=== PATIENT | male | born 1965 | race Caucasian/White ===

== ENCOUNTER → 2019-02-21 12:33 | Outpatient (CLI) | payer SELFPAY ==
[2014-09-11 16:24] VITALS: BMI 21.6
--- NOTE | 2019-02-21 12:40 | CT_ITS ---
STUDY: CT CHEST WITHOUT CONTRAST REASON FOR EXAM: Male, 53 years old. Coronary calcium score, Over read RADIATION DOSAGE (If Supplied By Facility): CTDIvol = ( 12.19 ) mGy, DLP = ( 219.42 ) mGycm TECHNIQUE: Transaxial imaging was performed without the administration of intravenous contrast material. Individualized dose optimization techniques were used for this CT. COMPARISON: None. FINDINGS: Upper abdomen, body wall soft tissues, osseous structures, mediastinal contents exhibits no acute process. Mild generalized hyperlucency of the lungs consistent with air trapping, COPD. No acute pulmonary process is evident within the [id number]. There is minimal bibasilar bronchial wall thickening, likely chronic inflammatory. Normal heart size without pericardial effusion. Nondilated aorta. Nondilated pulmonary arteries. The right and left coronary arteries each emerge from the appropriate coronary sinus with right coronary dominance to the PDA. Conventional branching anatomy. There is a single tiny focus of calcification in the proximal LAD, no other visible calcified plaque. CT/Limited Chest CT w/CCTA IMPRESSION: Single small focus of calcification in the proximal LAD. Normal coronary artery branching anatomy. COPD. Electronically Signed: Jacobo Whitfield MD at 14:04 EDT Tel , Service support ,
[2019-02-21 12:44] VITALS: BP 132/66; PULSE 61; RESP 18; O2SAT 98; BMI 22.3
--- NOTE | 2019-02-25 10:30 | CA.SCORE ---
Calcium Scoring Date of Study:: 02/21/19 Coronary Calcium Scoring: High-resolution Computed Tomographic imaging of the chest was performed on [02/21/2019], with particular attention paid to the coronary arteries. Images from the examination were analyzed for the presence and extent of coronary artery calcification , using coronary calcium quantification software. The patient tolerated the procedure well and there were no complications. The results of the coronary calcification analysis are provided below. - Findings Left Main (LM): 0 Left Anterior Descending (LAD): 0 Left Circumflex (LCX): 0 Right Coronary Artery (RCA): 0 Total Agatston Score: 0 Percentile Rankin Calcium Scoring Interpretation: 0 No identifiable atherosclerotic plaque. Very low cardiovascular disease risk. <5% chance of presence coronary artery disease A Negative Examination 1-10 Minimal Plaque burden. Significant coronary artery disease very unlikely. 11-100 Mild plaque burden. Likely mild or minimal coronary atherosclerosis. 101-400 Moderate plaque burden Moderate non-obstructive coronary artery disease highly likely. Over 400 Extensive plaque burden. High likelihood of at least one significant coronary stenosis (>50% diameter) The total calcium score (0) is below the 25th percentile for men between the ages of 55 and 59. (Exact percentile calculated to be 0%; this means 0% of the population is a similar calcium score and 99% of the population is a higher calcium score than this patient.) A full evaluation of cardiac risk should include an assessment of all conventional risk factors, and the scores and percentile rankings reported herein should be evaluated in this context.
== END ==
PROVIDERS: Family Provider Internal Medicine; PCP Internal Medicine; Referring Provider Internal Medicine; Visit Provider Internal Medicine
DX: E78.5 Hyperlipidemia, unspecified (principal); Z82.49 Family history of ischemic heart disease and other diseases of the circulatory system
CPT/HCPCS: 75571; 76380

== ENCOUNTER → 2020-09-03 12:04 | Outpatient (CLI) | payer BC, SELFPAY ==
[2019-02-21 12:44] VITALS: BMI 22.3
--- NOTE | 2020-09-03 12:07 | RAD_ITS ---
STUDY: X-RAY CHEST REASON FOR EXAM: Male, 54 years old. COUGH TECHNIQUE: PA and lateral views of the chest. COMPARISON: Comparison is made with prior examination dated 09/11/2014. FINDINGS: There is hyperinflation of the lungs consistent with chronic obstructive lung disease (COPD). There is no demonstrated pleural abnormality. Normal size heart. Normal mediastinum and cy. Normal visualized pulmonary arteries. Normal visualized aortic arch and descending thoracic aorta. There is demineralization of the osseous structures. Normal visualized ribs, clavicles, and shoulders. There is no demonstrated abnormality of the visualized soft tissue structures of the upper abdomen. RAD/Chest PA and Lateral IMPRESSION: Hyperinflation. COPD. Electronically Signed: Chon Cornejo MD at 15:20 EST , Service support ,
== END ==
PROVIDERS: PCP Internal Medicine; Referring Provider Internal Medicine; Visit Provider Internal Medicine
DX: J44.9 Chronic obstructive pulmonary disease, unspecified (principal)
CPT/HCPCS: 71046

== ENCOUNTER → 2021-04-06 | Outpatient (CLI) | payer BC, SELFPAY | END | disposition home or self-care (01) | LOC: LABSPEC 10:28 | PROVIDERS: PCP Internal Medicine; Referring Provider Internal Medicine; Visit Provider Internal Medicine | DX: Z20.822 Contact with and (suspected) exposure to COVID-19 (principal) | CPT/HCPCS: 87635; U0005; U0003 ==

== ENCOUNTER → 2021-04-08 | Outpatient (CLI) | payer BC, SELFPAY | END | disposition home or self-care (01) | LOC: LABSPEC 09:57 | PROVIDERS: PCP Internal Medicine; Referring Provider Internal Medicine; Visit Provider Internal Medicine | DX: Z20.822 Contact with and (suspected) exposure to COVID-19 (principal) | CPT/HCPCS: 87635; U0005; U0003 ==

== ENCOUNTER → 2025-04-03 | Outpatient (CLI) | payer BC, SELFPAY ==
--- NOTE | 2025-04-03 15:32 | MRI_ITS ---
PROCEDURE: UPPER EXT JOINT ONLY(ROUTINE) 04/03/2025 REASON FOR EXAM: ABNORMAL PLAIN XRAY OF RT WRIST TECHNIQUE: Procedure Code: MRIUEJ Modality: MR Procedure: UPPER EXT JOINT ONLY(ROUTINE) Multiplanar and multisequence images were obtained without IV contrast administration. COMPARISON: COMPARISON: FINDINGS: Ligaments and tendons: No extensor tendon abnormality. No flexor tendon abnormality. Diffusely torn scapholunate ligament with widened scapholunate interval. No lunatotriquetral ligament tear. No tear of the triangular fibrocartilage with intact attachment sites. Bones and soft tissues: Dorsal tilt of the lunate with horizontal scaphoid positioning, compatible with dorsal intercalated segment instability. Periarticular bone edema about the radial-scaphoid articulation, with marginal osseous ridging and joint space narrowing with chondral thinning. Distal radioulnar, radiocarpal and midcarpal joint effusions. Arthrosis and small effusion at the triquetral-pisiform joint. Mild proximal migration of the capitate. Mild arthrosis at the 1st carpometacarpal joint with effusion. Mild arthrosis at the triscaphe joint. No evidence of fracture. No soft tissue mass, cyst or abnormal fluid collection. No median nerve abnormality. Degenerative changes and mild deformities of the radial aspect of the lunate in the anterior capitate, which could indicate previous traumatic injuries. No evidence of osteonecrosis. MRI/Upper Ext Joint Only(Routine) IMPRESSION: Diffusely torn scapholunate ligament with widened scapholunate interval and ali gnment suggesting dorsal intercalated segment instability. This contributes to proximal capitate migration. Arthrosis with chondral thinning and periarticular bone edema about the radial- scaphoid articulation. Mild arthrosis at the 1st carpometacarpal joint and the triscaphe joint. Arthrosis at the triquetral-pisiform joint. Multiple joint effusions. Reading Location: [facility]
== END | disposition home or self-care (01) ==
LOC: MRI 15:23
PROVIDERS: PCP Internal Medicine; Referring Provider Internal Medicine; Visit Provider Internal Medicine
DX: R93.6 Abnormal findings on diagnostic imaging of limbs (principal)
CPT/HCPCS: 73221

== ENCOUNTER → 2025-04-15 | Outpatient (CLI) | payer BC, SELFPAY ==
--- NOTE | 2025-04-15 12:45 | ECHOD_ITS ---
Reason For Study Reason For Study: ABNORMAL SCREENING CARDIAC CT Procedure This was a 2D Doppler, Color Flow transthoracic echocardiogram. Exam performed in department. Left Ventricle Normal LV size. Left ventricular systolic function is normal. The left ventricular ejection fraction is 65 %. No regional wall motion abnormalities noted. Right Ventricle Normal RV size. The right ventricle is normal in size, function, and thickness. Atria Normal left atrium. Normal right atrium. Mitral Valve Normal mitral valve. Tricuspid Valve Normal tricuspid valve. Mild (1+) tricuspid valve insufficiency. Pulmonary artery systolic pressure is 24 mmHg. Aortic Valve Trisinus/trileaflet aortic valve. Pulmonic Valve Normal pulmonic valve. Great Vessels Normal aortic root. The pulmonary artery is normal size. Inferior vena cava collapse with respiration. Pericardium/Pleural No pericardial effusion. MMode/2D Measurements & Calculations LVIDd: 4.6 cm IVSd: 1.0 cm Ao root diam: 3.3 cm LVIDs: 2.9 cm LVPWd: 1.0 cm RVDd: 3.2 cm FS: 36.5 % LAV(MOD-bp): 51.2 ml LVAd ap4: 29.2 cm2 LVAd ap2: 29.9 cm2 LAV(MOD-bp) Indexed: 27.0 ml/m2 LVLd ap4: 8.4 cm LVLd ap2: 8.6 cm LAV(MOD-sp2): 64.3 ml EDV(MOD-sp4): 83.5 ml EDV(MOD-sp2): 85.6 ml LAV(MOD-sp4): 41.2 ml EDV(sp4-el): 86.7 ml EDV(sp2-el): 87.8 ml LVAs ap4: 14.3 cm2 LVAs ap2: 15.6 cm2 LVLs ap4: 6.5 cm LVLs ap2: 7.3 cm ESV(MOD-sp4): 26.2 ml ESV(MOD-sp2): 29.7 ml ESV(sp4-el): 26.6 ml ESV(sp2-el): 28.6 ml EF(MOD-sp4): 68.6 % EF(MOD-sp2): 65.3 % EF(sp4-el): 69.4 % SV(MOD-sp4): 57.3 ml SV(MOD-sp2): 56.0 ml SV(sp4-el): 60.1 ml SI(MOD-sp4): 30.2 ml/m2 SI(MOD-sp2): 29.5 ml/m2 LA A4 area: 17.2 cm2 LA dimension(2D): 3.0 cm RA A4 area: 15.6 cm2 TAPSE: 2.7 cm Time Measurements MV dec time: 0.20 sec Doppler Measurements & Calculations MV E max edi: 77.8 cm/sec Lat Peak E' Edi: 16.3 cm/sec Med Peak E' Edi: 11.0 cm/sec MV A max edi: 67.0 cm/sec E/E' lat: 4.8 E/E' med: 7.1 MV E/A: 1.2 MV V2 max: 86.8 cm/sec MV P1/2t max edi: 85.7 cm/sec Ao V2 max: 147.1 cm/sec MV max P.0 mmHg MV P1/2t: 75.2 msec Ao max P.7 mmHg MV V2 mean: 43.5 cm/sec Ao V2 mean: 99.4 cm/sec MV mean P.90 mmHg MV dec slope: 333.6 cm/sec2 Ao mean P.4 mmHg MV V2 VTI: 27.8 cm MVA(P1/2t): 2.9 cm2 Ao V2 VTI: 31.1 cm AV (velocity ratio): 0.92 LV V1 max: 133.0 cm/sec PA V2 max: 99.2 cm/sec PI end-d edi: 99.1 cm/sec LV V1 max P.1 mmHg LV V1 mean P.6 mmHg LV V1 mean: 88.8 cm/sec LV V1 VTI: 28.5 cm TR max edi: 229.5 cm/sec TR max P.2 mmHg ECHO/Echo Complete Interpretation Summary Normal LV size. Left ventricular systolic function is normal. The left ventricular ejection fraction is 65 %. Doppler studies, color flow and spectral analysis demonstrates no significant r egurgitant or stenotic jets. Structurally normal valves. Ordering Physician: Tayler Parr Referring Physician: Tayler Parr Performed By: Nannette Mcginnis RDCS, RVT
== END | disposition home or self-care (01) ==
PROVIDERS: PCP Internal Medicine; Referring Provider Internal Medicine; Visit Provider Internal Medicine
DX: R93.1 Abnormal findings on diagnostic imaging of heart and coronary circulation (principal); I07.1 Rheumatic tricuspid insufficiency
CPT/HCPCS: 93306

== ENCOUNTER 2025-05-31 11:38 | Emergency (ER) | payer BC, SELFPAY ==
[2025-05-31] VITALS (15 sets, daily range): BP systolic 119–157; BP diastolic 70–101; PULSE 54–149; RESP 14–18; TEMP 36.4; O2SAT 98–100; BMI 23.5
--- NOTE | 2025-05-31 11:45 | EKG12_ITS ---
Test Reason : TACHY Blood Pressure : */* mmHG Vent. Rate : 146 BPM Atrial Rate : 146 BPM P-R Int : 142 ms QRS Dur : 106 ms QT Int : 368 ms P-R-T Axes : * 113 199 degrees QTcB Int : 573 ms Critical Test Result: High HR Sinus tachycardia RSR' or QR pattern in V1 suggests right ventricular conduction delay Inferior infarct , age undetermined Baseline artifact Abnormal ECG Confirmed by Anthony Krishna ([id number]), art editor ALEJO SHELLEY ([id number]) on 06/01/2025 8:23:35 AM Referred By: RODY Confirmed By: Anthony Krishna
--- NOTE | 2025-05-31 11:57 | RAD_ITS ---
PROCEDURE: CHEST 1 VIEW (PORTABLE) 05/31/2025 REASON FOR EXAM: PALPITATIONS TECHNIQUE: Frontal view of the chest. COMPARISON: Frontal chest, 07/07/2022. FINDINGS: The lungs are clear. The heart borders mediastinum and pulmonary vascular pattern are normal. The visualized bowel gas pattern is normal. There are no bony abnormalities. RAD/Chest 1 View (Portable) IMPRESSION: No evidence of acute cardiopulmonary pathology. Reading Location: [id number]
[2025-05-31 12:07] LABS: Hematocrit 50.7 % (40-54); Hemoglobin 16.3 g/dL (13.0-16.5); Immature Granulocytes Count 0.040 X10^3/uL (0.0-0.0); Mean Corp Hgb Conc 32.1 g/dL (32-36); Mean Corpuscular Volume 94.1 fL (80-94); Mean Platelet Vol. 9.5 fl (6.2-12.0); NRBC Flagged by Analyzer 0 % (0-5); Platelet Count 327 K/mm3 (150-450); RBC Distribution Width CV 13.2 % (11.6-14.6); RBC Distribution Width SD 46.2 fl (35.1-43.9); Red Blood Count 5.39 M/mm3 (4.6-6.2); White Blood Count 9.2 K/mm3 (4.4-11.0)
[2025-05-31] MEDS: Adenosine 6 MG/2 ML Syringe IV (12:09)
--- OUTSIDE RECORDS SUMMARY | 2025-05-31 12:09 | XMS RPT_ITS | CCD ---
Author Organization [facility] Care Team Providers Care Counter Stitcher Name Role Phone Meghana Lanier Unavailable Jewell Mendozasea Unavailable Unavailable Ortiz Hdez Unavailable Unavailable Wily, Cally L Unavailable Unavailable Unavailable Unavailable Meghana Lanier Unavailable TRUDY Taylor Unavailable Unavailable Wily, Cally L Unavailable Unavailable Unavailable Unavailable Kevan Julienn L Unavailable Unavailable TRUDY Taylor Unavailable Unavailable Jewell Mendozasea Unavailable Unavailable Ortiz Hdez Unavailable Unavailable Meghana Lanier MD Unavailable TRUDY Taylor LPN Unavailable Unavailable Wily RNCally Unavailable Unavailable Unavailable Unavailable Meghana Lanier MD Unavailable [phone] Manimmanuel AG, Marina Unavailable Unavailable Bubba AG, Kayela Unavailable Unavailable Brittany Nieto MA Unavailable Unavailable Genny Gallegos LPN Unavailable Unavailable Mercy Gutiérrez Unavailable Unavailable Dr. Mercy Gutiérrez Unavailable Meghana Lanier MD Primary Care Provider [phone] Rosalia SMITH , Mark Poe Unavailable Meghana Lanier MD Attending Unavailable Meghana Lanier MD Consulting Unavailable Meghana Lanier MD Primary Care Provider [phone] Dr. Meghana Lanier MD Primary Care Provider [phone] Dr. Ye Conrad MD Attending Provider SELINA ZIEGLER Referring Unavailable MEGHANA LANIER Primary Care Unavailable SELINA ZIEGLER Attending Unavailable MEGHANA LANIER Primary Care Unavailable MERCY GUTIÉRREZ Referring Unavailable BONEZZI, MEGHANA M Primary Care Unavailable BONEZZI, MEGHANA M Primary Care Unavailable SELINA ZIEGLER Attending Unavailable MERCY GUTIÉRREZ Referring Unavailable Keshav SMITH, Dr. Lester Primary Care Physician [place] SMITH, Dr. Belcher Attending Physician Keshav SMITH, Dr. Lester Attending Physician [phone] Keshav SMITH, Dr. Lester Referring Provider Sebastien Spangler MD Unavailable NONE, NONE Unavailable Unavailable Meghana Lanier MD Unavailable Bonezzi, Meghana Primary Care Unavailable Bonezzi, Meghana Attending Unavailable Bonezzi, Meghana Referring Unavailable Bonezzi, Meghana Attending Unavailable Bonezzi, Meghana Referring Unavailable Bonezzi, Meghana Primary Care Unavailable Bonezzi, Meghana Primary Care Unavailable [place] Ye Attending Unavailable Bonezzi, Meghana Primary Care Unavailable [place], [place] Attending Unavailable Allergies Allergy Classification Reported Allergen(s) Allergy Type Date of Onset Reaction(s) Facility (15 sources) Grass pollen; Translations: [GRASS POLLEN] Propensity to adverse reactions 6 Shortness of Breath [facility] (15 sources) House dust mite; Translations: [DUST MITES] Propensity to adverse reactions 6 Other: See Comments [facility] (15 sources) Tree; Translations: [TREES] Propensity to adverse reactions 6 Shortness of Breath [facility] (10 sources) animal dander [Other] Propensity to adverse reactions 6 [facility] (10 sources) molds [Other] Propensity to adverse reactions 6 [facility] (5 sources) Mold Extract; Translations: [MOLD] Drug Allergy 4 Shortness of Breath [facility] (5 sources) Animal Dander; Translations: [ANIMAL DANDER] Drug Allergy 4 Shortness of Breath [facility] Medications Current Medications Medication Drug Class(es) Dates Sig (Normalized) Sig (Original) [id number] actuat albuterol 0.09 mg/actuat metered dose inhaler (20 sources) beta2-Adrenergic Agonist Start: 06-12-2022 take 1-2 puff(s) by mouth every six hours albuterol HFA (PROVENTIL HFA, VENTOLIN HFA) 90 mcg/actuation inhaler inhale 1 to 2 puffs by mouth and INTO THE LUNGS every 6 hours if needed 06/12/2022 Active Start: 06-12-2022 ProAir HFA 90 mcg/actuation inhalation HFA Aerosol with Adapter 1 or 2 puffs q 6 hours prn for 0 days Quantity: 1 {Each} Refills: 2 Ordered: 12-Jul-2022 Meghana Lanier MD, MD, Dana M Start : 12-Jul-2022 Active Start: 09-23-2019 ProAir HFA 108 (90 Base) MCG/ACT Inhalation Aerosol Solution 1 or 2 puffs q 6 hours prn for 0 days Quantity: 1 {Inhaler} Refills: 2 Ordered: 23-Sep-2019 Meghana Lanier MD, MD, Dana M Start : 23-Sep-2019 Active Start: 09-23-2019 ProAir HFA 108 (90 Base) MCG/ACT Inhalation Aerosol Solution 1 or 2 puffs q 6 hours prn for 0 days Quantity: 1 {Inhaler} Refills: 2 Ordered: 23-Sep-2019 Meghana Lanier MD, MD, Dana M Start : 23-Sep-2019 Active Start: 08-03-2017 take 1-2 puff(s) by inhalation every six hours as needed ProAir HFA 108 (90 Base) MCG/ACT Inhalation Aerosol Solution 1-2 puffs q 6 hours prn for 0 days Quantity: 1 {Inhaler} Refills: 2 Ordered: 03-Aug-2017 Meghana Lanier MD, MD, Dana M Start : 03-Aug-2017 Active Comment on above: inhale 1 to 2 puffs by mouth and INTO THE LUNGS every 6 hours if needed cetirizine hydrochloride 10 mg oral capsule (20 sources) Histamine-1 Receptor Antagonist Start: 09-11-2014 take 1 capsule by mouth once daily Start: 08-01-2006 CETIRIZINE 10 MG TAB Indications: 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 90 6 08/01/2006 Active Comment on above: Take one(1) tablet d tatum at bedtime. 30 actuat fluticasone furoate 0.2 mg/actuat dry powder inhaler (20 sources) Corticosteroid Start: 02-18-20 take 1 puff(s) by inhalation once daily fluticasone furoate (ARNUITY ELLIPTA) 200 mcg/actuation inhaler Inhale 1 Puff as instructed once daily. 1 Each 02/18/2024 Active Start: 01-24-2023 take 1 puff(s) by in halation once daily fluticasone furoate (ARNUITY ELLIPTA) 100 mcg/actuation inhaler Indications: Moderate persistent asthma without complication Inhale 1 Puff as instructed once daily. 1 Each 01/24/2023 Active Start: 09-04-2022 End: 02-18-2024 take 1 puff(s) by inhalation once daily fluticasone furoate (ARNUITY ELLIPTA) 100 mcg/actuation inhaler Indications: Moderate persistent asthma without complication Inhale 1 Puff as instructed once daily. 1 Each 02/18/2024 02/18/2024 Discontinued (Changing Therapy/Dosage Form) Start: 07-12-2022 take 2 spray(s) nasa l route once daily fluticasone propionate 50 mcg/actuation intranasal spray, suspension 2 sprays Suspension each nostril qd for 0 days Quantity: 1 {Suspension} Refills: 3 Ordered: 12-Jul-2022 Keshav SMITH, Meghana Lanier MD, Meghana Maravilla Start : 12-Jul-2022 Active Start: 03-06-2013 fluticasone (F LONASE) 50 mcg/actuation nasal spray Use 1 [place] in the nose once daily. 03/06/2013 Active Start: 03-06-2013 take 2 spray(s) nasa l route once daily FLUTICASONE PROPIONATE, 50MCG/ACT (Nasal Suspension) 2 sprays Suspension each nostril qd for 0 days Quantity: 1 {Suspension} Refills: 3 Ordered: 09-Oct-2014 Neetu Whatley Start : 06-Mar-2013 Active take 1 puff(s) by [facility] once daily Arnuity Ellipta 200 mcg/actuation powder for inhalation INHALE 1 PUFF BY MOUTH ONCE DAILY. active Callie Fulton AT [facility] Comment on above: Inhale 1 Puff as ins tructed once daily. Use 1 [place] in the n ose once daily. montelukast 10 mg oral tablet (20 sources) Leukotriene Receptor Antagonist Start: take 1 tablet by mouth once daily montelukast (SINGULAIR) 10 mg tablet Take 10 mg by mouth once daily. 06/12/2022 Active Start: 01-21-2022 take 1 tablet by cecilia th once daily Singulair 10 MG Oral Tablet 1 (one) Tablet QD for 0 days Quantity: 30 {Tablet} Refills: 3 Ordered: 21-Jan-2022 Meghana Lanier MD, MD, Dana M Start : 21-Jan-2022 Active Start: 06-03-2021 take 1 tablet by cecilia th once daily Singulair 10 MG Oral Tablet 1 (one) Tablet QD for 0 days Quantity: 30 {Tablet} Refills: 6 Ordered: 03-Jun-2021 Meghana Lanier MD, MD, Dana M Start : 03-Jun-2021 Active Start: 03-05-2020 take 1 tablet by cecilia th once daily Singulair 10 MG Oral Tablet 1 (one) Tablet QD for 0 days Quantity: 30 {Tablet} Refills: 6 Ordered: 24-Sep-2020 Meghana Lanier MD, MD, Dana M Start : 24-Sep-2020 Active Start: 02-10-2020 take 1 tablet by cecilia th once daily Singulair 10 MG Oral Tablet 1 (one) Tablet QD for 0 days Quantity: 30 {Tablet} Refills: 6 Ordered: 10-Feb-2020 Meghana Lanier MD, MD, Dana M Start : 10-Feb-2020 Active Start: 11-23-2017 End: 11-22-2018 take 1 tablet by mouth once daily Singulair 10 MG Oral Tablet 1 (one) Tablet QD for 0 days Quantity: 30 {Tablet} Refills: 5 Ordered: 23-Nov-2017 Meghana Lanier MD, MD, Dana M Start : 23-Nov-2017 End : 22-Nov-2018 Discontinued Comment on above: Take 10 mg by mouth once daily. nirmatrelvir tablet 300 mg (150 mg x 2) and ritonavir tablet 100 mg in a dose pack (PAXLOVID) (1 source) Start: End: nirmatrelvir tablet 300 mg (150 mg x 2) and ritonavir tablet 100 mg in a dose pack (PAXLOVID) Administer TWO pink nirmatrelvir 150 mg tablets and ONE white ritonavir 100 mg tablet for a total of three tablets twice daily. 30 tablet 04/11/2024 04/16/2024 Active rosuvastatin calcium 5 mg oral tablet (5 sources) HMG-CoA Reductase Inhibitor Start: take 1 tablet by mouth once rosuvastatin (CRESTOR) 5 mg tablet Take 1 tablet by mouth every afternoon. 02/06/2024 Active Crestor 5 mg tab let .25mg active Callie Fulton AT [facility] Completed/Discontinued Medications Medication Drug Class(es) Dates Sig (Normalized) Sig (Original) amoxicillin 875 mg / clavulanate 125 mg oral tablet (20 sources) Penicillin-class Antibacterial Start: 08-30-2012 End: 07-15-2013 take 1 tablet by mouth twice daily AUGMENTIN, 875-125MG (Oral Tablet) 1 Tablet BID for 0 days Quantity: 20 {Tablet} Refills: 0 Ordered: 15-Jul-2013 Start : 30-Aug-2012 End : 15-Jul-2013 Inactive azithromycin 250 mg oral tablet (20 sources) Macrolide Antimicrobial Start: 10-24-2022 Zithromax Z-Michael 250 mg oral tablet 1 (one) Tablet uad for 0 days Quantity: 1 {Packet} Refills: 0 Ordered: 24-Oct-2022 Meghana Lanier MD, MD, Dana M Start : 24-Oct-2022 Active Start: 08-13-2022 End: 09-01-2022 Zithromax Z-Michael 250 mg oral tablet 1 (one) Tablet uad for 0 days Quantity: 1 {Packet} Refills: 0 Ordered: 01-Sep-2022 Marina Mendoza CMA Start : 13-Aug-2022 End : 01-Sep-2022 Inactive Start: 07-05-2022 End: 07-12-2022 Zithromax Z-Michael 250 mg oral tablet 1 (one) Tablet uad for 0 days Quantity: 1 {Packet} Refills: 0 Ordered: 12-Jul-2022 El CHERYGenny Start : 05-Jul-2022 End : 12-Jul-2022 Inactive Start: 05-27-2022 End: 06-12-2022 Zithromax Z-Michael 250 mg oral tablet 1 (one) Tablet uad for 0 days Quantity: 1 {Packet} Refills: 0 Ordered: 27-May-2022 Meghana Lanier MD, MD, Dana M Start : 27-May-2022 End : 12-Jun-2022 Discontinued Start: 08-08-2019 End: 12-12-2019 Zithromax Z-Michael 250 MG Oral Tablet 1 (one) Tablet uad for 0 days Quantity: 1 {Package} Refills: 0 Ordered: 12-Dec-2019 TRUDY Taylor LPN Start : 08-Aug-2019 End : 12-Dec-2019 Inactive breath-actuated 120 actuat beclomethasone dipropionate 0.08 mg/actuat metered dose inhaler (20 sources) Corticosteroid Start: 08-13-2022 End: 08-13-2022 take 2 puff(s) by inhalation twice daily Qvar RediHaler 80 mcg/actuation inhalation HFA Aerosol, Breath Activated 2 (two) Puff bid for 0 days Quantity: 1 {Each} Refills: 3 Ordered: 13-Aug-2022 Meghana Lanier MD, MD, Dana M Start : 13-Aug-2022 End : 13-Aug-2022 Discontinued Start: 07-12-2022 take 2 puff(s) by in halation twice daily Qvar RediHaler 80 mcg/actuation inhalation HFA Aerosol, Breath Activated 2 (two) Puff bid for 0 days Quantity: 1 {Each} Refills: 3 Ordered: 12-Jul-2022 Meghana Lanier MD, MD, Dana M Start : 12-Jul-2022 Active Start: 07-29-2021 take 2 puff(s) by in halation twice daily Qvar RediHaler 80 MCG/ACT Inhalation Aerosol Breath Activated 2 (two) Puff bid for 0 days Quantity: 1 {Each} Refills: 3 Ordered: 29-Jul-2021 Keshav SMITH, Meghana Jett MD Start : 29-Jul-2021 Active Start: 09-03-2020 take 2 puff(s) by in halation twice daily Qvar RediHaler 80 MCG/ACT Inhalation Aerosol Breath Activated 2 (two) Puff twice daily for next 2 weeks for 0 days Quantity: 1 {Inhalation} Refills: 3 Ordered: 03-Sep-2020 Keshav SMITH, Meghana Jett MD Start : 03-Sep-2020 Active Start: 07-09-2020 take 1 puff(s) by in halation twice daily Qvar RediHaler 80 MCG/ACT Inhalation Aerosol Breath Activated 1 (one) Puff twice daily for 0 days Quantity: 1 {Inhaler} Refills: 3 Ordered: 09-Jul-2020 Keshav SMITH, Meghana Jett MD Start : 09-Jul-2020 Active Start: 08-08-2019 take 1 puff(s) by in halation twice daily Qvar RediHaler 80 MCG/ACT Inhalation Aerosol Breath Activated 1 (one) Puff twice daily for 0 days Quantity: 1 {Inhaler} Refills: 3 Ordered: 08-Aug-2019 Keshav SMITH, Meghana Jett MD Start : 08-Aug-2019 Active Start: 09-30-2018 take 1 puff(s) by in halation twice daily Qvar RediHaler 80 MCG/ACT Inhalation Aerosol Breath Activated 1 (one) Puff twice daily for 0 days Quantity: 1 {Inhaler} Refills: 3 Ordered: 30-Sep-2018 Meghana Lanier MD, MD, Dana M Start : 30-Sep-2018 Active Start: 06-02-2016 End: 09-30-2018 Qvar 80 MCG/ACT Inhalation A erosol Solution 2 (two) Aerosol Soln Aerosol Soln q am for 0 days Quantity: 1 {Inhaler} Refills: 5 Ordered: 04-Aug-2016 TRUDY Taylor LPN Start : 02-Jun-2016 End : 30-Sep-2018 Discontinued Comments: This order discontinued per [facility]. Start: 06-02-2016 End: 09-30-2018 Qvar 80 MCG/ACT Inhalation A erosol Solution 2 (two) Aerosol Soln Aerosol Soln q am for 0 days Quantity: 1 {Inhaler} Refills: 5 Ordered: 04-Aug-2016 TRUDY Taylor LPN Start : 02-Jun-2016 End : 30-Sep-2018 Discontinued Comments: This order discontinued per [facility]. Start: 06-02-2016 Qvar 80 MCG/AC T Inhalation Aerosol Solution 2 (two) Aerosol Soln Aerosol Soln bid for 0 days Quantity: 1 {Inhaler} Refills: 5 Ordered: 04-Aug-2016 Keshav SMITH, Meghana Lanier MD, Meghana Maravilla Start : 02-Jun-2016 Active Comments: This order discontinued per [facility]. Start: 09-11-2014 take 1 puff(s) by in halation twice daily Start: 09-11-2014 take 1 puff(s) by in halation twice daily Beclomethasone Diprop Inhaler (Qvar 80 Mcg Inhaler) 1 PUFF inhaler Active 1 NMA INHALATION TWICE A DAY September 11, 2014 12:00am Start: 09-11-2014 Beclomethasone Diprop Inhaler (Qvar 80 Mcg Inhaler) 1 PUFF inhaler Active 1 PUFF INHALATION TWICE A DAY September 10, 2014 11:00pm End: 10-30-2022 beclomethasone dipropionate (QVAR INHALATION) Inhale as instructed. 0 10/30/2022 Discontinued (Course of therapy completed) beclomethasone d ipropionate (QVAR INHALATION) Inhale as instructed. 0 Active Comment on above: This order discontin ued per -. Inhale as instructed . 24 hr buPROPion hydrochloride 150 mg extended release oral tablet (20 sources) Aminoketone Start: 012 End: 023 take 1 tablet by mouth once daily WELLBUTRIN XL, 150MG (Oral Tablet Extended Release 24 Hour) 1 Tablet ER 24HR daily for 0 days Quantity: 30 {Tablet_ER_24HR} Refills: 6 Ordered: 15-Aug-2013 Cary Patten RN Start : 07-May-2012 End : 15-Aug-2013 Inactive Comment on above: Take 150 mg by mouth once daily. Centrum Silver 400-250 mcg oral tablet,chewable (8 sources) take 1 tablet by mouth once daily Centrum Silver 400-250 mcg oral tablet,chewable daily (400-250 mcg) Active cholecalciferol 0.125 mg oral capsule (20 sources) Vitamin D Start: 018 take 1 capsule by mouth in the morning cholecalciferol (vitamin D3) 125 mcg (5,000 unit) oral capsule 1 (one) Capsule Capsule in am for 0 days Quantity: 30 {Capsule} Refills: 0 Ordered: 12-Jul-2022 Keshav SMITH, Meghana Lanier MD, Meghana Maravilla Start : 12-Jul-2022 Active codeine phosphate 2 mg/ml / guaiFENesin 20 mg/ml oral solution (20 sources) Opioid Agonist Start: End: take 1 [tsp_us] by mouth once daily at bedtime as needed CHERATUSSIN AC, 100-10MG/5ML (Oral Syrup) 1 (one) Teaspoon qhs prn for 0 days Quantity: 6 {Ounce} Refills: 0 Ordered: 15-Aug-2013 Cary Patten RN Start : 15-Jul-2013 End : 15-Aug-2013 Inactive esomeprazole 40 mg delayed release oral capsule (20 sources) Proton Pump Inhibitor End: take 1 capsule by mouth once daily NEXIUM, 40MG (Oral Capsule Delayed Release) 1 QD for 0 days Refills: 0 Ordered: 02-Apr-2008 Cary Patten RN End : 02-Apr-2008 Inactive 14 actuat fluticasone propionate 0.1 mg/actuat / salmeterol 0.05 mg/actuat dry powder inhaler (20 sources) Corticosteroid, beta2-Adrenergic Agonist End: 008 ADVAIR DISKUS, 100-50MCG/DOSE (Inhalation Miscellaneous) 1 QD for 0 days Refills: 0 Ordered: 02-Apr-2008 Cary Patten RN End : 02-Apr-2008 Inactive End: 04-02-2008 ADVAIR DISKUS, 100-50MCG/DOS E (Inhalation Miscellaneous) 1 QD for 0 days Refills: 0 Ordered: 02-Apr-2008 Cary Patten RN End : 02-Apr-2008 Inactive End: 04-02-2008 ADVAIR DISKUS, 100-50MCG/DOS E (Inhalation Miscellaneous) 1 QD for 0 days Refills: 0 Ordered: 02-Apr-2008 Cary Patten LPN End : 02-Apr-2008 Inactive 120 actuat formoterol fumarate 0.005 mg/actuat / mometasone furoate 0.2 mg/actuat metered dose inhaler (10 sources) Corticosteroid, beta2-Adrenergic Agonist Start: 08-13-2022 End: 09-01-2022 take 2 puff(s) by inhalation twice daily Dulera 200-5 mcg/actuation inhalation HFA Aerosol with Adapter 2 puffs 2 times per day for 0 days Quantity: 1 {Each} Refills: 3 Ordered: 13-Aug-2022 Meghana Lanier MD, MD, Dana M Start : 13-Aug-2022 End : 01-Sep-2022 Discontinued lansoprazole 30 mg delayed release oral capsule (20 sources) Proton Pump Inhibitor End: 04-02-2008 take 1 capsule by mouth once daily PREVACID, 30MG (Oral Capsule Delayed Release) 1 QD for 0 days Refills: 0 Ordered: 02-Apr-2008 Cary Patten RN End : 02-Apr-2008 Inactive levoFLOXacin 500 mg oral tablet (20 sources) Quinolone Antimicrobial Start: 01-14-2021 End: 07-12-2022 take 1 tablet by mouth once daily Levaquin 500 mg oral tablet 1 Tablet QD for 0 days Quantity: 10 {Tablet} Refills: 0 Ordered: 12-Jul-2022 Meghana Lanier MD, MD, Meghana Maravilla Start : 14-Jan-2021 End : 12-Jul-2022 Discontinued Comments: Discontinued by Medication vendor. Start: 07-23-2020 End: 09-03-2020 take 1 tablet by mouth once daily Levaquin 500 MG Oral Tablet 1 Tablet QD for 0 days Quantity: 10 {Tablet} Refills: 0 Ordered: 03-Sep-2020 TRUDY Taylor LPN Start : 23-Jul-2020 End : 03-Sep-2020 Inactive Comments: Mail order. Start: 07-15-2020 take 1 tablet by cecilia once daily Levaquin 500 MG Oral Tablet 1 Tablet QD for 0 days Quantity: 10 {Tablet} Refills: 0 Ordered: 15-Jul-2020 Meghana Lanier MD, MD, Dana M Start : 15-Jul-2020 Active Comments: Mail order. Start: 05-25-2019 End: 08-05-2019 take 1 tablet by mouth once daily Levaquin 500 MG Oral Tablet 1 Tablet QD for 0 days Quantity: 10 {Tablet} Refills: 0 Ordered: 05-Aug-2019 TRUDY Taylor LPN Start : 25-May-2019 End : 05-Aug-2019 Inactive Comments: Mail order. Start: 11-22-2018 take 1 tablet by cecilia th once daily Levaquin 500 MG Oral Tablet 1 Tablet QD for 0 days Quantity: 10 {Tablet} Refills: 0 Ordered: 22-Nov-2018 Meghana Lanier MD, MD, Dana M Start : 22-Nov-2018 Active Comments: Mail order. Start: 08-04-2016 End: 07-03-2017 take 1 tablet by mouth once daily Levaquin 500 MG Oral Tablet 1 Tablet Tablet QD for 0 days Quantity: 10 {Tablet} Refills: 0 Ordered: 03-Jul-2017 TRUDY Taylor Start : 04-Aug-2016 End : 03-Jul-2017 Inactive Comments: Mail order. Comment on above: Mail order. Discontinued by [facility] vendor. metoprolol tartrate 50 mg oral tablet (20 sources) beta-Adrenergic Charly Start: 07-09-2020 End: 06-12-2022 metoprolol tartrate 50 mg oral tablet uad Tablet 1 @ 6pm night before test and 1 @ 7am day of test for 0 days Quantity: 2 {Tablet} Refills: 0 Ordered: 09-Jul-2020 Meghana Lanier MD, MD, Dana M Start : 09-Jul-2020 End : 12-Jun-2022 Discontinued Start: 11-26-2018 Metoprolol Tar trate 50 MG Oral Tablet uad Tablet 1 @ 6pm night before test and 1 @ 7am day of test for 0 days Quantity: 2 {Tablet} Refills: 0 Ordered: 26-Nov-2018 Meghana Lanier MD, MD, Dana M Start : 26-Nov-2018 Active mometasone furoate 0.05 mg/actuat metered dose nasal spray (20 sources) Corticosteroid Start: 03-13-2014 End: 06-02-2016 Nasonex 50 MCG/ACT Nasal Suspension 2 (two) Puff Puff daily for 0 days Quantity: 1 {Bottle} Refills: 0 Ordered: 02-Jun-2016 TRUDY Taylor LPN Start : 13-Mar-2014 End : 02-Jun-2016 Inactive Start: 03-13-2014 End: 06-02-2016 Nasonex 50 MCG/ACT Nasal Calli pension 2 (two) Puff Puff daily for 0 days Quantity: 1 {Bottle} Refills: 0 Ordered: 02-Jun-2016 TRUDY Taylor Start : 13-Mar-2014 End : 02-Jun-2016 Inactive omeprazole 40 mg delayed release oral capsule (5 sources) Proton Pump Inhibitor Start: 10-19-2012 End: 10-30-2022 take 1 capsule by mouth once daily Omeprazole (PRILOSEC) 40 mg capsule Take 1 capsule by mouth once daily. 30 capsule 2 10/19/2012 10/30/2022 Discontinued (Discontinued by Patient) Comment on above: Take 1 capsule by [facility] once daily. pantoprazole 40 mg delayed release oral tablet (20 sources) Proton Pump Inhibitor Start: 10-09-2014 End: 08-03-2017 Pantoprazole Sodium 40 MG Oral Tablet Delayed Release [address] bid for 30 days Quantity: 60 {Tablet} Refills: 3 Ordered: 04-Aug-2016 Meghana Lanier MD, MD, Dana M Start : 09-Oct-2014 End : 03-Aug-2017 Discontinued Paxlovid (300/100) 20 x 150 MG & 10 x 100MG Oral Tablet Therapy Pack (2 sources) Start: 04-20-2022 Paxlovid (300/ 100) 20 x 150 MG & 10 x 100MG Oral Tablet Therapy Pack use as directed per instructions in pack for 0 days Quantity: 1 {Packet} Refills: 0 Ordered: 20-Apr-2022 Keshav SMITH, Meghana Jett MD Start : 20-Apr-2022 Active Paxlovid (300/100) 20 x 150 MG & 10 x 100MG Oral Tablet Therapy Pack (16 sources) Start: 04-20-2022 End: 06-12-2022 Paxlovid (300/100) 20 x 150 MG & 10 x 100MG Oral Tablet Therapy Pack use as directed per instructions in pack for 0 days Quantity: 1 {Packet} Refills: 0 Ordered: 20-Apr-2022 Meghana Lanier MD, MD, Dana M Start : 20-Apr-2022 End : 12-Jun-2022 Discontinued Start: 04-20-2022 Paxlovid (300/ 100) 20 x 150 MG & 10 x 100MG Oral Tablet Therapy Pack use as directed per instructions in pack for 0 days Quantity: 1 {Packet} Refills: 0 Ordered: 20-Apr-2022 Meghana Lanier MD, MD, Dana M Start : 20-Apr-2022 Active predniSONE 20 mg oral tablet (20 sources) Start: 10-24-2022 take 2 tablets by mouth once daily, then take 1 tablet by mouth once daily, then take 1 tablet by mouth once daily predniSONE 20 mg oral tablet 1 (one) Tablet uad for 0 days Quantity: 17 {Tablet} Refills: 0 Ordered: 24-Oct-2022 Meghana Lanier MD, MD, Dana M Start : 24-Oct-2022 Active Comments: 2 tabs qd x 5 days1 tabs qd x 5 days1/2 tabs qd x 5 days Start: 08-13-2022 End: 09-01-2022 take 2 tablets by mouth once daily, then take 1 tablet by mouth once daily, then take 1 tablet by mouth once daily predniSONE 20 mg oral tablet 1 (one) Tablet uad for 0 days Quantity: 17 {Tablet} Refills: 0 Ordered: 01-Sep-2022 Marina Mendoza CMA Start : 13-Aug-2022 End : 01-Sep-2022 Inactive Comments: 2 tabs qd x 5 days1 tabs qd x 5 days1/2 tabs qd x 5 days Start: 07-05-2022 take 2 tablets by mo ut once daily, then take 1 tablet by mouth once daily, then take 1 tablet by mouth once daily predniSONE 20 mg oral tablet 1 (one) Tablet uad for 0 days Quantity: 17 {Tablet} Refills: 0 Ordered: 12-Jul-2022 Meghana Lanier MD, MD, Dana M Start : 12-Jul-2022 Active Comments: 2 tabs qd x 5 days1 tabs qd x 5 days1/2 tabs qd x 5 days Start: 06-12-2022 take 2 tablets by mo uth once daily, then take 1 tablet by mouth once daily, then take 0.5 tablet by mouth once daily predniSONE 20 mg oral tablet 1 (one) Tablet uad for 0 days Quantity: 17 {Tablet} Refills: 0 Ordered: 12-Jun-2022 Meghana Lanier MD, MD, Dana M Start : 12-Jun-2022 Active Comments: 2 a d for 5 d, 1 a d for 5 d, 1/2 a d for 4 d Start: 05-28-2022 take 2 tablets by mo uth once daily, then take 1 tablet by mouth once daily, then take 0.5 tablet by mouth once daily predniSONE 20 mg oral tablet 1 (one) Tablet uad for 0 days Quantity: 11 {Tablet} Refills: 0 Ordered: 28-May-2022 Meghana Lanier MD, MD, Dana M Start : 28-May-2022 Active Comments: 2 a d for 3 d, 1 a d for 3 d, 1/2 a d for 4 d Start: 07-29-2021 End: 08-08-2021 take 2 tablets by mouth once daily, then take 1 tablet by mouth once daily, then take 0.5 tablet by mouth once daily predniSONE 20 MG Oral Tablet 1 (one) Tablet uad for 10 days Refills: 0 Ordered: 29-Jul-2021 Meghana Lanier MD, MD, Dana M Start : 29-Jul-2021 End : 08-Aug-2021 Inactive Comments: 2 a d for 3 d, 1 a d for 3 d, 1/2 a d for 4 d Start: 09-03-2020 End: 09-13-2020 take 2 tablets by mouth once daily, then take 1 tablet by mouth once daily, then take 0.5 tablet by mouth once daily predniSONE 20 MG Oral Tablet 1 (one) Tablet uad for 10 days Refills: 0 Ordered: 03-Sep-2020 Meghana Lanier MD, MD, Dana M Start : 03-Sep-2020 End : 13-Sep-2020 Inactive Comments: 2 a d for 3 d, 1 a d for 3 d, 1/2 a d for 4 d Start: 08-08-2019 End: 08-24-2019 take 2 tablets by mouth once daily, then take 1 tablet by mouth once daily, then take 0.5 tablet by mouth once daily predniSONE 20 MG Oral Tablet 1 (one) Tablet uad for 16 days Refills: 0 Ordered: 08-Aug-2019 Meghana Lanier MD, MD, Dana M Start : 08-Aug-2019 End : 24-Aug-2019 Inactive Comments: 2 a d for 5 d, 1 a d for 5d, 1/2 a d for 6 d Start: 11-22-2018 End: 12-08-2018 take 2 tablets by mouth once daily, then take 1 tablet by mouth once daily, then take 0.5 tablet by mouth once daily predniSONE 20 MG Oral Tablet 1 (one) Tablet uad for 16 days Refills: 0 Ordered: 22-Nov-2018 Meghana Lanier MD, MD, Dana M Start : 22-Nov-2018 End : 08-Dec-2018 Inactive Comments: 2 a d for 5 d, 1 a d for 5d, 1/2 a d for 6 d Start: 03-20-2014 End: 05-27-2014 take 1 tablet by mouth once daily PREDNISONE, 20MG (Oral Tablet) 1 (one) Tablet qd for 0 days Quantity: 3 {Tablet} Refills: 0 Ordered: 27-May-2014 Wily GOTTLIEBKevanfernanda Almanza Start : 20-Mar-2014 End : 27-May-2014 Inactive Comment on above: 2 a d for 5 d, 1 a d for 5d, 1/2 a d for 6 d 2 a d for 3 d, 1 a d for 3 d, 1/2 a d for 4 d 2 a d for 5 d, 1 a d for 5 d, 1/2 a d for 4 d 2 tabs qd x 5 days1 tabs qd x 5 days1/2 tabs qd x 5 days Probiotic 10 billion cell oral capsule (8 sources) take 10 capsules by mouth once daily Probiotic 10 billion cell oral capsule daily (10 billion cell) Active triamcinolone acetonide 0.055 mg/actuat metered dose nasal spray (20 sources) Corticosteroid Start: 05-23-20 11 End: 05-23-20 11 take 2 spray(s) nasal route once daily NASACORT AQ, 55MCG/ACT (Nasal Aerosol Solution) 2 sprays each nostril Aerosol Soln QD for 0 days Quantity: 1 {Aerosol_Soln} Refills: 6 Ordered: 23-May-2011 TRUDY Taylor LPN Start : 23-May-2011 End : 23-May-2011 Inactive Start: 05-23-2011 End: 05-23-2011 take 2 spray(s) nasal route once daily NASACORT AQ, 55MCG/ACT (Nasal Aerosol Solution) 2 sprays each nostril Aerosol Soln QD for 0 days Quantity: 1 {Aerosol_Soln} Refills: 6 Ordered: 23-May-2011 TRUDY Taylor LPN Start : 23-May-2011 End : 23-May-2011 Inactive Start: 05-23-2011 End: 05-23-2011 take 2 spray(s) nasal route once daily NASACORT AQ, 55MCG/ACT (Nasal Aerosol Solution) 2 sprays each nostril Aerosol Soln QD for 0 days Quantity: 1 {Aerosol_Soln} Refills: 6 Ordered: 23-May-2011 TRUDY Taylor Start : 23-May-2011 End : 23-May-2011 Inactive Problems Active Problems Problem Classification Problem Date Documented Date Episodic/Chronic Abdominal pain (20 sources) Acute abdominal pain; Translations: [Left upper quadrant pain] Resolved : 07-03-19 18 07-03-2017 Episodic Comment on above: diverticular pain -- ?? vs some form of colitis ??- still doesnt explain supreficial rib pain - but pain is definitely more in abdomen now Allergic reactions (3 sources) Allergic disposition; Translations: [Allergy status to unspecified drugs, medicaments and biological substances status] Onset: 03-20-20 25 02-18-2024 Episodic Anxiety disorders (20 sources) Acute stress disorder; Translations: [Stress reaction] Resolved : 12-12-19 20 12-07-2017 Chronic Comment on above: deal some issue with dtr having issues and change in life groups and collegueas better with new [employer] and dtr leaving so not have the stress. with covid talk bout all the stressors financial, family dynamic talkbout nonmedication ways to help the anxiety. he does not have red flags right now. talk about when to call. if not eating, not sleeping or sleep to much, usign etoh, SI, not able to function at work. he has some postive thinking now going on that the office is now openning He has more pistive outlook. so decided not to start medications, no CBT at this point Asthma (20 sources) Mild intermittent asthma; Translations: [Acute exacerbation of asthma] Onset: 09-05-19 Resolved : 09-02-1912-07-2017 Chronic Comment on above: no doign inhaler reg ualrly may do better on pill. do singulair right now doign bett er on the higher dose steriod inhaler did help. will lower to 2 in am and 1 in night. if have night signs and symptoms willincrease back. once blooming over will back down. right now doing well . now need rescue. now not infectious s eem exposure to dust and [place] better if not to bas deb off prednisone to breo Asthma (20 sources) Asthma Coronary atherosclerosis and other heart disease (2 sources) Coronary atherosclerosis and other heart disease Disorders of lipid metabolism (20 sources) Hypercholesterolemia; Translations: [Mild hypercholesterolemia] 12-07-2017 Chronic Comment on above: check CCTA to see if needs statin erright now primary preventation it is better over e years ? exercise more. Esophageal disorders (20 sources) Gastroesophageal reflux disease; Translations: [GERD (gastroesophageal reflux disease)] 12-07-2017 Chronic Comment on above: stable Fluid and electrolyte disorders (20 sources) Angioedema; Translations: [Idiopathic angioedema] Onset: 07-10-19 06 12-07-2017 Episodic Comment on above: had idiopathic. work edup at [facility]. on zyretic no reoccur Gastritis and duodenitis (20 sources) Acute gastritis; Translations: [Gastritis, acute] Resolved : 07-03-19 18 07-03-2017 Episodic Immunizations and screening for infectious disease (20 sources) Need for prophylactic vaccination and inoculation against influenza; Translations: [Exposure to Measles virus] Resolved : 09-02-1911-22-2018 Episodic Comment on above: [place] area of outbreaks and dentitst unsure if had second dose Inflammation; infection of eye (except that caused by tuberculosis or sexually transmitteddisease) (14 sources) Chronic allergic conjunctivitis; Translations: [Other chronic allergic conjunctivitis] Onset: 07-10-19 06 07-10-2005 Chronic Malaise and fatigue (20 sources) Tired; Translations: [Tired] Resolved : 01-11-20 21 12-12-2019 Episodic Comment on above: think related to str ess. Mood disorders (20 sources) Depression; Translations: [Depressive disorder] Resolved : 07-03-19 18 07-03-2017 Chronic Nonspecific chest pain (20 sources) Chest pain; Translations: [Chest pain] Resolved : 07-03-19 18 07-03-2017 Episodic Comment on above: his symptoms are aty pical and at this point insurance not covering his stress test - and he doesnt wish to do - he will have followup with cardio and if his sx dont get better with bid ppi then call and we will do us of gb Nutritional deficiencies (20 sources) Vitamin D deficiency; Translations: [Vitamin D insufficiency] 11-22-2018 Chronic Osteoarthritis (2 sources) Scapholunate advanced collapse; 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, right wrist] Onset: 04-24-20 25 04-24-2025 Chronic Other ear and sense organ disorders (20 sources) Impacted cerumen; Translations: [Cerumen impaction] Resolved : 07-03-19 18 07-03-2017 Episodic Other gastrointestinal disorders (20 sources) Constipation; Translations: [Constipation] Resolved : 07-03-19 18 07-03-2017 Episodic Comment on above: new onset adult with belly pain LLQ Other hematologic conditions (2 sources) Other abnormality of red blood cells; Translations: [Abnormal RBC indices] 12-07-2017 Episodic Other hematologic conditions (20 sources) Red blood cell finding; Translations: [Abnormal RBC indices] 09-24-2020 Episodic Other infections; including parasitic (1 source) Personal history of other infectious and parasitic diseases; Translations: [History of COVID-19] Episodic Other injuries and conditions due to external causes (20 sources) Idiopathic angioedema; Translations: [Idiopathic angioedema, subsequent encounter] 09-24-2020 Episodic Comment on above: had idiopathic. work edup at [facility]. on zyretic no reoccur Other liver diseases (10 sources) Elevated total bilirubin; Translations: [Total bilirubin, elevated] 12-12-2019 Chronic Other liver diseases (20 sources) Elevated total bilirubin; Translations: [Total bilirubin, elevated] 01-06-2021 Episodic Other lower respiratory disease (20 sources) Cough; Translations: [Cough] Resolved : 01-11-2007-03-2017 Episodic Comment on above: which may be asthma related he doesnt wish to do pfts think asthma and sin us making worse. 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 etoh talk about rolling back etoh and measure. some nsaids Other upper respiratory disease (20 sources) Allergic rhinitis; Translations: [Allergic rhinitis] Onset: 07-10-1912-07-2017 Chronic Comment on above: had allergy testing. leaves, cat, dust mold. on zyretic flonase and Qvar not get as many infections since onsistent with regiman. has singulair at home if hit bad Other upper respiratory disease (20 sources) Nasal sinus problem; Translations: [Sinus drainage] 09-03-2020 Episodic Comment on above: he has now yelllow a ndinto infection caught from dtr. started this week he always goes into sinus infection. Other upper respiratory disease (1 source) Polyp of nasal cavity and/or nasal sinus; Translations: [Nasal polyp, unspecified] 08-14-2023 Episodic Other upper respiratory infections (20 sources) Sinusitis; Translations: [Sinusitis] Resolved : 07-03-19 18 07-03-2017 Chronic Other upper respiratory infections (20 sources) Sinusitis; Translations: [Acute sinusitis] Resolved : 07-03-19 18 07-03-2017 Episodic Residual codes; unclassified (20 sources) Body mass index (BMI) 22.0-22.9, adult; Translations: [Body mass index (BMI) 21.0-21.9, adult] Resolved : 09-02-19 23 12-07-2017 Episodic Residual codes; unclassified (20 sources) Chill; Translations: [Chills] Resolved : 07-03-19 18 07-03-2017 Episodic Residual codes; unclassified (20 sources) Family history of ischemic heart disease; Translations: [FAMILY HISTORY OF ISCHEMIC HEART DISEASE (Renamed from Fam hx-ischem heart disease)] 12-07-2017 Episodic Comment on above: CCTA 0 8-19 Residual codes; unclassified (20 sources) Family history of malignant neoplasm of prostate; Translations: [Family history of prostate cancer] 12-07-2017 Episodic Residual codes; unclassified (20 sources) Current non-smoker ; Translations: [Current nonsmoker (Renamed from Current non-smoker)] 09-24-2020 Episodic Residual codes; unclassified (18 sources) Family history of prostate cancer; Translations: [FAMILY HISTORY OF MALIGNANT NEOPLASM, PROSTATE (V16.42)] Episodic Residual codes; unclassified (20 sources) Non-smoker; Translations: [Current nonsmoker (Renamed from Current non-smoker)] 09-01-2022 Episodic Respiratory failure; insufficiency; arrest (adult) (20 sources) Respiratory failure; insufficiency; arrest (adult) Unclassified (20 sources) Abdominal pain, acute, left lower quadrant Unclassified (20 sources) Unclassified (20 sources) Current non-smoker ; Translations: [Current nonsmoker (Renamed from Current non-smoker)] 12-07-2017 Unclassified (20 sources) Patient encounter status; Translations: [Encounter for routine history and physical exam for male] Resolved : 08-03-19 18 12-07-2017 Comment on above: 06-02-16 [facility] Katharine physical: PSA 1-18 WNL, 6 CIT=, immunizations are up to date, colonoscopy age 47, PHQ-9=1 (minimal) hep C screen good. walking regularly 11-22-18 [facility] Katharine physical: PSA 4-19 WNL, 6 CIT=, immunizations are up to date, colonoscopy age 47, Hepatitis C screening negative,walking regularly saw derm sees dentist and eye dr 12-12-19 [facility] Katharine physical: PSA 5-20 WNL, immunizations are up to date, colonoscopy age 47 2012, Hepatitis C screening negative,walking regularly, dental, dermatology and eye exam are up to date. MOCA 30, [place] 87 Unclassified (20 sources) Stress reaction Unclassified (20 sources) Screening status; Translations: [Screening for prostate cancer] Resolved : 12-12-19 20 08-03-2017 Unclassified (20 sources) Mild hypercholesterolemia Unclassified (20 sources) BMI 22.0-22.9, adult; Translations: [Body mass index 20-24 - normal] 11-22-2018 Unclassified (20 sources) Abdominal pain, acute, left upper quadrant Unclassified (20 sources) Idiopathic angioedema, subsequent encounter Unclassified (20 sources) Pain in joint involving other specified sites (719.48) Unclassified (20 sources) Cerumen impaction Unclassified (20 sources) 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 Unclassified (20 sources) Gastritis, acute Unclassified (20 sources) Abnormal RBC indices; Translations: [Red blood cell finding] 11-22-2018 Unclassified (20 sources) Vitamin D insufficiency Unclassified (20 sources) Body mass index (BMI) of 21.0 to 21.9 in adult; Translations: [Body mass index 20-24 - normal] Resolved : 08-03-19 18 12-07-2017 Unclassified (20 sources) Need for tetanus booster Unclassified (20 sources) Exposure to rubeola Unclassified (20 sources) Immunity status testing Unclassified (20 sources) Total bilirubin, elevated Unclassified (8 sources) Sinus drainage Unclassified (2 sources) Elevated liver function tests Unclassified (2 sources) Elevated lipoprotein(a) Viral infection (20 sources) Disease caused by 2019-nCoV; Translations: [COVID] 04-20-2022 Episodic Past or Other Problems Problem Classification Problem Date Documented Da te Episodic/Chronic Acute bronchitis (12 sources) Acute bronchitis Headache; including migraine (20 sources) Headache; including migraine Influenza (20 sources) Influenza Nutritional deficiencies (6 sources) Disorder of vitamin D; Translations: [Vitamin D insufficiency] 12-07-2017 Episodic Residual codes; unclassified (20 sources) Needs influenza immunization; Translations: [Need for prophylactic vaccination and inoculation against influenza] Resolved: 12-12-2019 07-03-2017 Episodic Residual codes; unclassified (19 sources) Requires a tetanus booster; Translations: [Need for tetanus booster] Resolved: 07-03-2017 12-07-2017 Episodic Unclassified (20 sources) Well Male Exam (V70.0) Unclassified (20 sources) Cerumen impaction (380.4) Unclassified (20 sources) Abdominal Pain,LUQ (789.02) Unclassified (20 sources) Abdominal Pain,LLQ (789.04) Unclassified (20 sources) FAMILY HISTORY OF MALIGNANT NEOPLASM, PROSTATE (V16.42) Unclassified (20 sources) SCREENING FOR CANCER OF THE PROSTATE (V76.44) Unclassified (20 sources) Encounter for hepatitis C virus screening test for high risk patient Unclassified (20 sources) Unspecified Diagnosis Resolved: 12-12-2019 12-12-2019 Unclassified (2 sources) Encounter for observation for suspected exposure to other biological agents ruled out (Renamed from Encounter for observation for suspected exposure to other biological agent, ruled out) Unclassified (4 sources) Exposure to COVID-19 virus Results Test Name Value Interpretation Reference Range Facility Relevant diagnostic tests/la boratory data Narrativeon 04-24-2025 Fall risk assessment no NAVIN Paladion Work Phone: MEDS REVIEW Done [employer] Work Phone: MEDS REVIEWD Medications reviewed with [employer] Work Phone: MRI HX of the Right wrist o n 04/03/2025 at [facility] [employer] Work Phone: XRAY HX of the Right wrist o n 02/27/2025 at [facility] [employer]. Work Phone: Echo Completeon 04-15-[address] [facility] Cardi[facility] Services [address] [place] [address] Echo Complete 04/15/25 1253 MR#: [id number] Acct: [id number] Name: QUINTIN SAUCEDA Rep #: [id number] : 1965 59 From: Ye Conrad MD Attending Dr: Dr. Meghana Lanier MD Status: REG CLI Ordering Dr: Meghana Lanier MD Date: 04/15/25 Location: CVS Sex: M C Admitted: Reason For Study Reason For Study: ABNORMAL SCREENING CARDIAC CT Procedure This was a 2D Doppler, Color Flow transthoracic echocardiogram. Exam performed in department. Left Ventricle Normal LV size. Left ventricular systolic function is normal. The left ventricular ejection fraction is 65 %. No regional wall motion abnormalities noted. Right Ventricle Normal RV size. The right ventricle is normal in size, function, and thickness. Atria Normal left atrium. Normal right atrium. Mitral Valve Normal mitral valve. Tricuspid Valve Normal tricuspid valve. Mild (1+) tricuspid valve insufficiency. Pulmonary artery systolic pressure is 24 mmHg. Aortic Valve Trisinus/trileaflet aortic valve. Pulmonic Valve Normal pulmonic valve. Great Vessels Normal aortic root. The pulmonary artery is normal size. Inferior vena cava collapse with respiration. Pericardium/Pleural No pericardial effusion. MMode/2D Measurements Calculations LVIDd: 4.6 cm IVSd: 1.0 cm Ao root diam: 3.3 cm LVIDs: 2.9 cm LVPWd: 1.0 cm RVDd: 3.2 cm FS: 36.5 % LAV(MOD-bp): 51.2 ml LVAd ap4: 29.2 cm2 LVAd ap2: 29.9 cm2 LAV(MOD-bp) Indexed: 27.0 ml/m2 LVLd ap4: 8.4 cm LVLd ap2: 8.6 cm LAV(MOD-sp2): 64.3 ml EDV(MOD-sp4): 83.5 ml EDV(MOD-sp2): 85.6 ml LAV(MOD-sp4): 41.2 ml EDV(sp4-el): 86.7 ml EDV(sp2-el): 87.8 ml LVAs ap4: 14.3 cm2 LVAs ap2: 15.6 cm2 LVLs ap4: 6.5 cm LVLs ap2: 7.3 cm ESV(MOD-sp4): 26.2 ml ESV(MOD-sp2): 29.7 ml ESV(sp4-el): 26.6 ml ESV(sp2-el): 28.6 ml EF(MOD-sp4): 68.6 % EF(MOD-sp2): 65.3 % EF(sp4-el): 69.4 % SV(MOD-sp4): 57.3 ml SV(MOD-sp2): 56.0 ml SV(sp4-el): 60.1 ml SI(MOD-sp4): 30.2 ml/m2 SI(MOD-sp2): 29.5 ml/m2 LA A4 area: 17.2 cm2 LA dimension(2D): 3.0 cm RA A4 area: 15.6 cm2 TAPSE: 2.7 cm Time Measurements MV dec time: 0.20 sec Doppler Measurements Calculations MV E max rob: 77.8 cm/sec Lat Peak E' Rob: 16.3 cm/sec Med Peak E' Rob: 11.0 cm/sec MV A max rob: 67.0 cm/sec E/E' lat: 4.8 E/E' med: 7.1 MV E/A: 1.2 MV V2 max: 86.8 cm/sec MV P1/2t max rob: 85.7 cm/sec Ao V2 max: 147.1 cm/sec MV max P.0 mmHg MV P1/2t: 75.2 msec Ao max P.7 mmHg MV V2 mean: 43.5 cm/sec Ao V2 mean: 99.4 cm/sec MV mean P.90 mmHg MV dec slope: 333.6 cm/sec2 Ao mean P.4 mmHg MV V2 VTI: 27.8 cm MVA(P1/2t): 2.9 cm2 Ao V2 VTI: 31.1 cm AV (velocity ratio): 0.92 LV V1 max: 133.0 cm/sec PA V2 max: 99.2 cm/sec PI end-d rob: 99.1 cm/sec LV V1 max P.1 mmHg LV V1 mean P.6 mmHg LV V1 mean: 88.8 cm/sec LV V1 VTI: 28.5 cm TR max rob: 229.5 cm/sec TR max P.2 mmHg ECHO/Echo Complete Interpretation Summary Normal LV size. Left ventricular systolic function is normal. The left ventricular ejection fraction is 65 %. Doppler studies, color flow and spectral analysis demonstrates no significant regurgitant or stenotic jets. Structurally normal valves. Ordering Physician: Meghana Lanier Referring Physician: Meghana Lanier Performed By: Nannette Mcginnis, DENILSON, RVT 04/15/251658 Date Ye Conrad MD CC: Dr. Meghana Lanier MD Date Dictated: 04/15/25 1253 Date Transcribed: 04/15/251658 Insulation Nozzleman: Signed Normal [facility] Magnetic resonance imaging r eportOrdered By: Albin Granda on 04-07-2025 Study report [facility] Imaging Services [address] [place] [address] Upper Ext Joint Only(Routine) MR#: [id number] Acct: [id number] Name: QUINTIN SAUCEDA Rep #: [id number] : 1965 M 59 From: Heaven Granda MD PCP: Dr. Meghana Lanier MD Status: BOGDAN BETHEA Study:Upper Ext Joint Only(Routine) Date of Exam: 04/03/25 Exam# [id number] Ordering Dr: Meghana Lanier MD PROCEDURE: UPPER EXT JOINT ONLY(ROUTINE) 04/03/2025 REASON FOR EXAM: ABNORMAL PLAIN XRAY OF RT WRIST TECHNIQUE: Procedure Code: MRIUEJ Modality: MR Procedure: UPPER EXT JOINT ONLY(ROUTINE) Multiplanar and multisequence images were obtained without IV contrast administration. COMPARISON: COMPARISON: FINDINGS: Ligaments and tendons: No extensor tendon abnormality. No flexor tendon abnormality. Diffusely torn scapholunate ligament with widened scapholunate interval. No lunatotriquetral ligament tear. No tear of the triangular fibrocartilage with intact attachment sites. Bones and soft tissues: Dorsal tilt of the lunate with horizontal scaphoid positioning, compatible with dorsal intercalated segment instability. Periarticular bone edema about the radial-scaphoid articulation, with marginal osseous ridging and joint space narrowing with chondral thinning. Distal radioulnar, radiocarpal and midcarpal joint effusions. Arthrosis and small effusion at the triquetral-pisiform joint. Mild proximal migration of the capitate. Mild arthrosis at the 1st carpometacarpal joint with effusion. Mild arthrosis at the triscaphe joint. No evidence of fracture. No soft tissue mass, cyst or abnormal fluid collection. No median nerve abnormality. Degenerative changes and mild deformities of the radial aspect of the lunate in the anterior capitate, which could indicate previous traumatic injuries. No evidence of osteonecrosis. MRI/Upper Ext Joint Only(Routine) IMPRESSION: Diffusely torn scapholunate ligament with widened scapholunate interval and alignment suggesting dorsal intercalated segment instability. This contributes to proximal capitate migration. Arthrosis with chondral thinning and periarticular bone edema about the radial-scaphoid articulation. Mild arthrosis at the 1st carpometacarpal joint and the triscaphe joint. Arthrosis at the triquetral-pisiform joint. Multiple joint effusions. Reading Location: [facility] CC: Dr. Meghana Lanier MD ~ Insulation Nozzleman: Signed [facility] Upper Ext Joint Only(Routine )on 04-03-2025 Upper Ext Joint Only(Routine) [facility] Imaging Services [address] [place] [address] Upper Ext Joint Only(Routine) MR#: [id number] Acct: [id number] Name: QUINTIN SAUCEDA Rep #: [id number] : 1965 M 59 From: Albin slater MD PCP: Dr. Meghana Lanier MD Status: REG CLI Study: Upper Ext Joint Only(Routine) Date of Exam: Exam# [id number] Ordering Dr: Meghana Lanier MD PROCEDURE: UPPER EXT JOINT ONLY(ROUTINE) 04/03/2025 REASON FOR EXAM: ABNORMAL PLAIN XRAY OF RT WRIST TECHNIQUE: Procedure Code: MRIUEJ Modality: MR Procedure: UPPER EXT JOINT ONLY(ROUTINE) Multiplanar and multisequence images were obtained without IV contrast administration. COMPARISON: COMPARISON: FINDINGS: Ligaments and tendons: No extensor tendon abnormality. No flexor tendon abnormality. Diffusely torn scapholunate ligament with widened scapholunate interval. No lunatotriquetral ligament tear. No tear of the triangular fibrocartilage with intact attachment sites. Bones and soft tissues: Dorsal tilt of the lunate with horizontal scaphoid positioning, compatible with dorsal intercalated segment instability. Periarticular bone edema about the radial-scaphoid articulation, with marginal osseous ridging and joint space narrowing with chondral thinning. Distal radioulnar, radiocarpal and midcarpal joint effusions. Arthrosis and small effusion at the triquetral-pisiform joint. Mild proximal migration of the capitate. Mild arthrosis at the 1st carpometacarpal joint with effusion. Mild arthrosis at the triscaphe joint. No evidence of fracture. No soft tissue mass, cyst or abnormal fluid collection. No median nerve abnormality. Degenerative changes and mild deformities of the radial aspect of the lunate in the anterior capitate, which could indicate previous traumatic injuries. No evidence of osteonecrosis. MRI/Upper Ext Joint Only(Routine) IMPRESSION: Diffusely torn scapholunate ligament with widened scapholunate interval and alignment suggesting dorsal intercalated segment instability. This contributes to proximal capitate migration. Arthrosis with chondral thinning and periarticular bone edema about the radial-scaphoid articulation. Mild arthrosis at the 1st carpometacarpal joint and the triscaphe joint. Arthrosis at the triquetral-pisiform joint. Multiple joint effusions. Reading Location: [facility] CC: Dr. Meghana Lanier MD Insulation Nozzleman: Signed [facility] CNOVon 03-20-2025 CNOV Office Visit (PULMWS ) QUINTIN SAUCEDA ([id number]) 1965 M Date Time Provider Department 03/20/25 8:00 AM SELINA ZIEGLER PULMWS During your visit today, we recorded the following information about you: Pulse Weight 52/minute 73 kg Selina Ziegler APRN.[facility] 03/20/2025 8:34 AM Signed Pulmonary Medicine Patients name: Quintin Sauceda PCP: Meghana Lanier MD CC: follow-up HPI: Quintin Sauceda is a 59 year old male never smoker with PMH significant for longstanding asthma, allergies on IT in past, idiopathic angioedema/urticaria, GERD, hx COVID. KUSH 08/2024 with stable Asthma symptoms. Current therapy with Arnuity 200 and PRN Albuterol. He presents today for follow-up. Since his last visit, he reports continued control of his asthma symptoms. He continues to deny significant cough, wheezing, chest tightness, or shortness of breath. No fevers, chills, or night sweats. No recent hospitalizations or ED visits or upper respiratory infections. Rarely uses Albuterol. We discussed decreasing ICS d/t persistently controlled symptoms. Repeat nitric oxide today 69 ppb. Has significant environmental and seasonal allergies which he feels like are well controlled with Singulair, Zyrtec and Flonase. Previously received allergy shots as a child and used again nearly 20 years ago. It has previously been suggested he has follow-up with ENT regarding allergies but has not been seen d/t feeling well. PAST MEDICAL HISTORY Diagnosis Date Allergic rhinitis, cause unspecified Allergic rhinitis Angioneurotic edema not elsewhere classified Asthma GERD (gastroesophageal reflux disease) HLD (hyperlipidemia) Other chronic allergic conjunctivitis Allergic conjunctivitis Allergies: Animal Dander Shortness of Breath Dust Mites Other: See Comments Comment:Nasal congestion Grass Pollen Shortness of Breath Mold Shortness of Breath Trees Shortness of Breath Medication List Accurate as of March 20, 2025 7:04 AM. If you have any questions, ask your nurse or doctor. CONTINUE taking these medications albuterol HFA 90 mcg/actuation inhaler Commonly known as: PROVENTIL HFA, VENTOLIN HFA ARNUITY ELLIPTA 200 mcg/actuation inhaler Generic drug: fluticasone furoate Inhale 1 Puff as instructed once daily. cetirizine 10 mg tablet Commonly known as: ZYRTEC Take one(1) tablet daily at bedtime. fluticasone 50 mcg/actuation nasal spray Commonly known as: FLONASE montelukast 10 mg tablet Commonly known as: SINGULAIR rosuvastatin 5 mg tablet Commonly known as: CRESTOR DATA: I personally reviewed and analyzed all labs, radiographs and available pulmonary function testing PFT: 08/2022 Spirometry is normal. There was not a significant bronchodilator response. Review of Systems Constitutional: Negative for activity change, appetite change, fever and unexpected weight change. HENT: Negative for congestion, mouth sores and postnasal drip. Respiratory: Negative for cough, chest tightness, shortness of breath and wheezing. Cardiovascular: Negative for chest pain, palpitations and leg swelling. Allergic/Immunologic: Negative for environmental allergies. Neurological: Negative for weakness. BP (P) 118/70 Pulse (!) (P) 48 Resp (P) 14 Wt 73 kg (161 lb) SpO2 (P) 99% BMI 23.60 kg/m? Physical Exam Vitals reviewed. Constitutional: General: He is not in acute distress. Appearance: Normal appearance. He is not ill-appearing. HENT: Head: Normocephalic. Cardiovascular: Rate and Rhythm: Normal rate and regular rhythm. Heart sounds: Normal heart sounds. Pulmonary: Effort: Pulmonary effort is normal. No respiratory distress. Breath sounds: No wheezing or rhonchi. Musculoskeletal: Right lower leg: No edema. Left lower leg: No edema. Skin: General: Skin is warm and dry. Capillary Refill: Capillary refill takes less than 2 seconds. Neurological: General: No focal deficit present. Mental Status: He is alert. ASSESSMENT/PLAN: 1. Mild intermittent asthma without complication (HCC) - ICD9: 493.90, ICD10: J45.20 (primary diagnosis) - currently with controlled symptoms despite nitric oxide increased from 47 ppb in August to 69 ppb today. Discussed role of allergies and Asthma. See #2 - continue high dose Arnuity and Albuterol as needed. - Asthma education: Rinsing after each inhaled steroid use - NITRIC OXIDE, EXHALED 2. Multiple allergies - ICD9: V15.09, ICD10: Z88.9 - continue Singulair, zyrtec and Flonase - highly suggest follow-up with ENT despite controlled allergy symptoms. F/u 6 months Portions of this documentation were copied and pasted from previous office visit notes in order to provide a cohesive continuity of the history. The note has been reviewed and edited and updated as necessary. Selina Ziegler APRN.[employer] I spent a total of 20 m (more content not included)... Normal [facility] Wrist min 3 Viewson 02-28-20 Wrist min 3 Views [facility] Imaging Services [address], [place] [address] Wrist min 3 Views MR#: [id number] Acct: [id number] Name: QUINTIN SAUCEDA Rep #: [id number] : 1965 M 59 From: Tushar Galvan MD PCP: Dr. Meghana Lanier MD Status: DEP AMB Study: Wrist min 3 Views Date of Exam: 02/27/25 Exam# [id number] Ordering Dr: Meghana Lanier MD EXAM: XR Right Wrist Complete, 3 or More Views CLINICAL INDICATION: WRIST PAIN, RIGHT ATTN: BASE OF THUMB IN 1ST MCP JOINT TECHNIQUE: Frontal, lateral and oblique views of the right wrist. COMPARISON: No relevant prior studies available. FINDINGS: BONES/JOINTS: Severe degenerative change of the radiocarpal joint. Apparent widening of the scapholunate joint space concerning for ligamentous injury. No acute fracture. No dislocation. SOFT TISSUES: Unremarkable. No radiopaque foreign body. OTHER FINDINGS: Further evaluation with MRI is recommended. RAD/Wrist min 3 Views IMPRESSION: 1. Severe degenerative change of the radiocarpal joint. Apparent widening of the scapholunate joint space concerning for ligamentous injury. 2. Further evaluation with MRI is recommended. Reading Location: [facility] CC: Dr. Meghana Lanier MD Insulation Nozzleman: Signed [facility] CNOVon 09-05-2024 CNOV Office Visit (PULMWS ) QUINTIN SAUCEDA ([id number]) 1965 M Date Time Provider Department 09/05/24 8:30 AM SELINA ZIEGLER PULMWS During your visit today, we recorded the following information about you: Weight 73.9 kg Selina Ziegler, BOXING TRAINER.[employer] 09/05/2024 9:32 AM Signed Pulmonary Medicine Patients name: Quintin Sauceda PCP: Meghana Lanier MD CC: Asthma follow-up HPI: Quintin Sauceda is a 58 year old male never smoker with PMH significant for longstanding asthma, allergies on IT in past, idiopathic angioedema/urticaria, GERD with worsening of his asthma following COVID. Current therapy with Arnuity 200 and as needed Albuterol. He presents today for follow-up. [facility] 01/2024 with improved, yet persistently elevated nitric oxide at 47 ppb. Arnuity increased. Allergy assessment was recommended for possible immunotherapy. Since his last visit, he reports overall feeling well. He had COVID in April and was treated with Paxlovid with fairly mild symptoms. He has not been seen by ENT d/t feeling well. Today, patient denies any current respiratory symptoms. No cough, wheezing, SOB or nocturnal symptoms. No recent sick symptoms. No need for steroids/antibiotics since his last visit. Albuterol use is rare. Reports regular use of Singulair, Zyrtec and Flonase for his multiple allergies. FENO today remains at 47 ppb despite increase in ICS. ASTHMA CONTROL TEST Date: 09/05/2024 In the last 4 weeks, how much of the time did your asthma keep you from getting as much done at work or home that you wanted to do? None of the time (5) In the last 4 weeks, how often have you had shortness of breath? Not at all (5) In the last 4 weeks, how often did your asthma symptoms (wheezing, coughing, shortness of breath, chest tightness or pain) wake you up at night or earlier than usual? Not at all (5) In the last 4 weeks, how often have you used your rescue inhaler or nebulizer medication (such as Albuterol, Proventil, Ventolin, Maxair, Xoponex, or Primatene Mist)? Not at all (5) In the last 4 weeks, how would you rate your asthma control? Completely controlled (5) Total: more than 20 PAST MEDICAL HISTORY Diagnosis Date Allergic rhinitis, cause unspecified Allergic rhinitis Angioneurotic edema not elsewhere classified Asthma GERD (gastroesophageal reflux disease) HLD (hyperlipidemia) Other chronic allergic conjunctivitis Allergic conjunctivitis Allergies: Animal Dander Shortness of Breath Dust Mites Other: See Comments Comment:Nasal congestion Grass Pollen Shortness of Breath Mold Shortness of Breath Trees Shortness of Breath Medication List Accurate as of September 05, 2024 8:17 AM. If you have any questions, ask your nurse or doctor. CONTINUE taking these medications albuterol HFA 90 mcg/actuation inhaler Commonly known as: PROVENTIL HFA, VENTOLIN HFA ARNUITY ELLIPTA 200 mcg/actuation inhaler Generic drug: fluticasone furoate Inhale 1 Puff as instructed once daily. cetirizine 10 mg tablet Commonly known as: ZYRTEC Take one(1) tablet daily at bedtime. fluticasone 50 mcg/actuation nasal spray Commonly known as: FLONASE montelukast 10 mg tablet Commonly known as: SINGULAIR rosuvastatin 5 mg tablet Commonly known as: CRESTOR DATA: I personally reviewed and analyzed all labs, radiographs and available pulmonary function testing PFT: 08/2022 Spirometry is normal. There was not a significant bronchodilator response. Review of Systems Constitutional: Negative for activity change, appetite change and unexpected weight change. HENT: Negative for congestion, mouth sores, postnasal drip, rhinorrhea and sinus pain. Respiratory: Negative for cough, chest tightness, shortness of breath and wheezing. Cardiovascular: Negative for chest pain, palpitations and leg swelling. Neurological: Negative for weakness and headaches. BP (P) 122/80 Pulse (P) 61 Resp (P) 14 Wt 73.9 kg (163 lb) SpO2 (P) 99% BMI 23.90 kg/m? Physical Exam Vitals reviewed. Constitutional: General: He is not in acute distress. Appearance: Normal appearance. He is normal weight. He is not ill-appearing. HENT: Head: Normocephalic. Nose: No rhinorrhea. Cardiovascular: Rate and Rhythm: Normal rate and regular rhythm. Heart sounds: Normal heart sounds. Pulmonary: Effort: Pulmonary effort is normal. No respiratory distress. Breath sounds: No wheezing or rhonchi. Lymphadenopathy: Cervical: No cervical adenopathy. Skin: General: Skin is warm and dry. Capillary Refill: Capillary refill takes less than 2 seconds. Neurological: General: No focal deficit present. Mental Status: He is alert. ASSESSMENT/PLAN: 1. Mild intermittent asthma without complication - ICD9: 493.90, ICD10: J45.20 (primary diagnosis) - controlled symptoms with very rare use of Albuterol (more content not included)... Normal [facility] NITRIC OXIDE, EXHALEDon 03-0 Marina Yuan PATRICK Maynor 09/05/2024 8:11 AM RESPIRATORY THERAPY ORAL EXHALED NITRIC OXIDE SERVICE DATE: 09/05/2024 SERVICE TIME: 8:11 AM Oral Exhaled Nitric Oxide measurement: 47.0 (ppb) Normal: Adult <25 ppb, pediatric (<12 years) <20 ppb High Normal / Increased: Adult 25-50 ppb, pediatric (<12 years) 20-35 ppb Moderately raised exhaled Nitric Oxide may indicate underlying inflammation, but note that: Cold and influenza can raise exhaled Nitric Oxide and some patients have higher baseline exhaled Nitric Oxide levels than others. High: Adult >50 ppb, pediatric (<12 years) >35 ppb Indicative of ongoing eosinophilic inflammation. Symptomatic patient likely to respond to steroids. Possible causes (if already on steroids): Poor compliance, recent allergen exposure, steroid dose inadequate, and steroid resistance. Note that not all patients with high exhaled nitric oxide levels display symptoms. Oral Exhaled Nitric Oxide measurement (Previous Encounters) Test Date Oral Exhaled Nitric Oxide (ppb) 09/05/2024 47.0 (A) 02/12/2024 47.0 (A) 08/14/2023 44.0 (A) 01/24/2023 78.0 (A) 10/30/2022 87.0 (A) 09/04/2022 110.0 (A) NAME: Marina Yuan [facility] PATIENT NAME: Quintin Sauceda DATE: September 05, 2024 TIME: 8:[address] [facility]2024 [facility] QUINTIN SAUCEDA ([id number]) 1965 M Date Time Provider Department 04/11/24 CARLITOS GUTIÉRREZ During your visit today, we recorded the following information about you: Carmen Hdez LPN 04/11/2024 10:03 AM Signed Patients call into office stating that he tested positive for Covid this morning and would like paxlovid ordered to guille hernandes. Please advise and call patient at [phone]. CHERY Strickland Christine M, APRN.[employer] 04/11/2024 2:07 PM Signed Called and spoke to patients . Symptoms started yesterday with congestion and ear ache. Was exposed to friend who was Covid positive. Tested on 04/11 and was positive. No history of kidney or liver disease. Takes Crestor daily and instructed to hold while taking Paxlovid. Order sent to preferred pharmacy. Allergies As of Date: 04/11/2024 Noted Allergy Reaction ANIMAL DANDER 02/18/2024 12 - Shortness of Breath DUST MITES 07/10/2005 14 - Other: See Comments Comments: Nasal congestion GRASS POLLEN 07/10/2005 12 - Shortness of Breath MOLD 02/18/2024 12 - Shortness of Breath TREES 07/10/2005 12 - Shortness of Breath Date Reviewed: 02/18/2024 Reviewed by: Mercy Gutiérrez MD - Fully Assessed Reason for Visit: Orders [681] Patient Update [1234] Order(s):nirmatrelvir tablet 300 mg (150 mg x 2) and ritonavir tablet 100 mg in a dose pack (PAXLOVID)Administer TWO pink nirmatrelvir 150 mg tablets and ONE white ritonavir 100 mg tablet for a total of three tablets twice daily.Disp: 30 tabletRfl: 0 Prescriptions as of 04/11/2024 - nirmatrelvir tablet 300 mg (150 mg x 2) and ritonavir tablet 100 mg in a dose pack (PAXLOVID) Administer TWO pink nirmatrelvir 150 mg tablets and ONE white ritonavir 100 mg tablet for a total of three tablets twice daily. - rosuvastatin (CRESTOR) 5 mg tablet Take 1 tablet by mouth every afternoon. - fluticasone furoate (ARNUITY ELLIPTA) 200 mcg/actuation inhaler Inhale 1 Puff as instructed once daily. - fluticasone (FLONASE) 50 mcg/actuation nasal spray Use 1 [place] in the nose once daily. - montelukast (SINGULAIR) 10 mg tablet Take 10 mg by mouth once daily. - albuterol HFA (PROVENTIL HFA, VENTOLIN HFA) 90 mcg/actuation inhaler inhale 1 to 2 puffs by mouth and INTO THE LUNGS every 6 hours if needed - CETIRIZINE 10 MG TAB Take one(1) tablet daily at bedtime. Problem List As Of Date 04/11/2024 Noted Resolved ANGIONEUROTIC EDEMA [T78.3XXA] 07/10/2005 ALLERGIC RHINITIS NEC [J30.89] 07/10/2005 CHR ALLRG CONJUNCTIV NEC [H10.45] 07/10/2005 Moderate persistent asthma without complication* 3 Prescriptions ordered this encounter Disp Refills Start End NIRMATRELVIR 300 MG (150 MG X2)-SHAHID* 30 t* 0 04/11/2024 04/16/2024 Sig: Administer TWO pink nirmatrelvir 150 mg tablets and ONE white ritonavir 100 mg tablet for a total of three tablets twice daily. Encounter Status:Closed by CLICK, SELINA Maravilla on 04/11/24 Normal [facility] [place] NITRIC OXIDE, EXHALEDon - Marina Yuan RPF Maynor 02/12/2024 7:25 AM RESPIRATORY THERAPY ORAL EXHALED NITRIC OXIDE SERVICE DATE: 02/12/2024 SERVICE TIME: 7:25 AM Oral Exhaled Nitric Oxide measurement: 47.0 (ppb) Normal: Adult <25 ppb, pediatric (<12 years) <20 ppb High Normal / Increased: Adult 25-50 ppb, pediatric (<12 years) 20-35 ppb Moderately raised exhaled Nitric Oxide may indicate underlying inflammation, but note that: Cold and influenza can raise exhaled Nitric Oxide and some patients have higher baseline exhaled Nitric Oxide levels than others. High: Adult >50 ppb, pediatric (<12 years) >35 ppb Indicative of ongoing eosinophilic inflammation. Symptomatic patient likely to respond to steroids. Possible causes (if already on steroids): Poor compliance, recent allergen exposure, steroid dose inadequate, and steroid resistance. Note that not all patients with high exhaled nitric oxide levels display symptoms. Oral Exhaled Nitric Oxide measurement (Previous Encounters) Test Date Oral Exhaled Nitric Oxide (ppb) 02/12/2024 47.0 (A) 08/14/2023 44.0 (A) 01/24/2023 78.0 (A) 10/30/2022 87.0 (A) 09/04/2022 110.0 (A) NAME: Marina YuanJEFFRY PATIENT NAME: Quintin Sauceda DATE: February 12, 2024 TIME: 7:25 AM [facility] NITRIC [facility], EXHALEDon 02-1 [facility] NITRIC OXIDE, EXHALEDon 07-2 [facility] NITRIC OXIDE, EXHALEDon 05-0 [facility] NITRIC OXIDE, EXHALEDon 03-0 [facility] SPIROMETRY - BASELINE AND PO ST DILATORon 09-04-2022 FHA22-41% POST (L/S) 2.65 L/S [facility] ZXD85-09% PRE (L/S) 2.42 L/S [facility] FEV1 PRE (L) 3.60 [facility] FEV1/FVC POST (%) 72 % [facility] FEV1/FVC PRE (%) 71 % [facility] FEV1_POST (L) 3.69 [facility] FVC POST (L) 5.10 [facility] FVC PRE (L) 5.10 [facility] PEF POST (L/S) 9.04 L/S [facility] PEF PRE (L/S) 8.36 L/S [facility] IMMUNOGLOBULIN E (IgE) (8278 5)Ordered By: [employer] on 08-18-2022 IgE Qn 225 {IU/mL} Normal 6-495 [facility]; [facility] Work Phone: Comment on above: PATIENT WAS FASTINGP ERFORMED BY: [employer] [facility] [id number] BY: Seek[place]ton1447 [facility] [id number] PSA (PROSTATE SPECIFIC ANTIG EN) (V76.44)Ordered By: [employer] on 08-18-2022 Prostate specific Ag [Mass/Vol] 1.2 ng/mL Normal 0.0-4.0 [facility]; [facility] Work Phone: Comment on above: Mata ECLIA methodol ogy. .According to the [place] [employer], Serum PSA shoulddecrease and remain at undetectable levels after radicalprostatectomy. The AUA defines biochemical recurrence as an initialPSA value 0.2 ng/mL or greater followed by a subsequent confirmatoryPSA value 0.2 ng/mL or greater.Values obtained with different assay methods or kits cannot be usedinterchangeably. Results cannot be interpreted as absolute evidenceof the presence or absence of malignant disease. PATIENT WAS FASTINGP ERFORMED BY: Vativ TechnologiesCrawley [facility] [id number] BY: Seek[place]ton1447 [facility] [id number] Sputum Culture (22544)Ordere d By: [employer] on 07-06-2022 Epithelial cells.squamous LM Ql (Sput) Few Normal [facility]; [facility] Work Phone: Comment on above: PERFORMED BY: [id number] News Distribution NetworkCrawley Memorial Hospital [id number] Information: SRC:SP Microscopic observation Gram stain Nom (Sput) PCM Normal [facility]; [facility] Work Phone: Comment on above: Moderate number of g rafael positive cocci. PERFORMED BY: Avenda SystemsCrawley Memorial Hospital [id number] Information: SRC:SP WBC LM Ql (Sput) Few Normal Comprehe nsive [facility]; [facility] Work Phone: Comment on above: PERFORMED BY: Avenda SystemsCrawley [facility] Hospital [id number] Information: SRC:SP ASSAY OF LIPOPROTEIN(A) (430 00)Ordered By: [employer] on 01-06-2021 Lipoprotein a [Moles/Vol] 109.1 nmol/L Abnormal [facility]; [facility] Work Phone: Comment on above: Note: Values greater than or equal to 75.0 nmol/L may indicate an independent risk factor for CHD, but must be evaluated with caution when applied to non- populations due to the influence of genetic factors on Lp(a) across ethnicities. Test(s) 356439-LWR-K ; 151396-RJZ-W; 452524-Qvfjdhqqivaof; 737597-Wqhqfafiawn, Total; 921344-QWR-F (Total); 327055-Aycuu LDL-P; 006592-SFO Size; 988328-XZ-RP Scorewas developed and its performance characteristics determinedby [employer]. It has not been cleared or approved by the Foodand Drug Administration.PERFORMED BY: [employer] [id number] BY: Invidiolin6370 GridNetworksAdventHealth [facility] [id number] BILIRUBIN, TOTAL (85273)Orde red By: [employer] on 01-06-2021 Bilirubin.direct [Mass/Vol] 0.23 mg/dL Normal 0.00-0.40 [facility]; [facility] Work Phone: Comment on above: Test(s) 200241-NCY-L ; 127704-DBQ-D; 229318-Ffycaqekavqtt; 459590-Mrwmulnqcyj, Total; 792303-QBS-B (Total); 394570-Hgtra LDL-P; 214562-HMC Size; 655759-CR-BM Scorewas developed and its performance characteristics determinedby [employer]. It has not been cleared or approved by the Foodand Drug Administration.PERFORMED BY: [employer] [address] [id number] BY: Kaggle6370 [facility] [id number] Bilirubin.indirect [Mass/Vol] 0.77 mg/dL Normal 0.10-0.80 [facility]; [facility] Work Phone: Comment on above: Test(s) 272647-LTM-T ; 511653-ZPS-M; 891589-Mxegeqbammdqh; 807111-Pyhagjvgnjk, Total; 246560-GHK-T (Total); 645837-Etpal LDL-P; 323465-GAC Size; 245905-GT-PC Scorewas developed and its performance characteristics determinedby [employer]. It has not been cleared or approved by the Foodand Drug Administration.PERFORMED BY: [employer] [address] [id number] BY: [employer] Ydivtr2135 [facility] [id number] CALCIFIDIOL (58526) VIT D 25 Ordered By: [employer] on 01-06-2021 25-hydroxyvitamin D [Mass/Vol] 34.2 ng/mL Normal 30.0-100.0 [facility]; [facility] Work Phone: Comment on above: Vitamin D deficiency has been defined by the [place] of[place]icine and an Endocrine Society practice guideline as alevel of serum 25-OH vitamin D less than 20 ng/mL (1,2).The Endocrine Society went on to further define vitamin Dinsufficiency as a level between 21 and 29 ng/mL (2).1. IOM ([place] of Medicine). 2010. Dietary reference intakes for calcium and D. [place]: The National Academies Press.2. Alfred MF, Moraima LLOYD, Rosario BLACKWELL, et al. Evaluation, treatment, and prevention of vitamin D deficiency: an Endocrine Society clinical practice guideline. JCEM. 2010; 96(7):1911-30. Test(s) 601625-ROE-E ; 575474-GZE-X; 991760-Udamiewgrbktu; 560094-Kcekrxzfvhl, Total; 975893-LXR-K (Total); 429777-Nlfsx LDL-P; 294865-OYV Size; 847236-VU-XM Scorewas developed and its performance characteristics determinedby [employer]. It has not been cleared or approved by the Foodand Drug Administration.PERFORMED BY: [employer] [id number] BY: [employer]70 News Distribution NetworkCrawley Memorial Hospital [id number] Homocysteine, Plasma (61229) Ordered By: [employer] on 01-06-2021 Homocysteine [Moles/Vol] 11.9 umol/L Normal 0.0-14.5 [facility]; [facility] Work Phone: Comment on above: Test(s) 429887-FWM-M ; 626911-FZV-H; 311331-Dxjylqiirzamu; 242822-Nxpzkwfktye, Total; 451279-FZY-N (Total); 146025-Cddih LDL-P; 581665-KJK Size; 291568-ZU-AZ Scorewas developed and its performance characteristics determinedby [employer]. It has not been cleared or approved by the Foodand Drug Administration.PERFORMED BY: [employer] [address] [id number] BY: [employer]70 News Distribution NetworkCrawley Memorial Hospital [id number] Metabolic Panel, Comprehensi ve (76415)Ordered By: [employer] on 01-06-2021 Albumin [Mass/Vol] 4.4 g/dL Normal 3.8-4.9 [facility]; [facility] Work Phone: Comment on above: Test(s) 655485-RHO-S ; 563077-ADV-V; 095425-Fjptlteaudcof; 007276-Chlgxgrbqcf, Total; 129052-IBS-E (Total); 223355-Jnecm LDL-P; 828082-HUH Size; 966425-LV-TR Scorewas developed and its performance characteristics determinedby Torrential. It has not been cleared or approved by the Foodand Drug Administration.PERFORMED BY: Chimeros [address] [id number] BY: [employer]70 [facility] [id number] Albumin/Globulin [Mass ratio] 1.8 {ratio} Normal 1.2-2.2 [facility]; [facility] Work Phone: Comment on above: Test(s) 881271-XGT-G ; 836718-OYD-I; 072626-Zgalawbqowyig; 279777-Lvlbgvesikb, Total; 194821-EYH-S (Total); 697985-Nllyb LDL-P; 599534-WPG Size; 916313-HD-UP Scorewas developed and its performance characteristics determinedby [employer]rent[employer]. It has not been cleared or approved by the Foodand Drug Administration.PERFORMED BY: Chimeros [address] [id number] BY: Kaggle[address] [facility] [id number] ALP [Catalytic activity/Vol] 52 U/L Normal 48-121 [facility]; [facility] Work Phone: Comment on above: Test(s) 797089-OTJ-W ; 961883-RPM-M; 965910-Nrbtvqvnevlqc; 004632-Rdtyqtbvrha, Total; 116004-RZX-A (Total); 084231-Dxswd LDL-P; 297759-QXM Size; 046630-YL-IM Scorewas developed and its performance characteristics determinedby [employer]. It has not been cleared or approved by the Foodand Drug Administration.PERFORMED BY: Chimeros [address] [id number] BY: [employer]70 [facility] [id number] ALT [Catalytic activity/Vol] 24 U/L Normal 0-44 [facility]; [facility] Work Phone: Comment on above: Test(s) 219155-BUH-G ; 781343-QFO-S; 713800-Uyvbvjesbjugb; 647186-Xwkhjvvopvk, Total; 301495-TWN-W (Total); 768334-Sllrr LDL-P; 967096-ADI Size; 574465-FE-PV Scorewas developed and its performance characteristics determinedby Divshot. It has not been cleared or approved by the Foodand Drug Administration.PERFORMED BY: Chimeros [address] [id number] BY: Jobs2WebSaint Michael's Medical CenterTooktk2503 [facility] [id number] AST [Catalytic activity/Vol] 59 U/L Abnormal 0-40 [facility]; [facility] Work Phone: Comment on above: Test(s) 402914-NJO-Y ; 471794-RFT-N; 351798-Ipdaistzppbpg; 646856-Odnwuygjgmb, Total; 344052-BSP-L (Total); 560813-Qozfp LDL-P; 425265-PQJ Size; 217288-TC-EP Scorewas developed and its performance characteristics determinedby [employer]rent[employer]. It has not been cleared or approved by the Foodand Drug Administration.PERFORMED BY: Like.com [address] [id number] BY: Jobs2WebSaint Michael's Medical CenterQgfnnm6855 [facility] [id number] Bilirubin [Mass/Vol] 1.0 mg/dL Normal 0.0-1.2 Comp rehensive Internal Medicine; [facility] Work Phone: Comment on above: Test(s) 361916-RCP-D ; 670973-YNR-T; 590399-Nvjhhuyjtnytt; 583213-Ghwgywoimyn, Total; 587448-DXO-L (Total); 178893-Rwdmh LDL-P; 900298-OTW Size; 533383-BZ-KZ Scorewas developed and its performance characteristics determinedby [employer]. It has not been cleared or approved by the Foodand Drug Administration.PERFORMED BY: Chimeros [address] [id number] BY: Jobs2WebFour Corners Regional Health CenterLqyfiv5280 [facility] [id number] Calcium [Mass/Vol] 9.4 mg/dL Normal 8.7-10.[address] [facility]; [facility] Work Phone: Comment on above: Test(s) 491788-NWR-Y ; 462900-HMG-U; 348838-Ijwdvimdxjuie; 727896-Jytobbwnbyi, Total; 733470-YQU-E (Total); 880437-Bcdse LDL-P; 021586-JSZ Size; 123642-RC-AR Scorewas developed and its performance characteristics determinedby [employer]. It has not been cleared or approved by the Foodand Drug Administration.PERFORMED BY: Chimeros [address] [id number] BY: Like.com Tsqdek3455 [facility] [id number] Chloride [Moles/Vol] 104 mmol/L Normal 96-106 Comp rehensive Internal Medicine; [facility] Work Phone: Comment on above: Test(s) 857839-AHS-C ; 130992-NRI-J; 728609-Xlixopwjhjviq; 165712-Rzauxsgxbaf, Total; 474750-NQI-H (Total); 558161-Bqxva LDL-P; 773506-VKU Size; 652132-QH-NB Scorewas developed and its performance characteristics determinedby [employer]. It has not been cleared or approved by the Foodand Drug Administration.PERFORMED BY: Chimeros [address] [id number] BY: Jobs2WebSaint Michael's Medical CenterMhoovr2791 [facility] [id number] CO2 [Moles/Vol] 23 mmol/L Normal 20-29 Comprehen [facility] Internal Medicine; [facility] Work Phone: Comment on above: Test(s) 414740-ORO-L ; 538603-OJZ-Q; 529814-Tcmmluswtquhg; 652989-Hbjptuyiuzu, Total; 417594-NRG-H (Total); 321794-Fvcpl LDL-P; 459891-DHR Size; 450077-RL-TE Scorewas developed and its performance characteristics determinedby [employer]. It has not been cleared or approved by the Foodand Drug Administration.PERFORMED BY: Like.com [address] [id number] BY: Jobs2WebSaint Michael's Medical CenterZxlnpt2088 [facility] [id number] Creatinine [Mass/Vol] 0.86 mg/dL Normal 0.76-1.27 [facility]; [facility] Work Phone: Comment on above: Test(s) 358992-TGK-B ; 532597-ILN-M; 108642-Lmfurvuucygco; 711585-Lmzogtqxrrs, Total; 973154-ZYL-U (Total); 689301-Dskzm LDL-P; 931566-YIA Size; 670053-SI-ND Scorewas developed and its performance characteristics determinedby [employer]. It has not been cleared or approved by the Foodand Drug Administration.PERFORMED BY: Like.com [address] [id number] BY: Jobs2WebSaint Michael's Medical CenterNiivah0183 [facility] [id number] GFR/1.73 sq M.predicted among blacks CKD-EPI (S/P/Bld) [Vol rate/Area] 111 mL/min/1.73 Normal [facility]; [facility] Work Phone: Comment on above: Divshot currently reports eGFR in compliance with the current recommendations of the National Kidney Foundation. [facility] will update reporting as new guidelines are published from the NKF-ASN Task force. Test(s) 132749-VXV-F ; 069760-LBE-Y; 081410-Rqcptgzjfkhhz; 197456-Txniivxauop, Total; 851208-MXK-O (Total); 831649-Zbvoz LDL-P; 770231-UFY Size; 244378-WS-GJ Scorewas developed and its performance characteristics determinedby [employer]. It has not been cleared or approved by the Foodand Drug Administration.PERFORMED BY: Jobs2Web[address] [id number] BY: Jobs2WebFour Corners Regional Health CenterLlqphs8750 [facility] [id number] GFR/1.73 sq M.predicted among non-blacks CKD-EPI (S/P/Bld) [Vol rate/Area] 96 mL/min/1.73 Normal [facility]; [facility] Work Phone: Comment on above: Test(s) 077926-PGP-I ; 359138-WYP-K; 487193-Zuhjpoifofslh; 354659-Matggmlzrsh, Total; 178485-NXA-C (Total); 961521-Yagol LDL-P; 149262-CWZ Size; 700657-MG-LH Scorewas developed and its performance characteristics determinedby [employer]. It has not been cleared or approved by the Foodand Drug Administration.PERFORMED BY: Like.com [address] [id number] BY: Jobs2WebFour Corners Regional Health CenterUwrsnu3292 [facility] [id number] Globulin (S) [Mass/Vol] 2.4 g/dL Normal 1.5-4.5 [facility]; [facility] Work Phone: Comment on above: Test(s) 682075-XRX-X ; 606931-MPT-L; 361712-Ejodmrpoebhco; 000775-Whfwltcsqss, Total; 662771-ZGG-E (Total); 918079-Akslh LDL-P; 842878-HZL Size; 325096-XQ-QW Scorewas developed and its performance characteristics determinedby [employer]. It has not been cleared or approved by the Foodand Drug Administration.PERFORMED BY: Jobs2Web[address] [id number] BY: Jobs2WebSaint Michael's Medical CenterNnvudi1887 [facility] [id number] Glucose [Mass/Vol] 87 mg/dL Normal 65-99 [facility] Internal Medicine; [facility] Work Phone: Comment on above: Test(s) 435912-UAG-Z ; 000875-QFH-L; 181538-Zykanktdrqbut; 032690-Bzabseyujto, Total; 779177-ONF-X (Total); 588042-Gxige LDL-P; 257274-QDY Size; 830933-MI-JP Scorewas developed and its performance characteristics determinedby [employer]. It has not been cleared or approved by the Foodand Drug Administration.PERFORMED BY: Chimeros [address] [id number] BY: [employer]70 News Distribution NetworkCrawley Memorial Hospital [id number] Potassium [Moles/Vol] 4.5 mmol/L Normal 3.5-5.2 [facility]; [facility] Work Phone: Comment on above: Test(s) 890159-FLU-S ; 998138-BGK-O; 757020-Vccehbssswpcv; 681750-Lqzfhuxyegn, Total; 305683-HJJ-D (Total); 478293-Rpwsh LDL-P; 048512-TGL Size; 868664-KT-ZN Scorewas developed and its performance characteristics determinedby [employer]. It has not been cleared or approved by the Foodand Drug Administration.PERFORMED BY: Chimeros [address] [id number] BY: Kaggle6370 GridNetworksAdventHealth Hendersonville [id number] Protein [Mass/Vol] 6.8 g/dL Normal 6.0-8.5 [facility] Internal Medicine; [facility] Work Phone: Comment on above: Test(s) 735433-IAG-F ; 173319-SOF-U; 886896-Xxuaboetbvuyl; 967180-Nplllouvlwa, Total; 866219-AJU-K (Total); 020240-Ifenp LDL-P; 234796-VEI Size; 077554-NL-UT Scorewas developed and its performance characteristics determinedby [employer]. It has not been cleared or approved by the Foodand Drug Administration.PERFORMED BY: Chimeros [address] [id number] BY: Jobs2Web Qmnppl2593 [facility] [id number] Sodium [Moles/Vol] 140 mmol/L Normal 134-144 [facility] Internal Medicine; [facility] Work Phone: Comment on above: Test(s) 499884-WJB-R ; 792236-JWF-E; 605095-Kuwlzupfewzmr; 752925-Unyhkssvjdc, Total; 233044-CZE-S (Total); 555361-Lclqb LDL-P; 907206-DEN Size; 407290-UY-IB Scorewas developed and its performance characteristics determinedby [employer]. It has not been cleared or approved by the Foodand Drug Administration.PERFORMED BY: Chimeros [address] [id number] BY: Invidiolin6370 [facility] [id number] Urea nitrogen [Mass/Vol] 16 mg/dL Normal 6-24 [facility]; [facility] Work Phone: Comment on above: Test(s) 148343-SWV-A ; 486470-FXL-E; 105296-Qligjvpjmopot; 841346-Fcvatsaaibv, Total; 312206-MXJ-S (Total); 037109-Usacx LDL-P; 514190-CXP Size; 122829-HX-VA Scorewas developed and its performance characteristics determinedby [employer]. It has not been cleared or approved by the Foodand Drug Administration.PERFORMED BY: Chimeros [address] [id number] BY: irisnoteSaint Michael's Medical CenterPphibp8524 [facility] [id number] Urea nitrogen/Creatinine [Mass ratio] 19 mg/mg Normal 9-20 [facility]; [facility] Work Phone: Comment on above: Test(s) 819371-RXL-A ; 111435-GSO-B; 679389-Kqigfbwxrodsr; 942490-Gtnmpduyqkp, Total; 634973-NLR-E (Total); 689607-Yprnk LDL-P; 894380-UTB Size; 102137-TZ-WF Scorewas developed and its performance characteristics determinedby [employer]. It has not been cleared or approved by the Foodand Drug Administration.PERFORMED BY: Chimeros [address] [id number] BY: ROCÍO Jobs2Web Bxrreu36[address] ConfabbCrawley Memorial Hospital [id number] NMR Profile (22698)Ordered B y: [employer] on 01-06-2021 Cholesterol [Mass/Vol] 221 mg/dL Abnormal 100-199 [facility]; [facility] Work Phone: Comment on above: Test(s) 314735-ADZ-A ; 058381-JAR-U; 972253-Fszmyjkxuezto; 279817-Gpdcyrrtbnj, Total; 554802-MYL-X (Total); 205229-Wzekb LDL-P; 414044-OEY Size; 665907-SX-UN Scorewas developed and its performance characteristics determinedby [employer]. It has not been cleared or approved by the Foodand Drug Administration.PERFORMED BY: Chimeros [address] [id number] BY: ScripsAmerica6[address] ConfabbCrawley Memorial Hospital [id number] Information: NURSE DRAW Lipoprotein.alpha [Moles/Vol] 42.2 umol/L Normal [facility]; [facility] Work Phone: Comment on above: Test(s) 724179-NRG-C ; 417137-DHA-J; 360836-Nxrancbcmmbix; 484911-Thgmvsnwkkb, Total; 845499-ZCH-W (Total); 599732-Ejwmi LDL-P; 691239-BRP Size; 306459-MR-WY Scorewas developed and its performance characteristics determinedby [employer]. It has not been cleared or approved by the Foodand Drug Administration.PERFORMED BY: Chimeros [address] [id number] BY: [employer]70 [facility] [id number] Information: NURSE DRAW Lipoprotein.beta.sub particle [Entitic length] 21.8 nm Normal [facility]; [facility] Work Phone: Comment on above: INTERPRETATIVE INFORMATION PARTICLE CONCENTRATION AND SIZE <--Lower CVD Risk Higher CVD Risk--> LDL AND HDL PARTICLES Percentile in Reference Population HDL-P (total) High 75th 50th 25th Low >34.9 34.9 30.5 26.7 <26.7 . Small LDL-P Low 25th 50th 75th High <117 117 527 839 >839 . LDL Size <-Large (Pattern A)-> <-Small (Pattern B)-> 23.0 20.6 20.5 19.0 Small LDL-P and LDL Size are associated with CVD risk, but not afterLDL-P is taken into account. Test(s) 419092-UYM-E ; 761688-GAG-V; 796650-Hfsltyyajpjgb; 378141-Worhtjgttur, Total; 583093-VFH-G (Total); 371255-Xgdpx LDL-P; 744866-EOX Size; 239021-WM-JK Scorewas developed and its performance characteristics determinedby Divshot. It has not been cleared or approved by the Foodand Drug Administration.PERFORMED BY: LUPE Reppify[address] [id number] BY: ROCÍO [facility]6370 [facility] [id number] Information: NURSE DRAW Lipoprotein.beta.sub particle [Moles/Vol] 1284 nmol/L Abnormal Comprehensi ve Internal Medicine; [facility] Work Phone: Comment on above: Low < 1000 Moderate 1000 - 1299 Borderline-High 1300 - 1599 High 1600 - 2000 Very High > 2000 Test(s) 469615-TBC-D ; 933466-OYD-U; 130495-Ukpdmmwxvpdsc; 989613-Skwjhddzrzz, Total; 864544-IVY-Y (Total); 338506-Isori LDL-P; 222158-QXG Size; 086713-IR-YN Scorewas developed and its performance characteristics determinedby Torrential. It has not been cleared or approved by the FoodASOCS Drug Administration.PERFORMED BY: Chimeros [address] [id number] BY: [employer] [facility] [id number] Information: NURSE DRAW Lipoprotein.beta.sub particle.small [Moles/Vol] 193 nmol/L Normal [facility]; [facility] Work Phone: Comment on above: Test(s) 520531-FHH-K ; 360813-WZF-Q; 760699-Dmvvhgxwgjtco; 473506-Nihtuocpitq, Total; 365839-UBL-B (Total); 974440-Zhtog LDL-P; 061143-MOV Size; 469365-VR-VP Scorewas developed and its performance characteristics determinedby Torrential. It has not been cleared or approved by the Foodand Drug Administration.PERFORMED BY: Chimeros [address] [id number] BY: Kaggle6370 [facility] [id number] Information: NURSE DRAW Triglyceride [Mass/Vol] 78 mg/dL Normal 0-149 [facility]; [facility] Work Phone: Comment on above: Test(s) 157817-BIN-I ; 157317-YEM-J; 194261-Zrmtwafskchyd; 228041-Epkmxoumtqh, Total; 011472-BNB-F (Total); 954279-Rptzm LDL-P; 474696-MRO Size; 967630-PD-TV Scorewas developed and its performance characteristics determinedby Tor[employer]. It has not been cleared or approved by the Foodand Drug Administration.PERFORMED BY: Chimeros [address] [id number] BY: ROCÍO Jobs2WebSaint Michael's Medical CenterDkhsop7001 [facility] [id number] Information: NURSE DRAW NMR Profile (03813) 132 mg/dL Abnormal 0-99 [facility]; [facility] Work Phone: Comment on above: . Optimal < 100 Abov e optimal 100 - 129 Borderline 130 - 159 High 160 - 189 Very high > 189 . Test(s) 446563-HKX-B ; 998120-KYD-A; 608025-Wyunolkkopowj; 576035-Ttrntvmxjja, Total; 358012-OWB-W (Total); 438105-Nosfn LDL-P; 317973-BGG Size; 775495-SC-QX Scorewas developed and its performance characteristics determinedby [employer]. It has not been cleared or approved by the Foodand Drug Administration.PERFORMED BY: Chimeros [address] [id number] BY: Jobs2WebFour Corners Regional Health CenterHdodud2090 [facility] [id number] Information: NURSE DRAW NMR Profile (56790) 75 mg/dL Normal [facility] Internal Medicine; [facility] Work Phone: Comment on above: Test(s) 702807-HBI-I ; 560324-PHS-I; 889222-Ejxcuhsxvepdt; 434188-Rdqejnvurck, Total; 357095-SSC-P (Total); 781934-Bfxbu LDL-P; 222013-QDR Size; 531849-JF-NR Scorewas developed and its performance characteristics determinedby [employer]. It has not been cleared or approved by the Foodand Drug Administration.PERFORMED BY: Chimeros [address] [id number] BY: Jobs2WebSaint Michael's Medical CenterTwqbdb2321 [facility] [id number] Information: NURSE DRAW PSA (Prostate Specific Antig en), Screening (88254)Ordered By: [employer] on 01-06-2021 Prostate specific Ag [Mass/Vol] 1.3 ng/mL Normal 0.0-4.0 [facility]; [facility] Work Phone: Comment on above: Mata ECLIA methodol ogy. .According to the [place] [employer], Serum PSA shoulddecrease and remain at undetectable levels after radicalprostatectomy. The AUA defines biochemical recurrence as an initialPSA value 0.2 ng/mL or greater followed by a subsequent confirmatoryPSA value 0.2 ng/mL or greater.Values obtained with different assay methods or kits cannot be usedinterchangeably. Results cannot be interpreted as absolute evidenceof the presence or absence of malignant disease. Test(s) 950304-MHC-I ; 019672-KZZ-I; 878468-Lrkhsxkfbdgut; 243244-Wirzzxjpzip, Total; 604089-QDW-H (Total); 508199-Ggntd LDL-P; 481126-CYX Size; 279454-NM-ZX Scorewas developed and its performance characteristics determinedby Torrential. It has not been cleared or approved by the Foodand Drug Administration.PERFORMED BY: Jobs2Web[address] [id number] BY: Jobs2Web Mriqch8115 News Distribution NetworkCrawley Memorial Hospital [id number] URINALYSIS (32813)Ordered By : [employer] on 01-06-2021 Appearance (U) Clear Normal Comprehens capo Internal Medicine; [facility] Work Phone: Comment on above: PATIENT NOT FASTINGP ERFORMED BY: Jobs2Web Enwysu7266 News Distribution NetworkCrawley Memorial Hospital [id number] Bilirubin Ql (U) Negative Normal Comprehe nsive Internal Medicine; [facility] Work Phone: Comment on above: PATIENT NOT FASTINGP ERFORMED BY: Tantaline70 News Distribution NetworkCrawley Memorial Hospital [id number] Color (U) Yellow Normal [facility]; [facility] Work Phone: Comment on above: PATIENT NOT FASTINGP ERFORMED BY: Tantaline70 News Distribution NetworkCrawley Memorial Hospital [id number] Glucose Ql (U) Negative Normal Comprehens capo Internal Medicine; [facility] Work Phone: Comment on above: PATIENT NOT FASTINGP ERFORMED BY: ROCÍO Clair Qeprsh8425 Yeager RoadDublin [place] [id number] Hemoglobin Ql (U) Negative Normal Compreh ensive Internal Medicine; [facility] Work Phone: Comment on above: PATIENT NOT FASTINGP ERFORMED BY: ROCÍO Clair Ffszsf1348 Yeager RoadDublin [place] [id number] Ketones Ql (U) Negative Normal Comprehens capo Internal Medicine; [facility] Work Phone: Comment on above: PATIENT NOT FASTINGP ERFORMED BY: ROCÍO Janeenkaren De La OEwjwzb90[address] [facility] Hospitalblin [place] [id number] Leukocyte esterase Test strip Ql (U) Negative Normal [facility]; [facility] Work Phone: Comment on above: PATIENT NOT FASTINGP ERFORMED BY: ROCÍO Clair Mzszxx34[address] [facility]in [place] [id number] Microscopic observation LM Nom (Urine sed) MICNIP Normal [facility]; [facility] Work Phone: Comment on above: Microscopic not valerie cated and not performed. PATIENT NOT FASTINGP ERFORMED BY: ROCÍO Clair De La Olin6370 [address]ager RoadDublin [place] [id number] Nitrite Ql (U) Negative Normal Comprehens capo Internal Medicine; [facility] Work Phone: Comment on above: PATIENT NOT FASTINGP ERFORMED BY: ROCÍO Clair Kerpwz07[address] [facility]in [place] [id number] pH (U) 5.5 [pH] Normal 5.0-7.5 [facility]; [facility] Work Phone: Comment on above: PATIENT NOT FASTINGP ERFORMED BY: ROCÍO Clair De La Olin[address] [facility] HospitalDublin [place] [id number] Protein Ql (U) Negative Normal Comprehens capo Internal Medicine; [facility] Work Phone: Comment on above: PATIENT NOT FASTINGP ERFORMED BY: CB [facility] Aqyofn8159 Yeager RoadDublin [place] [id number] Specific gravity (U) [Rel density] 1.016 1 Normal 1.005-1.030 [facility]; [facility] Work Phone: Comment on above: PATIENT NOT FASTINGP ERFORMED BY: CB [facility] Azyiqy8685 Yeager RoadDublin [place] [id number] Urobilinogen (U) [Mass/Vol] 0.2 mg/dL Normal 0.2-1.0 [facility]; [facility] Work Phone: Comment on above: PATIENT NOT FASTINGP ERFORMED BY: CB [facility] Lxjemp5004 [address] RoadFormerly Western [facility] Centerin [place] [id number] BILIRUBIN, TOTAL (40588)Orde red By: [employer] on 12-12-2019 Bilirubin [Mass/Vol] 0.7 mg/dL Normal 0.0-1.2 [facility] Internal Medicine Work Phone: Comment on above: PATIENT NOT FASTINGP ERFORMED BY: [facility] Tlsnyt7340 [address]ager RoadDublin [place] [id number] Bilirubin.direct [Mass/Vol] 0.17 mg/dL Normal 0.00-0.40 [facility] Work Phone: Comment on above: PATIENT NOT FASTINGP ERFORMED BY: CB [facility] Hghmbi7771 [address] RoadDublin [place] [id number] Bilirubin.indirect [Mass/Vol] 0.53 mg/dL Normal 0.10-0.80 [facility] Work Phone: Comment on above: PATIENT NOT FASTINGP ERFORMED BY: CB [facility] Fyldnw[address] [facility] Hospitalbl[facility] [place] [id number] PSA (Prostate Specific Antig en), Screening (75646)Ordered By: [employer] on 11-28-2019 Prostate specific Ag [Mass/Vol] 0.8 ng/mL Normal 0.0-4.0 [facility] Work Phone: Comment on above: Mata ECLIA methodol ogy. .According to the [place] [employer], Serum PSA shoulddecrease and remain at undetectable levels after radicalprostatectomy. The AUA defines biochemical recurrence as an initialPSA value 0.2 ng/mL or greater followed by a subsequent confirmatoryPSA value 0.2 ng/mL or greater.Values obtained with different assay methods or kits cannot be usedinterchangeably. Results cannot be interpreted as absolute evidenceof the presence or absence of malignant disease. Test(s) 978934-BLAL- CoV-2 Antibody, IgGhas not been FDA cleared or approved. This test hasbeen authorized by FDA under an Emergency Use Authorization(EUA). This test is only authorized for the duration of thedeclaration that circumstances exist justifying the authorizationof emergency use of in vitro diagnostics for detection and/ordiagnosis of COVID-19 under Section 564(b)(1) of the Act, 21U.S.C. 360bbb-3(b)(1), unless the authorization is terminated orrevoked sooner. This test has been authorized only for detectingthe presence of antibodies against SARS-CoV-2, not for any otherviruses or pathogens.PATIENT WAS FASTINGPERFORMED BY: [facility] [id number] SARS-CoV-2 Antibody, IgGOrde red By: [employer] on 11-28-2019 SARS-CoV-2 Antibody, IgG Negative Normal [facility] Work Phone: Comment on above: This sample does not contain detectable SARS-CoV-2 IgG antibodies.This negative result does not rule out SARS-CoV-2 infection.Correlation with epidemiologic risk factors and other clinical andlaboratory findings is recommended. Serologic results should not beused as the sole basis to diagnose or exclude recent [id number].This assay was performed using the Horn SARS-CoV-2 IgG assay. Test(s) 416428-NQXB- CoV-2 Antibody, IgGhas not been FDA cleared or approved. This test hasbeen authorized by FDA under an Emergency Use Authorization(EUA). This test is only authorized for the duration of thedeclaration that circumstances exist justifying the authorizationof emergency use of in vitro diagnostics for detection and/ordiagnosis of COVID-19 under Section 564(b)(1) of the Act, 21U.S.C. 360bbb-3(b)(1), unless the authorization is terminated orrevoked sooner. This test has been authorized only for detectingthe presence of antibodies against SARS-CoV-2, not for any otherviruses or pathogens.PATIENT WAS FASTINGPERFORMED BY: ROCÍO [employer] Lnidhz0713 [facility] [id number] SARS-CoV-2 Antibody, IgG Negative Normal [facility]; [facility] Work Phone: Comment on above: This sample does not contain detectable SARS-CoV-2 IgG antibodies.This negative result does not rule out SARS-CoV-2 infection.Correlation with epidemiologic risk factors and other clinical andlaboratory findings is recommended. Serologic results should not beused as the sole basis to diagnose or exclude recent [id number].This assay was performed using the Horn SARS-CoV-2 IgG assay. Test(s) [id number]-[id number]- CoV-2 Antibody, IgGhas not been FDA cleared or approved. This test hasbeen authorized by FDA under an Emergency Use Authorization(EUA). This test is only authorized for the duration of thedeclaration that circumstances exist justifying the authorizationof emergency use of in vitro diagnostics for detection and/ordiagnosis of COVID-19 under Section 564(b)(1) of the Act, 21U.S.C. 360bbb-3(b)(1), unless the authorization is terminated orrevoked sooner. This test has been authorized only for detectingthe presence of antibodies against SARS-CoV-2, not for any otherviruses or pathogens.PATIENT WAS FASTINGPERFORMED BY: ROCÍO [facility] [id number] RUBEOLA IgG ([id number])Ordered B y: [employer] on 11-22-2018 MeV IgG IA Qn (S) {index_val} Normal Compre hensive Internal Medicine Work Phone: Comment on above: Negative <25.0 Equiv ocal 25.0 - 29.9 Positive >29.9 Presence of antibodies to Rubeola is presumptive evidence of immunity except when acute infection is suspected. PATIENT NOT FASTINGP ERFORMED BY: [facility] [id number] CBC with auto diff ([id number])Or dered By: [employer] on 10-25-2018 Basophils (Bld) [#/Vol] 0.1 {x10E3/uL} Normal 0.0-0.2 [facility] Work Phone: Comment on above: PATIENT NOT FASTINGP ERFORMED BY: ROCÍO Jordan[address] [id number] Information: NURSE DRAW Basophils (Bld) [#/Vol] 0.1 10*3/uL Normal 0.0-0.2 [facility]; [facility] Work Phone: Comment on above: PATIENT NOT FASTINGP ERFORMED BY: ROCÍO Janeen Gfbym[address] [id number] Information: NURSE DRAW Basophils/100 WBC (Bld) 1 % Normal [facility] Work Phone: Comment on above: PATIENT NOT FASTINGP ERFORMED BY: ROCÍO Julian[address] [id number] Information: NURSE DRAW Eosinophils (Bld) [#/Vol] 0.7 {x10E3/uL} Abnormal 0.0-0.4 [facility] Work Phone: Comment on above: PATIENT NOT FASTINGP ERFORMED BY: ROCÍO [address] [id number] Information: NURSE DRAW Eosinophils (Bld) [#/Vol] 0.7 10*3/uL Abnormal 0.0-0.4 [facility]; [facility] Work Phone: Comment on above: PATIENT NOT FASTINGP ERFORMED BY: [address] [id number] Information: NURSE DRAW Eosinophils/100 WBC (Bld) 12 % Normal [facility] Work Phone: Comment on above: PATIENT NOT FASTINGP ERFORMED BY: [address] [id number] Information: NURSE DRAW Erythrocyte distribution width (RBC) [Ratio] 13.8 % Normal 12.3-15.4 [facility] Work Phone: Comment on above: PATIENT NOT FASTINGP ERFORMED BY: ROCÍO De La Olin6370 [facility] [id number] Information: NURSE DRAW Hematocrit (Bld) [Volume fraction] 42.2 % Normal 37.5-51.0 [facility] Work Phone: Comment on above: PATIENT NOT FASTINGP ERFORMED BY: ROCÍO Vernon[address] [id number] Information: NURSE DRAW Hemoglobin (Bld) [Mass/Vol] 14.1 g/dL Normal 13.0-17.7 [facility] Work Phone: Comment on above: PATIENT NOT FASTINGP ERFORMED BY: ROCÍO [address] [id number] Information: NURSE DRAW Immature granulocytes (Bld) [#/Vol] 0.0 {x10E3/uL} Normal 0.0-0.1 [facility] Work Phone: Comment on above: PATIENT NOT FASTINGP ERFORMED BY: ROCÍO De La O[address] [id number] Information: NURSE DRAW Immature granulocytes (Bld) [#/Vol] 0.0 10*3/uL Normal 0.0-0.1 [facility]; [facility] Work Phone: Comment on above: PATIENT NOT FASTINGP ERFORMED BY: ROCÍO VernonTe[place] 7074670 [facility] [id number] Information: NURSE DRAW Immature granulocytes/100 WBC (Bld) 0 % Normal [facility] Work Phone: Comment on above: PATIENT NOT FASTINGP ERFORMED BY: ROCÍO Vernon[address] [id number] Information: NURSE DRAW Lymphocytes (Bld) [#/Vol] 1.6 {x10E3/uL} Normal 0.7-3.1 [facility] Work Phone: Comment on above: PATIENT NOT FASTINGP ERFORMED BY: ROCÍO [employer] Bckeos2278 [facility] [id number] Information: NURSE DRAW Lymphocytes (Bld) [#/Vol] 1.6 10*3/uL Normal 0.7-3.1 [facility]; [facility] Work Phone: Comment on above: PATIENT NOT FASTINGP ERFORMED BY: LabCoTeresa [place]ille 7074670 [facility] [id number] Information: NURSE DRAW Lymphocytes/100 WBC (Bld) 30 % Normal [facility] Work Phone: Comment on above: PATIENT NOT FASTINGP ERFORMED BY: ROCÍO Vernon Aohpvd0397 [facility] [id number] Information: NURSE DRAW MCH (RBC) [Entitic mass] 29.9 pg Normal 26.6-33.0 [facility] Work Phone: Comment on above: PATIENT NOT FASTINGP ERFORMED BY: [place]Doug[place] 6941970 [facility] [id number] Information: NURSE DRAW MCHC (RBC) [Mass/Vol] 33.4 g/dL Normal 31.5-35.7 [facility] Work Phone: Comment on above: PATIENT NOT FASTINGP ERFORMED BY: [place] 0198070 [facility] [id number] Information: NURSE DRAW MCV (RBC) [Entitic vol] 89 fL Normal 79-97 [facility] Work Phone: Comment on above: PATIENT NOT FASTINGP ERFORMED BY: LabCoTeresa [place] 7074670 [facility] [id number] Information: NURSE DRAW Monocytes (Bld) [#/Vol] 0.5 {x10E3/uL} Normal 0.1-0.9 [facility] Work Phone: Comment on above: PATIENT NOT FASTINGP ERFORMED BY: LabDouglas [place] 6941970 [facility] [id number] Information: NURSE DRAW Monocytes (Bld) [#/Vol] 0.5 10*3/uL Normal 0.1-0.9 [facility]; [facility] Work Phone: Comment on above: PATIENT NOT FASTINGP ERFORMED BY: ROCÍO Vernon Imyrxd2279 [facility] [id number] Information: NURSE DRAW Monocytes/100 WBC (Bld) 9 % Normal [facility] Work Phone: Comment on above: PATIENT NOT FASTINGP ERFORMED BY: [address] [id number] Information: NURSE DRAW Neutrophils (Bld) [#/Vol] 2.5 {x10E3/uL} Normal 1.4-7.0 [facility] Work Phone: Comment on above: PATIENT NOT FASTINGP ERFORMED BY: [address] [id number] Information: NURSE DRAW Neutrophils (Bld) [#/Vol] 2.5 10*3/uL Normal 1.4-7.0 [facility]; [facility] Work Phone: Comment on above: PATIENT NOT FASTINGP ERFORMED BY: JaneneTeresa [place] 7074670 [facility] [id number] Information: NURSE DRAW Neutrophils/100 WBC (Bld) 48 % Normal [facility] Work Phone: Comment on above: PATIENT NOT FASTINGP ERFORMED BY: [place] 0198070 [facility] [id number] Information: NURSE DRAW Platelets (Bld) [#/Vol] 324 {x10E3/uL} Normal 150-379 [facility] Work Phone: Comment on above: PATIENT NOT FASTINGP ERFORMED BY: [place] 0198070 [facility] [id number] Information: NURSE DRAW Platelets (Bld) [#/Vol] 324 10*3/uL Normal 150-379 [facility]; [facility] Work Phone: Comment on above: PATIENT NOT FASTINGP ERFORMED BY: ROCÍO Mendez70 [facility] [id number] Information: NURSE DRAW RBC (Bld) [#/Vol] 4.72 {x10E6/uL} Normal 4.14-5.80 [facility] Internal Medicine Work Phone: Comment on above: PATIENT NOT FASTINGP ERFORMED BY: ROCÍO Mendez70 [facility] [id number] Information: NURSE DRAW RBC (Bld) [#/Vol] 4.72 10*6/uL Normal 4.14-5.80 [facility] Internal Medicine; [facility] Work Phone: Comment on above: PATIENT NOT FASTINGP ERFORMED BY: ROCÍO De La Olin6370 [facility] [id number] Information: NURSE DRAW WBC (Bld) [#/Vol] 5.2 {x10E3/uL} Normal 3.4-10.8 [facility] Internal Medicine Work Phone: Comment on above: PATIENT NOT FASTINGP ERFORMED BY: ROCÍO Lyon6370 [facility] [id number] Information: NURSE DRAW WBC (Bld) [#/Vol] 5.2 10*3/uL Normal 3.4-10.8 [facility] Internal Medicine; [facility] Work Phone: Comment on above: PATIENT NOT FASTINGP ERFORMED BY: ROCÍO Vernon Ckxxpo2711 [facility] [id number] Information: NURSE DRAW HEPATITIS B SURFACE ANTIBODY (70120)Ordered By: [employer] on 10-25-2018 HBV surface Ab Ql (S) Reactive Normal [facility] Work Phone: Comment on above: Non Reactive: Incons istent with immunity, less than 10 mIU/mL Reactive: Consistent with immunity, greater than 9.9 mIU/mL PATIENT NOT FASTINGP ERFORMED BY: ROCÍO Vernon Uagwiy8889 [facility] [id number] HBV surface Ab Ql (S) Reactive Normal [facility]; [facility] Work Phone: Comment on above: Non Reactive: Incons istent with immunity, less than 10 mIU/mL Reactive: Consistent with immunity, greater than 9.9 mIU/mL PATIENT NOT FASTINGP ERFORMED BY: CB [facility] Fqtbgd2244 [facility] [id number] Metabolic Panel, Comprehensi ve ([id number])Ordered By: [employer] on 10-25-2018 Albumin [Mass/Vol] 4.3 g/dL Normal 3.5-5.5 [facility] Internal Medicine Work Phone: Comment on above: PATIENT NOT FASTINGP ERFORMED BY: CB [facility] Ewmpmd4805 [facility] [id number] Information: NURSE DRAW Albumin/Globulin [Mass ratio] 1.8 {ratio} Normal 1.2-2.2 [facility] Work Phone: Comment on above: PATIENT NOT FASTINGP ERFORMED BY: CB [facility] Hktppe8756 [facility] [id number] Information: NURSE DRAW ALP [Catalytic activity/Vol] 48 [iU]/L Normal 39-117 [facility] Work Phone: Comment on above: PATIENT NOT FASTINGP ERFORMED BY: CB [facility] Hupfed6435 [facility] [id number] Information: NURSE DRAW ALP [Catalytic activity/Vol] 48 U/L Normal 39-117 [facility]; [facility] Work Phone: Comment on above: PATIENT NOT FASTINGP ERFORMED BY: CB [facility] Lagvnj1415 [facility] [id number] Information: NURSE DRAW ALT [Catalytic activity/Vol] 17 [iU]/L Normal 0-44 [facility] Work Phone: Comment on above: PATIENT NOT FASTINGP ERFORMED BY: CB [facility] Nwgiqv1080 [facility] [id number] Information: NURSE DRAW ALT [Catalytic activity/Vol] 17 U/L Normal 0-44 [facility]; [facility] Work Phone: Comment on above: PATIENT NOT FASTINGP ERFORMED BY: ROCÍO [facility] Jsyltd8211 [facility] [id number] Information: NURSE DRAW AST [Catalytic activity/Vol] 23 [iU]/L Normal 0-40 [facility] Work Phone: Comment on above: PATIENT NOT FASTINGP ERFORMED BY: CB [facility] Kcccdt6132 [facility] [id number] Information: NURSE DRAW AST [Catalytic activity/Vol] 23 U/L Normal 0-40 [facility]; [facility] Work Phone: Comment on above: PATIENT NOT FASTINGP ERFORMED BY: CB [facility] Idonyd8831 [facility] [id number] Information: NURSE DRAW Bilirubin [Mass/Vol] 1.0 mg/dL Normal 0.0-1.2 [facility] Work Phone: Comment on above: PATIENT NOT FASTINGP ERFORMED BY: CB [facility] Wgxqxo6570 [facility] [id number] Information: NURSE DRAW Calcium [Mass/Vol] 9.6 mg/dL Normal 8.7-10.2 [facility] Internal Medicine Work Phone: Comment on above: PATIENT NOT FASTINGP ERFORMED BY: CB [facility] Wyuaku8766 [facility] [id number] Information: NURSE DRAW Chloride [Moles/Vol] 103 mmol/L Normal 96-106 [facility] Work Phone: Comment on above: PATIENT NOT FASTINGP ERFORMED BY: CB [facility] Hyvcpp2620 [facility] [id number] Information: NURSE DRAW CO2 [Moles/Vol] 25 mmol/L Normal 20-29 [facility] Internal Medicine Work Phone: Comment on above: PATIENT NOT FASTINGP ERFORMED BY: CB [facility] Ocwctq7247 [facility] [id number] Information: NURSE DRAW Creatinine [Mass/Vol] 0.88 mg/dL Normal 0.76-1.27 [facility] Work Phone: Comment on above: PATIENT NOT FASTINGP ERFORMED BY: [facility]CoSaint [facility]'s Medical CenterPayqdb3728 [facility] [id number] Information: NURSE DRAW GFR/1.73 sq M predicted among blacks CKD-EPI (S/P/Bld) [Vol rate/Area] 112 mL/min/1.73 Normal [facility] Work Phone: Comment on above: PATIENT NOT FASTINGP ERFORMED BY: [facility]6370 [facility] [id number] Information: NURSE DRAW GFR/1.73 sq M predicted among non-blacks CKD-EPI (S/P/Bld) [Vol rate/Area] 97 mL/min/1.73 Normal [facility] Work Phone: Comment on above: PATIENT NOT FASTINGP ERFORMED BY: [facility]6370 [facility] [id number] Information: NURSE DRAW Globulin (S) [Mass/Vol] 2.4 g/dL Normal 1.5-4.5 [facility] Work Phone: Comment on above: PATIENT NOT FASTINGP ERFORMED BY: [facility]6370 [facility] [id number] Information: NURSE DRAW Glucose [Mass/Vol] 91 mg/dL Normal 65-99 [facility] Internal Medicine Work Phone: Comment on above: PATIENT NOT FASTINGP ERFORMED BY: LabDouglas [place] 6941970 [facility] [id number] Information: NURSE DRAW Potassium [Moles/Vol] 4.6 mmol/L Normal 3.5-5.2 [facility] Work Phone: Comment on above: PATIENT NOT FASTINGP ERFORMED BY: LabDoug[place] 6941970 [facility] [id number] Information: NURSE DRAW Protein [Mass/Vol] 6.7 g/dL Normal 6.0-8.5 [facility] Internal Medicine Work Phone: Comment on above: PATIENT NOT FASTINGP ERFORMED BY: ROCÍO LabCokaren De La OEckmwn0334 [facility] [id number] Information: NURSE DRAW Sodium [Moles/Vol] 141 mmol/L Normal 134-144 [facility] Internal Medicine Work Phone: Comment on above: PATIENT NOT FASTINGP ERFORMED BY: [facility] Znpvhv3550 [facility] [id number] Information: NURSE DRAW Urea nitrogen [Mass/Vol] 14 mg/dL Normal 6-24 [facility] Internal Medicine Work Phone: Comment on above: PATIENT NOT FASTINGP ERFORMED BY: [facility] Zjkwgm6406 [facility] [id number] Information: NURSE DRAW Urea nitrogen/Creatinine [Mass ratio] 16 mg/mg Normal 9-20 [facility] Internal Medicine Work Phone: Comment on above: PATIENT NOT FASTINGP ERFORMED BY: [facility] Fkdqfl2718 [facility] [id number] Information: NURSE DRAW PSA (Prostate Specific Antig en), Screening ([id number])Ordered By: [employer] on 10-25-2018 Prostate specific Ag [Mass/Vol] 0.9 ng/mL Normal 0.0-4.0 [facility] Internal Medicine Work Phone: Comment on above: Mata ECLIA methodol ogy. .According to the [place] [employer], Serum PSA shoulddecrease and remain at undetectable levels after radicalprostatectomy. The AUA defines biochemical recurrence as an initialPSA value 0.2 ng/mL or greater followed by a subsequent confirmatoryPSA value 0.2 ng/mL or greater.Values obtained with different assay methods or kits cannot be usedinterchangeably. Results cannot be interpreted as absolute evidenceof the presence or absence of malignant disease. PATIENT NOT FASTINGP ERFORMED BY: [facility] Tnmwwc4531 [facility] [id number] CBC W/Diff, AutomatedOrdered By: [employer] on 07-13-2017 Basophils/100 WBC (Bld) 1.1 % Abnormal 0-1 [facility] Work Phone: Comment on above: [facility] [address] [place], [address] Basophils/100 WBC Auto (Bld) 1.1 % Abnormal 0-1 [facility] Work Phone: Eosinophils/100 WBC (Bld) 13.0 % Abnormal 0-5 [facility] Work Phone: Comment on above: [facility] [address] [place], [address]([phone] Eosinophils/100 WBC Auto (Bld) 13.0 % Abnormal 0-5 [facility] Work Phone: Erythrocyte distribution width (RBC) [Ratio] 13.4 % Normal 11.6-14.6 [facility] Work Phone: Comment on above: [facility] [address] [place], [phone] Erythrocyte distribution width Auto Ratio (RBC) 13.4 % Normal 11.6-14.6 [facility] Work Phone: Hematocrit (Bld) [Volume fraction] 42.5 % Normal 40-54 [facility] Work Phone: Comment on above: [facility] [address] [place], [address] Hematocrit Auto Volume Fraction (Bld) 42.5 % Normal 40-54 [facility] Work Phone: Hemoglobin mass conc (Bld) 13.9 g/dL Normal 13.0-16.5 [facility] Work Phone: Comment on above: [facility] [address] [place], [address] IM GRAN % 0.000 % Normal 0.0-0.9 [facility] Work Phone: Comment on above: IG% - Immature Granu locytes (promyelocytes, myelocytes andmetamyelocytes) > 1% indicates that a LEFT SHIFT is Present. [facility] [address] [place], [address] Lymphocytes/100 WBC (Bld) 32.6 % Normal 19-41 [facility] Work Phone: Comment on above: [facility] [address] [place], [address] Lymphocytes/100 WBC Auto (Bld) 32.6 % Normal 19-41 [facility] Work Phone: MCH (RBC) [Entitic mass] 30.4 pg Normal 27.0-32.0 [facility] Work Phone: Comment on above: [facility] [address] [place], [address] MCH Auto Entitic mass (RBC) 30.4 pg Normal 27.0-32.0 [facility] Work Phone: MCHC (RBC) [Mass/Vol] 32.7 {g/gl} Normal 32-36 [facility] Work Phone: Comment on above: [facility] [address] [place], [address] MCHC Auto mass conc (RBC) 32.7 {g/gl} Normal 32-36 [facility] Work Phone: MCV (RBC) [Entitic vol] 96.0 fL Abnormal 80-94 [facility] Work Phone: Comment on above: [facility] [address] [place], [address] MCV Auto Entitic volume (RBC) 96.0 fL Abnormal 80-94 [facility] Work Phone: Monocytes/100 WBC (Bld) 9.8 % Normal 0-10 [facility] Work Phone: Comment on above: [facility] [address] [place], [address] Monocytes/100 WBC Auto (Bld) 9.8 % Normal 0-10 [facility] Work Phone: Neutrophils/100 WBC (Bld) 43.5 % Abnormal 47-70 [facility] Work Phone: Comment on above: [facility] [address] [place], [address] Neutrophils/100 WBC Auto (Bld) 43.5 % Abnormal 47-70 [facility] Work Phone: Platelet mean volume (Bld) [Entitic vol] 9.7 fL Normal 6.2-12.0 [facility] Work Phone: Comment on above: [facility] [address] [place], [address] Platelet mean volume Auto Entitic volume (Bld) 9.7 fL Normal 6.2-12.0 [facility] Work Phone: Platelets (Bld) [#/Vol] 297 10*3/uL Normal 150-450 [facility] Work Phone: Comment on above: [facility] [address] [place], [address] Platelets Auto #/vol (Bld) 297 10*3/uL Normal 150-450 [facility] Work Phone: RBC (Bld) [#/Vol] 4.57 {M/mm3} Abnormal 4.6-6.2 [facility] Internal Medicine Work Phone: Comment on above: [facility] [address] [place], [address] RBC Auto #/vol (Bld) 4.57 {M/mm3} Abnormal 4.6-6.2 [facility] Internal Medicine Work Phone: RDW SD 45.5 fL Abnormal 35.1-43.9 [facility] Work Phone: Comment on above: [facility] [address] [place], [place], [address] WBC (Bld) [#/Vol] 4.7 10*3/uL Normal 4.4-11.0 [facility] Internal Medicine Work Phone: Comment on above: [facility] [address] [place], [address] WBC Auto #/vol (Bld) 4.7 10*3/uL Normal 4.4-11.0 [facility] prehensive Internal Medicine Work Phone: CBC W/Diff, Automated 45.5 fL Abnormal 35.1-43.9 [facility] Work Phone: CBC W/Diff, Automated 0.000 % Normal 0.0-0.9 [facility] Work Phone: Comment on above: IG% - Immature Granu locytes (promyelocytes, myelocytes andmetamyelocytes) > 1% indicates that a LEFT SHIFT is Present. Comprehensive Metabolic Prof ilOrdered By: [employer] on 07-13-2017 Comprehensive metabolic 2000 panel 0.92 mg/dL Normal 0.70-1.30 Comprehensi ve Internal Medicine Work Phone: Comment on above: The validity of the calculated GFR AND GFRAA in patients over70 years has not been determined. Clinical correlation isessential. [facility] [address] [place], [address] Comprehensive metabolic 2000 panel 14 mg/dL Normal 7-18 Comprehensi ve Internal Medicine Work Phone: Comment on above: [facility] [address] [place], [address] Comprehensive metabolic 2000 panel 1.00 mg/dL Normal 0.20-1.00 Comprehensi ve Internal Medicine Work Phone: Comment on above: [facility] [address] [place], [place], [id number] Comprehensive metabolic 2000 panel 23 U/L Normal 12-78 Comprehensi ve Internal Medicine Work Phone: Comment on above: [facility] [address] [place], [place], [id number] Comprehensive metabolic 2000 panel 87 mg/dL Normal 70-110 Comprehensi ve Internal Medicine Work Phone: Comment on above: [facility] [address] [place], [place], [id number] Comprehensive metabolic 2000 panel 1.4 {RATIO} Normal 0.9-2.4 Comprehensi ve Internal Medicine Work Phone: Comment on above: [facility] [address] [place], [place], [address] Comprehensive metabolic 2000 panel 8.8 mg/dL Normal 8.5-10.1 Comprehensi ve Internal Medicine Work Phone: Comment on above: [facility] [address] [place], [place], [id number] Comprehensive metabolic 2000 panel 15.2 {RATIO} Normal 10-20 Comprehensi ve Internal Medicine Work Phone: Comment on above: [facility] [address] [place], [place], [id number] Comprehensive metabolic 2000 panel 105 mmol/L Normal 98-107 Comprehensi ve Internal Medicine Work Phone: Comment on above: [facility] [address] [place], [place], [address] Comprehensive metabolic 2000 panel 6.8 g/dL Normal 6.4-8.2 Comprehensi ve Internal Medicine Work Phone: Comment on above: [facility] [address] [place], [place], [address] Comprehensive metabolic 2000 panel 28.0 mmol/L Normal 21.0-32.0 Comprehensi ve Internal Medicine Work Phone: Comment on above: [facility] [address] [place], [address] Comprehensive metabolic 2000 panel 6 1 Normal 5-15 Comprehensi ve Internal Medicine Work Phone: Comment on above: [facility] [address] [place], [place], [id number] Comprehensive metabolic 2000 panel 110 mL/min Normal Comprehensi ve Internal Medicine Work Phone: Comment on above: GFR Calc [facility] [address] [place], [address] Comprehensive metabolic 2000 panel 4.0 g/dL Normal 3.4-5.0 Comprehensi ve Internal Medicine Work Phone: Comment on above: Please note revised Albumin AND Globulin reference rangeeffective 2017. [facility] [address] [place], [address] Comprehensive metabolic 2000 panel 51 U/L Normal 45-117 Comprehensi ve Internal Medicine Work Phone: Comment on above: [facility] [address] [place], [address] Comprehensive metabolic 2000 panel 18 U/L Normal 15-37 Comprehensi ve Internal Medicine Work Phone: Comment on above: [facility] [address] [place], [address] Comprehensive metabolic 2000 panel 2.8 g/dL Normal 2.2-4.2 Comprehensi ve Internal Medicine Work Phone: Comment on above: [facility] Y[address] [place], [address] Comprehensive metabolic 2000 panel 4.3 mmol/L Normal 3.5-5.1 Comprehensi ve Internal Medicine Work Phone: Comment on above: [facility] [address] [place], [address] Comprehensive metabolic 2000 panel 139 mmol/L Normal 136-145 Comprehensi ve Internal Medicine Work Phone: Comment on above: [facility] [address] [place], [address] Comprehensive metabolic 2000 panel 91 mL/min Normal Comprehensi ve Internal Medicine Work Phone: Comment on above: Non- GFR Calc [facility] [address] [place], [address] Hepatitis C AntibodiesOrdere d By: [employer] on 07-13-2017 Hepatitis C Antibodies 0.1 {s/co_ratio} Normal 0.0-0.9 [facility] Work Phone: Comment on above: Negative: < 0.8 Inde terminate: 0.8 - 0.9 Positive: > 0.9 The CDC recommends that a positive HCV antibody result be followed up with a HCV Nucleic Acid Amplification test (192584).Performed at: [facility] [id number] Director: Jason Mulligan PhD, Phone: [phone] [email or web address] (refer to re port for specific site)refer to report for address and phone number PSA,Total - Annual ScreenOrd ered By: [employer] on 07-13-2017 Prostate specific Ag mass conc 1.65 ng/mL Normal 0.00-4.00 [facility] Work Phone: Comment on above: This test was perfor med using the TPSA assay method for thecicayda chemistry system. Values obtained with differentassay methods cannot be used interchangably.When changing PSA assays in the course of monitoring apatient, additional sequential testing should be carriedout to confirm baseline values. [facility] [address] [place], [address] Urinalysis, Routine (Dipstic k)Ordered By: [employer] on 07-13-2017 Clarity (U) Clear Normal [facility] Work Phone: Comment on above: How was Urine Obtain ed? [facility] [address] [place], [address] Color (U) Yellow Normal [facility] Work Phone: Comment on above: How was Urine Obtain ed? [facility] [address] [place], [id number] Urinalysis, Routine (Dipstick) Negative Normal [facility] Work Phone: Comment on above: How was Urine Obtain ed? [facility] [address] [place], [place], [id number] Urinalysis, Routine (Dipstick) 1.010 1 Normal 1.002-1.030 [facility] Work Phone: Comment on above: How was Urine Obtain ed? [facility] [address] [place], [place], [address] Urinalysis, Routine (Dipstick) 6.5 1 Normal 5.0 - 8.0 [facility] Work Phone: Comment on above: How was Urine Obtain ed? [facility] [address] [place], [place], [id number] Urinalysis, Routine (Dipstick) Normal Normal [facility] Work Phone: Comment on above: How was Urine Obtain ed? [facility] [address] [place], [place], [address] Urinalysis, Routine (Dipstick) 25 /ul Abnormal [facility] Work Phone: Comment on above: How was Urine Obtain ed? [facility] [address] [place], [place], [address] Urinalysis, Routine (Dipstick) Yellow Normal [facility] Work Phone: Urinalysis, Routine (Dipstick) Clear Normal [facility] Work Phone: PSA (Prostate Specific Antig en), Screening (03204)Ordered By: [employer] on 05-12-2016 Prostate specific Ag mass conc 2.3 ng/mL Normal 0.0-4.0 [facility] Work Phone: Comment on above: Mata ECLIA methodol ogy. .According to the [place] [employer], Serum PSA shoulddecrease and remain at undetectable levels after radicalprostatectomy. The AUA defines biochemical recurrence as an initialPSA value 0.2 ng/mL or greater followed by a subsequent confirmatoryPSA value 0.2 ng/mL or greater.Values obtained with different assay methods or kits cannot be usedinterchangeably. Results cannot be interpreted as absolute evidenceof the presence or absence of malignant disease. PATIENT NOT FASTINGP ERFORMED BY: [employer]pp[employer] [id number] Information: NURSE DRAW CBC W/AUTO DIFF WBC (04695)O rdered By: [employer] on 09-18-2014 Basophils (Bld) [#/Vol] 0.1 {x10E3/uL} Normal 0.0-0.2 [facility] Work Phone: Comment on above: PATIENT WAS FASTINGP ERFORMED BY: [address] [id number] Information: [id number] Basophils (Bld) [#/Vol] 0.1 10*3/uL Normal 0.0-0.2 [facility]; [facility] Work Phone: Comment on above: PATIENT WAS FASTINGP ERFORMED BY: [place] [address]198070 [facility] [id number] Information: [id number] Basophils Auto #/vol (Bld) 0.1 {x10E3/uL} Normal 0.0-0.2 [facility] Work Phone: Basophils/100 WBC (Bld) 2 % Normal [facility] Work Phone: Comment on above: PATIENT WAS FASTINGP ERFORMED BY: [facility]6370 [facility] [id number] Information: [id number] Basophils/100 WBC Auto (Bld) 2 % Normal [facility] Work Phone: Eosinophils (Bld) [#/Vol] 0.8 {x10E3/uL} Abnormal 0.0-0.4 [facility] Work Phone: Comment on above: PATIENT WAS FASTINGP ERFORMED BY: [place] 0198070 [facility] [id number] Information: [id number] Eosinophils (Bld) [#/Vol] 0.8 10*3/uL Abnormal 0.0-0.4 [facility]; [facility] Work Phone: Comment on above: PATIENT WAS FASTINGP ERFORMED BY: [place] 0198070 [facility] [id number] Information: [id number] Eosinophils Auto #/vol (Bld) 0.8 {x10E3/uL} Abnormal 0.0-0.4 [facility] Work Phone: Eosinophils/100 WBC (Bld) 15 % Normal [facility] Work Phone: Comment on above: PATIENT WAS FASTINGP ERFORMED BY: [address] [id number] Information: [id number] Eosinophils/100 WBC Auto (Bld) 15 % Normal [facility] Work Phone: Erythrocyte distribution width (RBC) [Ratio] 13.6 % Normal 12.3-15.4 [facility] Work Phone: Comment on above: PATIENT WAS FASTINGP ERFORMED BY: [place] 0198070 [facility] [id number] Information: [id number] Erythrocyte distribution width Auto Ratio (RBC) 13.6 % Normal 12.3-15.4 [facility] Work Phone: Hematocrit (Bld) [Volume fraction] 44.6 % Normal 37.5-51.0 [facility] Work Phone: Comment on above: PATIENT WAS FASTINGP ERFORMED BY: [address] [place] [id number] Information: [id number] Hematocrit Auto Volume Fraction (Bld) 44.6 % Normal 37.5-51.0 [facility] Work Phone: Hemoglobin mass conc (Bld) 14.8 g/dL Normal 12.6-17.7 [facility] Work Phone: Comment on above: PATIENT WAS FASTINGP ERFORMED BY: [address] [id number] Information: [id number] Immature granulocytes #/vol (Bld) 0.0 {x10E3/uL} Normal 0.0-0.1 [facility] Work Phone: Comment on above: PATIENT WAS FASTINGP ERFORMED BY: [address] [id number] Information: [id number] Immature granulocytes (Bld) [#/Vol] 0.0 10*3/uL Normal 0.0-0.1 [facility]; [facility] Work Phone: Comment on above: PATIENT WAS FASTINGP ERFORMED BY: [address] [id number] Information: [id number] Immature granulocytes/100 WBC (Bld) 0 % Normal [facility] Work Phone: Comment on above: PATIENT WAS FASTINGP ERFORMED BY: [address] [id number] Information: [id number] Lymphocytes (Bld) [#/Vol] 1.6 {x10E3/uL} Normal 0.7-3.1 [facility] Work Phone: Comment on above: PATIENT WAS FASTINGP ERFORMED BY: [address] [id number] Information: [id number] Lymphocytes (Bld) [#/Vol] 1.6 10*3/uL Normal 0.7-3.1 [facility]; [facility] Work Phone: Comment on above: PATIENT WAS FASTINGP ERFORMED BY: ROCÍO [place] 3827970 [facility] [id number] Information: [id number] Lymphocytes Auto #/vol (Bld) 1.6 {x10E3/uL} Normal 0.7-3.1 [facility] Work Phone: Lymphocytes/100 WBC (Bld) 29 % Normal [facility] Work Phone: Comment on above: PATIENT WAS FASTINGP ERFORMED BY: ROCÍO [facility] Ophzit[address]66 [facility] [id number] Information: [id number] Lymphocytes/100 WBC Auto (Bld) 29 % Normal [facility] Work Phone: MCH (RBC) [Entitic mass] 30.0 pg Normal 26.6-33.0 [facility] Work Phone: Comment on above: PATIENT WAS FASTINGP ERFORMED BY: ROCÍO [address] [id number] Information: [id number] MCH Auto Entitic mass (RBC) 30.0 pg Normal 26.6-33.0 [facility] Work Phone: MCHC (RBC) [Mass/Vol] 33.2 g/dL Normal 31.5-35.7 [facility] Work Phone: Comment on above: PATIENT WAS FASTINGP ERFORMED BY: ROCÍO [place] 3827970 [facility] [id number] Information: [id number] MCHC Auto mass conc (RBC) 33.2 g/dL Normal 31.5-35.7 [facility] Work Phone: MCV (RBC) [Entitic vol] 91 fL Normal 79-97 [facility] Work Phone: Comment on above: PATIENT WAS FASTINGP ERFORMED BY: ROCÍO [address] [place] [id number] Information: [id number] MCV Auto Entitic volume (RBC) 91 fL Normal 79-97 [facility] Work Phone: Monocytes (Bld) [#/Vol] 0.5 {x10E3/uL} Normal 0.1-0.9 [facility] Work Phone: Comment on above: PATIENT WAS FASTINGP ERFORMED BY: [address] [id number] Information: [id number] Monocytes (Bld) [#/Vol] 0.5 10*3/uL Normal 0.1-0.9 [facility]; [facility] Work Phone: Comment on above: PATIENT WAS FASTINGP ERFORMED BY: [place] [address]198070 [facility] [id number] Information: [id number] Monocytes Auto #/vol (Bld) 0.5 {x10E3/uL} Normal 0.1-0.9 [facility] Work Phone: Monocytes/100 WBC (Bld) 9 % Normal [facility] Work Phone: Comment on above: PATIENT WAS FASTINGP ERFORMED BY: [facility]6370 [facility] [id number] Information: [id number] Monocytes/100 WBC Auto (Bld) 9 % Normal [facility] Work Phone: Neutrophils (Bld) [#/Vol] 2.5 {x10E3/uL} Normal 1.4-7.0 [facility] Work Phone: Comment on above: PATIENT WAS FASTINGP ERFORMED BY: [place] [address]198070 [facility] [id number] Information: [id number] Neutrophils (Bld) [#/Vol] 2.5 10*3/uL Normal 1.4-7.0 [facility]; [facility] Work Phone: Comment on above: PATIENT WAS FASTINGP ERFORMED BY: [facility]6370 [facility] [id number] Information: [id number] Neutrophils Auto #/vol (Bld) 2.5 {x10E3/uL} Normal 1.4-7.0 [facility] Work Phone: Neutrophils/100 WBC (Bld) 45 % Normal [facility] Work Phone: Comment on above: PATIENT WAS FASTINGP ERFORMED BY: [facility]6370 [facility] [id number] Information: [id number] Neutrophils/100 WBC Auto (Bld) 45 % Normal [facility] Work Phone: Platelets (Bld) [#/Vol] 306 {x10E3/uL} Normal 150-379 [facility] Work Phone: Comment on above: PATIENT WAS FASTINGP ERFORMED BY: [place] [address]198070 [facility] [id number] Information: [id number] Platelets (Bld) [#/Vol] 306 10*3/uL Normal 150-379 [facility]; [facility] Work Phone: Comment on above: PATIENT WAS FASTINGP ERFORMED BY: [place] 0198070 [facility] [id number] Information: [id number] Platelets Auto #/vol (Bld) 306 {x10E3/uL} Normal 150-379 [facility] Work Phone: RBC (Bld) [#/Vol] 4.93 {x10E6/uL} Normal 4.14-5.80 [facility] Internal Medicine Work Phone: Comment on above: PATIENT WAS FASTINGP ERFORMED BY: [facility]6370 [facility] [id number] Information: [id number] RBC (Bld) [#/Vol] 4.93 10*6/uL Normal 4.14-5.80 [facility]; [facility] Work Phone: Comment on above: PATIENT WAS FASTINGP ERFORMED BY: ROCÍO [place]6[address] [facility] [id number] Information: [id number] RBC Auto #/vol (Bld) 4.93 {x10E6/uL} Normal 4.14-5.80 [facility] Work Phone: WBC (Bld) [#/Vol] 5.5 {x10E3/uL} Normal 3.4-10.8 [facility] Internal Medicine Work Phone: Comment on above: PATIENT WAS FASTINGP ERFORMED BY: ROCÍO [place] [facility] [id number] Information: [id number] WBC (Bld) [#/Vol] 5.5 10*3/uL Normal 3.4-10.8 [facility] Internal Medicine; [facility] Work Phone: Comment on above: PATIENT WAS FASTINGP ERFORMED BY: ROCÍO [place]6[address] [facility] [id number] Information: [id number] WBC Auto #/vol (Bld) 5.5 {x10E3/uL} Normal 3.4-10.8 [facility] Internal Medicine Work Phone: IGA/IGD/IGG/IGM-EACH ([id number]) Ordered By: [employer] on 09-18-2014 IgA mass conc 265 mg/dL Normal 91-414 Comprehensi Internal Medicine Work Phone: Comment on above: PATIENT WAS FASTINGP ERFORMED BY: ROCÍO [place] [facility] [id number] IgE Qn 121 {IU/mL} Abnormal 0-100 [facility] Work Phone: Comment on above: PATIENT WAS FASTINGP ERFORMED BY: ROCÍO [place] [id number] [facility] [id number] IgG mass conc 880 mg/dL Normal 700-1600 Comprehensi ve Internal Medicine Work Phone: Comment on above: PATIENT WAS FASTINGP ERFORMED BY: ROCÍO LabCokaren Eteiwm1991 [facility] [id number] IgM mass conc 92 mg/dL Normal 40-230 Comprehensi ve Internal Medicine Work Phone: Comment on above: PATIENT WAS FASTINGP ERFORMED BY: ROCÍO LabCokaren De La ORgcsez0277 [facility] [id number] LIPID PANEL ([id number])Ordered B y: [employer] on 09-18-2014 Cholesterol in HDL mass conc 78 mg/dL Normal [facility] Work Phone: Comment on above: According to ATP-III Guidelines, HDL-C >59 mg/dL is considered anegative risk factor for CHD. PATIENT WAS FASTINGP ERFORMED BY: ROCÍO LabSaroj De La OXhdxyk[address] OsmopureAdventHealth Hendersonville [id number] Cholesterol in LDL mass conc 141 mg/dL Abnormal 0-99 [facility] Work Phone: Comment on above: PATIENT WAS FASTINGP ERFORMED BY: ROCÍO LabSaroj De La OAmgmlr4412 [facility] [id number] Cholesterol in LDL/Cholesterol in HDL mass ratio 1.8 {ratio_units} Normal 0.0-3.6 [facility] Work Phone: Comment on above: LDL/HDL Ratio Men Wo men 1/2 Avg.Risk 1.0 1.5 Avg.Risk 3.6 3.2 2X Avg.Risk 6.2 5.0 3X Avg.Risk 8.0 6.1 PATIENT WAS FASTINGP ERFORMED BY: ROCÍO LabCokaren Ntqnqw9627 [facility] [id number] Cholesterol in VLDL mass conc 16 mg/dL Normal 5-40 [facility] Work Phone: Comment on above: PATIENT WAS FASTINGP ERFORMED BY: ROCÍO LabCokaren Yafvwn5450 [facility] [id number] Cholesterol mass conc 235 mg/dL Abnormal 100-199 [facility] Work Phone: Comment on above: PATIENT WAS FASTINGP ERFORMED BY: ROCÍO LabCokaren Emntke1238 [address] RoadDublin [place] [id number] Triglyceride mass conc 78 mg/dL Normal 0-149 [facility] Work Phone: Comment on above: PATIENT WAS FASTINGP ERFORMED BY: ROCÍO LabBarb Ldjrqy[address] [facility] [place] [id number] METABOLIC PANEL, COMPREHENSI VE ([id number])Ordered By: [employer] on 09-18-2014 Albumin mass conc 4.8 g/dL Normal 3.5-5.5 Compreh ensive Internal Medicine Work Phone: Comment on above: PATIENT WAS FASTINGP ERFORMED BY: [facility] Iqoehb[address]Formerly [facility] Centerin [place] [id number] Albumin/Globulin mass ratio 2.1 {ratio} Normal 1.1-2.5 [facility] Work Phone: Comment on above: PATIENT WAS FASTINGP ERFORMED BY: [facility] Cqnwam[address] [facility]in [place] [id number] ALP [Catalytic activity/Vol] 52 U/L Normal 39-117 [facility]; [facility] Work Phone: Comment on above: PATIENT WAS FASTINGP ERFORMED BY: LabBarb Zfkpdb[address] [facility] Hospital[facility] [place] [id number] ALP enzyme act/vol 52 [iU]/L Normal 39-[address] [facility] [address] Internal Medicine Work Phone: Comment on above: PATIENT WAS FASTINGP ERFORMED BY: [facility] Qdrdby[address] [facility] Hospitalblin [place] [id number] ALT [Catalytic activity/Vol] 12 U/L Normal 0-44 [facility]; [facility] Work Phone: Comment on above: PATIENT WAS FASTINGP ERFORMED BY: [facility] Zxawvp[address] [facility] [place] [id number] ALT enzyme act/vol 12 [iU]/L Normal 0-[address] [facility] [address] [facility] Internal Medicine Work Phone: Comment on above: PATIENT WAS FASTINGP ERFORMED BY: ROCÍO [facility] Diisbf9973 [address] RoadDublin [place] [id number] AST [Catalytic activity/Vol] 20 U/L Normal 0-40 [facility]; [facility] Work Phone: Comment on above: PATIENT WAS FASTINGP ERFORMED BY: ROCÍO [facility] Iychka9698 [address] RoadDublin [place] [id number] AST enzyme act/vol 20 [iU]/L Normal 0-[address] [facility] Internal Medicine Work Phone: Comment on above: PATIENT WAS FASTINGP ERFORMED BY: ROCÍO [facility] Dkmknv1421 [address] RoadDublin [place] [id number] Bilirubin mass conc 1.0 mg/dL Normal 0.0-1.2 [facility] Work Phone: Comment on above: PATIENT WAS FASTINGP ERFORMED BY: ROCÍO [facility] Azrhpb0890 [address] RoadDublin [place] [id number] Calcium mass conc 10.1 mg/dL Normal 8.7-10.2 Compreh [facility] Internal Medicine Work Phone: Comment on above: PATIENT WAS FASTINGP ERFORMED BY: ROCÍO LabCokaren De La OBrmrho7419 [address] RoadDublin [place] [id number] Chloride molar conc 101 mmol/L Normal 97-108 [facility] Internal Medicine Work Phone: Comment on above: PATIENT WAS FASTINGP ERFORMED BY: ROCÍO [facility] Pcpxtg0973 [address] RoadDublin [place] [id number] CO2 molar conc 25 mmol/L Normal 18-29 Comprehens capo Internal Medicine Work Phone: Comment on above: PATIENT WAS FASTINGP ERFORMED BY: ROCÍO [facility] Ecqofl5659 [address] RoadDublin [place] [id number] Creatinine mass conc 0.92 mg/dL Normal 0.76-1.27 [facility] Internal Medicine Work Phone: Comment on above: PATIENT WAS FASTINGP ERFORMED BY: ROCÍO [facility] Fimmit0857 [address] RoadDublin [place] [id number] GFR/1.73 sq M predicted among blacks CKD-EPI vol rate/area (S/P/Bld) 111 mL/min/1.73 Normal Comprehensiv e Internal Medicine Work Phone: Comment on above: PATIENT WAS FASTINGP ERFORMED BY: CB [facility] Vivcje8094 [address] RoadDublin [place] [id number] GFR/1.73 sq M predicted among non-blacks CKD-EPI vol rate/area (S/P/Bld) 96 mL/min/1.73 Normal [facility] Work Phone: Comment on above: PATIENT WAS FASTINGP ERFORMED BY: CB [facility] Plbmyh1890 [address] Roadblin [place] [id number] Globulin (S) [Mass/Vol] 2.3 g/dL Normal 1.5-4.5 [facility] Work Phone: Comment on above: PATIENT WAS FASTINGP ERFORMED BY: [facility] Riqhku[address] RoadFormerly [facility] Centerin [place] [id number] Globulin Calculated mass conc (S) 2.3 g/dL Normal 1.5-4.5 [facility] Work Phone: Glucose mass conc 84 mg/dL Normal 65-99 Compreh ensive Internal Medicine Work Phone: Comment on above: PATIENT WAS FASTINGP ERFORMED BY: [facility] Asjmpz[address] [facility] Hospitalbl[facility] [place] [id number] Potassium molar conc 4.6 mmol/L Normal 3.5-5.2 Comp rehensive Internal Medicine Work Phone: Comment on above: PATIENT WAS FASTINGP ERFORMED BY: [facility] Fpegti8636 [facility] [place] [id number] Protein mass conc 7.1 g/dL Normal 6.0-8.5 Compreh ensive Internal Medicine Work Phone: Comment on above: PATIENT WAS FASTINGP ERFORMED BY: CB [facility] [id number] [facility] [place] [id number] Sodium molar conc 140 mmol/L Normal 134-144 Compreh ensive Internal Medicine Work Phone: Comment on above: PATIENT WAS FASTINGP ERFORMED BY: [employer] Nvcxsl6188 [facility] [id number] Urea nitrogen mass conc 14 mg/dL Normal 6-24 [facility] Work Phone: Comment on above: PATIENT WAS FASTINGP ERFORMED BY: [facility]Re[facility]6370 [facility] [id number] Urea nitrogen/Creatinine mass ratio 15 mg/mg Normal 9-20 [facility] Work Phone: Comment on above: PATIENT WAS FASTINGP ERFORMED BY: [employer] Dpznjt8952 [facility] [id number] PSA (PROSTATE SPECIFIC ANTIG EN) (V76.44)Ordered By: [employer] on 09-18-2014 Prostate specific Ag mass conc 0.9 ng/mL Normal 0.0-4.0 [facility] Work Phone: Comment on above: Yast ECLIA methodol ogy. .According to the [place] [employer], Serum PSA shoulddecrease and remain at undetectable levels after radicalprostatectomy. The AUA defines biochemical recurrence as an initialPSA value 0.2 ng/mL or greater followed by a subsequent confirmatoryPSA value 0.2 ng/mL or greater.Values obtained with different assay methods or kits cannot be usedinterchangeably. Results cannot be interpreted as absolute evidenceof the presence or absence of malignant disease. PATIENT WAS FASTINGP ERFORMED BY: Jobs2WebFour Corners Regional Health CenterIukqgc0363 [facility] [id number] TSH ([id number])Ordered By: Syste m Clinical Trial Head on 09-18-2014 Thyrotropin Qn 2.550 {uIU/mL} Normal 0.450-4.500 Compr [facility] Internal Medicine Work Phone: Comment on above: PATIENT WAS FASTINGP ERFORMED BY: Jobs2WebSaint Michael's Medical CenterYahtwx0872 [facility] [id number] Basic Metabolic Profile (BMP )Ordered By: [employer] on 09-11-2014 Calcium mass conc 9.0 mg/dL Normal 8.5-10.1 [facility]pre[facility] Internal [facility] Work Phone: Comment on above: Serial Specimen #1, #2 or #3? 1'TROP' Serial specimen #1, #2, #3, or #4: 1Test performed at:[facility] [address] [place] [address] Chloride molar conc 102 mmol/L Normal 98-107 Compr ensive Internal Medicine Work Phone: Comment on above: Serial Specimen #1, #2 or #3? 1'TROP' Serial specimen #1, #2, #3, or #4: 1Test performed at:[facility] [address] [place] [address] CO2 molar conc 32.0 mmol/L Normal 21.0-32.0 Comprehen sive Internal Medicine Work Phone: Comment on above: Serial Specimen #1, #2 or #3? 1'TROP' Serial specimen #1, #2, #3, or #4: 1Test performed at:[facility] [address] [place] [address] Creatinine mass conc 0.9 mg/dL Normal 0.8-1.3 Comp [facility] Work Phone: Comment on above: Serial Specimen #1, #2 or #3? 1'TROP' Serial specimen #1, #2, #3, or #4: 1Test performed at:[facility] [address] [place] [address] GFR/1.73 sq M predicted among non-blacks MDRD vol rate/area (S/P/Bld) 95 mL/min/{1.73_m2} Normal Comprehe ive Internal Medicine Work Phone: Comment on above: Serial Specimen #1, #2 or #3? 1'TROP' Serial specimen #1, #2, #3, or #4: 1Test performed at:[facility] [address] [place] [address] Glucose mass conc 80 mg/dL Normal 70-110 Compreh ensive Internal Medicine Work Phone: Comment on above: Serial Specimen #1, #2 or #3? 1'TROP' Serial specimen #1, #2, #3, or #4: 1Test performed at:[facility] [address] [place] [address] Potassium molar conc 3.9 mmol/L Normal 3.5-5.1 Comp rehensive Internal Medicine Work Phone: Comment on above: Serial Specimen #1, #2 or #3? 1'TROP' Serial specimen #1, #2, #3, or #4: 1Test performed at:[facility] [address] [place] [address] Sodium molar conc 138 mmol/L Normal 136-145 Compreh ensive Internal Medicine Work Phone: Comment on above: Serial Specimen #1, #2 or #3? 1'TROP' Serial specimen #1, #2, #3, or #4: 1Test performed at:[place] [address] [place] [address] Urea nitrogen mass conc 17 mg/dL Normal 7-18 [facility] Work Phone: Comment on above: Serial Specimen #1, #2 or #3? 1'TROP' Serial specimen #1, #2, #3, or #4: 1Test performed at:[place] [address] [place] [address] Basic Metabolic Profile (BMP) 4 1 Abnormal 5-15 [facility] Work Phone: Comment on above: Serial Specimen #1, #2 or #3? 1'TROP' Serial specimen #1, #2, #3, or #4: 1Test performed at:[facility] [address] [place] [address] Basic Metabolic Profile (BMP) 115 mL/min Normal [facility] Work Phone: Comment on above: Serial Specimen #1, #2 or #3? 1'TROP' Serial specimen #1, #2, #3, or #4: 1Test performed at:[facility] [address] [place] [address] Basic Metabolic Profile (BMP) 97.65 ml/min Normal [facility] Work Phone: Comment on above: Serial Specimen #1, #2 or #3? 1'TROP' Serial specimen #1, #2, #3, or #4: 1Test performed at:[facility] [address] [place] [address] Basic Metabolic Profile (BMP) 18.9 {RATIO} Normal 10-20 [facility] Work Phone: Comment on above: Serial Specimen #1, #2 or #3? 1'TROP' Serial specimen #1, #2, #3, or #4: 1Test performed at:[facility] [address] [place] [address] CBC W/Diff, AutomatedOrdered By: [employer] on 09-11-2014 Absolute Neut 5.8 {X10_3/uL} Normal 2.0-7.7 Compreh ensive Internal Medicine Work Phone: Comment on above: Test performed at:[facility] [address] [place] [address] Basophils/100 WBC (Bld) 0.7 % Normal 0-1 [facility] Work Phone: Comment on above: Test performed at:[facility] [address] [address] Basophils/100 WBC Auto (Bld) 0.7 % Normal 0-1 [facility] Work Phone: Eosinophils/100 WBC (Bld) 9.0 % Abnormal 0-5 [facility] Work Phone: Comment on above: Test performed at:[facility] [address] [place] [address] Eosinophils/100 WBC Auto (Bld) 9.0 % Abnormal 0-5 [facility] Work Phone: Erythrocyte distribution width (RBC) [Ratio] 13.2 % Normal 11.6-14.6 [facility] Work Phone: Comment on above: Test performed at:[facility] [address] [place] [address] Erythrocyte distribution width Auto Ratio (RBC) 13.2 % Normal 11.6-14.6 [facility] Work Phone: Hematocrit (Bld) [Volume fraction] 44.7 % Normal 40-54 [facility] Work Phone: Comment on above: Test performed at:[facility] [address] [place] [address] Hematocrit Auto Volume Fraction (Bld) 44.7 % Normal 40-54 [facility] Work Phone: Hemoglobin mass conc (Bld) 14.9 g/dL Normal 13.0-16.5 [facility] Work Phone: Comment on above: Test performed at:[facility] [address] [place] [address] IM GRAN % 0.200 % Normal 0.0-0.9 [facility] Work Phone: Comment on above: IG% - Immature Granu locytes (promyelocytes, myelocytes andmetamyelocytes) > 1% indicates that a LEFT SHIFT is Present. Test performed at:[facility] [address] [place] [address] Lymphocytes (Bld) [#/Vol] 1.33 {X10_3/ul} Normal 0.83-4.51 [facility] Work Phone: Comment on above: Test performed at:[facility] [address] [place] [address] Lymphocytes/100 WBC (Bld) 14.8 % Abnormal 19-41 [facility] Work Phone: Comment on above: Test performed at:[facility] [address] [place] [address] Lymphocytes/100 WBC Auto (Bld) 14.8 % Abnormal 19-41 [facility] Work Phone: MCH (RBC) [Entitic mass] 30.5 pg Normal 27.0-32.0 [facility] Work Phone: Comment on above: Test performed at:[facility] [address] [place] [address] MCH Auto Entitic mass (RBC) 30.5 pg Normal 27.0-32.0 [facility] Work Phone: MCHC (RBC) [Mass/Vol] 33.3 {g/gl} Normal 32-36 [facility] Work Phone: Comment on above: Test performed at:[facility] [address] [place] [address] MCHC Auto mass conc (RBC) 33.3 {g/gl} Normal 32-36 [facility] Work Phone: MCV (RBC) [Entitic vol] 91.6 fL Normal 80-94 [facility] Work Phone: Comment on above: Test performed at:[facility] [address] [place] [address] MCV Auto Entitic volume (RBC) 91.6 fL Normal 80-94 [facility] Work Phone: Monocytes/100 WBC (Bld) 10.2 % Abnormal 0-10 [facility] Work Phone: Comment on above: Test performed at:[facility] [address] [place] [address] Monocytes/100 WBC Auto (Bld) 10.2 % Abnormal 0-10 [facility] Work Phone: Neutrophils/100 WBC (Bld) 65.1 % Normal 47-70 [facility] Work Phone: Comment on above: Test performed at:[facility] [address] [place] [address] Neutrophils/100 WBC Auto (Bld) 65.1 % Normal 47-70 [facility] Work Phone: Platelet mean volume (Bld) [Entitic vol] 9.0 fL Normal 6.2-12.0 Comprehensiv e Internal Medicine Work Phone: Comment on above: Test performed at:[facility] [address] [place] [address] Platelet mean volume Auto Entitic volume (Bld) 9.0 fL Normal 6.2-12.0 [facility] Work Phone: Platelets (Bld) [#/Vol] 272 10*3/uL Normal 150-450 [facility] Work Phone: Comment on above: Test performed at:[facility] [address] [place] [address] Platelets Auto #/vol (Bld) 272 10*3/uL Normal 150-450 [facility] Work Phone: RBC (Bld) [#/Vol] 4.88 {M/mm3} Normal 4.6-6.2 [facility] Internal Medicine Work Phone: Comment on above: Test performed at:[facility] [address] [place] [address] RBC Auto #/vol (Bld) 4.88 {M/mm3} Normal 4.6-6.2 [facility] Internal Medicine Work Phone: RDW SD 44.2 fL Abnormal 35.1-43.9 [facility] Internal Medicine Work Phone: Comment on above: Test performed at:[facility] [address] [place] [address] WBC (Bld) [#/Vol] 9.0 10*3/uL Normal 4.4-11.0 [facility] Internal Medicine Work Phone: Comment on above: Test performed at:[facility] [address] [place] [address] WBC Auto #/vol (Bld) 9.0 10*3/uL Normal 4.4-11.0 [facility] prehensive Internal Medicine Work Phone: CBC W/Diff, Automated 44.2 fL Abnormal 35.1-43.9 [facility] Work Phone: CBC W/Diff, Automated 0.200 % Normal 0.0-0.9 [facility] Work Phone: Comment on above: IG% - Immature Granu locytes (promyelocytes, myelocytes andmetamyelocytes) > 1% indicates that a LEFT SHIFT is Present. CBC W/Diff, Automated 5.8 {X10_3/uL} Normal 2.0-7.7 [facility] Work Phone: CBC W/Diff, Automated 1.33 {X10_3/ul} Normal 0.83-4.51 [facility] Work Phone: CK-MB Quantitative and Index Ordered By: [employer] on 09-11-2014 CK.MB [Mass/Vol] 1.1 ng/mL Normal 0.0-5.0 Comprehe [facility] Internal Medicine Work Phone: Comment on above: CK-MB and RI Interpr etation MB Relative Index Non-AMI 5 5 > 4 Serial Specimen #1, #2 or #3? 1'TROP' Serial specimen #1, #2, #3, or #4: 1Test performed at:[facility] [address] [facility] [place] [place] [address] CK-MB Quantitative and Index 82 U/L Normal 39-308 [facility] Work Phone: Comment on above: Serial Specimen #1, #2 or #3? 1'TROP' Serial specimen #1, #2, #3, or #4: 1Test performed at:[facility] [address] [place] [address] CK-MB Quantitative and Index 1.1 ng/mL Normal 0.0-5.0 [facility] Work Phone: Comment on above: CK-MB and RI Interpr etation MB Relative Index Non-AMI 5 5 > 4 Troponin-IOrdered By: Bottom [employer]ounder [employer] on 09-11-2014 Troponin I.cardiac mass conc ng/mL Normal [facility] Work Phone: Comment on above: TROPONIN-I EXPECTED VALUES <0.05 NEGATIVE 0.06 - 0.59 AT RISK OF MS > OR = 0.60 SUGGEST MS Serial Specimen #1, #2 or #3? 1'TROP' Serial specimen #1, #2, #3, or #4: 1Test performed at:[facility] [address] [place] [address] ABDOMEN/PELVIS WITH CONTRAST Ordered By: [employer] on 08-28-2012 ABDOMEN/PELVIS WITH CONTRAST See Note Normal [facility] Work Phone: Comment on above: PROCEDURE: CT ABDOME N AND PELVIS WITH CONTRAST REASON FOR EXAM: Male, 46 years old. Left upper quadrant pain. RADIATION DOSAGE (If Supplied By Facility): CTDIvol = ( 13.31 ) mGy, DLP=( 1043.06 ) mGycm TECHNIQUE: Transaxial images were obtained from the dome of thediaphragmto the symphysis pubis without oral contrast. 100mL ml of Isovue 300contrast was administered. COMPARISON: None. FINDINGS:The visualized lung bases are unremarkable. The visualized portions oftheheart are within normal limits. Normal liver. The gallbladder is contracted. Normal spleen. Normalpancreas. Normal bilateral adrenal glands. Normal right kidney. Normal left kidney. Normal visualized stomach. Normal small intestine. Normal colon. Theappendix is visualized and appears normal. Normal abdominal aorta. Normal inferior vena cava. Normalretroperitoneum. Normal urinary bladder. There is no free fluid in the abdomen or pelvis Normal abdominal wall. There is mild degenerative change involving thehips. IMPRESSION:There is no mass or obstruction. Gallbladder is contracted. Signed:Shiva Silva M.D.August 28, 2012 at 6:35:39 PM [id number] Signed BP/BP If you are the referring physician and would like to consult with theradiologist who provided this interpretation, please contact Za Beaulieu at [phone]. If this radiologist is unavailable, youwillbe directed to another radiologist to assist. If you are a patient with a question regarding this report, pleasecontactyour referring physician directly. Professional Interpretation Provided By: Poojarodrigoturner, Phone , These documents contain legally protected and confidential healthinformation intended only for the use of the individual or entity namedabove. If you are not the intended recipient, you are hereby notifiedthatany disclosure, copying, distribution, or other use of these documents isstrictly prohibited. If you have received this information in error,pleasenotify the sender immediately and arrange for the return or destructionofthese documents. Dictated on 08/28/12 170 by Shiva Silva MDTranscribed on 08/28/121843 by ITS IMPORTSign by Shiva Silva MD on 08/28/121843 Sign by: Shiva Silva MD Amylase ([id number])Ordered By: S ystem Clinical Trial Head on 08-23-2012 Amylase enzyme act/vol 77 U/L Normal 31-124 [facility] Work Phone: Comment on above: PATIENT NOT FASTINGP ERFORMED BY: irisnote [id number] [facility] NetworkC[facility] [id number] CBC with manual diff ([id number]) Ordered By: [employer] on 08-23-2012 Basophils (Bld) [#/Vol] 0.1 {x10E3/uL} Normal 0.0-0.2 [facility] Work Phone: Comment on above: PATIENT NOT FASTINGP ERFORMED BY: irisnote [id number] [facility] Distribution NetworkCrawley [facility] Hospital [id number] Information: [id number] Basophils (Bld) [#/Vol] 0.1 10*3/uL Normal 0.0-0.2 [facility]; [facility] Work Phone: Comment on above: PATIENT NOT FASTINGP ERFORMED BY: irisnote [id number] News Distribution NetworkCraw[facility] Hospital [id number] Information: [id number] Basophils Auto #/vol (Bld) 0.1 {x10E3/uL} Normal 0.0-0.2 [facility] Work Phone: Basophils/100 WBC (Bld) 1 % Normal 0-3 [facility] Work Phone: Comment on above: PATIENT NOT FASTINGP ERFORMED BY: ROCÍO [place] [id number] [facility] [id number] Information: [id number] Basophils/100 WBC Auto (Bld) 1 % Normal 0-3 [facility] Work Phone: Eosinophils (Bld) [#/Vol] 0.7 {x10E3/uL} Abnormal 0.0-0.4 [facility] Work Phone: Comment on above: PATIENT NOT FASTINGP ERFORMED BY: ROCÍO [address] [id number] Information: [id number] Eosinophils (Bld) [#/Vol] 0.7 10*3/uL Abnormal 0.0-0.4 [facility]; [facility] Work Phone: Comment on above: PATIENT NOT FASTINGP ERFORMED BY: ROCÍO [place] [address] [facility] [id number] Information: [id number] Eosinophils Auto #/vol (Bld) 0.7 {x10E3/uL} Abnormal 0.0-0.4 [facility] Work Phone: Eosinophils/100 WBC (Bld) 10 % Abnormal 0-7 [facility] Work Phone: Comment on above: PATIENT NOT FASTINGP ERFORMED BY: [address] [id number] Information: [id number] Eosinophils/100 WBC Auto (Bld) 10 % Abnormal 0-7 [facility] Work Phone: Erythrocyte distribution width (RBC) [Ratio] 13.9 % Normal 12.3-15.4 [facility] Work Phone: Comment on above: PATIENT NOT FASTINGP ERFORMED BY: ROCÍO [place] Mpqwjs9270 [facility] [id number] Information: [id number] Erythrocyte distribution width Auto Ratio (RBC) 13.9 % Normal 12.3-15.4 [facility] Work Phone: Hematocrit (Bld) [Volume fraction] 40.8 % Normal 37.5-51.0 [facility] Work Phone: Comment on above: PATIENT NOT FASTINGP ERFORMED BY: ROCÍO [place] [id number] [facility] [id number] Information: [id number] Hematocrit Auto Volume Fraction (Bld) 40.8 % Normal 37.5-51.0 [facility] Work Phone: Hemoglobin mass conc (Bld) 13.9 g/dL Normal 12.6-17.7 [facility] Work Phone: Comment on above: PATIENT NOT FASTINGP ERFORMED BY: ROCÍO [place] 6[address]1970 [facility] [id number] Information: [id number] Immature granulocytes #/vol (Bld) 0.0 {x10E3/uL} Normal 0.0-0.1 [facility] Work Phone: Comment on above: PATIENT NOT FASTINGP ERFORMED BY: [place] [address] [facility] [id number] Information: [id number] Immature granulocytes (Bld) [#/Vol] 0.0 10*3/uL Normal 0.0-0.1 [facility]; [facility] Work Phone: Comment on above: PATIENT NOT FASTINGP ERFORMED BY: ROCÍO [place] 6941970 [facility] [id number] Information: [id number] Immature granulocytes/100 WBC (Bld) 0 % Normal 0-2 [facility] Work Phone: Comment on above: PATIENT NOT FASTINGP ERFORMED BY: ROCÍO [facility]6370 [facility] [id number] Information: [id number] Lymphocytes (Bld) [#/Vol] 1.5 {x10E3/uL} Normal 0.7-4.5 [facility] Work Phone: Comment on above: PATIENT NOT FASTINGP ERFORMED BY: [address] [id number] Information: [id number] Lymphocytes (Bld) [#/Vol] 1.5 10*3/uL Normal 0.7-4.5 [facility]; [facility] Work Phone: Comment on above: PATIENT NOT FASTINGP ERFORMED BY: ROCÍO [address] [id number] Information: [id number] Lymphocytes Auto #/vol (Bld) 1.5 {x10E3/uL} Normal 0.7-4.5 [facility] Work Phone: Lymphocytes/100 WBC (Bld) 24 % Normal 14-46 [facility] Work Phone: Comment on above: PATIENT NOT FASTINGP ERFORMED BY: ROCÍO [place] 7074670 [facility] [id number] Information: [id number] Lymphocytes/100 WBC Auto (Bld) 24 % Normal 14-46 [facility] Work Phone: MCH (RBC) [Entitic mass] 30.0 pg Normal 26.6-33.0 [facility] Work Phone: Comment on above: PATIENT NOT FASTINGP ERFORMED BY: [address] [id number] Information: [id number] MCH Auto Entitic mass (RBC) 30.0 pg Normal 26.6-33.0 [facility] Work Phone: MCHC (RBC) [Mass/Vol] 34.1 g/dL Normal 31.5-35.7 [facility] Work Phone: Comment on above: PATIENT NOT FASTINGP ERFORMED BY: ROCÍO [place] Vxjkgr5894 [facility] [id number] Information: [id number] MCHC Auto mass conc (RBC) 34.1 g/dL Normal 31.5-35.7 [facility] Work Phone: MCV (RBC) [Entitic vol] 88 fL Normal 79-97 [facility] Work Phone: Comment on above: PATIENT NOT FASTINGP ERFORMED BY: ROCÍO [place] [id number] [facility] [id number] Information: [id number] MCV Auto Entitic volume (RBC) 88 fL Normal 79-97 [facility] Work Phone: Monocytes (Bld) [#/Vol] 0.5 {x10E3/uL} Normal 0.1-1.0 [facility] Work Phone: Comment on above: PATIENT NOT FASTINGP ERFORMED BY: ROCÍO [facility]6370 [facility] [id number] Information: [id number] Monocytes (Bld) [#/Vol] 0.5 10*3/uL Normal 0.1-1.0 [facility]; [facility] Work Phone: Comment on above: PATIENT NOT FASTINGP ERFORMED BY: [place] [address] [facility] [id number] Information: [id number] Monocytes Auto #/vol (Bld) 0.5 {x10E3/uL} Normal 0.1-1.0 [facility] Work Phone: Monocytes/100 WBC (Bld) 8 % Normal 4-13 [facility] Work Phone: Comment on above: PATIENT NOT FASTINGP ERFORMED BY: [place] [address]1980[address] [facility] [id number] Information: [id number] Monocytes/100 WBC Auto (Bld) 8 % Normal 4-13 [facility] Work Phone: Neutrophils (Bld) [#/Vol] 3.6 {x10E3/uL} Normal 1.8-7.8 [facility] Work Phone: Comment on above: PATIENT NOT FASTINGP ERFORMED BY: ROCÍO LabCokaren De La OCeijel2645 [facility] [id number] Information: [id number] Neutrophils (Bld) [#/Vol] 3.6 10*3/uL Normal 1.8-7.8 [facility]; [facility] Work Phone: Comment on above: PATIENT NOT FASTINGP ERFORMED BY: ROCÍO [place]6370 [facility] [id number] Information: [id number] Neutrophils Auto #/vol (Bld) 3.6 {x10E3/uL} Normal 1.8-7.8 [facility] Work Phone: Neutrophils/100 WBC (Bld) 57 % Normal 40-74 [facility] Work Phone: Comment on above: PATIENT NOT FASTINGP ERFORMED BY: ROCÍO Lyon6370 [facility] [id number] Information: [id number] Neutrophils/100 WBC Auto (Bld) 57 % Normal 40-74 [facility] Work Phone: Platelets (Bld) [#/Vol] 265 {x10E3/uL} Normal 140-415 [facility] Work Phone: Comment on above: PATIENT NOT FASTINGP ERFORMED BY: ROCÍO [facility] [id number] [facility] [id number] Information: [id number] Platelets (Bld) [#/Vol] 265 10*3/uL Normal 140-415 [facility]; [facility] Work Phone: Comment on above: PATIENT NOT FASTINGP ERFORMED BY: ROCÍO [facility] Ltfgzr7369 [facility] [id number] Information: [id number] Platelets Auto #/vol (Bld) 265 {x10E3/uL} Normal 140-415 [facility] Work Phone: RBC (Bld) [#/Vol] 4.63 {x10E6/uL} Normal 4.14-5.80 [facility] Internal Medicine Work Phone: Comment on above: PATIENT NOT FASTINGP ERFORMED BY: [place] [id number] [facility] [id number] Information: [id number] RBC (Bld) [#/Vol] 4.63 10*6/uL Normal 4.14-5.80 [facility]; [facility] Work Phone: Comment on above: PATIENT NOT FASTINGP ERFORMED BY: [place] [id number] [facility] [id number] Information: [id number] RBC Auto #/vol (Bld) 4.63 {x10E6/uL} Normal 4.14-5.80 [facility] Work Phone: WBC (Bld) [#/Vol] 6.4 {x10E3/uL} Normal 4.0-10.5 [facility] Internal Medicine Work Phone: Comment on above: PATIENT NOT FASTINGP ERFORMED BY: [facility]6370 [facility] [id number] Information: [id number] WBC (Bld) [#/Vol] 6.4 10*3/uL Normal 4.0-10.5 [facility] Medicine; [facility] Work Phone: Comment on above: PATIENT NOT FASTINGP ERFORMED BY: [facility]6370 [facility] [id number] Information: [id number] WBC Auto #/vol (Bld) 6.4 {x10E3/uL} Normal 4.0-10.5 [facility] Work Phone: Lipase ([id number])Ordered By: stem Clinical Trial Head on 08-23-2012 Lipase enzyme act/vol 30 U/L Normal 0-59 [facility] Work Phone: Comment on above: PATIENT NOT FASTINGP ERFORMED BY: ROCÍO LabSaroj De La ORghzyo3375 [address] RoadDublin [place] [id number] Metabolic Panel, Comprehensi ve ([id number])Ordered By: [employer] on 08-23-2012 Albumin mass conc 4.6 g/dL Normal 3.5-5.5 Compreh ensive Internal Medicine Work Phone: Comment on above: PATIENT NOT FASTINGP ERFORMED BY: ROCÍO De La Olin[address] [facility] [id number] Albumin/Globulin mass ratio 2.2 {ratio} Normal 1.1-2.5 [facility] Work Phone: Comment on above: PATIENT NOT FASTINGP ERFORMED BY: ROCÍO LabSaroj De La [id number] [facility] [id number] ALP [Catalytic activity/Vol] 44 U/L Normal 25-150 [facility]; [facility] Work Phone: Comment on above: PATIENT NOT FASTINGP ERFORMED BY: ROCÍO De La Olin[address] [facility] [id number] ALP enzyme act/vol 44 [iU]/L Normal 25-[address] Internal Medicine Work Phone: Comment on above: PATIENT NOT FASTINGP ERFORMED BY: ROCÍO LabSaroj [id number] [facility] [id number] ALT [Catalytic activity/Vol] 25 U/L Normal 0-44 [facility]; [facility] Work Phone: Comment on above: PATIENT NOT FASTINGP ERFORMED BY: ROCÍO LabSaroj De La [id number] [facility] [id number] ALT enzyme act/vol 25 [iU]/L Normal 0-[address] [facility] Internal Medicine Work Phone: Comment on above: PATIENT NOT FASTINGP ERFORMED BY: ROCÍO LabSaroj [id number] Ye[address] RoadDublin [place] [id number] AST [Catalytic activity/Vol] 26 U/L Normal 0-40 [facility]; [facility] Work Phone: Comment on above: PATIENT NOT FASTINGP ERFORMED BY: CB [facility] [id number] Ye[address] RoadDublin [place] [id number] AST enzyme act/vol 26 [iU]/L Normal 0-[address] [facility] Internal Medicine Work Phone: Comment on above: PATIENT NOT FASTINGP ERFORMED BY: CB [facility] Szwjkl1586 [address] RoadDublin [place] [id number] Bilirubin mass conc 1.2 mg/dL Normal 0.0-1.2 Compr ensive Internal Medicine Work Phone: Comment on above: PATIENT NOT FASTINGP ERFORMED BY: [facility] Jwvqjc3336 [address] RoadDublin [place] [id number] Calcium mass conc 9.6 mg/dL Normal 8.7-10.2 Compreh [facility] Work Phone: Comment on above: PATIENT NOT FASTINGP ERFORMED BY: CB [facility] Icymgi1223 [address] RoadDublin [place] [id number] Chloride molar conc 102 mmol/L Normal 97-108 Compr [facility] Internal Medicine Work Phone: Comment on above: PATIENT NOT FASTINGP ERFORMED BY: [facility] Cttzqg2617 [address] RoadDublin [place] [id number] CO2 molar conc 25 mmol/L Normal 20-32 Comprehens capo Internal Medicine Work Phone: Comment on above: PATIENT NOT FASTINGP ERFORMED BY: CB [facility] Sathpx4476 [address] RoadDublin [place] [id number] Creatinine mass conc 0.89 mg/dL Normal 0.76-1.27 Comp [facility] Work Phone: Comment on above: PATIENT NOT FASTINGP ERFORMED BY: CB [facility] Uhlykn9903 [address] RoadDublin [place] [id number] GFR/1.73 sq M predicted among blacks CKD-EPI vol rate/area (S/P/Bld) 117 mL/min/1.73 Normal Comprehensiv e Internal Medicine Work Phone: Comment on above: PATIENT NOT FASTINGP ERFORMED BY: ROCÍO [facility] Ptlfdz[address] [facility] [id number] GFR/1.73 sq M predicted among non-blacks CKD-EPI vol rate/area (S/P/Bld) 101 mL/min/1.73 Normal [facility] Work Phone: Comment on above: PATIENT NOT FASTINGP ERFORMED BY: CB [facility] Xabgha[address] [facility] [id number] Globulin (S) [Mass/Vol] 2.1 g/dL Normal 1.5-4.5 [facility] Work Phone: Comment on above: PATIENT NOT FASTINGP ERFORMED BY: ROCÍO [facility] Sppnab5403 [facility] [id number] Globulin Calculated mass conc (S) 2.1 g/dL Normal 1.5-4.5 [facility] Work Phone: Glucose mass conc 89 mg/dL Normal 65-99 Compreh ensive [facility] Medicine Work Phone: Comment on above: PATIENT NOT FASTINGP ERFORMED BY: ROCÍO [facility] Xcbuwq1465 [facility] [id number] Potassium molar conc 4.2 mmol/L Normal 3.5-5.2 Comp rehensive Internal Medicine Work Phone: Comment on above: PATIENT NOT FASTINGP ERFORMED BY: CB [facility] Yhacxy4490 [facility] [id number] Protein mass conc 6.7 g/dL Normal 6.0-8.5 Compreh ensive Internal Medicine Work Phone: Comment on above: PATIENT NOT FASTINGP ERFORMED BY: CB [facility] [id number] [facility] [id number] Sodium molar conc 140 mmol/L Normal 134-144 Compreh ensive Internal Medicine Work Phone: Comment on above: PATIENT NOT FASTINGP ERFORMED BY: [facility] Ojzkxj7056 [facility] [id number] Urea nitrogen mass conc 11 mg/dL Normal 6-24 [facility] Work Phone: Comment on above: PATIENT NOT FASTINGP ERFORMED BY: LabCoSaint Michael's Medical CenterEotsja5595 [facility] [id number] Urea nitrogen/Creatinine mass ratio 12 mg/mg Normal 9-20 [facility] Work Phone: Comment on above: PATIENT NOT FASTINGP ERFORMED BY: [facility]Re[facility]6370 [facility] [id number] Sed Rate Erythrocyte (47700) Ordered By: [employer] on 08-23-2012 ESR Velocity (Bld) 2 mm/h Normal 0-15 Compre hensive Internal Medicine Work Phone: Comment on above: PATIENT NOT FASTINGP ERFORMED BY: [facility]6370 [facility] [id number] GLUOrdered By: System Manage r on 07-16-2006 Glucose mass conc 78 mg/dL Normal 70-110 Compreh ensive Internal Medicine Work Phone: HEBSAB [id number] By: Otilio maravilla Clinical Trial Head on 07-16-2006 HEBSAB 6395 52.8 m[iU]/mL Abnormal 0.0-8.9 Comprehens capo Internal Medicine Work Phone: Comment on above: Status of Immunity A nti-HBs Level Inconsistent with Immunity < 9.0 Indeterminate 9.0 - 10.9 Consistent with Immunity >10.9Performed At: [facility] [place], [place] [id number] HEP C Ab,[id number] By: Gina olsen Clinical Trial Head on 07-16-2006 HEP C Ab,[id number] Normal Comprehen [facility] Internal Medicine Work Phone: HEP C Ab,[id number] 0.1 1 Normal 0.0-0.9 Comprehen sive Internal Medicine Work Phone: Comment on above: INFCE Result Units: s/co ratioNegativeNot infected with HCV, unless recent infection issuspected or other evidence exists to indicate HCVinfection. PFLIPOrdered By: Abrahan mejia on 07-16-2006 Cholesterol in HDL mass conc 59 mg/dL Normal [facility] Work Phone: Comment on above: Reference Range HDL <40 mg/dL Low HDL Cholesterol HDL >or= 60 mg/dL High HDL Cholesterol Cholesterol in LDL mass conc 116 mg/dL Normal 0-130 [facility] Work Phone: Cholesterol in VLDL mass conc 14 mg/dL Normal 5-40 [facility] Work Phone: Cholesterol mass conc 189 mg/dL Normal [facility] Work Phone: Comment on above: <200 mg/dL Desirable 200-240 mg/dL Borderline >240 mg/dL High Risk Triglyceride mass conc 72 mg/dL Normal [facility] Work Phone: Comment on above: Serum Triglycerides Reference Interval Normal <150 mg/dL Borderline high 150 - 199 mg/dL High 200 - 499 mg/dL Very High > or = 500 mg/dL PSA,TOT SCREENOrdered By: Magnas[employer] stem Clinical Trial Head on 07-16-2006 Prostate specific Ag mass conc 0.46 ng/mL Normal 0.00-4.00 [facility] Work Phone: Comment on above: This test was perfor med using the TPSA method for thecicayda chemistry system.Values obtained with different assay methods cannot be usedinterchangably.When changing PSA assays in the course of monitoring apatient, additionaly sequential testing should be carriedout to confirm baseline values. Vital Signs Date Time Vital Sign Value Performing Clinician Facility 04-24-2025 10:58-0400 Body height 178 cm Sebastien Spangler MD Work Phone: [facility] 04-24-2025 10:58-0400 Body height 177.8 cm Sebastien Spangler MD Work Phone: [facility] 04-24-2025 10:58-0400 Body mass index (BMI) [Ratio] 23.33 kg/m2 Sebastien Spangler MD Work Phone: [facility] 04-24-2025 10:58-0400 Body weight 74 kg Sebastien Spangler MD Work Phone: [facility] 04-24-2025 10:58-0400 Body weight 73.48 kg Sebastien Spangler MD Work Phone: [facility] 04-24-2025 10:58-0400 BP SITE #1 Sebastien Spangler MD Work Phone: [facility] 04-24-2025 10:58-0400 Diastolic blood pressure 81 mm[Hg] Sebastien Spangler MD Work Phone: [facility] 04-24-2025 10:58-0400 HGHTCHNVIS Sebastien Spangler MD Work Phone: [facility] 04-24-2025 10:58-0400 Systolic blood pressure 134 mm[Hg] Sebastien Spangler MD Work Phone: [facility] 04-24-2025 10:58-0400 VITALSDONE Sebastien Spangler MD Work Phone: [facility] 09-05-2024 08:10-0500 Body mass index (BMI) [Ratio] 23.9 kg/m2 Pulm Wstr Work Phone: [facility] 09-05-2024 08:10-0500 Body weight 73.94 kg Pulm Wstr Work Phone: [facility] 02-18-2024 09:23-0400 Body mass index (BMI) [Ratio] 23.16 kg/m2 Mercy Gutiérrez MD Work Phone: [facility] 02-18-2024 09:23-0400 Body weight 71.67 kg Mercy Gutiérrez MD Work Phone: [facility] 08-14-2023 09:20-0500 Body height 175.9 cm Mercy Gutiérrez MD Work Phone: [facility] 08-14-2023 09:20-0500 Body weight 72.12 kg Mercy Gutiérrez MD Work Phone: [facility] 08-14-2023 09:20-0500 Diastolic blood pressure 70 mm[Hg] Mercy Gutiérrez MD Work Phone: [facility] 08-14-2023 09:20-0500 Heart rate 62 /min Mercy Gutiérrez MD Work Phone: [facility] 08-14-2023 09:20-0500 Respiratory rate 14 /min Mercy Gutiérrez MD Work Phone: [facility] 08-14-2023 09:20-0500 SaO2% (BldA) [Mass fraction] 100 % Mercy Gutiérrez MD Work Phone: [facility] 08-14-2023 09:20-0500 Systolic blood pressure 118 mm[Hg] Mercy Gutiérrez MD Work Phone: [facility] 08-14-2023 09:16-0500 Body weight 72.12 kg Pulm Wstr Work Phone: [facility] 01-24-2023 13:10-0400 Body weight 71.22 kg Pulm Wstr Work Phone: [facility] 01-24-2023 13:09-0400 Body weight 71.22 kg Neetu Gabriela PA-C Work Phone: [facility] 01-24-2023 13:09-0400 Diastolic blood pressure 78 mm[Hg] Neetu Gabriela PA-C Work Phone: [facility] 01-24-2023 13:09-0400 Heart rate 65 /min Neetu Gabriela PA-C Work Phone: [facility] 01-24-2023 13:09-0400 Respiratory rate 15 /min Neetu Gabriela PA-C Work Phone: [facility] 01-24-2023 13:09-0400 SaO2% (BldA) [Mass fraction] 98 % Neetu MCNEILL-C Work Phone: [facility] 01-24-2023 13:09-0400 Systolic blood pressure 112 mm[Hg] Neetu Gabriela PA-C Work Phone: [facility] 10-30-2022 15:14-0400 Body weight 73.48 kg Pulm Wstr Work Phone: [facility] 09-04-2022 12:53-0500 Body height 175.9 cm Pulm Wstr Work Phone: [facility] 09-04-2022 12:53-0500 Body weight 73.48 kg Pulm Wstr Work Phone: [facility] 09-04-2022 12:53-0500 Heart rate 88 /min Pulm Wstr Work Phone: [facility] 09-04-2022 12:53-0500 Respiratory rate 14 /min Pulm Wstr Work Phone: [facility] 09-04-2022 12:53-0500 SaO2% (BldA) [Mass fraction] 98 % Pulm Wstr Work Phone: [facility] 09-01-2022 07:46-0500 Body height 177.8 cm [employer] [facility]; [facility] Work Phone: 09-01-2022 07:46-0500 Body mass index (BMI) [Ratio] 22.96 kg/m2 [employer] [facility]; [facility] Work Phone: 09-01-2022 07:46-0500 Body surface area Derived from formula 1.9 m2 Marina [facility]; [facility] Work Phone: 09-01-2022 07:46-0500 Body temperature 98 [degF] Marina [facility]; [facility] Work Phone: Comment on above: Method: Thermal Scan 09-01-2022 07:46-0500 Body weight 72.58 kg Marina Mendoza [facility]; [facility] Work Phone: 09-01-2022 07:46-0500 Diastolic blood pressure 74 mm[Hg] Marina Mendoza [facility]; [facility] Work Phone: Comment on above: Patient Position: Sitting; Cuff Location : Left Arm; Cuff Size: Standard 09-01-2022 07:46-0500 Heart rate 67 /min Marina Mendoza [facility]; [facility] Work Phone: Comment on above: Pattern: Regular 09-01-2022 07:46-0500 Respiratory rate 16 /min Marina Mendoza [facility]; [facility] Work Phone: Comment on above: Pattern: Unlabored 09-01-2022 07:46-0500 SaO2% (BldA) [Mass fraction] 98 % Marina Mendoza [facility]; [facility] Work Phone: Comment on above: Room air 09-01-2022 07:46-0500 Systolic blood pressure 116 mm[Hg] Marina Mendoza [facility]; [facility] Work Phone: Comment on above: Patient Position: Sitting; Cuff Location : Left Arm; Cuff Size: Standard 07-12-2022 13:34-0500 Body height 177.8 cm Genny Gallegos [facility]; [facility] Work Phone: 07-12-2022 13:34-0500 Body mass index (BMI) [Ratio] 21.81 kg/m2 Genny Gallegos [facility]; [facility] Work Phone: 07-12-2022 13:34-0500 Body surface area Derived from formula 1.86 m2 Genny Gallegos 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 [facility]; [facility] Work Phone: 07-12-2022 13:34-0500 Body temperature 97.9 [degF] Genny Gallegos [facility]; [facility] Work Phone: 07-12-2022 13:34-0500 Body weight 68.95 kg Genny Gallegos CHERY [facility]; [facility] Work Phone: 07-12-2022 13:34-0500 Diastolic blood pressure 76 mm[Hg] Genny Gallegos 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 [facility]; [facility] Work Phone: Comment on above: Patient Position: Sitting; Cuff Location : Left Arm; Cuff Size: Standard 07-12-2022 13:34-0500 Heart rate 68 /min Genny Gallegos CHERY [facility]; [facility] Work Phone: Comment on above: Pattern: Regular 07-12-2022 13:34-0500 Respiratory rate 16 /min Genny Gallegos CHERY [facility]; [facility] Work Phone: Comment on above: Pattern: Unlabored 07-12-2022 13:34-0500 SaO2% (BldA) [Mass fraction] 99 % Genny Gallegos CHERY [facility]; [facility] Work Phone: Comment on above: Room air 07-12-2022 13:34-0500 Systolic blood pressure 112 mm[Hg] Genny Gallegos CHERY [facility]; [facility] Work Phone: Comment on above: Patient Position: Sitting; Cuff Location : Left Arm; Cuff Size: Standard 06-12-2022 11:53-0500 Body height 177.8 cm Brittany Nieto MA [facility]; [facility] Work Phone: 06-12-2022 11:53-0500 Body mass index (BMI) [Ratio] 21.81 kg/m2 Brittany Nieto MA [facility]; [facility] Work Phone: 06-12-2022 11:53-0500 Body surface area Derived from formula 1.86 m2 Brittany Nieto MA [facility]; [facility] Work Phone: 06-12-2022 11:53-0500 Body temperature 96.1 [degF] Brittany Nieto MA [facility]; [facility] Work Phone: 06-12-2022 11:53-0500 Body weight 68.95 kg Brittany Nieto MA [facility]; [facility] Work Phone: 06-12-2022 11:53-0500 Diastolic blood pressure 80 mm[Hg] Brittany Niteo MA [facility]; [facility] Work Phone: Comment on above: Patient Position: Sitting; Cuff Location : Left Arm; Cuff Size: Standard 06-12-2022 11:53-0500 Heart rate 72 /min Brittanyha Nieto MA [facility]; [facility] Work Phone: Comment on above: Pattern: Regular 06-12-2022 11:53-0500 Respiratory rate 16 /min Brittanyha Nieto MA [facility]; [facility] Work Phone: Comment on above: Pattern: Unlabored 06-12-2022 11:53-0500 SaO2% (BldA) [Mass fraction] 99 % Brittany Nieto MA [facility]; [facility] Work Phone: Comment on above: Room air 06-12-2022 11:53-0500 Systolic blood pressure 102 mm[Hg] Brittany Nieto MA [facility]; [facility] Work Phone: Comment on above: Patient Position: Sitting; Cuff Location : Left Arm; Cuff Size: Standard 01-14-2021 06:42-0400 Body height 177.8 cm Meghana Lanier MD Work Phone: [facility]; [facility] Work Phone: 01-14-2021 06:42-0400 Body mass index (BMI) [Ratio] 21.81 kg/m2 Meghana Lanier MD Work Phone: [facility]; [facility] Work Phone: 01-14-2021 06:42-0400 Body surface area Derived from formula 1.86 m2 Meghana Lanier MD Work Phone: [facility]; [facility] Work Phone: 01-14-2021 06:42-0400 Body temperature 96.8 [degF] Meghana Lanier MD Work Phone: [facility]; [facility] Work Phone: Comment on above: Method: Temporal 01-14-2021 06:42-0400 Body weight 68.95 kg Meghana Lanier MD Work Phone: [facility]; [facility] Work Phone: 01-14-2021 06:42-0400 Diastolic blood pressure 74 mm[Hg] Meghana Lanier MD Work Phone: [facility]; [facility] Work Phone: Comment on above: Patient Position: Sitting; Cuff Location : Left Arm; Cuff Size: Standard 01-14-2021 06:42-0400 Heart rate 67 /min Meghana Lanier MD Work Phone: [facility]; [facility] Work Phone: Comment on above: Pattern: Regular 01-14-2021 06:42-0400 Respiratory rate 16 /min Meghana Lanier MD Work Phone: [facility]; [facility] Work Phone: Comment on above: Pattern: Unlabored 01-14-2021 06:42-0400 SaO2% (BldA) [Mass fraction] 97 % Meghana Lanier MD Work Phone: [facility]; [facility] Work Phone: Comment on above: Room air 01-14-2021 06:42-0400 Systolic blood pressure 110 mm[Hg] Meghana Lanier MD Work Phone: [facility]; [facility] Work Phone: Comment on above: Patient Position: Sitting; Cuff Location : Left Arm; Cuff Size: Standard 09-24-2020 08:08-0400 BMI (Body Mass Index) 22.24 kg/m2 TRUDY Taylor LPN [facility]; [facility] Work Phone: 09-24-2020 08:08-0400 Body Temperature 97.9 [degF] TRUDY Taylor CHERY [facility]; [facility] Work Phone: Comment on above: Method: Temporal 09-24-2020 08:08-0400 Body weight 70.31 kg TRUDY Taylor CHERY [facility]; [facility] Work Phone: 09-24-2020 08:08-0400 BP Diastolic 72 mm[Hg] TRUDY Taylor CHERY [facility]; [facility] Work Phone: Comment on above: Patient Position: Sitting; Cuff Location : Left Arm; Cuff Size: Standard 09-24-2020 08:08-0400 BP Systolic 110 mm[Hg] TRUDY Taylor CHERY [facility]; [facility] Work Phone: Comment on above: Patient Position: Sitting; Cuff Location : Left Arm; Cuff Size: Standard 09-24-2020 08:08-0400 BSA (Body Surface Area) 1.87 m2 TRUDY Taylor CHERY [facility]; [facility] Work Phone: 09-24-2020 08:08-0400 Height 177.8 cm TRUDY Taylor CHERY [facility]; [facility] Work Phone: 09-24-2020 08:08-0400 Pulse (Heart Rate) 67 /min TRUDY Taylor CHERY [facility]; [facility] Work Phone: Comment on above: Pattern: Regular 09-24-2020 08:08-0400 Pulse Oximetry 96 % Meghana Lanier [facility]; [facility] Work Phone: Comment on above: Room air 09-24-2020 08:08-0400 Respiratory Rate 18 /min TRUDY Taylor CHERY [facility]; [facility] Work Phone: Comment on above: Pattern: Unlabored 09-24-2020 08:08-0400 SaO2% (BldA) [Mass fraction] 96 % TRUDY Taylor CHERY [facility]; [facility] Work Phone: Comment on above: Room air 09-03-2020 10:51-0500 BMI (Body Mass Index) 22.24 kg/m2 TRUDY Taylor CHERY [facility]; [facility] Work Phone: 09-03-2020 10:51-0500 Body Temperature 97.9 [degF] TRUDY Taylor LPN [facility]; [facility] Work Phone: Comment on above: Method: Temporal 09-03-2020 10:51-0500 Body weight 70.31 kg TRUDY Taylor CHERY [facility]; [facility] Work Phone: 09-03-2020 10:51-0500 BP Diastolic 70 mm[Hg] TRUDY Taylor CHERY [facility]; [facility] Work Phone: Comment on above: Patient Position: Sitting; Cuff Location : Left Arm; Cuff Size: Standard 09-03-2020 10:51-0500 BP Systolic 116 mm[Hg] TRUDY Taylor CHERY [facility]; [facility] Work Phone: Comment on above: Patient Position: Sitting; Cuff Location : Left Arm; Cuff Size: Standard 09-03-2020 10:51-0500 BSA (Body Surface Area) 1.87 m2 TRUDY Taylor CHERY [facility]; [facility] Work Phone: 09-03-2020 10:51-0500 Height 177.8 cm TRUDY Taylor CHERY [facility]; [facility] Work Phone: 09-03-2020 10:51-0500 Pulse (Heart Rate) 74 /min TRUDY Taylor [employer] 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 [facility]; [facility] Work Phone: Comment on above: Pattern: Regular 09-03-2020 10:51-0500 Pulse Oximetry 98 % Meghana Lanier [facility]; [facility] Work Phone: Comment on above: Room air 09-03-2020 10:51-0500 Respiratory Rate 20 /min TRUDY Taylor CHERY [facility]; [facility] Work Phone: Comment on above: Pattern: Unlabored 09-03-2020 10:51-0500 SaO2% (BldA) [Mass fraction] 98 % TRUDY Taylor LPN [facility]; [facility] Work Phone: Comment on above: Room air 12-12-2019 06:39-0400 BMI (Body Mass Index) 22.24 kg/m2 TRUDY Taylor LPN [facility] Work Phone: 12-12-2019 06:39-0400 Body Temperature 97.9 [degF] TRUDY Taylor LPN [facility] Work Phone: Comment on above: Method: Temporal 12-12-2019 06:39-0400 Body weight 70.31 kg TRUDY Taylor LPN [facility] Work Phone: 12-12-2019 06:39-0400 BP Diastolic 74 mm[Hg] TRUDY Taylor LPN [facility] Work Phone: Comment on above: Patient Position: Sitting; Cuff Location : Left Arm; Cuff Size: Standard 12-12-2019 06:39-0400 BP Systolic 110 mm[Hg] TRUDY Taylor LPN [facility] Work Phone: Comment on above: Patient Position: Sitting; Cuff Location : Left Arm; Cuff Size: Standard 12-12-2019 06:39-0400 BSA (Body Surface Area) 1.87 m2 TRUDY Taylor LPN [facility] Work Phone: 12-12-2019 06:39-0400 Height 177.8 cm TRUDY Taylor [facility] Work Phone: 12-12-2019 06:39-0400 Pulse (Heart Rate) 68 /min TRUDY Taylor [facility] Work Phone: Comment on above: Pattern: Regular 12-12-2019 06:39-0400 Pulse Oximetry 98 % Meghana Lanier [facility] Work Phone: Comment on above: Room air 12-12-2019 06:39-0400 Respiratory Rate 20 /min TRUDY Taylor LPN [facility] Work Phone: Comment on above: Pattern: Unlabored 12-12-2019 06:39-0400 SaO2% (BldA) [Mass fraction] 98 % TRUDY Taylor LPN [facility]; [facility] Work Phone: Comment on above: Room air 08-08-2019 08:03-0500 BMI (Body Mass Index) 23.53 kg/m2 Cally Julien RN [facility] Work Phone: Comment on above: BP is up a bit -- having asthma flares - using alb daily 08-08-2019 08:03-0500 Body weight 74.39 kg Cally Julien RN [facility] Work Phone: Comment on above: BP is up a bit -- having asthma flares - using alb daily 08-08-2019 08:03-0500 BP Diastolic 78 mm[Hg] Cally Julien RN [facility] Work Phone: Comment on above: Patient Position: Sitting; Cuff Location : Left Arm; Cuff Size: Standard BP is up a bit -- blackwell ving asthma flares - using alb daily 08-08-2019 08:03-0500 BP Systolic 124 mm[Hg] Cally Julien RN [facility] Work Phone: Comment on above: Patient Position: Sitting; Cuff Location : Left Arm; Cuff Size: Standard BP is up a bit -- blackwell ving asthma flares - using alb daily 08-08-2019 08:03-0500 BSA (Body Surface Area) 1.92 m2 Cally Julien RN [facility] Work Phone: Comment on above: BP is up a bit -- having asthma flares - using alb daily 08-08-2019 08:03-0500 Height 177.8 cm Cally Julien RN [facility] Work Phone: Comment on above: BP is up a bit -- having asthma flares - using alb daily 08-08-2019 08:03-0500 Pulse (Heart Rate) 73 /min Cally Julien RN [facility] Work Phone: Comment on above: Pattern: Regular BP is up a bit -- blackwell ving asthma flares - using alb daily 08-08-2019 08:03-0500 Pulse Oximetry 98 % Meghana Lanier [facility] Work Phone: Comment on above: Room air BP is up a bit -- blackwell ving asthma flares - using alb daily 08-08-2019 08:03-0500 Respiratory Rate 16 /min Cally Julien RN [facility] Work Phone: Comment on above: Pattern: Unlabored BP is up a bit -- blackwell ving asthma flares - using alb daily 08-08-2019 08:03-0500 SaO2% (BldA) [Mass fraction] 98 % Cally Julien RN [facility]; [facility] Work Phone: Comment on above: Room air BP is up a bit -- blackwell ving asthma flares - using alb daily 11-22-2018 08:23-0400 BMI (Body Mass Index) 22.96 kg/m2 Meghana Lanier MD Work Phone: [facility] Work Phone: 11-22-2018 08:23-0400 Body Temperature 97.1 [degF] Meghana Lanier MD Work Phone: [facility] Work Phone: Comment on above: Method: Oral 11-22-2018 08:23-0400 Body weight 72.58 kg Meghana Lanier MD Work Phone: [facility] Work Phone: 11-22-2018 08:23-0400 BP Diastolic 76 mm[Hg] Meghana Lanier MD Work Phone: [facility] Work Phone: Comment on above: Patient Position: Sitting 11-22-2018 08:23-0400 BP Systolic 112 mm[Hg] Meghana Lanier MD Work Phone: [facility] Work Phone: Comment on above: Patient Position: Sitting 11-22-2018 08:23-0400 BSA (Body Surface Area) 1.9 m2 Meghana Lanier MD Work Phone: [facility] Work Phone: 11-22-2018 08:23-0400 Height 177.8 cm Meghana Lanier MD Work Phone: [facility] Work Phone: 11-22-2018 08:23-0400 Pulse (Heart Rate) 64 /min Meghana Lanier MD Work Phone: [facility] Work Phone: Comment on above: Pattern: Regular 11-22-2018 08:23-0400 Pulse Oximetry 94 % Meghana Lanier [facility] Work Phone: Comment on above: Room air 11-22-2018 08:23-0400 Respiratory Rate 18 /min Meghana Lanier MD Work Phone: [facility] Work Phone: 11-22-2018 08:23-0400 SaO2% (BldA) [Mass fraction] 94 % Meghana Lanier MD Work Phone: [facility]; [facility] Work Phone: Comment on above: Room air 11-22-2018 08:23-0400 Weight 72.58 kg Meghana Lanier [facility] Work Phone: 12-07-2017 09:34-0400 BMI (Body Mass Index) 22.67 kg/m2 Meghana Lanier MD Work Phone: [facility] Work Phone: 12-07-2017 09:34-0400 Body Temperature 97 [degF] Meghana Lanier MD Work Phone: [facility] Work Phone: Comment on above: Method: Oral 12-07-2017 09:34-0400 Body weight 71.67 kg Meghana Lanier MD Work Phone: [facility] Work Phone: 12-07-2017 09:34-0400 BP Diastolic 76 mm[Hg] Meghana Lanier MD Work Phone: [facility] Work Phone: Comment on above: Patient Position: Sitting; Cuff Location : Left Arm; Cuff Size: Standard 12-07-2017 09:34-0400 BP Systolic 118 mm[Hg] Meghana Lanier MD Work Phone: [facility] Work Phone: Comment on above: Patient Position: Sitting; Cuff Location : Left Arm; Cuff Size: Standard 12-07-2017 09:34-0400 BSA (Body Surface Area) 1.89 m2 Meghana Lanier MD Work Phone: [facility] Work Phone: 12-07-2017 09:34-0400 Height 177.8 cm Meghana Lanier MD Work Phone: [facility] Work Phone: 12-07-2017 09:34-0400 Pulse (Heart Rate) 58 /min Meghana Lanier MD Work Phone: [facility] Work Phone: Comment on above: Pattern: Regular 12-07-2017 09:34-0400 Pulse Oximetry 97 % Meghana Lanier [facility] Work Phone: Comment on above: Room air 12-07-2017 09:34-0400 Respiratory Rate 18 /min Meghana Lanier MD Work Phone: [facility] Work Phone: Comment on above: Pattern: Unlabored 12-07-2017 09:34-0400 SaO2% (BldA) [Mass fraction] 97 % Meghana Lanier MD Work Phone: [facility]; [facility] Work Phone: Comment on above: Room air 12-07-2017 09:34-0400 Weight 71.67 kg Meghana Lanier [facility] Work Phone: 08-03-2017 07:01-0500 BMI (Body Mass Index) 22.1 kg/m2 TRUDY Taylor LPN [facility] Work Phone: 08-03-2017 07:01-0500 Body Temperature 97.6 [degF] TRUDY Taylor LPN [facility] Work Phone: Comment on above: Method: Temporal 08-03-2017 07:01-0500 Body weight 69.85 kg TRUDY Taylor LPN [facility] Work Phone: 08-03-2017 07:01-0500 BP Diastolic 78 mm[Hg] TRUDY Taylor LPN [facility] Work Phone: Comment on above: Patient Position: Sitting; Cuff Location : Left Arm; Cuff Size: Standard 08-03-2017 07:01-0500 BP Systolic 116 mm[Hg] TRUDY Taylor LPN [facility] Work Phone: Comment on above: Patient Position: Sitting; Cuff Location : Left Arm; Cuff Size: Standard 08-03-2017 07:01-0500 BSA (Body Surface Area) 1.87 m2 TRUDY Taylor LPN [facility] Work Phone: 08-03-2017 07:01-0500 Height 177.8 cm TRUDY Taylor LPN [facility] Work Phone: 08-03-2017 07:01-0500 Pulse (Heart Rate) 70 /min TRUDY Taylor LPN [facility] Work Phone: Comment on above: Pattern: Regular 08-03-2017 07:01-0500 Pulse Oximetry 98 % Meghana Lanier [facility] Work Phone: Comment on above: Room air 08-03-2017 07:01-0500 Respiratory Rate 20 /min TRUDY Taylor LPN [facility] Work Phone: Comment on above: Pattern: Unlabored 08-03-2017 07:01-0500 SaO2% (BldA) [Mass fraction] 98 % TRUDY Taylor LPN [facility]; [facility] Work Phone: Comment on above: Room air 08-03-2017 07:01-0500 Weight 69.85 kg Meghana Lanier [facility] Work Phone: 08-04-2016 13:13-0500 BMI (Body Mass Index) 21.86 kg/m2 Neetu Whatley [facility] Work Phone: 08-04-2016 13:13-0500 Body Temperature 97.5 [degF] Neetu Whatley [facility] Work Phone: Comment on above: Method: Temporal 08-04-2016 13:13-0500 Body weight 67.13 kg Neetu Whatley [facility] Work Phone: 08-04-2016 13:13-0500 BP Diastolic 82 mm[Hg] Neetu Whatley [facility] Work Phone: Comment on above: Patient Position: Sitting; Cuff Location : Left Arm; Cuff Size: Standard 08-04-2016 13:13-0500 BP Systolic 118 mm[Hg] Neetu Whatley [facility] Work Phone: Comment on above: Patient Position: Sitting; Cuff Location : Left Arm; Cuff Size: Standard 08-04-2016 13:13-0500 BSA (Body Surface Area) 1.82 m2 Neetu Whatley [facility] Work Phone: 08-04-2016 13:13-0500 Height 175.26 cm Neetu Whatley [facility] Work Phone: 08-04-2016 13:13-0500 Pulse (Heart Rate) 68 /min [facility] Work Phone: Comment on above: Pattern: Regular 08-04-2016 13:13-0500 Pulse Oximetry 98 % Meghana Lanier [facility] Work Phone: Comment on above: Room air 08-04-2016 13:13-0500 Respiratory Rate 16 /min Neetu Whatley [facility] Work Phone: Comment on above: Pattern: Unlabored 08-04-2016 13:13-0500 SaO2% (BldA) [Mass fraction] 98 % Neetu Ohleeann [facility]; [facility] Work Phone: Comment on above: Room air 08-04-2016 13:13-0500 Weight 67.13 kg Meghana Lanier [facility] Work Phone: 06-02-2016 06:44-0500 BMI (Body Mass Index) 21.86 kg/m2 TRUDY Taylor LPN [facility] Work Phone: 06-02-2016 06:44-0500 Body Temperature 97.6 [degF] TRUDY Taylor LPN [facility] Work Phone: Comment on above: Method: Temporal 06-02-2016 06:44-0500 Body weight 67.13 kg TRUDY Taylor LPN [facility] Work Phone: 06-02-2016 06:44-0500 BP Diastolic 70 mm[Hg] TRUDY Taylor LPN [facility] Work Phone: Comment on above: Patient Position: Sitting; Cuff Location : Left Arm; Cuff Size: Standard 06-02-2016 06:44-0500 BP Systolic 110 mm[Hg] TRUDY Taylor LPN [facility] Work Phone: Comment on above: Patient Position: Sitting; Cuff Location : Left Arm; Cuff Size: Standard 06-02-2016 06:44-0500 BSA (Body Surface Area) 1.82 m2 TRUDY Taylor LPN [facility] Work Phone: 06-02-2016 06:44-0500 Height 175.26 cm TRUDY Taylor LPN [facility] Work Phone: 06-02-2016 06:44-0500 Pulse (Heart Rate) 74 /min TRUDY Taylor LPN [facility] Work Phone: Comment on above: Pattern: Regular 06-02-2016 06:44-0500 Pulse Oximetry 98 % Meghana Lanier [facility] Work Phone: Comment on above: Room air 06-02-2016 06:44-0500 Respiratory Rate 18 /min TRUDY Taylor LPN [facility] Work Phone: Comment on above: Pattern: Unlabored 06-02-2016 06:44-0500 SaO2% (BldA) [Mass fraction] 98 % TRUDY Taylor LPN [facility]; [facility] Work Phone: Comment on above: Room air 06-02-2016 06:44-0500 Weight 67.13 kg Meghana Lanier [facility] Work Phone: 10-09-2014 11:30-0400 BMI (Body Mass Index) 21.2 kg/m2 Neetu Chacorta [facility] Work Phone: 10-09-2014 11:30-0400 Body Temperature 97.2 [degF] Neetu Chacorta [facility] Work Phone: 10-09-2014 11:30-0400 Body weight 68.95 kg Neetu Chacorta [facility] Work Phone: 10-09-2014 11:30-0400 BP Diastolic 60 mm[Hg] Neetu Whatley [facility] Work Phone: Comment on above: Patient Position: Sitting; Cuff Location : Left Arm; Cuff Size: Standard 10-09-2014 11:30-0400 BP Systolic 94 mm[Hg] Neetu Chacorta [facility] Work Phone: Comment on above: Patient Position: Sitting; Cuff Location : Left Arm; Cuff Size: Standard 10-09-2014 11:30-0400 BSA (Body Surface Area) 1.88 m2 Neetu Chacorta [facility] Work Phone: 10-09-2014 11:30-0400 Height 180.34 cm Neetu Whatley [facility] Work Phone: 10-09-2014 11:30-0400 Pulse (Heart Rate) 58 /min [facility] Work Phone: Comment on above: Pattern: Regular 10-09-2014 11:30-0400 Respiratory Rate 16 /min Neetu Whatley [facility] Work Phone: Comment on above: Pattern: Unlabored 10-09-2014 11:30-0400 Weight 68.95 kg Meghana Lanier [facility] Work Phone: 09-25-2014 07:49-0400 BMI (Body Mass Index) 21.37 kg/m2 Cary Patten RN [facility] Work Phone: 09-25-2014 07:49-0400 Body weight 69.51 kg Cary Patten RN [facility] Work Phone: 09-25-2014 07:49-0400 BP Diastolic 78 mm[Hg] Cary Patten RN [facility] Work Phone: Comment on above: Patient Position: Sitting; Cuff Location : Left Arm; Cuff Size: Standard 09-25-2014 07:49-0400 BP Systolic 128 mm[Hg] Cary Patten RN [facility] Work Phone: Comment on above: Patient Position: Sitting; Cuff Location : Left Arm; Cuff Size: Standard 09-25-2014 07:49-0400 BSA (Body Surface Area) 1.88 m2 Cary Patten RN [facility] Work Phone: 09-25-2014 07:49-0400 Height 180.34 cm Cary Patten RN [facility] Work Phone: 09-25-2014 07:49-0400 Pulse (Heart Rate) 62 /min Cary Patten RN [facility] Work Phone: Comment on above: Pattern: Regular 09-25-2014 07:49-0400 Pulse Oximetry 98 % Meghana Lanier [facility] Work Phone: Comment on above: Room air 09-25-2014 07:49-0400 Respiratory Rate 18 /min Cary Patten RN [facility] Work Phone: Comment on above: Pattern: Unlabored 09-25-2014 07:49-0400 SaO2% (BldA) [Mass fraction] 98 % Cary Patten RN [facility]; [facility] Work Phone: Comment on above: Room air 09-25-2014 07:49-0400 Weight 69.51 kg Meghana Keshav [facility] Work Phone: 09-11-2014 14:06-0400 BMI (Body Mass Index) 21.48 kg/m2 Neetu Da Silva [facility] Medicine Work Phone: 09-11-2014 14:06-0400 Body Temperature 96.9 [degF] Neetu Whatley [facility] Work Phone: 09-11-2014 14:06-0400 Body weight 69.85 kg Neetu Whatley [facility] Work Phone: 09-11-2014 14:06-0400 BP Diastolic 62 mm[Hg] Neetu Whatley [facility] Work Phone: Comment on above: Patient Position: Sitting; Cuff Location : Left Arm; Cuff Size: Standard 09-11-2014 14:06-0400 BP Systolic 114 mm[Hg] Neetu Whatley [facility] Work Phone: Comment on above: Patient Position: Sitting; Cuff Location : Left Arm; Cuff Size: Standard 09-11-2014 14:06-0400 BSA (Body Surface Area) 1.89 m2 Neetu Whatley [facility] Work Phone: 09-11-2014 14:06-0400 Height 180.34 cm Neetu Whatley [facility] Work Phone: 09-11-2014 14:06-0400 Pulse (Heart Rate) 68 /min [facility] Work Phone: Comment on above: Pattern: Regular 09-11-2014 14:06-0400 Respiratory Rate 16 /min Neetu Ohleeann [facility] Work Phone: Comment on above: Pattern: Unlabored 09-11-2014 14:06-0400 Weight 69.85 kg Meghana Lanier [facility] Work Phone: 05-27-2014 12:31-0500 BMI (Body Mass Index) 20.8 kg/m2 Cally Julien RN [facility] Work Phone: 05-27-2014 12:31-0500 Body Temperature 98.6 [degF] Cally Julien RN [facility] Work Phone: Comment on above: Method: Temporal 05-27-2014 12:31-0500 Body weight 67.64 kg Cally Julien RN [facility] Work Phone: 05-27-2014 12:31-0500 BP Diastolic 70 mm[Hg] Cally Julien RN [facility] Work Phone: Comment on above: Patient Position: Sitting; Cuff Location : Left Arm; Cuff Size: Standard 05-27-2014 12:31-0500 BP Systolic 122 mm[Hg] Cally Julien RN [facility] Work Phone: Comment on above: Patient Position: Sitting; Cuff Location : Left Arm; Cuff Size: Standard 05-27-2014 12:31-0500 BSA (Body Surface Area) 1.86 m2 Cally Julien RN [facility] Work Phone: 05-27-2014 12:31-0500 Height 180.34 cm Cally Julien RN [facility] Work Phone: 05-27-2014 12:31-0500 Pulse (Heart Rate) 95 /min Cally Julien RN [facility] Work Phone: Comment on above: Pattern: Regular 05-27-2014 12:31-0500 Pulse Oximetry 97 % Meghana Lanier [facility] Work Phone: Comment on above: Room air 05-27-2014 12:31-0500 Respiratory Rate 16 /min Cally Julien RN [facility] Work Phone: Comment on above: Pattern: Unlabored 05-27-2014 12:31-0500 SaO2% (BldA) [Mass fraction] 97 % Cally Julien RN [facility]; [facility] Work Phone: Comment on above: Room air 05-27-2014 12:31-0500 Weight 67.64 kg Meghana Keshav [facility] Work Phone: 03-20-2014 14:50-0400 BMI (Body Mass Index) 20.8 kg/m2 Marina Mendoza [facility] Work Phone: 03-20-2014 14:50-0400 Body Temperature 98.5 [degF] Marina Mendoza SYSTEM SAFETY MANAGER [facility] Work Phone: Comment on above: Method: Oral 03-20-2014 14:50-0400 Body weight 67.64 kg Marina Mendoza [facility] Internal Medicine Work Phone: 03-20-2014 14:50-0400 BP Diastolic 60 mm[Hg] Marina Mendoza [facility] Work Phone: Comment on above: Patient Position: Sitting; Cuff Location : Left Arm; Cuff Size: Standard 03-20-2014 14:50-0400 BP Systolic 118 mm[Hg] Marina Mendoza [facility] Work Phone: Comment on above: Patient Position: Sitting; Cuff Location : Left Arm; Cuff Size: Standard 03-20-2014 14:50-0400 BSA (Body Surface Area) 1.86 m2 Marina Mendoza [facility] Work Phone: 03-20-2014 14:50-0400 Height 180.34 cm Marina Mendoza [facility] Work Phone: 03-20-2014 14:50-0400 Pulse (Heart Rate) 77 /min Marina Mendoza [facility] Work Phone: Comment on above: Pattern: Regular 03-20-2014 14:50-0400 Pulse Oximetry 98 % Meghana Lanier [facility] Work Phone: Comment on above: Room air 03-20-2014 14:50-0400 Respiratory Rate 16 /min Marina Mendoza [facility] Work Phone: Comment on above: Pattern: Unlabored 03-20-2014 14:50-0400 SaO2% (BldA) [Mass fraction] 98 % Marina Mendoza [facility]; [facility] Work Phone: Comment on above: Room air 03-20-2014 14:50-0400 Weight 67.64 kg Meghana Lanier [facility] Work Phone: 03-13-2014 10:27-0400 BMI (Body Mass Index) 20.8 kg/m2 [facility] Work Phone: 03-13-2014 10:27-0400 Body Temperature 98 [degF] Meghanahawk Lanier [facility] Work Phone: Comment on above: Method: Oral 03-13-2014 10:27-0400 Body weight 67.64 kg Meghana Sibleydemetrimena [facility] Work Phone: 03-13-2014 10:27-0400 BP Diastolic 70 mm[Hg] Meghana Sibleydemetrimena [facility] Work Phone: Comment on above: Patient Position: Sitting; Cuff Location : Left Arm; Cuff Size: Standard 03-13-2014 10:27-0400 BP Systolic 116 mm[Hg] Meghana Keshav [facility] Work Phone: Comment on above: Patient Position: Sitting; Cuff Location : Left Arm; Cuff Size: Standard 03-13-2014 10:27-0400 BSA (Body Surface Area) 1.86 m2 Meghana Keshav [facility] Work Phone: 03-13-2014 10:27-0400 Height 180.34 cm Meghana Lanier [facility] Work Phone: 03-13-2014 10:27-0400 Pulse (Heart Rate) 56 /min Meghana Keshav [facility] Work Phone: Comment on above: Pattern: Regular 03-13-2014 10:27-0400 Pulse Oximetry 98 % Meghana Lanier [facility] Work Phone: Comment on above: Room air 03-13-2014 10:27-0400 SaO2% (BldA) [Mass fraction] 98 % Meghana Lanier MD Work Phone: [facility]; [facility] Work Phone: Comment on above: Room air 03-13-2014 10:27-0400 Weight 67.64 kg Meghanahawk Sibleyralf [facility] Work Phone: 08-15-2013 08:55-0500 BMI (Body Mass Index) 20.8 kg/m2 Cary Patten RN [facility] Work Phone: 08-15-2013 08:55-0500 Body Temperature 99.7 [degF] Cary Patten RN [facility] Work Phone: Comment on above: Method: Oral 08-15-2013 08:55-0500 Body weight 67.64 kg Cary Patten RN [facility] Work Phone: 08-15-2013 08:55-0500 BP Diastolic 78 mm[Hg] Cary Patten RN [facility] Work Phone: Comment on above: Patient Position: Sitting; Cuff Location : Left Arm; Cuff Size: Standard 08-15-2013 08:55-0500 BP Systolic 120 mm[Hg] Cary Patten RN [facility] Work Phone: Comment on above: Patient Position: Sitting; Cuff Location : Left Arm; Cuff Size: Standard 08-15-2013 08:55-0500 BSA (Body Surface Area) 1.86 m2 Cary Patten RN [facility] Work Phone: 08-15-2013 08:55-0500 Height 180.34 cm Cary Patten RN [facility] Work Phone: 08-15-2013 08:55-0500 Pulse (Heart Rate) 72 /min Cary Patten RN [facility] Work Phone: Comment on above: Pattern: Regular 08-15-2013 08:55-0500 Pulse Oximetry 98 % Meghana Georgemena [facility] Work Phone: Comment on above: Room air 08-15-2013 08:55-0500 Respiratory Rate 20 /min Cary Patten RN [facility] Work Phone: Comment on above: Pattern: Unlabored 08-15-2013 08:55-0500 SaO2% (BldA) [Mass fraction] 98 % Cary Patten RN [facility]; [facility] Work Phone: Comment on above: Room air 08-15-2013 08:55-0500 Weight 67.64 kg Meghana Georgemena [facility] Work Phone: 07-15-2013 10:46-0500 BMI (Body Mass Index) 21.23 kg/m2 Meghana Lanier [facility] Work Phone: 07-15-2013 10:46-0500 Body Temperature 99 [degF] Meghana Lanier [facility] Work Phone: Comment on above: Method: Oral 07-15-2013 10:46-0500 Body weight 69.03 kg Meghana Lanier [facility] Work Phone: 07-15-2013 10:46-0500 BP Diastolic 72 mm[Hg] Meghana Lanier [facility] Work Phone: Comment on above: Patient Position: Sitting; Cuff Location : Left Arm; Cuff Size: Standard 07-15-2013 10:46-0500 BP Systolic 120 mm[Hg] Meghana Lanier [facility] Work Phone: Comment on above: Patient Position: Sitting; Cuff Location : Left Arm; Cuff Size: Standard 07-15-2013 10:46-0500 BSA (Body Surface Area) 1.88 m2 Meghana Lanier [facility] Work Phone: 07-15-2013 10:46-0500 Height 180.34 cm Meghanahawk Sibleyralf [facility] Work Phone: 07-15-2013 10:46-0500 Pulse (Heart Rate) 78 /min Meghanahawk Lanier [facility] Work Phone: Comment on above: Pattern: Regular 07-15-2013 10:46-0500 Pulse Oximetry 97 % Meghana Keshav [facility] Work Phone: Comment on above: Room air 07-15-2013 10:46-0500 Respiratory Rate 18 /min Meghanahawk Georgemena [facility] Work Phone: 07-15-2013 10:46-0500 SaO2% (BldA) [Mass fraction] 97 % Meghana Lanier MD Work Phone: [facility]; [facility] Work Phone: Comment on above: Room air 07-15-2013 10:46-0500 Weight 69.03 kg Meghana Lanier [facility] Work Phone: 08-30-2012 13:38-0500 BMI (Body Mass Index) 21.23 kg/m2 Cary Patten RN [facility] Work Phone: 08-30-2012 13:38-0500 Body Temperature 97.9 [degF] Cary Patten RN [facility] Work Phone: Comment on above: Method: Oral 08-30-2012 13:38-0500 Body weight 69.03 kg Cray Patten RN [facility] Work Phone: 08-30-2012 13:38-0500 BP Diastolic 78 mm[Hg] Cary Patten RN [facility] Work Phone: Comment on above: Patient Position: Sitting; Cuff Location : Left Arm; Cuff Size: Large 08-30-2012 13:38-0500 BP Systolic 122 mm[Hg] Cary Patten RN [facility] Work Phone: Comment on above: Patient Position: Sitting; Cuff Location : Left Arm; Cuff Size: Large 08-30-2012 13:38-0500 BSA (Body Surface Area) 1.88 m2 Cary Patten RN [facility] Work Phone: 08-30-2012 13:38-0500 Height 180.34 cm Cary Patten RN [facility] Work Phone: 08-30-2012 13:38-0500 Pulse (Heart Rate) 64 /min Cary Patten RN [facility] Work Phone: Comment on above: Pattern: Regular 08-30-2012 13:38-0500 Respiratory Rate 20 /min Cary Patten RN [facility] Work Phone: Comment on above: Pattern: Unlabored 08-30-2012 13:38-0500 Weight 69.03 kg Meghana Lanier [facility] Work Phone: 08-23-2012 08:01-0500 BMI (Body Mass Index) 21.23 kg/m2 Cary Patten RN [facility] Work Phone: 08-23-2012 08:01-0500 Body Temperature 98.4 [degF] Cary Patten RN [facility] Work Phone: Comment on above: Method: Oral 08-23-2012 08:01-0500 Body weight 69.03 kg Cary Patten RN [facility] Work Phone: 08-23-2012 08:01-0500 BP Diastolic 62 mm[Hg] Cary Patten RN [facility] Work Phone: Comment on above: Patient Position: Sitting; Cuff Location : Left Arm; Cuff Size: Large 08-23-2012 08:01-0500 BP Systolic 108 mm[Hg] Cary Patten RN [facility] Work Phone: Comment on above: Patient Position: Sitting; Cuff Location : Left Arm; Cuff Size: Large 08-23-2012 08:01-0500 BSA (Body Surface Area) 1.88 m2 Cary Patten RN [facility] Work Phone: 08-23-2012 08:01-0500 Height 180.34 cm Cary Patten RN [facility] Work Phone: 08-23-2012 08:01-0500 Pulse (Heart Rate) 64 /min Cary Patten RN [facility] Work Phone: Comment on above: Pattern: Regular 08-23-2012 08:01-0500 Respiratory Rate 20 /min Cary Patten RN [facility] Work Phone: Comment on above: Pattern: Unlabored 08-23-2012 08:01-0500 Weight 69.03 kg Meghana Georgemena [facility] Work Phone: 05-03-2012 11:35-0400 BMI (Body Mass Index) 20.99 kg/m2 Cary Patten RN [facility] Work Phone: 05-03-2012 11:35-0400 Body Temperature 97.6 [degF] Cary Patten RN [facility] Work Phone: Comment on above: Method: Oral 05-03-2012 11:35-0400 Body weight 68.27 kg Cary Patten RN [facility] Work Phone: 05-03-2012 11:35-0400 BP Diastolic 60 mm[Hg] Cary Patten RN [facility] Work Phone: Comment on above: Patient Position: Sitting; Cuff Location : Left Arm; Cuff Size: Large 05-03-2012 11:35-0400 BP Systolic 98 mm[Hg] Cary Patten RN [facility] Work Phone: Comment on above: Patient Position: Sitting; Cuff Location : Left Arm; Cuff Size: Large 05-03-2012 11:35-0400 BSA (Body Surface Area) 1.87 m2 Cary Patten RN [facility] Work Phone: 05-03-2012 11:35-0400 Height 180.34 cm Cary Patten RN [facility] Work Phone: 05-03-2012 11:35-0400 Pulse (Heart Rate) 60 /min Cary Patten RN [facility] Work Phone: Comment on above: Pattern: Regular 05-03-2012 11:35-0400 Respiratory Rate 16 /min Cary Patten RN [facility] Work Phone: Comment on above: Pattern: Unlabored 05-03-2012 11:35-0400 Weight 68.27 kg Meghana Georgemena [facility] Work Phone: 03-30-2011 12:56-0400 BMI (Body Mass Index) 20.43 kg/m2 Cally Julien RN [facility] Work Phone: 03-30-2011 12:56-0400 Body Temperature 97.5 [degF] Cally Julien RN [facility] Work Phone: Comment on above: Method: Oral 03-30-2011 12:56-0400 Body weight 66.45 kg Cally Julien RN [facility] Work Phone: 03-30-2011 12:56-0400 BP Diastolic 72 mm[Hg] Cally Julien RN [facility] Work Phone: Comment on above: Patient Position: Sitting; Cuff Location : Left Arm; Cuff Size: Standard 03-30-2011 12:56-0400 BP Systolic 118 mm[Hg] Cally Julien RN [facility] Work Phone: Comment on above: Patient Position: Sitting; Cuff Location : Left Arm; Cuff Size: Standard 03-30-2011 12:56-0400 BSA (Body Surface Area) 1.85 m2 Cally Julien RN [facility] Work Phone: 03-30-2011 12:56-0400 Height 180.34 cm Cally Julien RN [facility] Work Phone: 03-30-2011 12:56-0400 Pulse (Heart Rate) 66 /min Cally Julien RN [facility] Work Phone: Comment on above: Pattern: Regular 03-30-2011 12:56-0400 Respiratory Rate 16 /min Cally Julien RN [facility] Work Phone: Comment on above: Pattern: Unlabored 03-30-2011 12:56-0400 Weight 66.45 kg Meghana Lanier [facility] Work Phone: 10-05-2010 14:46-0400 BMI (Body Mass Index) 20.43 kg/m2 Cary Patten RN [facility] Work Phone: 10-05-2010 14:46-0400 Body Temperature 97.5 [degF] Cary Patten RN [facility] Work Phone: Comment on above: Method: Oral 10-05-2010 14:46-0400 Body weight 66.45 kg Cary Patten RN [facility] Work Phone: 10-05-2010 14:46-0400 BP Diastolic 62 mm[Hg] Cary Patten RN [facility] Work Phone: Comment on above: Patient Position: Sitting; Cuff Location : Left Arm; Cuff Size: Large 10-05-2010 14:46-0400 BP Systolic 112 mm[Hg] Cary Patten RN [facility] Work Phone: Comment on above: Patient Position: Sitting; Cuff Location : Left Arm; Cuff Size: Large 10-05-2010 14:46-0400 BSA (Body Surface Area) 1.85 m2 Cary Patten RN [facility] Work Phone: 10-05-2010 14:46-0400 Height 180.34 cm Cary Patten RN [facility] Work Phone: 10-05-2010 14:46-0400 Pulse (Heart Rate) 60 /min Cary Patten RN [facility] Work Phone: Comment on above: Pattern: Regular 10-05-2010 14:46-0400 Respiratory Rate 18 /min Cary Patten RN [facility] Work Phone: Comment on above: Pattern: Unlabored 10-05-2010 14:46-0400 Weight 66.45 kg Meghana Lanier [facility] Work Phone: 04-02-2008 14:52-0400 BMI (Body Mass Index) 20.64 kg/m2 Cary Patten RN [facility] Work Phone: 04-02-2008 14:52-0400 Body Temperature 98.2 [degF] Cary Patten RN [facility] Work Phone: Comment on above: Method: Oral 04-02-2008 14:52-0400 Body weight 67.13 kg Cary Patten RN [facility] Work Phone: 04-02-2008 14:52-0400 BP Diastolic 78 mm[Hg] Cary Patten RN [facility] Work Phone: Comment on above: Patient Position: Sitting; Cuff Location : Right Arm; Cuff Size: Standard 04-02-2008 14:52-0400 BP Systolic 118 mm[Hg] Cary Patten RN [facility] Work Phone: Comment on above: Patient Position: Sitting; Cuff Location : Right Arm; Cuff Size: Standard 04-02-2008 14:52-0400 BSA (Body Surface Area) 1.86 m2 Cary Patten RN [facility] Work Phone: 04-02-2008 14:52-0400 Head Circumference 0 cm Meghana Lanier [facility] Work Phone: 04-02-2008 14:52-0400 Head Occipital-frontal circumference 0 cm Cary Patten RN [facility]; [facility] Work Phone: 04-02-2008 14:52-0400 Height 180.34 cm Cary Patten RN [facility] Work Phone: 04-02-2008 14:52-0400 Pulse (Heart Rate) 80 /min Cary Patten RN [facility] Work Phone: Comment on above: Pattern: Regular 04-02-2008 14:52-0400 Respiratory Rate 16 /min Cary Patten RN [facility] Work Phone: Comment on above: Pattern: Unlabored 04-02-2008 14:52-0400 Weight 67.13 kg Meghana [facility] Work Phone: 01-16-2008 13:51-0400 Body Temperature 98.6 [degF] TRUDY Taylor CHERY [facility] Work Phone: Comment on above: Method: Oral 01-16-2008 13:51-0400 Body weight 0 kg TRUDY Taylor CHERY [facility] Work Phone: 01-16-2008 13:51-0400 BP Diastolic 78 mm[Hg] TRUDY Taylor CHERY [facility] Work Phone: Comment on above: Patient Position: Sitting; Cuff Location : Left Arm; Cuff Size: Standard 01-16-2008 13:51-0400 BP Systolic 118 mm[Hg] TRUDY Taylor CHERY [facility] Work Phone: Comment on above: Patient Position: Sitting; Cuff Location : Left Arm; Cuff Size: Standard 01-16-2008 13:51-0400 Head Circumference 0 cm [facility] Work Phone: 01-16-2008 13:51-0400 Head Occipital-frontal circumference 0 cm TRUDY Taylor LPN [facility]; [facility] Work Phone: 01-16-2008 13:51-0400 Height 0 cm TRUDY Taylor CHERY [facility] Work Phone: 01-16-2008 13:51-0400 Pulse (Heart Rate) 68 /min TRUDY Taylor CHERY [facility] Work Phone: Comment on above: Pattern: Regular 01-16-2008 13:51-0400 Respiratory Rate 16 /min TRUDY Taylor CHERY [facility] Work Phone: Comment on above: Pattern: Unlabored 01-16-2008 13:51-0400 Weight 0 kg Meghana Lanier [facility] Work Phone: 10-25-2006 14:41-0400 Body Temperature 97.7 [degF] TRUDY Taylor LPN [facility] Work Phone: Comment on above: Method: Oral 10-25-2006 14:41-0400 Body weight 0 kg TRUDY Taylor LPN [facility] Work Phone: 10-25-2006 14:41-0400 BP Diastolic 76 mm[Hg] TRUDY Taylor LPN [facility] Work Phone: Comment on above: Patient Position: Sitting; Cuff Location : Left Arm; Cuff Size: Standard 10-25-2006 14:41-0400 BP Systolic 120 mm[Hg] TRUDY Taylor LPN [facility] Work Phone: Comment on above: Patient Position: Sitting; Cuff Location : Left Arm; Cuff Size: Standard 10-25-2006 14:41-0400 Head Circumference 0 cm Meghana Lanier [facility] Work Phone: 10-25-2006 14:41-0400 Head Occipital-frontal circumference 0 cm TRUDY Taylor BALLAST 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 [facility]; [facility] Work Phone: 10-25-2006 14:41-0400 Height 0 cm TRUDY Taylor LPN [facility] Work Phone: 10-25-2006 14:41-0400 Pulse (Heart Rate) 74 /min TRUDY Taylor LPN [facility] Work Phone: Comment on above: Pattern: Regular 10-25-2006 14:41-0400 Respiratory Rate 20 /min TRUDY Taylor LPN [facility] Work Phone: Comment on above: Pattern: Unlabored 10-25-2006 14:41-0400 Weight 0 kg Meghana Lanier [facility] Work Phone: 09-24-2006 16:08-0400 Body Temperature 97.9 [degF] TRUDY Taylor [employer]ALL[employer] 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 [facility] Work Phone: Comment on above: Method: Oral 09-24-2006 16:08-0400 Body weight 0 kg TRUDY Taylor LPN [facility] Work Phone: 09-24-2006 16:08-0400 BP Diastolic 78 mm[Hg] TRUDY Taylor LPN [facility] Work Phone: Comment on above: Patient Position: Sitting; Cuff Location : Left Arm; Cuff Size: Standard 09-24-2006 16:08-0400 BP Systolic 124 mm[Hg] TRUDY Taylor LPN [facility] Work Phone: Comment on above: Patient Position: Sitting; Cuff Location : Left Arm; Cuff Size: Standard 09-24-2006 16:08-0400 Head Circumference 0 [facility] Work Phone: 09-24-2006 16:08-0400 Head Occipital-frontal circumference 0 cm TRUDY Taylor LPN [facility]; [facility] Work Phone: 09-24-2006 16:08-0400 Height 0 cm TRUDY Taylor LPN [facility] Work Phone: 09-24-2006 16:08-0400 Pulse (Heart Rate) 64 /min TRUDY Taylor [employer]ALLAST 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 [facility] Work Phone: Comment on above: Pattern: Regular 09-24-2006 16:08-0400 Respiratory Rate 20 /min TRUDY Taylor LPN [facility] Work Phone: Comment on above: Pattern: Unlabored 09-24-2006 16:08-0400 [facility] Work Phone: 07-16-2006 14:00-0500 Body surface area Derived from formula 52.8 m[iU]/mL [facility] Work Phone: Comment on above: Status of Immunity Anti-HBs Level ------ Inconsistent with Immunity < 9.0 Indeterminate 9.0 - 10.9 Consistent with Immunity >10.9Performed At: [facility] [id number] [place], [place] [id number] 06-14-2006 14:37-0500 BMI (Body Mass Index) 20.64 kg/m2 TRUDY Taylor LPN [facility] Work Phone: 06-14-2006 14:37-0500 Body Temperature 98.6 [degF] TRUDY Taylor LPN [facility] Work Phone: Comment on above: Method: Oral 06-14-2006 14:37-0500 Body weight 67.13 kg TRUDY Taylor LPN [facility] Work Phone: 06-14-2006 14:37-0500 BP Diastolic 76 mm[Hg] TRUDY Taylor LPN [facility] Work Phone: Comment on above: Patient Position: Sitting; Cuff Location : Left Arm; Cuff Size: Standard 06-14-2006 14:37-0500 BP Systolic 110 mm[Hg] TRUDY Taylor LPN [facility] Work Phone: Comment on above: Patient Position: Sitting; Cuff Location : Left Arm; Cuff Size: Standard 06-14-2006 14:37-0500 BSA (Body Surface Area) 1.86 m2 TRUDY Taylor LPN [facility] Work Phone: 06-14-2006 14:37-0500 Head Circumference 0 cm Meghana Lanier [facility] Work Phone: 06-14-2006 14:37-0500 Head Occipital-frontal circumference 0 cm TRUDY Taylor LPN [facility]; [facility] Work Phone: 06-14-2006 14:37-0500 Height 180.34 cm TRUDY Taylor LPN [facility] Work Phone: 06-14-2006 14:37-0500 Pulse (Heart Rate) 72 /min TRUDY Taylor LPN [facility] Work Phone: Comment on above: Pattern: Regular 06-14-2006 14:37-0500 Respiratory Rate 20 /min TRUDY Taylor LPN [facility] Work Phone: Comment on above: Pattern: Unlabored 06-14-2006 14:37-0500 Weight 67.13 kg Meghana Lanier [facility] Work Phone: Encounters Encounter Date Encounter Type Care Provider Facility Start: 04-24-2025 In-person encounter Sebastien figueroa MD Work Phone: [facility] Work Phone: Start: 04-15-2025 ambulatory Meghana Lanier Facility:[facility] Start: 04-15-2025 End: 04-15-2025 [facility] Start: 04-03-2025 End: 04-03-[address] Meghana Lanier MD Work Phone: -[facility] Start: 04-03-2025 End: 04-03-[address] Meghana Lanier MD -[facility] Work Phone: Start: 04-03-2025 End: 04-03-2025 ambulatory Meghana Lanier Facility:[facility] Start: 03-20-2025 End: 03-20-2025 ambulatory SELINA ZIEGLER Facility:[facility] Start: 02-27-2025 End: 02-27-[address] Ye Conrad MD -[facility] Start: 02-27-2025 End: 02-27-[address] Meghana Lanier MD Work Phone: -[facility] Start: 09-05-2024 End: 09-05-2024 Office outpatient visit 10 minutes Selina Ziegler BOXING TRAINER.[employer]SEMBLER Work Phone: [facility] Medicine Comment on above: Mild intermittent as thma without complication (Primary Dx); Multiple allergies Start: 09-05-2024 End: 09-05-2024 Patient encounter procedure [facility] Work Phone: [facility] Start: 09-05-2024 End: 09-05-2024 ambulatory [facility] Work Phone: [facility] Comment on above: Spirometry Start: 04-11-2024 End: 04-11-2024 Telephone encounter Carlitos MCNEILL Work Phone: [facility] Medicine Comment on above: Orders; Patient Upda te Start: 02-18-2024 End: 02-18-2024 Patient encounter procedure Mercy Gutiérrez MD Work Phone: [facility] Medicine Comment on above: Multiple allergies ( Primary Dx); Moderate persistent asthma without complication Start: 02-12-2024 End: 02-12-2024 ambulatory [facility] Work Phone: [facility] Comment on above: Spirometry Start: 02-12-2024 End: 02-12-2024 Patient encounter procedure [facility] Work Phone: [facility] Start: 08-14-2023 End: 08-14-2023 ambulatory [facility] Work Phone: [facility] Comment on above: Spirometry Start: 08-14-2023 End: 08-14-2023 Patient encounter procedure [facility] Work Phone: [facility] Comment on above: Mild persistent asth ma without complication (Primary Dx); Allergic rhinitis, unspecified seasonality, unspecified trigger; Nasal polyps Start: 01-24-2023 End: 01-24-2023 ambulatory [facility] Work Phone: [facility] Comment on above: Spirometry Start: 01-24-2023 End: 01-24-2023 Patient encounter procedure [facility] Work Phone: [facility] [place] Comment on above: Moderate persistent asthma without complication (Primary Dx); Allergic rhinitis, unspecified seasonality, unspecified trigger Start: 10-30-2022 End: 10-30-2022 ambulatory [facility] Work Phone: [facility] Comment on above: Spirometry Start: 10-30-2022 End: 10-30-2022 Patient encounter procedure [facility] Work Phone: [facility] [place] Start: 10-24-2022 End: 10-24-2022 Prescription Refill Meghana Lanier MD Work Phone: [facility] Start: 09-04-2022 End: 09-04-2022 ambulatory [facility] Work Phone: [facility] Comment on above: Spirometry Start: 09-04-2022 End: 09-04-2022 Patient encounter procedure [facility] Work Phone: [facility] [place] Comment on above: Moderate persistent asthma without complication (Primary Dx); History of COVID-19 Start: 09-01-2022 ambulatory Meghana Lanier MD [facility] Start: 09-01-2022 Physical examination Meghana rincon MD Work Phone: [facility]; [facility] Work Phone: Comment on above: KATTY slater physical: PSA 7-8-21 WNL, immunizations are up to date, colonoscopy due, Hepatitis C screening negative,walking regularly, dental, dermatology and eye exam are up to date. MOCA 29/30, Coginvue 88 (89) PSA 2-23 Start: 09-01-2022 Review Meghana Poe Work Phone: [facility] Start: 09-01-2022 End: 09-01-2022 Patient encounter procedure Meghana Lanier MD Work Phone: [facility] Start: 09-01-2022 End: 09-01-2022 Physical examination Meghana Lanier MD Work Phone: [facility] Start: 08-15-2022 Orders Only Mercy Gutiérrez MD Work Phone: [facility] [place] Comment on above: Mild intermittent as thma without complication (Primary Dx) Start: 08-13-2022 End: 08-13-2022 Phone Encounter Meghana Lainer MD Work Phone: [facility] Start: 07-12-2022 Review Meghana Poe Work Phone: [facility] Start: 07-12-2022 End: 07-12-2022 Office outpatient visit 15 minutes Meghana Lanier MD Work Phone: [facility] Start: 07-05-2022 End: 07-05-2022 Phone Encounter Meghana Lanier MD Work Phone: [facility] Start: 06-12-2022 End: 06-12-2022 Office outpatient visit 15 minutes Meghana Lanier MD Work Phone: [facility] Start: 05-27-2022 End: 05-28-2022 Prescription Refill Meghana Lanier MD Work Phone: [facility] Start: 05-27-2022 Review Meghana Poe Work Phone: [facility] Start: 05-05-2022 End: 05-14-2022 Office outpatient visit 5 minutes Meghana Lanier MD Work Phone: [facility] Start: 04-20-2022 End: 04-20-2022 Office outpatient visit 10 minutes Meghana Lanier MD Work Phone: [facility] Medicine Start: 07-29-2021 End: 07-29-2021 Office outpatient visit 15 minutes Meghana Lanier MD Work Phone: [facility] Start: 05-13-2021 End: 05-13-2021 Office outpatient visit 5 minutes Meghana Lanier MD Work Phone: [facility] Start: 04-14-2021 End: 04-14-2021 Periodic preventive med est patient 65yrs& older Meghana Lanier MD Work Phone: [facility] Start: 04-08-2021 End: 04-08-2021 Lab Order Meghana Lanier MD Work Phone: [facility] Start: 04-05-2021 End: 04-05-2021 Lab Order Meghana Lanier MD Work Phone: [facility] Start: 01-14-2021 End: 01-17-2021 Office outpatient visit 25 minutes Meghana Lanier MD Work Phone: [facility] Start: 01-14-2021 End: 01-17-2021 Physical examination Meghana Lanier MD Work Phone: [facility]; [facility] Work Phone: Comment on above: 01-14-21 [facility] Katharine physical: PSA 01-06-21 WNL, immunizations are up to date, colonoscopy age 47 2012, Hepatitis C screening negative,walking regularly, dental, dermatology and eye exam are up to date. MOCA , [address] 88 (89) Start: 01-14-2021 End: 01-14-2021 Office outpatient visit 15 minutes Meghana Lanier MD Work Phone: [facility] Start: 01-14-2021 End: 01-14-2021 Physical examination Meghana Lanier MD Work Phone: [facility] Start: 01-06-2021 End: 01-06-2021 Lab Order Meghana Lanier MD Work Phone: [facility] Start: 09-24-2020 End: 09-24-2020 Office outpatient visit 25 minutes Meghana Lanier [facility] Start: 09-03-2020 End: 2020 Office outpatient visit 10 minutes Meghana Lanier [facility] Start: 09-03-2020 Review Meghana Lanier [facility] Start: 07-12-2020 Review Meghana Bonezzi [facility] Start: 12-12-2019 End: 12-18-2019 Office outpatient visit 10 minutes Meghana Lanier [facility] Start: 12-12-2019 End: 12-18-2019 Patient encounter status Meghana Lanier MD Work Phone: [facility] Start: 12-12-2019 End: 12-18-2019 Physical examination Meghana Lanier MD Work Phone: [facility] Start: 11-13-2019 End: 11-13-2019 Office outpatient visit 10 minutes Meghana Lanier [facility] Start: 10-31-2019 End: 10-31-2019 Lab Order Meghana Lanier [facility] Start: 10-31-2019 End: 10-31-2019 Patient encounter status Meghana Lanier MD Work Phone: [facility] Start: 08-08-2019 End: 08-08-2019 Office outpatient visit 40 minutes Meghana Lanier [facility] Start: 08-08-2019 End: 08-08-2019 Physical examination Meghana Lanier MD Work Phone: [facility] Start: 05-25-2019 End: 05-26-2019 Office outpatient visit 40 minutes Meghana Lanier [facility] Start: 11-26-2018 End: 11-26-2018 Phone Encounter Meghana Lanier [facility] Start: 11-22-2018 End: 11-29-2018 Office outpatient visit 10 minutes Meghana Lanier [facility] Start: 11-22-2018 End: 11-29-2018 Physical examination Meghana Lanier MD Work Phone: [facility] Start: 11-22-2018 Review Meghana Lanier [facility] Start: 10-24-2018 End: 10-24-2018 Lab Order Meghana Lanier [facility] Start: 09-30-2018 End: 09-30-2018 Phone Encounter Meghana Lanier [facility] Start: 07-12-2018 End: 07-12-2018 Office outpatient visit 10 minutes Meghana Lanier [facility] Start: 12-07-2017 End: 12-07-2017 Office outpatient visit 15 minutes Meghana Lanier [facility] Start: 12-07-2017 End: 12-07-2017 Physical examination Meghana Lanier MD Work Phone: [facility] Start: 11-23-2017 End: 11-23-2017 Office outpatient visit 15 minutes Meghana Lanier [facility] Start: 08-03-2017 End: 08-08-2017 Office outpatient visit 15 minutes Meghana Lanier [facility] Start: 08-03-2017 End: 08-08-2017 Physical examination Meghana Lanier MD Work Phone: [facility] Start: 07-03-2017 End: 07-03-2017 Lab Order Meghana Lanier [facility] Start: 08-04-2016 End: 08-04-2016 Office outpatient visit 15 minutes Meghana Lanier [facility] Start: 06-02-2016 End: 06-08-2016 Office outpatient visit 25 minutes Meghana Lanier [facility] Start: 06-02-2016 End: 06-08-2016 Physical examination Meghana Lanier MD Work Phone: [facility] Start: 05-12-2016 End: 05-12-2016 Lab Order Meghana Lanier [facility] Start: 10-09-2014 End: 10-11-2014 Office outpatient visit 15 minutes Meghana Lanier [facility] Start: 09-25-2014 End: 09-25-2014 Office outpatient visit 40 minutes Meghana Lanier [facility] Start: 09-14-2014 End: 09-14-2014 Phone Encounter Meghana Arana [facility] Start: 09-11-2014 End: 09-13-2014 Office outpatient visit 25 minutes Meghana Lanier [facility] Start: 05-27-2014 End: 05-31-2014 Office outpatient visit 40 minutes Meghana Lanier [facility] Start: 05-13-2014 End: 05-13-2014 Phone Encounter Meghana Lanier [facility] Start: 03-20-2014 End: 03-23-2014 Office outpatient visit 25 minutes Meghana Lanier [facility] Start: 03-13-2014 End: 03-13-2014 Office outpatient visit 25 minutes Meghana Lanier [facility] Start: 08-15-2013 End: 08-15-2013 Patient encounter procedure Meghana Lanier [facility] Start: 07-15-2013 End: 07-15-2013 Office outpatient visit 15 minutes Meghana Lanier [facility] Start: 06-06-2013 End: 06-06-2013 Patient encounter procedure Meghana Lanier [facility] Start: 08-30-2012 End: 08-30-2012 Patient encounter procedure Meghana Lanier [facility] Start: 08-23-2012 End: 08-23-2012 Patient encounter procedure Meghana Lanier [facility] Start: 05-03-2012 End: 05-03-2012 Patient encounter procedure Meghana Lanier [facility] Start: 05-23-2011 End: 05-23-2011 Phone Encounter Meghana Bonezzi [facility] Start: 03-30-2011 End: 03-30-2011 Patient encounter procedure Meghana Lanier [facility] Start: 10-05-2010 End: 10-05-2010 Patient encounter procedure Meghana Lanier [facility] Start: 04-02-2009 End: 04-02-2009 Nursing evaluation of patient and report Meghana Lanier [facility] Start: 04-02-2008 End: 04-02-2008 Patient encounter procedure Meghana Lanier [facility] Start: 01-16-2008 End: 01-16-2008 Patient encounter procedure Meghana Lanier [facility] Start: 05-10-2007 End: 05-10-2007 Nursing evaluation of patient and report Meghana Lanier [facility] Start: 10-25-2006 End: 10-25-2006 Patient encounter procedure Meghana Lanier [facility] Start: 09-24-2006 End: 09-24-2006 Patient encounter procedure Meghana Lanier [facility] Start: 06-14-2006 End: 06-14-2006 Patient encounter procedure Meghana Lanier [facility] Start: 06-14-2006 End: 06-14-2006 Patient encounter status Meghana Lanier MD Work Phone: [facility] Start: 05-09-2006 End: 05-09-2006 Historical Summary Meghana Lanier [facility] Patient encounter status TRUDY KEBEDE [facility]; [facility] Work Phone: End: 01-10-2021 Patient encounter status TRUDY Taylor LPN [facility]; [facility] Work Phone: Physical examination TRUDY Taylor LPN [facility]; [facility] Work Phone: Comment on above: 12-12-19 KATTY wade physical: PSA 5-20 WNL, immunizations are up to date, colonoscopy age 47 2013, Hepatitis C screening negative,walking regularly, dental, dermatology and eye exam are up to date. MOCA 30, [address] Physical examination Meghana arambula MD Work Phone: [facility]; [facility] Work Phone: Comment on above: 01-14-21 [facility] physical: PSA 01-06-21 WNL, immunizations are up to date, colonoscopy age 47 2013, Hepatitis C screening negative,walking regularly, dental, dermatology and eye exam are up to date. MOCA , [place] 88 (89) Physical examination Brittany Emilia SANCHES [facility]; [facility] Work Phone: Comment on above: 01-14-21 [facility] physical: PSA 01-06-21 WNL, immunizations are up to date, colonoscopy age 47 2013, Hepatitis C screening negative,walking regularly, dental, dermatology and eye exam are up to date. MOCA , [address] 88 (89) Physical examination Genny Gallegos LPN [facility]; [facility] Work Phone: Comment on above: 01-14-21 [facility] physical: PSA 01-06-21 WNL, immunizations are up to date, colonoscopy age 47 2012, Hepatitis C screening negative,walking regularly, dental, dermatology and eye exam are up to date. MOCA , [place] 88 (89) Procedures Date Procedure Procedure Detail Performing Clinician Start: 04-24-2025 Arthrocentesis aspir&/inj interm jt/burs w/o Sebastien Spangler MD Work Phone: Start: 04-24-2025 Injection - betamethasone acetate 3 mg and betamethasone sodium phosphate 3 mg Sebastien Spangler MD Work Phone: Start: 04-03-2025 MRI of joint of lowe r extremity Dr. Meghana Lanier MD Work Phone: Start: 02-27-2025 Plain x-ray of wrist Dr Layne Lanier MD Work Phone: Start: 09-05-2024 Nitric oxide gas determination Mercy Gutiérrez MD Work Phone: Start: 02-12-2024 Nitric oxide gas determination Mercy Gutiérrez MD Work Phone: Start: 08-14-2023 Nitric oxide gas determination Neetu Ochoa PA-C Work Phone: Start: 01-24-2023 Nitric oxide gas determination Neetu Maravilla Gabriela COOMBSC Work Phone: Start: 10-30-2022 Nitric oxide gas determination Mercy Gutiérrez MD Work Phone: Start: 09-04-2022 Nitric oxide gas determination Mercy Gutiérrez MD Work Phone: Start: 09-04-2022 Brncdilat rspse spmt ry pre&post-brncdilat admn Mercy Gutiérrez MD Work Phone: Start: 07-07-2022 End: 07-07-2022 Chest PA and Lateral Procedure Note: See Note; NOTES: [facility] Radiology [address] [place] [address] Chest PA and Lateral MR#: [id number] Acct: [id number] Name: QUINTIN SAUCEDA Rep #: [id number] : 1965 M 56 From: Toby Poe PCP: Dr. Meghana Lanier MD Status: DEP AMB Study: Chest PA and Lateral Date of Exam: 07/07/22 Exam# [id number] Ordering Dr: Meghana Lanier MD STUDY: X-RAY CHEST REASON FOR EXAM: Male, 56 years old. CHEST PAIN bronchitis -- bronchitis TECHNIQUE: XR Chest 2 Views COMPARISON: 09/03/20 FINDINGS: There is no demonstrated pleural abnormality. Normal size heart. Normal mediastinum and cy. Normal visualized pulmonary arteries. Normal visualized aortic arch and descending thoracic aorta. Normal visualized thoracic spine. Normal visualized ribs, clavicles, and shoulders. There is no demonstrated abnormality of the visualized soft tissue structures of the upper abdomen. RAD/Chest PA and Lateral IMPRESSION: There are no acute findings. Electronically Signed: Toby Mcclelland MD at 17:59 EST , CC: Dr. Meghana Lanier MD Insulation Nozzleman: Signed Meghana Lanier MD Work Phone: Start: 09-03-2020 End: 09-03-2020 Chest PA and Lateral Comments: See Note; NOTES: [facility] Imaging Services [address] [place] [address] Chest PA and Lateral MR#: [id number] Acct: [id number] Name: QUINTIN SAUCEDA Rep #: [id number] : 1965 M 54 From: Chon rivas MD PCP: Dr. Meghana Lanier MD Status: [facility] CLI Study: Chest PA and Lateral Date of Exam: 09/03/20 Exam# [id number] Ordering Dr: Meghana Lanier MD STUDY: X-RAY CHEST REASON FOR EXAM: Male, 54 years old. COUGH TECHNIQUE: PA and lateral views of the chest. COMPARISON: Comparison is made with prior examination dated 09/11/2014. FINDINGS: There is hyperinflation of the lungs consistent with chronic obstructive lung disease (COPD). There is no demonstrated pleural abnormality. Normal size heart. Normal mediastinum and cy. Normal visualized pulmonary arteries. Normal visualized aortic arch and descending thoracic aorta. There is demineralization of the osseous structures. Normal visualized ribs, clavicles, and shoulders. There is no demonstrated abnormality of the visualized soft tissue structures of the upper abdomen. RAD/Chest PA and Lateral IMPRESSION: Hyperinflation. COPD. Electronically Signed: Chon Cornejo MD at 15:20 EST , Service support , CC: Dr. Meghana Lanier MD Insulation Nozzleman: Signed Meghana Lanier Work Phone: Start: 02-21-2019 End: 02-21-[address] w/CCTA Comments: See Note; NOTES: [facility] Imaging Services [address] [address] w/CCTA MR#: [id number] Acct: [id number] Name: QUINTIN SAUCEDA Rep #: [id number] : 1965 M 53 From: Jacobo Whitfield MD PCP: Meghana Lanier MD Status: REG CLI Study: Limited Chest CT w/CCTA Date of Exam: 02/21/19 Exam# [id number] Ordering Dr: Meghana Lanier MD STUDY: CT CHEST WITHOUT CONTRAST REASON FOR EXAM: Male, 53 years old. Coronary calcium score, Over read RADIATION DOSAGE (If Supplied By Facility): CTDIvol = ( 12.19 ) mGy, DLP = ( 219.42 ) mGycm TECHNIQUE: Transaxial imaging was performed without the administration of intravenous contrast material. Individualized dose optimization techniques were used for this CT. COMPARISON: None. FINDINGS: Upper abdomen, body wall soft tissues, osseous structures, mediastinal contents exhibits no acute process. Mild generalized hyperlucency of the lungs consistent with air trapping, COPD. No acute pulmonary process is evident within the [id number]. There is minimal bibasilar bronchial wall thickening, likely chronic inflammatory. Normal heart size without pericardial effusion. Nondilated aorta. Nondilated pulmonary arteries. The right and left coronary arteries each emerge from the appropriate coronary sinus with right coronary dominance to the PDA. Conventional branching anatomy. There is a single tiny focus of calcification in the proximal LAD, no other visible calcified plaque. CT/Limited Chest CT w/CCTA IMPRESSION: Single small focus of calcification in the proximal LAD. Normal coronary artery branching anatomy. COPD. Electronically Signed: Jacobo Whitfield MD at 14:04 EDT Tel , Service support , CC: Meghana Lanier MD Insulation Nozzleman: Signed Meghana Lanier Work Phone: Start: 12-21-2017 End: 12-21-2017 TXT - Blood Flow Screening Comments: See Note; NOTES: [facility] Cardiovascular Services [address] [place] [address] 12/21/17 0748 MR#: [id number] Acct: [id number] Name: QUINTIN SAUCEDA Rep #: [id number] : 1965 52 From: Kaushal Brown MD Attending Dr: Meghana Lanier MD Status: REG REF Ordering Dr: Date: 12/21/17 Location: [facility] Sex: M C Admitted: Reason For Study: Blood Flow Screening Carotid Duplex Ultrasound Abdominal Aorta The right maximum ICA velocity is 73/36 cm/s. The maximal outside diameter of the proximal The right ECA velocity is less than 125 cm/s. aorta measures 1.80cm x 1.78 cm in the cross- There is no plaque formation noted on the right sectional axis. side. The maximal outside diameter of the proximal The left maximum ICA velocity is 76/35 cm/s. aorta measures 1.90 cm in the longitudinal axis. The left ECA velocity is less than 125 cm/s. There is no plaque formation noted on the left side. Ankle Brachial Index The right ankle/ brachial index is 1.0. The left ankle/ brachial index is 1.22. Medical History and Assessment The heart rate is 52 beats per minute. The heart rhythm is regular. The right blood pressure is 112/72. The left blood pressure is 114/78. Interpretation Summary Normal carotid artery screening (0 to 15% narrowing). Normal aortic ultrasound exam. The ankle/brachial index is normal (1.0 or greater). Ordering Physician: Meghana Lanier Referring Physician: Meghana Lanier Performed By: Fanny Louis, RDSULEMA, RVT 12/21/17 1425 Date Kaushal Brown MD CC: Meghana Lanier MD Date Dictated: 12/21/17 0748 Date Transcribed: 12/21/171424 Insulation Nozzleman: Signed Meghana Lanier Start: 09-14-2014 End: 09-14-2014 12 lead ECG Comments: See Note; NOTES: [facility] Cardiovascular Services [address] [place] [id number] 12 Lead EKG 09/11/14 1811 MR#: [id number] Acct: [id number] Name: QUINTIN SAUCEDA Rep #: [id number] : 1965 48 From: Kevin Cerda MD Attending Dr: Status: DEP ER Ordering Dr: Derrick Allison MD Date: 09/11/14 Location: ED Sex: M C Admitted: Test Reason : CP Blood Pressure : / mmHG Vent. Rate : 054 BPM Atrial Rate : 054 BPM P-R Int : 158 ms QRS Dur : 104 ms QT Int : 414 ms P-R-T Axes : 060 085 060 degrees QTc Int : 392 ms Sinus bradycardia Otherwise normal ECG Confirmed by KEVIN CERDA ([id number]), associate editor NAVDEEP SAUCEDA ([id number]) on 09/14/2014 9: 46:05 AM Referred By: BALWINDER Confirmed By:KEVIN CERDA 09/14/14 0946 Date Kevin Cerda MD CC: Meghana Lanier MD Date Dictated: 09/11/141810 Date Transcribed: 09/11/141810 Insulation Nozzleman: Signed Meghana Lanier Start: 09-11-2014 End: 09-11-2014 Emergency Department Summary Comments: See Note; NOTES: [facility] Medical Records Department [address] [place] [address] Emergency Department Summary MR#: [id number] Acct: [id number] Name: QUINTIN SAUCEDA Rep #: [id number] : 1965 48 From: Derrick Allison MD PCP: Meghana Lanier MD Status: DEP ER DATE OF SERVICE: 09/11/2014 CHIEF COMPLAINT: Chest pain. HISTORY OF PRESENT ILLNESS: A 48-year-old male with 2 weeks of intermittent chest pain, somewhat worse with exertion, but states also occurs randomly. It is substernal, nonradiating. He was seen at Dr. Hilliard's office today and there were questionable EKG changes; and given the nature of his pain, she called in and requested that he be admitted for serial enzymes and possible stress test. PHYSICAL EXAMINATION: VITAL SIGNS: Here today his vitals are within normal limits. GENERAL: He is not in distress. NECK: Supple. HEART: Tones are regular without murmur. LUNGS: Clear bilaterally. ABDOMEN: Soft and nontender. EXTREMITIES: No lower extremity edema or tenderness along the lower extremity venous system or other evidence of DVT. EMERGENCY DEPARTMENT COURSE AND PRITCHETT DECISION MAKING: Chest x-ray unremarkable. EKG sinus rhythm at 59. CBC, chemistries, troponin negative. On re-examination, he is pain-free. Given his overall risk profile, I think he meets criteria for observation for serial enzymes and stressing. IMPRESSION: Chest pain -- rule out myocardial infarction. MD Alfredo Beatty C: Isabelle Hilliard DO T: NTS JOB: [id number] 09/11/14 2257 <Electronically signed by Derrick Allison MD> Date Derrick Allison MD CC: Meghana Lanier MD; Isabelle Hilliard Date Dictated: 09/11/14 1800 Date Transcribed: 09/11/14 1800 Insulation Nozzleman: Signed Meghana Lanier Start: 09-11-2014 End: 09-11-2014 Consultation Comments: See Note; NOTES: [facility] Medical Records Department [address] [place] [address] Consultation 09/11/14 1841 MR#: [id number] Acct: [id number] Name: QUINTIN SAUCEDA Rep #: [id number] : 1965 48 From: Conner Mata MD PCP: Meghana Lanier MD Status: REG ER Y Location: ED Reason for Consult Date of Consultation: 09/11/14 History of Present Illness: 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 History of present illness goes back to May, at which time the patient had a productive cough, and was treated by his PCP for bronchitis and possible asthma. He was prescribed Qvar, Singulair, and other symptomatic therapy, and he felt better. For the last few months however, he has been having some discomfort sensation in his chest. This is described not much as pain but rather as a discomfort, which is in the center of his chest. Occurs unrelated to any exertion, swallowing, breathing, and last few hours at a time. He is not very active, the most he did was shoveling snow, at which time, he did not have any pain. There is no shortness of breath, but the last few weeks he has been having some nonproductive cough. No fevers or chills. Today he saw his primary care physician for this cough, an EKG was recorded and was thought to be somewhat abnormal, and the patient was sent to ED for evaluation. Past Medical History Past Medical History (Chronic Problems): Chronic Problems Angioedema (Chronic) Allergies No Known Allergies Allergy (Verified 09/11/14 16:23) Home Medications: Ambulatory Orders Medication Instructions Recorded Beclomethasone Diprop Inhaler 1 puff INHALATION BID 09/11/14 [Qvar 80 Mcg Inhaler] Cetirizine HCl [Zyrtec] 10 mg PO DAILY 09/11/14 Montelukast [Singulair] 10 mg PO DAILY 09/11/14 Pantoprazole Sodium [Protonix] 40 mg PO DAILY 30 Days 09/11/14 Surgical History: no surgical history Psychiatric History: No pertinent psych hx Lives: With Family Smoking Status: Never smoker Tobacco Use: Non-smoker Alcohol: Occasional Drugs: None - *Family History Paternal History Items: Heart Disease Review of Systems Constitutional: Denies: Anorexia, Chills, Fever Eyes: Denies: Vision Change HEENT: Denies: Nasal Congestion Respiratory: Reports: Cough. Denies: Hemoptysis, Pleuritic Pain, Shortness of Breath, Shortness of breath at rest, Shortness of breath upon exertion, Sputum production, Wheezing Gastrointestinal: Denies: Abdominal Pain, Nausea, Vomiting Genitourinary: Denies: Dysuria Musculoskeletal: Denies: Joint swelling Skin: Denies: Rash Neurological: Denies: Focal weakness Psychiatric: Denies: Anxiety, Depression Endocrine: Denies: Change in Body Habitus Hematologic/ Lymphatic: Denies: Easy Bruising, Easy Bleeding - Physical Exam General: Alert, Oriented x3, Cooperative, No apparent distress HEENT: Atraumatic Oral: Moist Mucosa Neck: Supple, No JVD, Negative Carotid Bruits, Negative Hepatojugular Reflux Lungs: Clear to auscultation, Normal air movement, No rhonchi, No wheeze Cardiovascular: Regular rate, Regular Rhythm, Normal S1, Normal S2, No murmurs, No rub noted Abdomen: Bowel Sounds Present, Soft, Non Tender, Non-Distended Extremities: No clubbing, No cyanosis, No edema, Capillary Refill Less than 3 Seconds Skin: No rashes Musculoskeletal: No Tenderness to Palpation of Joints or Extremities Lymphatic: No Cervical, Supraclavicular, or Inguinal Adenopathy Neurological: Cranial nerves II-XII grossly intact Psych/Mental Status: Normal Affect Vital Signs Temp Pulse Resp BP Pulse Ox 35.9 C 52 17 125/77 98 09/11/14 16:24 09/11/14 18:35 09/11/14 18:35 09/11/14 18:35 09/11/14 18:35 Oxygen Delivery Method Room Air Weight: 70.307 kg Body Mass Index (BMI) 21.6 Laboratory Tests Past 24 Hrs 09/11/14 16:44 WBC 9.0 RBC 4.88 Hgb 14.9 Hct 44.7 MCV 91.6 MCH 30.5 MCHC 33.3 RDW 13.2 RDW Differential 44.2 H Plt Count 272 MPV 9.0 Immature Gran % (Auto) 0.200 Neut % (Auto) 65.1 Lymph % (Auto) 14.8 L Tyrrell % (Auto) 10.2 H Eos % (Auto) 9.0 H Baso % (Auto) 0.7 Absolute Neuts (auto) 5.8 Absolute Lymphs (auto) 1.33 Total Counted Not Reportable Sodium 138 Potassium 3.9 Chloride 102 Carbon Dioxide 32.0 Anion Gap 4 L BUN 17 Creatinine 0.9 Estim Creat Clear Calc 97.65 Est GFR (MDRD) Af Amer 115 Est GFR (MDRD) Non-Af 95 BUN/Creatinine Ratio 18.9 Glucose 80 Calcium 9.0 Total Creatine Kinase 82 CK-MB (CK-2) 1.1 CK-MB (CK-2) Rel Index Not Reportable Troponin I < 0.02 Assessment/Plan #1 chest discomfort, most likely related to esophageal spasm versus GERD. #2 acute viral bronchitis The clinical history is not consistent with any serious cardiopulmonary condition. The patient has been having pain for months, and he had it today for about 12 hours, his EKG and cardiac enzymes are negative making therefore a coronary etiology quite unlikely. Pain is not exertional. He has no risk factors other than positive family history for CAD. He does not have any risk factors, no tachycardia or hypoxia or pleuritic component to suggest a pulmonary embolism. With respect to his current cough, most likely represents a viral bronchitis, which can be treated symptomatically. I offered the patient the option of being admitted to the hospital and having a stress test done in the morning, however he preferred to be discharged home if it was possible. I feel that this is entirely reasonable and safe. He was discharged from the emergency department, with a prescription for Protonix. He was asked to follow-up with primary care physician in one week, at which time he could be scheduled for an outpatient stress test. With him being relatively young, able to exercise, normal body habitus, normal EKG, a plain stress EKG should suffice. Meanwhile, we'll treat him for GERD. I asked him that if the discomfort changes his character, any other new symptoms develop, he should return promptly to ED for further evaluation and treatment. Please note that chest x-ray report is pending at the time of discharge, but in my review and ED physician review no significant abnormalities are identified. Chronic Problems Angioedema (Chronic) 09/11/14 1851 <Electronically signed by Conner Mata MD> Date Conner Mata MD CC: Meghana Lanier MD Signed Meghana Lanier Start: 09-11-2014 End: 09-12-2014 Chest PA and Lateral Comments: See Note; NOTES: [facility] Imaging Services [address] [place] [address] Radiology Report MR#: [id number] Acct: [id number] Name: QUINTIN SAUCEDA Rep #: [id number] : 1965 M 48 From: Kathe Chang PCP: Meghana Lanier MD Status: DEP ER Study: Chest PA and Lateral Date of Exam: 09/11/14 Exam# [id number] Ordering Dr: Derrick Allison MD STUDY: X-RAY CHEST REASON FOR EXAM: Male, 48 years old. Abnormal EKG. TECHNIQUE: PA and lateral views of the chest. The images are over penetrated. COMPARISON: 05/15/2014 FINDINGS: Superimposed EKG wires. There is hyperinflation of the lungs consistent with chronic obstructive lung disease (COPD). Mild granulomatous scarring of the lungs. No demonstrable acute pulmonary abnormality. There is no demonstrated pleural abnormality. Normal size heart. Normal mediastinum and cy. Normal visualized pulmonary arteries. Normal visualized aortic arch and descending thoracic aorta. There is mildly increased kyphosis of the thoracic spine. Normal visualized ribs, clavicles, and shoulders. There is no demonstrated abnormality of the visualized soft tissue structures of the upper abdomen. IMPRESSION: 1. COPD. 2. No evidence of acute cardiopulmonary disease. Stable chest. Electronically Signed: Cedric Chang MD at 8:45 EDT Tel , Service support [phone], CC: Conner Allison MD; Meghana Lanier MD Insulation Nozzleman: Signed Meghana Lanier Start: 05-15-2014 End: 05-15-2014 Chest PA and Lateral Comments: See Note; NOTES: [facility] Imaging Services [address] [place] [address] Radiology Report MR#: [id number] Acct: [id number] Name: QUINTIN SAUCEDA Rep #: [id number] : 1965 M 48 From: Chon Cornejo MD PCP: Meghana Lanier MD Status: REG CLI Study: Chest PA and Lateral Date of Exam: 05/15/14 Exam# [id number] Ordering Dr: Meghana Lanier MD STUDY: X-RAY CHEST REASON FOR EXAM: Male, 48 years old. Six-week history of cough and wheezing. TECHNIQUE: PA and lateral views of the chest. COMPARISON: None. FINDINGS: Hyperinflation. Calcified old granulomatous disease. There is no demonstrated pleural abnormality. Normal size heart. Normal mediastinum and cy. Normal visualized pulmonary arteries. Normal visualized aortic arch and descending thoracic aorta. Normal visualized thoracic spine. Normal visualized ribs, clavicles, and shoulders. There is no demonstrated abnormality of the visualized soft tissue structures of the upper abdomen. IMPRESSION: Hyperinflation. Electronically Signed: Chon Cornejo MD at 15:23 EST Tel [phone], Service support [phone], CC: Meghana Lanier MD Insulation Nozzleman: Signed Meghana Lanier Work Phone: Start: 03-20-2014 End: 03-23-2014 Spmtry w/vc expiratory alfredo w/wo mxml vol vntj _ Ayde Locke Work Phone: Comment on above: pretty good tech lil off Start: 10-11-2012 Luis Gutiérrez MD Work Phone: Plan of Treatment Date Care Activity Detail Author Start: 04-24-2025 Radex wrist complete minimum 3 views Ad Summos. Work Phone: Start: 03-20-2025 End: 03-20-2025 Patient encounter procedure 03/20/2025 8:00 AM EDT Office Visit Pulmonary Medicine [address] [place] [address] Selina Ziegler, BOXING TRAINER.AIRPLANE G[employer] LINER ASSEMBLER [address] [place] [address] 6 month f/u Pulmonary Medicine Comment on above: 6 month f/u Start: 02-27-2025 Plain x-ray of wrist Wrist min 3 Vie [facility] Start: 08-22-2024 End: 08-22-2024 Patient encounter procedure 08/22/2024 8:00 AM EST Office Visit Pulmonary Medicine [address] [place] [address] Selina Ziegler BOXING TRAINER.AIRPLANE G[employer] TANK LINER ASSEMBLER [address] [place] [address] 6 month f/u Pulmonary Medicine Comment on above: 6 month f/u Start: 08-22-2024 End: 08-22-2024 ambulatory 08/22/2024 7:45 AM EST Procedure PULM LAB [facility] [address] [place] [address] [facility], Pulm Lab [facility] [address] [place] [address] Moderate persistent asthma without complication [J45.40] [facility]UL[facility] LAB [facility] WS Comment on above: Moderate persistent asthma without complication [J45.40] Start: 03-02-2024 Covid-19 Vaccine ( season) Covid-19 Vaccine ( season) [facility] Start: 03-02-2024 Influenza vaccination Influenza Vacc ine (#1) [facility] Start: 02-18-2024 End: 02-18-2024 Patient encounter procedure 02/18/2024 9:30 AM EDT Office Visit Pulmonary Medicine [address] [place] [address] Mercy Gutiérrez MD [address] [place], [place] [id number] 6 month follow up Pulmonary Medicine Comment on above: 6 month follow up Start: 2023 RSV Vaccine (1 - 1-d ose 60+ series) RSV Vaccine (1 - 1-dose 60+ series) [facility] Start: 2023 RSV Vaccine (1 - Ris k 60-74 years 1-dose series) RSV Vaccine (1 - Risk 60-74 years 1-dose series) [facility] Start: 07-02-2023 Depression Assessment Depression Ass essment [facility] Start: 03-02-2023 Influenza vaccination INFLUENZA (#1) [facility] Start: 09-01-2022 Procedure Education Eprescribe d prescriptions (G8553) [facility] Work Phone: Start: 09-01-2022 Comprehensive metabo lic panel METABOLIC PANEL, COMPREHENSIVE (83818) [facility]; [facility] Work Phone: Start: 09-01-2022 Lipid panel LIPID PANEL (09099) [facility]; [facility] Work Phone: Start: 08-13-2022 Assay of prostate specific antigen total PSA (PROSTATE SPECIFIC ANTIGEN) (V76.44) [facility]; [facility] Work Phone: Start: 08-13-2022 ANCA-P (ANTI NEUTROP HIL CYTOPLASMIC ANTIBODY) ANCA-P (ANTI NEUTROPHIL CYTOPLASMIC ANTIBODY) [facility]; [facility] Work Phone: Start: 08-13-2022 ANCA-C (ANTI NEUTROP HIL CYTOPLASMIC ANTIBODY) ANCA-C (ANTI NEUTROPHIL CYTOPLASMIC ANTIBODY) [facility]; [facility] Work Phone: Start: 08-13-2022 Assay of gammaglobul in ige IMMUNOGLOBULIN E (IgE) (19470) [facility]; [facility] Work Phone: Start: 07-12-2022 Procedure Education Eprescribe d prescriptions (G8553) [facility]; [facility] Work Phone: Start: 07-05-2022 Cul bact xcpt urine blood/stool aerobic isol Sputum Culture (88215) [facility]; [facility] Work Phone: Start: 07-02-2022 DEPRESSION ASSESSMENT DEPRESSION ASS ESSMENT [facility] Start: 06-12-2022 Procedure Education Eprescribe d prescriptions (G8553) [facility]; [facility] Work Phone: Start: 03-02-2022 Influenza vaccination INFLUENZA (#1) [facility] Start: 05-26-2021 PNEUMOCOCCAL (2 - PCV) PNEUMOCOCCAL (2 - PCV) [facility] Start: 05-26-2021 Pneumococcal vaccination Pneumococcal Vaccine (2 of 2 - PCV) [facility] Start: 05-26-2021 Pneumococcal Vaccine : 50+ (2 of 2 - PCV) Pneumococcal Vaccine: 50+ (2 of 2 - PCV) [facility] Start: 04-08-2021 Iaadiadoo influenza 2019 Novel Coronavirus (COVID-19), CHRIS (91813) [facility]; [facility] Work Phone: Start: 04-05-2021 [place]oo influenza 2019 Novel Coronavirus (COVID-19), CHRIS (35723) [facility]; [facility] Work Phone: Start: 01-14-2021 Lipoprotein (a) ASSAY OF LIPOP ROTEIN(A) (05650) [facility]; [facility] Work Phone: Comment on above: in six months (appro ximately) Start: 01-14-2021 Lipid panel LIPID PANEL (17157) [facility]; [facility] Work Phone: Comment on above: in six months (appro ximately) Start: 01-14-2021 Hepatic function panel HEPATIC FUNCTION PANEL (20327) [facility]; [facility] Work Phone: Comment on above: in six months (appro ximately) recheck two months Start: 01-14-2021 Acute hepatitis panel HEPATITIS PANE L (38297) [facility]; [facility] Work Phone: Comment on above: recheck twomonths Start: 01-14-2021 Blood count manual c ell count each CBC WITH MANUAL DIFF (20200) [facility]; [facility] Work Phone: Start: 01-06-2021 Lipoprotein blood qu an numbers & subclasses NMR Profile (76551) [facility]; [facility] Work Phone: Start: 01-06-2021 Bilirubin total BILIRUBIN, TOT AL (31698) [facility]; [facility] Work Phone: Start: 01-06-2021 Bilirubin direct BILIRUBIN, DI RECT (11793) [facility]; [facility] Work Phone: Start: 01-06-2021 Comprehensive metabo lic panel Metabolic Panel, Comprehensive (47839) [facility]; [facility] Work Phone: Start: 01-06-2021 Blood count manual c ell count each CBC WITH MANUAL DIFF (76547) [facility]; [facility] Work Phone: Start: 01-06-2021 25 hydroxy includes fractions if performed CALCIFIDIOL (99496) VIT D 25 [facility]; [facility] Work Phone: Start: 01-06-2021 Urinalysis qual/semiquant except immunoassays URINALYSIS (59910) [facility]; [facility] Work Phone: Start: 01-06-2021 Assay of homocysteine Homocyst eine, Plasma (47633) [facility]; [facility] Work Phone: Start: 01-06-2021 Lipoprotein (a) ASSAY OF LIPOP ROTEIN(A) (90177) [facility]; [facility] Work Phone: Start: 01-06-2021 Assay of prostate specific antigen total PSA (Prostate Specific Antigen), Screening (03543) [facility]; [facility] Work Phone: Start: 09-24-2020 Procedure Education Eprescribe d prescriptions (G8553) [facility]; [facility] Work Phone: Start: 12-12-2019 Bilirubin direct BILIRUBIN, DI RECT (77482) [facility]; [facility] Work Phone: Start: 12-12-2019 Bilirubin.direct [Mass/Vol] BILIRUBIN, DIRECT (04132) [facility] Work Phone: Start: 08-08-2019 Procedure Education Eprescribe d prescriptions (G8553) [facility] Work Phone: Start: 11-22-2018 Lipid panel Lipid Panel (41056) [facility] Work Phone: Start: 11-22-2018 25 hydroxy includes fractions if performed CALCIFIDIOL (38533) VIT D 25 [facility] Work Phone: Start: 09-15-2018 PROSTATE CANCER SCREENING DISCUSSION PROSTATE CANCER SCREENING DISCUSSION [facility] Start: 09-15-2018 Prostate specific antigen measurement Prostate Cancer Screening Discussion [facility] Start: 12-07-2017 Procedure Education Eprescribe d prescriptions (G8553) [facility] Work Phone: Start: 08-03-2017 Hepatitis b surf antibody hbsab HEPATITIS B SURFACE ANTIBODY (14078) [facility] Work Phone: Start: 08-03-2017 25 hydroxy includes fractions if performed CALCIFIDIOL (85231) VIT D 25 [facility] Work Phone: Start: 08-03-2017 Blood count manual c ell count each CBC with auto diff (37959) [facility] Work Phone: Start: 07-03-2017 Urinalysis qual/semiquant except immunoassays URINALYSIS (70565) [facility] Work Phone: Start: 07-03-2017 Comprehensive metabo lic panel Metabolic Panel, Comprehensive (37950) [facility] Work Phone: Start: 07-03-2017 Blood count manual c ell count each CBC WITH MANUAL DIFF (91850) [facility] Work Phone: Start: 07-03-2017 Hepatitis c antibody HEPATITIS C ANTIBODY (17208) [facility] Work Phone: Start: 07-03-2017 Assay of prostate specific antigen total PSA (Prostate Specific Antigen), Screening (23887) [facility] Work Phone: Start: 07-03-2017 Protein mass conc PSA (Prostat e Specific Antigen), Screening (08294) [facility] Work Phone: Start: 08-04-2016 Procedure Education Eprescribe d prescriptions (G8553) [facility] Work Phone: Start: 06-02-2016 Lipoprotein blood qu an numbers & subclasses LIPOPROTEIN, BLD, BY NMR (94189) [facility]; [facility] Work Phone: Start: 06-02-2016 Protein mass conc LIPOPROTEIN, BLD, BY NMR (34258) [facility] Work Phone: Start: 10-09-2014 Procedure Education Eprescribe d prescriptions (G8553) [facility] Work Phone: Start: 09-25-2014 Procedure Education Eprescribe d prescriptions (G8553) [facility] Work Phone: Start: 09-25-2014 Provider Instruction s for Treatment [facility] Work Phone: Start: 09-11-2014 Assay of gammaglobul in ige IMMUNOGLOBULIN E (IgE) (26565) [facility] Work Phone: Start: 09-11-2014 Patient Education [facility]ough[facility] Work Phone: Start: 09-11-2014 Procedure Education Eprescribe d prescriptions (G8553) [facility] Work Phone: Start: 05-27-2014 Procedure Education Eprescribe d prescriptions (G8553) [facility] Work Phone: Start: 05-27-2014 Assay of prostate specific antigen total PSA (PROSTATE SPECIFIC ANTIGEN) (V76.44) [facility] Work Phone: Start: 05-27-2014 Protein mass conc PSA (PROSTAT E SPECIFIC ANTIGEN) (V76.44) [facility] Work Phone: Start: 05-27-2014 Assay of gammaglobul in ige IMMUNOGLOBULIN E (IgE) (49704) [facility] Work Phone: Start: 05-27-2014 Assay of gammaglobul in iga igd igg igm each IGA/IGD/IGG/IGM-EACH (08349) [facility] Work Phone: Start: 05-27-2014 Blood count complete auto&auto difrntl wbc CBC W/AUTO DIFF WBC (08320) [facility] Work Phone: Start: 05-27-2014 Comprehensive metabo lic panel METABOLIC PANEL, COMPREHENSIVE (11576) [facility] Work Phone: Start: 05-27-2014 ANCA-C (ANTI NEUTROP HIL CYTOPLASMIC ANTIBODY) ANCA-C (ANTI NEUTROPHIL CYTOPLASMIC ANTIBODY) [facility] Work Phone: Start: 05-27-2014 Lipid panel LIPID PANEL (46566) [facility] Work Phone: Start: 03-20-2014 Patient Education Cough Medici zoltan, Nonprescription: cough suppressants [facility] Work Phone: Start: 03-20-2014 Procedure Education Eprescribe d prescriptions (G8553) [facility] Work Phone: Start: 03-13-2014 Provider Instruction s for Treatment Follow up if no improvement or if symptoms worsen [facility] Work Phone: Start: 10-11-2013 Colonoscopy COLONOSCOPY [facility] Start: 10-11-2013 COLORECTAL CANCER SCREENING COLORECTAL CANCER SCREENING [facility] Start: 10-11-2013 Screening for malign ant neoplasm of colon [facility] Start: 09-15-2013 SHINGRIX VACCINE (1 of 2) SHINGRIX VACCINE (1 of 2) [facility] Start: 08-15-2013 Provider Instruction s for Treatment [facility] Work Phone: Start: 07-15-2013 Provider Instruction s for Treatment Follow up if no improvement or if symptoms worsen [facility] Work Phone: Start: 08-30-2012 Provider Instruction s for Treatment [facility] Work Phone: Start: 08-23-2012 Provider Instruction s for Treatment *Abd Pain Red Flags [facility] Work Phone: Start: 05-03-2012 Patient Education Sinusitis *: sinus infection [facility] Work Phone: Start: 10-05-2010 Provider Instruction s for Treatment [facility] Work Phone: Start: 09-15-2008 COLOGUARD (FIT-DNA) COLOGUARD (FIT-D NA) [facility] Start: 09-15-[address] COLONOGRAPHY [facility] Start: 09-15-2008 DIABETES SCREEN DIABETES SCREEN [facility] Start: 09-15-2008 Diabetes Screening Diabetes Screenin g [facility] Start: 09-15-2008 FECAL OCCULT BLOOD FECAL OCCULT BLOO D [facility] Start: 09-15-2008 Screening for malign ant neoplasm of colon [facility] Start: 09-15-2008 SIGMOIDOSCOPY SIGMOIDOSCOPY [facility] Start: 09-24-2006 Provider Instruction s for Treatment [facility] Work Phone: Start: 06-15-2006 Urine microalbumin profile DTaP,Tdap,Td Vaccine (1 - Tdap) [facility] Start: 06-14-2006 Hepatitis c antibody HEPATITIS C ANTIBODY (16412) [facility] Work Phone: Start: 06-14-2006 Assay of prostate specific antigen total PSA (PROSTATE SPECIFIC ANTIGEN) (65007) [facility] Work Phone: Start: 06-14-2006 Protein mass conc PSA (PROSTAT E SPECIFIC ANTIGEN) (46514) [facility] Work Phone: Start: 06-14-2006 Glucose mass conc GLUCOSE (65208) [facility] Work Phone: Start: 06-14-2006 Glucose quantitative blood xcpt reagent strip GLUCOSE (72402) [facility]; [facility] Work Phone: Start: 06-14-2006 Hepatitis b surf antibody hbsab HEPATITIS B SURFACE ANTIBODY (20320) [facility] Work Phone: Start: 06-14-2006 Lipid panel LIPID PANEL (73640) [facility] Work Phone: Start: 09-15-1998 Lipid panel Lipid Screening [facility] Start: 09-15-1998 LIPID SCREEN LIPID SCREEN [facility] Start: 09-15-1982 Urine microalbumin profile DTAP,TDAP,TD (1 - Tdap) [facility] Start: 09-15-1981 ANNUAL PCP TEAM MECHANIC WELDER ELIZABETH DISEASE VISIT ANNUAL PCP TEAM CHRONIC DISEASE VISIT [facility] Start: 09-15-1981 Anxiety Screening Anxiety Screening [facility] Start: 09-15-1981 Depression Screening Depression Scre ening [facility] Start: 09-15-1981 HEPATITIS C SCREENING HEPATITIS C [facility] Start: 09-15-1981 Hepatitis C screening Hepatitis C [facility] Start: 09-15-1981 HIV SCREENING HIV SCREENING [facility] Start: 09-15-1981 HIV screening HIV Screening [facility] Start: 09-15-1969 PNEUMOCOCCAL (1 - PCV) PNEUMOCOCCAL (1 - PCV) [facility] Start: 03-18-1964 COVID-19 VACCINE (#1) COVID-19 VACCI NE (#1) [facility] Start: 1965 HEPATITIS B (1 of 3 - 3-dose series) HEPATITIS B (1 of 3 - 3-dose series) [facility] End: 09-14-2023 NITRIC OXIDE, EXHALED NITRIC OXIDE, EXHALED PFT Routine Mild intermittent asthma without complication 1 Occurrences starting 08/16/2022 until 09/14/2023 [facility] Work Phone: Comment on above: 1 Occurrences starti ng 08/16/2022 until 09/14/2023 End: 10-04-2023 NITRIC OXIDE, EXHALED NITRIC OXIDE, EXHALED PFT Routine Moderate persistent asthma without complication 1 Occurrences starting 09/04/2022 until 10/04/2023 [facility] Work Phone: Comment on above: 1 Occurrences starti ng 09/04/2022 until 10/04/2023 End: 02-23-2024 NITRIC OXIDE, EXHALED NITRIC OXIDE, EXHALED PFT Routine Moderate persistent asthma without complication 1 Occurrences starting 01/24/2023 until 02/23/2024 [facility] Work Phone: Comment on above: 1 Occurrences starti ng 01/24/2023 until 02/23/2024 End: 09-12-2024 NITRIC OXIDE, EXHALED NITRIC OXIDE, EXHALED PFT Routine Mild persistent asthma without complication 1 Occurrences starting 08/14/2023 until 09/12/2024 [facility] Work Phone: Comment on above: 1 Occurrences starti ng 08/14/2023 until 09/12/2024 End: 03-19-2025 NITRIC OXIDE, EXHALED NITRIC OXIDE, EXHALED PFT Routine Moderate persistent asthma without complication 1 Occurrences starting 02/18/2024 until 03/19/2025 [facility] Work Phone: Comment on above: 1 Occurrences starti ng 02/18/2024 until 03/19/2025 End: 09-14-2023 SPIROMETRY - BASELINE AND POST DILATOR SPIROMETRY - BASELINE AND POST DILATOR PFT Routine Mild intermittent asthma without complication 1 Occurrences starting 08/16/2022 until 09/14/2023 [facility] Work Phone: Comment on above: 1 Occurrences starti ng 08/16/2022 until 09/14/2023 [facility] Work [facility]: [facility] Work Phone: [facility] Work Phone: [facility] Work Phone: [facility] Work Phone: [facility] Work Phone: [facility] Work Phone: [facility] Work Phone: [facility] Work Phone: [facility] Work Phone: [facility] Work Phone: [facility] Phone: [facility] Work Phone: [facility] Work Phone: [facility] Work Phone: [facility] Work Phone: [facility] Work Phone: [facility] Work Phone: [facility] Work Phone: [facility] Work Phone[facility] Work Phone[facility] Work Phone: [facility] Work Phone[facility] Work Phone: [facility] Work Phone: [facility]; [facility] Work Phone: [facility] Immunizations Immunization Date Immunization Notes Care Provider [facility] 05-14-2023 influenza virus vaccine, unspecified [facility] Work [facility]: [facility] 05-05-2022 influenza, injectabl e, quadrivalent, contains preservative Meghana Lanier MD Work Phone: [facility]; [facility] Work Phone: Comment on above: Site: Right Deltoid Here for a Nurse Vis it-flu Shotflu [id number]/30/2023[place] 11-30-2020 zoster vaccine, live Meghana rincon MD Work Phone: [facility]; [facility] Work Phone: Comment on above: guille gusman 08-27-2020 COVID-19 (Moderna) Meghana Lanier [facility]; [facility] Work Phone: 07-30-2020 COVID-19 (Moderna) Meghana Lanier [facility]; [facility] Work Phone: 05-26-2020 pneumococcal polysaccharide vaccine, 23 valent [facility] Work Phone: [facility] Work Phone: 05-02-2020 pneumococcal polysaccharide vaccine, 23 valent Meghana Lanier MD Work Phone: [facility]; [facility] Work Phone: 04-02-2009 influenza, seasonal, injectable Meghana Boneralf [facility] Work Phone: 05-10-2007 influenza, seasonal, injectable Meghana Bonedemetrii [facility] Work Phone: 06-14-2006 tetanus and diphther ia toxoids, adsorbed, preservative free, for adult use (2 Lf of tetanus toxoid and 2 Lf of diphtheria toxoid) Meghana Lanier [facility] Work Phone: Payers Date Payer Category Payer Self-pay [id number] 2025 Unknown [id number] 2022 [facility] PPO [id number] 2022 Unknown 2022 Unknown [id number] 2015 Unknown [id number] 2014 Unknown [id number] 2006 Unknown [id number] 2005 Unknown [id number] 1965 Unknown [id number] Unknown KUSH [id number] Unknown [id number] Unknown [id number] Unknown [id number] Unknown 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 wine dry 2-3 servings couple times a week negative CAGE Start: 1965 Sex Assigned At Male [facility] Start: 08-14-2023 End: 04-24-2025 Tobacco smoking status NHIS Never smoked tobacco [facility] Start: 09-07-2012 End: 09-05-2024 Alcohol intake Current drinker of alcohol (finding) [facility] Start: 1965 Sex Assigned At Not on file [facility] Start: 01-24-2023 End: 04-24-2025 Tobacco use panel [facility] National Score (1-100), lower number is lower risk 62 [facility] Start: 08-14-2023 Tobacco use and exposure Smokeless tobacco non-user [facility] Start: 09-11-2014 Alcohol Alcohol [facility] Start: 09-11-2014 Drugs Drugs [facility] Start: 09-11-2014 Lives Lives [facility] Start: 09-11-2014 Tobacco Use Tobacco Use [facility] Functional Status Date Assessment Result Facility 01-06-2021 LP-IR Score LP-IR Score <25 [facility]; [facility] Work Phone: Comment on above: INSULIN RESISTANCE Tawanda BARNARD <--Insulin Sensitive Insulin Resistant--> Percentile in Reference PopulationInsulin Resistance ScoreLP-IR Score Low 25th 50th 75th High <27 27 45 63 >63LP-IR Score is inaccurate if patient is non-fasting. .The LP-IR score is a laboratory developed index that has beenassociated with insulin resistance and diabetes risk and should beused as one component of a physician's clinical assessment. Test(s) 398118-LPJ-T ; 033285-CPY-M; 671327-Imaibfxmjzhje; 113861-Fphtwiiomic, Total; 848030-BES-J (Total); 818619-Egkgv LDL-P; 011000-NWV Size; 527870-LP-GY Scorewas developed and its performance characteristics determinedby [employer]. It has not been cleared or approved by the Foodand Drug Administration.PERFORMED BY: [facility] [id number] [facility] [id number] BY: CB LabCoSaint Michael's Medical CenterBkqsln9025 [facility] [id number] Information: NURSE DRAW Mental Status Date Assessment Result Facility 04-24-2025 Cognitive Function [place] [employer] Work Phone: Clinical Notes 07-06-2022 to 03-20-2025 Patient InstructionsSelina Ziegler, BOXING TRAINER.[facility] - 09/05/2024 8:17 AM Marina Glass RPFT - 09/05/2024 8:11 AM Marina Glass RPFT - 09/05/2024 8:11 AM ESTPatient Instructions Note Date & Type Note Facility 03-20-2025 Note HNO ID: [id number] Author: MARINA YUAN RPFT Service: ? Author Type: Respiratory Therapist Type: Procedures Filed: 03/20/2025 08:19 Note Text: RESPIRATORY THERAPY ORAL EXHALED NITRIC OXIDE SERVICE DATE: 03/20/2025 SERVICE TIME: 8:19 AM Oral Exhaled Nitric Oxide measurement: 69.0 (ppb) (A) Normal: Adult <25 ppb, pediatric (<12 years) <20 ppb High Normal / Increased: Adult 25-50 ppb, pediatric (<12 years) 20-35 ppb Moderately raised exhaled Nitric Oxide may indicate underlying inflammation, but note that: Cold and influenza can raise exhaled Nitric Oxide and some patients have higher baseline exhaled Nitric Oxide levels than others. High: Adult >50 ppb, pediatric (<12 years) >35 ppb Indicative of ongoing eosinophilic inflammation. Symptomatic patient likely to respond to steroids. Possible causes (if already on steroids): Poor compliance, recent allergen exposure, steroid dose inadequate, and steroid resistance. Note that not all patients with high exhaled nitric oxide levels display symptoms. Oral Exhaled Nitric Oxide measurement (Previous Encounters) Test Date Oral Exhaled Nitric Oxide (ppb) 03/20/2025 69.0 (A) 09/05/2024 47.0 (A) 02/12/2024 47.0 (A) 08/14/2023 44.0 (A) 01/24/2023 78.0 (A) 10/30/2022 87.0 (A) 09/04/2022 110.0 (A) NAME: JEFFRY Solo PATIENT NAME: Quintin Sauceda DATE: March 20, 2025 TIME: 8:19 AM [facility] 03-20-2025 Note HNO ID: [id number] Author: SELINA ZIEGLER APRN.JEROMY Service: ? Author Type: Nurse Practitioner Type: Progress Notes Filed: 03/20/2025 08:34 Note Text: Pulmonary Medicine Patients name: Quintin Sauceda PCP: Meghana Lanier MD CC: follow-up HPI: Quintin Sauceda is a 59 year old male never smoker with PMH significant for longstanding asthma, allergies on IT in past, idiopathic angioedema/urticaria, GERD, hx COVID. KUSH 08/2024 with stable Asthma symptoms. Current therapy with Arnuity 200 and PRN Albuterol. He presents today for follow-up. Since his last visit, he reports continued control of his asthma symptoms. He continues to deny significant cough, wheezing, chest tightness, or shortness of breath. No fevers, chills, or night sweats. No recent hospitalizations or ED visits or upper respiratory infections. Rarely uses Albuterol. We discussed decreasing ICS d/t persistently controlled symptoms. Repeat nitric oxide today 69 ppb. Has significant environmental and seasonal allergies which he feels like are well controlled with Singulair, Zyrtec and Flonase. Previously received allergy shots as a child and used again nearly 20 years ago. It has previously been suggested he has follow-up with ENT regarding allergies but has not been seen d/t feeling well. PAST MEDICAL HISTORY Diagnosis Date Allergic rhinitis, cause unspecified Allergic rhinitis Angioneurotic edema not elsewhere classified Asthma GERD (gastroesophageal reflux disease) HLD (hyperlipidemia) Other chronic allergic conjunctivitis Allergic conjunctivitis Allergies: Animal Dander Shortness of Breath Dust Mites Other: See Comments Comment:Nasal congestion Grass Pollen Shortness of Breath Mold Shortness of Breath Trees Shortness of Breath Medication List Accurate as of March 20, 2025 7:04 AM. If you have any questions, ask your nurse or doctor. CONTINUE taking these medications albuterol HFA 90 mcg/actuation inhaler Commonly known as: PROVENTIL HFA, VENTOLIN HFA ARNUITY ELLIPTA 200 mcg/actuation inhaler Generic drug: fluticasone furoate Inhale 1 Puff as instructed once daily. cetirizine 10 mg tablet Commonly known as: ZYRTEC Take one(1) tablet daily at bedtime. fluticasone 50 mcg/actuation nasal spray Commonly known as: FLONASE montelukast 10 mg tablet Commonly known as: SINGULAIR rosuvastatin 5 mg tablet Commonly known as: CRESTOR DATA: I personally reviewed and analyzed all labs, radiographs and available pulmonary function testing PFT: 08/2022 Spirometry is normal. There was not a significant bronchodilator response. Review of Systems Constitutional: Negative for activity change, appetite change, fever and unexpected weight change. HENT: Negative for congestion, mouth sores and postnasal drip. Respiratory: Negative for cough, chest tightness, shortness of breath and wheezing. Cardiovascular: Negative for chest pain, palpitations and leg swelling. Allergic/Immunologic: Negative for environmental allergies. Neurological: Negative for weakness. BP (P) 118/70 Pulse (!) (P) 48 Resp (P) 14 Wt 73 kg (161 lb) SpO2 (P) 99% BMI 23.60 kg/m? Physical Exam Vitals reviewed. Constitutional: General: He is not in acute distress. Appearance: Normal appearance. He is not ill-appearing. HENT: Head: Normocephalic. Cardiovascular: Rate and Rhythm: Normal rate and regular rhythm. Heart sounds: Normal heart sounds. Pulmonary: Effort: Pulmonary effort is normal. No respiratory distress. Breath sounds: No wheezing or rhonchi. Musculoskeletal: Right lower leg: No edema. Left lower leg: No edema. Skin: General: Skin is warm and dry. Capillary Refill: Capillary refill takes less than 2 seconds. Neurological: General: No focal deficit present. Mental Status: He is alert. ASSESSMENT/PLAN: 1. Mild intermittent asthma without complication (HCC) - ICD9: 493.90, ICD10: J45.20 (primary diagnosis) - currently with controlled symptoms despite nitric oxide increased from 47 ppb in August to 69 ppb today. Discussed role of allergies and Asthma. See #2 - continue high dose Arnuity and Albuterol as needed. - Asthma education: Rinsing after each inhaled steroid use - NITRIC OXIDE, EXHALED 2. Multiple allergies - ICD9: V15.09, ICD10: Z88.9 - continue Singulair, zyrtec and Flonase - highly suggest follow-up with ENT despite controlled allergy symptoms. F/u 6 months Portions of this documentation were copied and pasted from previous office visit notes in order to provide a cohesive continuity of the history. The note has been reviewed and edited and updated as necessary. Selina Ziegler, BOXING TRAINER.JEROMY I spent a total of 20 minutes on the date of the service which included preparing to see the patient, [id number] patient care, completing clinical documentation, performing a medically appropriate examination, counseling and educating the (more content not included)... [facility] 09-05-2024 Instructions Selina Ziegler APRN.CNP - 09/05/2024 8:44 AM EST Images from the original note were not included. documented in this encounter [facility] 09-05-2024 Note HNO ID: [id number] Author: SELINA ZIEGLER APRN.JEROMY Service: ? Author Type: Nurse Practitioner Type: Progress Notes Filed: 09/05/2024 09:32 Note Text: Pulmonary Medicine Patients name: Quintin Sauceda PCP: Meghana Lanier MD CC: Asthma follow-up HPI: Quintin Sauceda is a 58 year old male never smoker with PMH significant for longstanding asthma, allergies on IT in past, idiopathic angioedema/urticaria, GERD with worsening of his asthma following COVID. Current therapy with Arnuity 200 and as needed Albuterol. He presents today for follow-up. KUSH 01/2024 with improved, yet persistently elevated nitric oxide at 47 ppb. Arnuity increased. Allergy assessment was recommended for possible immunotherapy. Since his last visit, he reports overall feeling well. He had COVID in April and was treated with Paxlovid with fairly mild symptoms. He has not been seen by ENT d/t feeling well. Today, patient denies any current respiratory symptoms. No cough, wheezing, SOB or nocturnal symptoms. No recent sick symptoms. No need for steroids/antibiotics since his last visit. Albuterol use is rare. Reports regular use of Singulair, Zyrtec and Flonase for his multiple allergies. FENO today remains at 47 ppb despite increase in ICS. ASTHMA CONTROL TEST Date: 09/05/2024 In the last 4 weeks, how much of the time did your asthma keep you from getting as much done at work or home that you wanted to do? None of the time (5) In the last 4 weeks, how often have you had shortness of breath? Not at all (5) In the last 4 weeks, how often did your asthma symptoms (wheezing, coughing, shortness of breath, chest tightness or pain) wake you up at night or earlier than usual? Not at all (5) In the last 4 weeks, how often have you used your rescue inhaler or nebulizer medication (such as Albuterol, Proventil, Ventolin, Maxair, Xoponex, or Primatene Mist)? Not at all (5) In the last 4 weeks, how would you rate your asthma control? Completely controlled (5) Total: more than 20 PAST MEDICAL HISTORY Diagnosis Date Allergic rhinitis, cause unspecified Allergic rhinitis Angioneurotic edema not elsewhere classified Asthma GERD (gastroesophageal reflux disease) HLD (hyperlipidemia) Other chronic allergic conjunctivitis Allergic conjunctivitis Allergies: Animal Dander Shortness of Breath Dust Mites Other: See Comments Comment:Nasal congestion Grass Pollen Shortness of Breath Mold Shortness of Breath Trees Shortness of Breath Medication List Accurate as of September 05, 2024 8:17 AM. If you have any questions, ask your nurse or doctor. CONTINUE taking these medications albuterol HFA 90 mcg/actuation inhaler Commonly known as: PROVENTIL HFA, VENTOLIN HFA ARNUITY ELLIPTA 200 mcg/actuation inhaler Generic drug: fluticasone furoate Inhale 1 Puff as instructed once daily. cetirizine 10 mg tablet Commonly known as: ZYRTEC Take one(1) tablet daily at bedtime. fluticasone 50 mcg/actuation nasal spray Commonly known as: FLONASE montelukast 10 mg tablet Commonly known as: SINGULAIR rosuvastatin 5 mg tablet Commonly known as: CRESTOR DATA: I personally reviewed and analyzed all labs, radiographs and available pulmonary function testing PFT: 08/2022 Spirometry is normal. There was not a significant bronchodilator response. Review of Systems Constitutional: Negative for activity change, appetite change and unexpected weight change. HENT: Negative for congestion, mouth sores, postnasal drip, rhinorrhea and sinus pain. Respiratory: Negative for cough, chest tightness, shortness of breath and wheezing. Cardiovascular: Negative for chest pain, palpitations and leg swelling. Neurological: Negative for weakness and headaches. BP (P) 122/80 Pulse (P) 61 Resp (P) 14 Wt 73.9 kg (163 lb) SpO2 (P) 99% BMI 23.90 kg/m? Physical Exam Vitals reviewed. Constitutional: General: He is not in acute distress. Appearance: Normal appearance. He is normal weight. He is not ill-appearing. HENT: Head: Normocephalic. Nose: No rhinorrhea. Cardiovascular: Rate and Rhythm: Normal rate and regular rhythm. Heart sounds: Normal heart sounds. Pulmonary: Effort: Pulmonary effort is normal. No respiratory distress. Breath sounds: No wheezing or rhonchi. Lymphadenopathy: Cervical: No cervical adenopathy. Skin: General: Skin is warm and dry. Capillary Refill: Capillary refill takes less than 2 seconds. Neurological: General: No focal deficit present. Mental Status: He is alert. ASSESSMENT/PLAN: 1. Mild intermittent asthma without complication - ICD9: 493.90, ICD10: J45.20 (primary diagnosis) - controlled symptoms with very rare use of Albuterol - continue Arnuity 200 and Albuterol as needed. - recommend following through with referral to ENT for his multiple allergies and persistently elevated nitric oxide at 47 ppb despite increase in ICS. (more content not included)... [facility] 09-05-2024 History of Presen t illness Narrative Images from the original note were not included. Pulmonary Medicine Patients name: Quintin Sauceda PCP: Meghana Lanier MD CC: Asthma follow-up HPI: Quintin Sauceda is a 58 year old male never smoker with PMH significant for longstanding asthma, allergies on IT in past, idiopathic angioedema/urticaria, GERD with worsening of his asthma following COVID. Current therapy with Arnuity 200 and as needed Albuterol. He presents today for follow-up. [facility] 01/2024 with improved, yet persistently elevated nitric oxide at 47 ppb. Arnuity increased. Allergy assessment was recommended for possible immunotherapy. Since his last visit, he reports overall feeling well. He had COVID in April and was treated with Paxlovid with fairly mild symptoms. He has not been seen by ENT d/t feeling well. Today, patient denies any current respiratory symptoms. No cough, wheezing, SOB or nocturnal symptoms. No recent sick symptoms. No need for steroids/antibiotics since his last visit. Albuterol use is rare. Reports regular use of Singulair, Zyrtec and Flonase for his multiple allergies. FENO today remains at 47 ppb despite increase in ICS. ASTHMA CONTROL TEST Date: 09/05/2024 In the last 4 weeks, how much of the time did your asthma keep you from getting as much done at work or home that you wanted to do? None of the time (5) In the last 4 weeks, how often have you had shortness of breath? Not at all (5) In the last 4 weeks, how often did your asthma symptoms (wheezing, coughing, shortness of breath, chest tightness or pain) wake you up at night or earlier than usual? Not at all (5) In the last 4 weeks, how often have you used your rescue inhaler or nebulizer medication (such as Albuterol, Proventil, Ventolin, Maxair, Xoponex, or Primatene Mist)? Not at all (5) In the last 4 weeks, how would you rate your asthma control? Completely controlled (5) Total: more than 20 PAST MEDICAL HISTORY Diagnosis Date Allergic rhinitis, cause unspecified Allergic rhinitis Angioneurotic edema not elsewhere classified Asthma GERD (gastroesophageal reflux disease) HLD (hyperlipidemia) Other chronic allergic conjunctivitis Allergic conjunctivitis Allergies: Animal Dander Shortness of Breath Dust Mites Other: See Comments Comment:Nasal congestion Grass Pollen Shortness of Breath Mold Shortness of Breath Trees Shortness of Breath Medication List Accurate as of September 05, 2024 8:17 AM. If you have any questions, ask your nurse or doctor. CONTINUE taking these medications albuterol HFA 90 mcg/actuation inhaler Commonly known as: PROVENTIL HFA, VENTOLIN HFA ARNUITY ELLIPTA 200 mcg/actuation inhaler Generic drug: fluticasone furoate Inhale 1 Puff as instructed once daily. cetirizine 10 mg tablet Commonly known as: ZYRTEC Take one(1) tablet daily at bedtime. fluticasone 50 mcg/actuation nasal spray Commonly known as: FLONASE montelukast 10 mg tablet Commonly known as: SINGULAIR rosuvastatin 5 mg tablet Commonly known as: CRESTOR DATA: I personally reviewed and analyzed all labs, radiographs and available pulmonary function testing PFT: 08/2022 Spirometry is normal. There was not a significant bronchodilator response. Review of Systems Constitutional: Negative for activity change, appetite change and unexpected weight change. HENT: Negative for congestion, mouth sores, postnasal drip, rhinorrhea and sinus pain. Respiratory: Negative for cough, chest tightness, shortness of breath and wheezing. Cardiovascular: Negative for chest pain, palpitations and leg swelling. Neurological: Negative for weakness and headaches. BP (P) 122/80 Pulse (P) 61 Resp (P) 14 Wt 73.9 kg (163 lb) SpO2 (P) 99% BMI 23.90 kg/m Physical Exam Vitals reviewed. Constitutional: General: He is not in acute distress. Appearance: Normal appearance. He is normal weight. He is not ill-appearing. HENT: Head: Normocephalic. Nose: No rhinorrhea. Cardiovascular: Rate and Rhythm: Normal rate and regular rhythm. Heart sounds: Normal heart sounds. Pulmonary: Effort: Pulmonary effort is normal. No respiratory distress. Breath sounds: No wheezing or rhonchi. Lymphadenopathy: Cervical: No cervical adenopathy. Skin: General: Skin is warm and dry. Capillary Refill: Capillary refill takes less than 2 seconds. Neurological: General: No focal deficit present. Mental Status: He is alert. ASSESSMENT/PLAN: 1. Mild intermittent asthma without complication - ICD9: 493.90, ICD10: J45.20 (primary diagnosis) - controlled symptoms with very rare use of Albuterol - continue Arnuity 200 and Albuterol as needed. - recommend following through with referral to ENT for his multiple allergies and persistently elevated nitric oxide at 47 ppb despite increase in ICS. - Avoidance of triggers recommended - Asthma education: Rinsing after each inhaled steroid use 2. Multiple allergies - ICD9: V15.09, ICD10: Z88.9 - schedule with ENT - on Singulair, Zyrtec and Flonase F/u 6 months Portions of this documentation were copied and pasted from previous office visit notes in order to provide a cohesive continuity of the history. The note has been reviewed and edited and updated as necessary. Selina Ziegler APRN.JEROMY I spent a total of 19 minutes on the date of the service which included preparing to see the patient, [id number] patient care, completing clinical documentation, performing a medically appropriate examination, and counseling and educating the patient/family/caregiver. documented in this encounter [facility] 09-05-2024 Note HNO ID: [id number] Author: MARINA YUAN RPFT Service: ? Author Type: Respiratory Therapist Type: Procedures Filed: 09/05/2024 08:11 Note Text: RESPIRATORY THERAPY ORAL EXHALED NITRIC OXIDE SERVICE DATE: 09/05/2024 SERVICE TIME: 8:11 AM Oral Exhaled Nitric Oxide measurement: 47.0 (ppb) Normal: Adult <25 ppb, pediatric (<12 years) <20 ppb High Normal / Increased: Adult 25-50 ppb, pediatric (<12 years) 20-35 ppb Moderately raised exhaled Nitric Oxide may indicate underlying inflammation, but note that: Cold and influenza can raise exhaled Nitric Oxide and some patients have higher baseline exhaled Nitric Oxide levels than others. High: Adult >50 ppb, pediatric (<12 years) >35 ppb Indicative of ongoing eosinophilic inflammation. Symptomatic patient likely to respond to steroids. Possible causes (if already on steroids): Poor compliance, recent allergen exposure, steroid dose inadequate, and steroid resistance. Note that not all patients with high exhaled nitric oxide levels display symptoms. Oral Exhaled Nitric Oxide measurement (Previous Encounters) Test Date Oral Exhaled Nitric Oxide (ppb) 09/05/2024 47.0 (A) 02/12/2024 47.0 (A) 08/14/2023 44.0 (A) 01/24/2023 78.0 (A) 10/30/2022 87.0 (A) 09/04/2022 110.0 (A) NAME: Marina JEFFRY Yuan PATIENT NAME: Quintin Sauceda DATE: September 05, 2024 TIME: 8:11 AM [facility] 09-05-2024 Procedure note Associated Ord er(s): NITRIC OXIDE, EXHALED RESPIRATORY THERAPY ORAL EXHALED NITRIC OXIDE SERVICE DATE: 09/05/2024 SERVICE TIME: 8:11 AM Oral Exhaled Nitric Oxide measurement: 47.0 (ppb) Normal: Adult <25 ppb, pediatric (<12 years) <20 ppb High Normal / Increased: Adult 25-50 ppb, pediatric (<12 years) 20-35 ppb Moderately raised exhaled Nitric Oxide may indicate underlying inflammation, but note that: Cold and influenza can raise exhaled Nitric Oxide and some patients have higher baseline exhaled Nitric Oxide levels than others. High: Adult >50 ppb, pediatric (<12 years) >35 ppb Indicative of ongoing eosinophilic inflammation. Symptomatic patient likely to respond to steroids. Possible causes (if already on steroids): Poor compliance, recent allergen exposure, steroid dose inadequate, and steroid resistance. Note that not all patients with high exhaled nitric oxide levels display symptoms. Oral Exhaled Nitric Oxide measurement (Previous Encounters) Test Date Oral Exhaled Nitric Oxide (ppb) 09/05/2024 47.0 (A) 02/12/2024 47.0 (A) 08/14/2023 44.0 (A) 01/24/2023 78.0 (A) 10/30/2022 87.0 (A) 09/04/2022 110.0 (A) NAME: JEFFRY Solo PATIENT NAME: Quintin Sauceda DATE: September 05, 2024 TIME: 8:11 AM [facility] 09-05-2024 Procedure note Associated Ord er(s): NITRIC OXIDE, EXHALED RESPIRATORY THERAPY ORAL EXHALED NITRIC OXIDE SERVICE DATE: 09/05/2024 SERVICE TIME: 8:11 AM Oral Exhaled Nitric Oxide measurement: 47.0 (ppb) Normal: Adult <25 ppb, pediatric (<12 years) <20 ppb High Normal / Increased: Adult 25-50 ppb, pediatric (<12 years) 20-35 ppb Moderately raised exhaled Nitric Oxide may indicate underlying inflammation, but note that: Cold and influenza can raise exhaled Nitric Oxide and some patients have higher baseline exhaled Nitric Oxide levels than others. High: Adult >50 ppb, pediatric (<12 years) >35 ppb Indicative of ongoing eosinophilic inflammation. Symptomatic patient likely to respond to steroids. Possible causes (if already on steroids): Poor compliance, recent allergen exposure, steroid dose inadequate, and steroid resistance. Note that not all patients with high exhaled nitric oxide levels display symptoms. Oral Exhaled Nitric Oxide measurement (Previous Encounters) Test Date Oral Exhaled Nitric Oxide (ppb) 09/05/2024 47.0 (A) 02/12/2024 47.0 (A) 08/14/2023 44.0 (A) 01/24/2023 78.0 (A) 10/30/2022 87.0 (A) 09/04/2022 110.0 (A) NAME: JEFFRY Solo PATIENT NAME: Quintin Sauceda DATE: September 05, 2024 TIME: 8:11 AM documented in this encounter [facility] 09-05-2024 Note HNO ID: [id number] Author: MARINA YUAN RPFT Service: ? Author Type: Respiratory Therapist Type: Progress Notes Filed: 09/05/2024 08:11 Note Text: PULM FUNCTION: Provider: Mercy Gutiérrez MD Assisting Tech: Marina Yuan RPFT Exhaled Nitric Oxide: 1 [facility] 09-05-2024 History of Presen t illness Narrative PULM FUNCTION: Provider: Mercy Gutiérrez MD Assisting Tech: Marina Yuan RPFT Exhaled Nitric Oxide: 1 documented in this encounter [facility] 04-11-2024 Telephone encounter Note Called and spoke to patients . Symptoms started yesterday with congestion and ear ache. Was exposed to friend who was Covid positive. Tested on 04/11 and was positive. No history of kidney or liver disease. Takes Crestor daily and instructed to hold while taking Paxlovid. Order sent to preferred pharmacy. [facility] 04-11-2024 Miscellaneous Notes Called and spoke to patients . Symptoms started yesterday with congestion and ear ache. Was exposed to friend who was Covid positive. Tested on 04/11 and was positive. No history of kidney or liver disease. Takes Crestor daily and instructed to hold while taking Paxlovid. Order sent to preferred pharmacy. Patients call into office stating that he tested positive for Covid this morning and would like paxlovid ordered to [facility]. Please advise and call patient at [phone]. Carmen Hdez LPN documented in this encounter [facility] 04-11-2024 Telephone encounter Note Patients call into office stating that he tested positive for Covid this morning and would like paxlovid ordered to [facility]. Please advise and call patient at [phone]. Carmen Hdez LPN [facility] Work Phone: 02-18-2024 Instructions Mercy Gutiérrez MD - 02/18/2024 9:48 AM EDT Oral Exhaled Nitric Oxide measurement (Previous Encounters) Test Date Oral Exhaled Nitric Oxide (ppb) 02/12/2024 47.0 (A) 08/14/2023 44.0 (A) 01/24/2023 78.0 (A) 10/30/2022 87.0 (A) 09/04/2022 110.0 (A) documented in this encounter [facility] 02-18-2024 History of Presen t illness Narrative Images from the original note were not included. . [facility] [place] Note Patient name: Quintin Sauceda PCP: Meghana Lanier MD CC: Follow-up asthma HPI: Quintin Sauceda 58 year old male never smoker with PMH significant for longstanding asthma, allergies on IT in past, idiopathic angioedema/urticaria, GERD with worsening of his asthma following COVID. No obstruction on PFT but elevated Peyton. At [facility], his Peyton remained elevated but had concomitant sinus infection at that time. Treated infection, maintained ICS, recommended revisit with ENT for nasal polyps and allergies. He reports that his sinus infection was related to significant pollen/grass exposure, weed whacking without a mask. Since then he states he has been doing well with regards to his allergies. He denies any sinus congestion, drainage, facial pain. His asthma has been well-controlled as well, denying significant dyspnea, wheezing, chest pain. No need for his albuterol inhaler. Despite his reported lack of symptoms, exhaled nitric oxide level remains elevated at 47 ppb. 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 fluticasone (FLONASE) 50 mcg/actuation nasal spray Use 1 [place] in the nose once daily. montelukast (SINGULAIR) 10 mg tablet Take 10 mg by mouth once daily. albuterol HFA (PROVENTIL HFA, VENTOLIN HFA) 90 mcg/actuation inhaler inhale 1 to 2 puffs by mouth and INTO THE LUNGS every 6 hours if needed CETIRIZINE 10 MG TAB Take one(1) tablet daily at bedtime. fluticasone furoate (ARNUITY ELLIPTA) 200 mcg/actuation inhaler Inhale 1 Puff as instructed once daily. Social History Tobacco Use Smoking status: Never Smokeless tobacco: Never Vaping Use Vaping status: Never Used Substance Use Topics Alcohol use: Yes Alcohol/week: 5.0 standard drinks of alcohol Types: 4 Glasses of wine, 1 Cans of beer per week Drug use: Never FAMILY HISTORY Problem Relation Age of Onset Asthma Father Heart Father Coronary Artery Disease Father Hypertension Father Allergies Brother Asthma Brother Asthma Paternal Grandmother PAST SURGICAL HISTORY 1979: ARTHROTOMY KNEE W/SYNOVIAL BIOPSY ONLY Comment: Semilunar cartilage, knee 1982: RPR 1ST INGUN HRNA AGE 3 YRS/> REDUCIBLE Comment: Hernia repair, inguinal PMH, Social history, family history and surgical history reviewed and updated in EMR REVIEW OF SYSTEMS: CONSTITUTIONAL: No fevers, chills, nightsweats, unintended weight loss HEENT: Denies nasal congestion/sinus symptoms, allergy problems. EYES: No diplopia or blurry vision. CARDIOVASCULAR: No chest pain, dyspnea, palpitations, edema. PULM: See HPI GI: No dysphagia/odynophagia, problematic reflux INTEGUMENTARY: No recent hives/urticaria PHYSICAL EXAMINATION: Wt 158 lb (71.7kg) BP 118/76, pulse 61, RR 14, SpO2 97% on room air General Appearance: Age-appropriate male, NAD. Skin: Skin color, texture, turgor normal, no suspicious rashes or lesions. Eyes: Sclera, conjunctiva normal. Oropharynx: No oral lesions or thrush. Neck: No JVD, no masses or adenopathy. Lungs: Not labored, normal to percussion, no wheezes or crackles. Heart: Regular rate and rhythm, no murmurs or gallops. Assessment/Plan: 1. Moderate persistent asthma -In light of elevated exhaled nitric oxide level, increased Arnuity to 200 mcg daily -Recommending allergy assessment for possible immunotherapy -Continued surveillance of exhaled nitric oxide level 2. Multiple allergies -See #1 -Previously seen by Dr. Knox. Referral faxed Mercy Gutiérrez MD [facility] [place] documented in this encounter [facility] 02-12-2024 Procedure note Associated Ord er(s): NITRIC OXIDE, EXHALED RESPIRATORY THERAPY ORAL EXHALED NITRIC OXIDE SERVICE DATE: 02/12/2024 SERVICE TIME: 7:25 AM Oral Exhaled Nitric Oxide measurement: 47.0 (ppb) Normal: Adult <25 ppb, pediatric (<12 years) <20 ppb High Normal / Increased: Adult 25-50 ppb, pediatric (<12 years) 20-35 ppb Moderately raised exhaled Nitric Oxide may indicate underlying inflammation, but note that: Cold and influenza can raise exhaled Nitric Oxide and some patients have higher baseline exhaled Nitric Oxide levels than others. High: Adult >50 ppb, pediatric (<12 years) >35 ppb Indicative of ongoing eosinophilic inflammation. Symptomatic patient likely to respond to steroids. Possible causes (if already on steroids): Poor compliance, recent allergen exposure, steroid dose inadequate, and steroid resistance. Note that not all patients with high exhaled nitric oxide levels display symptoms. Oral Exhaled Nitric Oxide measurement (Previous Encounters) Test Date Oral Exhaled Nitric Oxide (ppb) 02/12/2024 47.0 (A) 08/14/2023 44.0 (A) 01/24/2023 78.0 (A) 10/30/2022 87.0 (A) 09/04/2022 110.0 (A) NAME: JEFFRY Solo PATIENT NAME: Quintin Sauceda DATE: February 12, 2024 TIME: 7:25 AM [facility] 02-12-2024 History of Presen t illness Narrative PULM FUNCTION: Provider: Mercy Gutiérrez MD Assisting Tech: Marina Yuan RPFT Exhaled Nitric Oxide: 1 documented in this encounter [facility] 02-12-2024 Procedure note Associated Ord er(s): NITRIC OXIDE, EXHALED RESPIRATORY THERAPY ORAL EXHALED NITRIC OXIDE SERVICE DATE: 02/12/2024 SERVICE TIME: 7:25 AM Oral Exhaled Nitric Oxide measurement: 47.0 (ppb) Normal: Adult <25 ppb, pediatric (<12 years) <20 ppb High Normal / Increased: Adult 25-50 ppb, pediatric (<12 years) 20-35 ppb Moderately raised exhaled Nitric Oxide may indicate underlying inflammation, but note that: Cold and influenza can raise exhaled Nitric Oxide and some patients have higher baseline exhaled Nitric Oxide levels than others. High: Adult >50 ppb, pediatric (<12 years) >35 ppb Indicative of ongoing eosinophilic inflammation. Symptomatic patient likely to respond to steroids. Possible causes (if already on steroids): Poor compliance, recent allergen exposure, steroid dose inadequate, and steroid resistance. Note that not all patients with high exhaled nitric oxide levels display symptoms. Oral Exhaled Nitric Oxide measurement (Previous Encounters) Test Date Oral Exhaled Nitric Oxide (ppb) 02/12/2024 47.0 (A) 08/14/2023 44.0 (A) 01/24/2023 78.0 (A) 10/30/2022 87.0 (A) 09/04/2022 110.0 (A) NAME: JEFFRY Solo PATIENT NAME: Quintin Sauceda DATE: February 12, 2024 TIME: 7:25 AM documented in this encounter [facility] 08-14-2023 Instructions Mercy Gutiérrez MD - 08/14/2023 9:44 AM EST Make an appointment with ENT, Dr. Knox Oral Exhaled Nitric Oxide measurement (Previous Encounters) Test Date Oral Exhaled Nitric Oxide (ppb) 08/14/2023 44.0 (A) 01/24/2023 78.0 (A) 10/30/2022 87.0 (A) 09/04/2022 110.0 (A) documented in this encounter [facility] 08-14-2023 History of Presen t illness Narrative Images from the original note were not included. . [facility] [place] Note Patient name: Quintin Sauceda PCP: Meghana Lanier MD CC: Asthma HPI: Quintin Sauceda 57 year old male never smoker with PMH significant for long standing asthma, allergies requiring immunotherapy, idiopathic angioedema and urticaria, GERD. Worsening of his asthma following COVID infection. PFTs showed no obstruction, exhaled nitric oxide elevated. At [facility] with PA-[facility], asthma better controlled with increase in ICS, however, Peyton still elevated at 87 ppb but he had just been treated for a sinus infection. He presents today for follow-up visit. 2 weeks ago he had another sinus infection requiring antibiotics. He took Levaquin for 10 days but no steroids. His exhaled nitric oxide level today continues to decline but is still elevated at 44 ppb. He has persistent nasal congestion, nasal drainage, a.m. vocal issues with decreased phonation, hoarseness. He has nasal blockage with decreased airflow. He has had history of nasal polyposis in the past, previously seen by ENT who also treated him with immunotherapy for allergies. He denies any significant shortness of breath, chest pain, wheezing, need for his albuterol. He has been compliant with Arnuity 100 mcg daily. DATA: PFT: SERVICE DATE: 08/14/2023 SERVICE TIME: 9:18 AM Oral Exhaled Nitric Oxide measurement: 44.0 (ppb) (A) Oral Exhaled Nitric Oxide measurement (Previous Encounters) Test Date Oral Exhaled Nitric Oxide (ppb) 08/14/2023 44.0 (A) 01/24/2023 78.0 (A) 10/30/2022 87.0 (A) 09/04/2022 110.0 (A) Labs: Component Ref Range & Units 9 mo ago Abs Eosin <0.46 k/uL 0.45 Component Ref Range & Units 9 mo ago [place] Tree IgE <0.35 kU/l <0.35 [place] Class Class 0 Class 0 Kurtis Grass IgE <0.35 kU/l 0.51 High Kurtis Grass Class Class 0 Class 1 Abnormal Lauren Grass IgE <0.35 kU/l 0.67 High Lauren Grass Class Class 0 Class 1 Abnormal Short Ragweed IgE <0.35 kU/l <0.35 Short Ragweed Class Class 0 Class 0 Harrington's Quarters IgE <0.35 kU/l <0.35 [place] Class Class 0 Class 0 Cat Dander IgE <0.35 kU/l 0.58 High Cat Dander Class Class 0 Class 1 Abnormal Dog Dander IgE <0.35 kU/l 1.30 High Dog Dander Class Class 0 Class 2 Abnormal Cladosporium herbarum IgE <0.35 kU/l <0.35 Cladosporium herbarum Class Class 0 Class 0 Alternaria tenuis IgE <0.35 kU/l <0.35 Alternaria tenuis Class Class 0 Class 0 Dermatophagoides Farinae IgE <0.35 kU/l <0.35 Dermatophagoides Farinae Class Class 0 Class 0 Component Ref Range & Units 9 mo ago IgE <114.0 kU/l 134.0 High PAST MEDICAL HISTORY Diagnosis Date Allergic rhinitis, cause unspecified Allergic rhinitis Angioneurotic edema not elsewhere classified Asthma GERD (gastroesophageal reflux disease) Other chronic allergic conjunctivitis Allergic conjunctivitis ALLERGIES Allergen Reactions Animal Dander [Othe* (cat, dog) Dust Mites Grass Pollen Molds [Other] Trees fluticasone furoate (ARNUITY ELLIPTA) 100 mcg/actuation inhaler Inhale 1 Puff as instructed once daily. fluticasone (FLONASE) 50 mcg/actuation nasal spray Use 1 [place] in the nose once daily. montelukast (SINGULAIR) 10 mg tablet Take 10 mg by mouth once daily. albuterol HFA (PROVENTIL HFA, VENTOLIN HFA) 90 mcg/actuation inhaler inhale 1 to 2 puffs by mouth and INTO THE LUNGS every 6 hours if needed CETIRIZINE 10 MG TAB Take one(1) tablet daily at bedtime. Social History Tobacco Use Smoking status: Never Smokeless tobacco: Never Vaping Use Vaping Use: Never used Substance Use Topics Alcohol use: Yes Alcohol/week: 5.0 standard drinks of alcohol Types: 4 Glasses of wine, 1 Cans of beer per week Drug use: Never FAMILY HISTORY Problem Relation Age of Onset Asthma Father Heart Father Coronary Artery Disease Father Hypertension Father Allergies Brother Asthma Brother Asthma Paternal Grandmother PAST SURGICAL HISTORY Procedure Laterality Date ARTHROTOMY KNEE W/SYNOVIAL BIOPSY ONLY 1979 Semilunar cartilage, knee RPR 1ST INGUN HRNA AGE 3 YRS/> REDUCIBLE 1982 Hernia repair, inguinal PMH, Social history, family history and surgical history reviewed and updated in EMR REVIEW OF SYSTEMS: CONSTITUTIONAL: No fevers, chills, nightsweats, unintended weight loss HEENT: Denies headaches. Positive nasal congestion/sinus symptoms, allergy problems, vocal issues, nasal blockage EYES: No itchy eyes, blurry vision. CARDIOVASCULAR: No chest pain, dyspnea, palpitations, orthopnea, PND, edema. PULM: See HPI GI: No dysphagia/odynophagia, problematic reflux MUSC-SKEL: No new joint pain, swelling, or erythema. INTEGUMENTARY: No new skin changes or rashes PHYSICAL EXAMINATION: BP 118/70 Pulse 62 Resp 14 Ht 5' 9.25" (1.76m) Wt 159 lb (72.1kg) SpO2 100% BMI 23.31 kg/(m^2). General Appearance: Well appearing, alert, in no acute distress, well-hydrated, well nourished.. Skin: Skin color, texture, turgor normal, no suspicious rashes or lesions. Head: Normocephalic, no masses, lesions, tenderness or abnormalities. Eyes: Sclera, conjunctiva normal. Oropharynx: No oral lesions or thrush. Neck: No JVD, no masses, no adenopathy. Lungs: Not labored, normal to percussion, no wheezes or crackles. Heart: Regular rate and rhythm, no murmurs or gallops. Extremities: No edema or clubbing. Assessment/Plan: 1. Mild persistent asthma, uncomplicated -Exhaled nitric oxide level continues to decline but remains elevated. Patient is compliant with inhaler usage -Currently asymptomatic -Current elevation may be related to recent sinus infection -Will continue Arnuity at 100 mcg a day with as needed albuterol -Surveillance exhaled nitric oxide level. If remains elevated will increase inhaled corticosteroid dosage 2. Allergic rhinitis, unspecified trigger -Currently on maximal therapy consisting of antihistamine, nasal steroids, Singulair -Recommend repeat allergy assessment for possible reinstitution of immunotherapy -Follow-up with Dr. Knox ENT 3. Nasal polyps -Needs reevaluation per ENT -Patient instructed to call Dr. Knox for appointment Mercy Gutiérrez MD [facility] [place] documented in this encounter [facility] 08-14-2023 Procedure note Associated Ord er(s): NITRIC OXIDE, EXHALED RESPIRATORY THERAPY ORAL EXHALED NITRIC OXIDE SERVICE DATE: 08/14/2023 SERVICE TIME: 9:18 AM Oral Exhaled Nitric Oxide measurement: 44.0 (ppb) (A) Normal: Adult 5-20 ppb, pediatric (<12 years) 5-15 ppb High Normal / Increased: Adult 20-35 ppb, pediatric (<12 years) 15-25 ppb Moderately raised exhaled Nitric Oxide may indicate underlying inflammation, but note that: Cold and influenza can raise exhaled Nitric Oxide and some patients have higher baseline exhaled Nitric Oxide levels than others. High: Adult >35 ppb, pediatric (<12 years) >25 ppb Indicative of ongoing eosinophilic inflammation. Symptomatic patient likely to respond to steroids. Possible causes (if already on steroids): Poor compliance, recent allergen exposure, steroid dose inadequate, and steroid resistance. Note that not all patients with high exhaled nitric oxide levels display symptoms. Oral Exhaled Nitric Oxide measurement (Previous Encounters) Test Date Oral Exhaled Nitric Oxide (ppb) 08/14/2023 44.0 (A) 01/24/2023 78.0 (A) 10/30/2022 87.0 (A) 09/04/2022 110.0 (A) NAME: JEFFRY Solo PATIENT NAME: Quintin Sauceda DATE: August 14, 2023 TIME: 9:18 AM documented in this encounter [facility] 08-14-2023 History of Presen t illness Narrative PULM FUNCTION SMARTBLOCK: Provider: Neetu Ochoa PA-C Assisting Tech: Marina Yuan RPFT Exhaled Nitric Oxide: 1 documented in this encounter [facility] 01-24-2023 History of Presen t illness Narrative Images from the original note were not included. Patient: Quintin Sauceda PCP: Meghana Lanier MD CC: follow up HPI: Quintin Sauceda 57 year old male never smoker with PMH significant for asthma, allergies, angioedema and GERD. Patient with a longstanding history of allergies requiring immunotherapy as a child than again approximately 20 years ago. He was doing well until his Covid infection in April 2022. PFTs demonstrate minimal small airways obstruction. Significantly elevated nitric oxide levels. Allergy screen positive for Kurtis grass, Lauren grass, cat and dog dander. IgE level elevated at 134. Current asthma therapy consists of Arnuity, Singulair and as needed Albuterol. Today, patient reports that he has been feeling well. Has not required Albuterol. No significant cough, wheezing or SOB. No nocturnal awakenings. Denies significant PND, sinus congestion or headaches. PAST MEDICAL HISTORY Diagnosis Date Allergic rhinitis, cause unspecified Allergic rhinitis Angioneurotic edema not elsewhere classified Asthma GERD (gastroesophageal reflux disease) Other chronic allergic conjunctivitis Allergic conjunctivitis Allergies: Animal Dander [Othe* Comment:(cat, dog) Dust Mites Grass Pollen Molds [Other] Trees fluticasone (FLONASE) 50 mcg/actuation nasal spray Use 1 [place] in the nose once daily. montelukast (SINGULAIR) 10 mg tablet Take 10 mg by mouth once daily. albuterol HFA (PROVENTIL HFA, VENTOLIN HFA) 90 mcg/actuation inhaler inhale 1 to 2 puffs by mouth and INTO THE LUNGS every 6 hours if needed fluticasone furoate (ARNUITY ELLIPTA) 100 mcg/actuation inhaler Inhale 1 Puff as instructed once daily. CETIRIZINE 10 MG TAB Take one(1) tablet daily at bedtime. Social History Tobacco Use Smoking status: Never Substance Use Topics Alcohol use: Yes Family History Problem Relation Age of Onset Asthma Father Heart Father Coronary Artery Disease Father Hypertension Father Allergies Brother Asthma Brother Asthma Paternal Grandmother PAST SURGICAL HISTORY Procedure Laterality Date ARTHROTOMY KNEE W/SYNOVIAL BIOPSY ONLY 1979 Semilunar cartilage, knee RPR 1ST INGUN HRNA AGE 3 YRS/> REDUCIBLE 1982 Hernia repair, inguinal I reviewed the past medical history, family history, social history and surgical history with changes noted above and updated in EMR. IMMUNIZATIONS Prevnar - xx Pneumovax - 05/26/2020 Influenza - 05/05/2022 COVID-19 - last 03/11/2022 ROS: General: No fever, chills or night sweats. No unintentional weight loss. Appetite good. Eyes, Ears, nose, throat: No post nasal drip, rhinorrhea, purulent nasal discharge, epistaxis. No hoarseness. Vision stable. Cardiac: No angina, edema, orthopnea. Resp: See HPI. GI: No heartburn, dysphagia. Musculoskeletal: No pain. Neuro: No headache, focal weakness, tremor. Skin: No rash. Otherwise negative. PHYSICAL EXAMINATION: BP 112/78 Pulse 65 Resp 15 Wt 71.2 kg (157 lb) SpO2 98% BMI (P) 23.02 kg/m Gen: No acute distress. Cooperative with examination. HEENT: Normocephalic. Sclera, conjunctiva clear. Oral hygeine and dentition good. No thrush. Resp: No stridor, accessory respiratory muscle use, supra-sternal or intercostal retractions. No wheezes, crackles. CV: Regular rythm. Heart tones normal. Radial pulses normal. Abd: Non distended. MSK: No kyphoscoliosis. Ext: Warm and well perfused. No clubbing, cyanosis, edema. Skin: No rash, ecchymoses. Neuro: Mental status normal. Affect normal. No tremor. DATA: Exhaled nitric oxide (Peyton), 01/24/2023: 78 (normal < 20). Test Date Oral Exhaled Nitric Oxide (ppb) 01/24/2023 78.0 (A) 10/30/2022 87.0 (A) 09/04/2022 110.0 (A) PFT, 09/04/2022 Labs Component Latest Ref Rng & Units 10/30/2022 [place] IgE <0.35 kU/l <0.35 [place] Class Class 0 Class 0 [id number] Kurtis Grass <0.35 kU/l 0.51 (H) Kurtis Grass Class Class 0 Class 1 (A) Lauren Grass IgE <0.35 kU/l 0.67 (H) Lauren Grass Class Class 0 Class 1 (A) Short Ragweed IgE <0.35 kU/l <0.35 Short Ragweed Class Class 0 Class 0 Harrington's Quarters IgE <0.35 kU/l <0.35 [place] Class Class 0 Class 0 Cat Dander IgE <0.35 kU/l 0.58 (H) Cat Dander Class Class 0 Class 1 (A) Dog Dander IgE <0.35 kU/l 1.30 (H) Dog Dander Class Class 0 Class 2 (A) Cladosporium herbarum IgE <0.35 kU/l <0.35 Cladosporium herbarum Class Class 0 Class 0 Alternaria tenuis IgE <0.35 kU/l <0.35 Alternaria tenuis Class Class 0 Class 0 D. farinae IgE <0.35 kU/l <0.35 D. farinae Class Class 0 Class 0 IgE <114.0 kU/l 134.0 (H) Abs Eosin <0.46 k/uL 0.45 ASSESSMENT/PLAN: 1. Moderate persistent asthma without complication - ICD9: 493.90, ICD10: J45.40 (primary diagnosis) Symptomatically doing well despite elevated nitric oxide. Peyton has improved significantly. Continue Arnuity ellipta daily. Rinse mouth after each use to help prevent oral thrush. Continue Singulair. Continue Zyrtec and Flonase. Patient with elevated IgE level. He declines referral to allergy at this time stating he feels the best he has since having covid and his asthma/allergies being uncontrolled. Will follow up in 6 months, however, I instructed patient if he has issues, especially when the seasons change to call for a sooner appointment. - NITRIC OXIDE, EXHALED - ARNUITY ELLIPTA 100 MCG/ACTUATION POWDER FOR INHALATION 2. Allergic rhinitis, unspecified seasonality, unspecified trigger - ICD9: 477.9, ICD10: J30.9 See #1. Portions of this documentation were copied and pasted from previous office visit notes in order to provide a cohesive continuity of the history. The note has been reviewed and edited and updated as necessary. Neetu Ochoa PA-C documented in this encounter [facility] 01-24-2023 Nurse Note Intake information documented in the prior visit with JEFFRY Solo today. documented in this encounter [facility] 01-24-2023 Procedure note Associated Ord er(s): NITRIC OXIDE, EXHALED RESPIRATORY THERAPY ORAL EXHALED NITRIC OXIDE SERVICE DATE: 01/24/2023 SERVICE TIME: 1:11 PM Oral Exhaled Nitric Oxide measurement: 78.0 (ppb) (A) Normal: Adult 5-20 ppb, pediatric (<12 years) 5-15 ppb High Normal / Increased: Adult 20-35 ppb, pediatric (<12 years) 15-25 ppb Moderately raised exhaled Nitric Oxide may indicate underlying inflammation, but note that: Cold and influenza can raise exhaled Nitric Oxide and some patients have higher baseline exhaled Nitric Oxide levels than others. High: Adult >35 ppb, pediatric (<12 years) >25 ppb Indicative of ongoing eosinophilic inflammation. Symptomatic patient likely to respond to steroids. Possible causes (if already on steroids): Poor compliance, recent allergen exposure, steroid dose inadequate, and steroid resistance. Note that not all patients with high exhaled nitric oxide levels display symptoms. Oral Exhaled Nitric Oxide measurement (Previous Encounters) Test Date Oral Exhaled Nitric Oxide (ppb) 01/24/2023 78.0 (A) 10/30/2022 87.0 (A) 09/04/2022 110.0 (A) NAME: JEFFRY Solo PATIENT NAME: Quintin Sauceda DATE: January 24, 2023 TIME: 1:11 PM documented in this encounter [facility] 01-24-2023 History of Presen t illness Narrative PULM FUNCTION SMARTBLOCK: Provider: Neetu Ochoa PA-C Assisting Tech: Marina Yuan RPFT Exhaled Nitric Oxide: 1 documented in this encounter [facility] 10-30-2022 Procedure note Associated Ord er(s): NITRIC OXIDE, EXHALED RESPIRATORY THERAPY ORAL EXHALED NITRIC OXIDE SERVICE DATE: 10/30/2022 SERVICE TIME: 3:15 PM Oral Exhaled Nitric Oxide measurement: 87.0 (ppb) (A) Normal: Adult 5-20 ppb, pediatric (<12 years) 5-15 ppb High Normal / Increased: Adult 20-35 ppb, pediatric (<12 years) 15-25 ppb Moderately raised exhaled Nitric Oxide may indicate underlying inflammation, but note that: Cold and influenza can raise exhaled Nitric Oxide and some patients have higher baseline exhaled Nitric Oxide levels than others. High: Adult >35 ppb, pediatric (<12 years) >25 ppb Indicative of ongoing eosinophilic inflammation. Symptomatic patient likely to respond to steroids. Possible causes (if already on steroids): Poor compliance, recent allergen exposure, steroid dose inadequate, and steroid resistance. Note that not all patients with high exhaled nitric oxide levels display symptoms. Oral Exhaled Nitric Oxide measurement (Previous Encounters) Test Date Oral Exhaled Nitric Oxide (ppb) 10/30/2022 87.0 (A) 09/04/2022 110.0 (A) NAME: JEFFRY Solo PATIENT NAME: Quintin Sauceda DATE: October 30, 2022 TIME: 3:15 PM documented in this encounter [facility] 10-30-2022 History of Presen t illness Narrative PULM FUNCTION SMARTBLOCK: Provider: Mercy Gutiérrez MD Assisting Tech: JEFFRY Solo Exhaled Nitric Oxide: 1 documented in this encounter [facility] 09-04-2022 History of Presen t illness Narrative Images from the original note were not included. . [facility] [place] Note Patient name: Quintin Sauceda PCP: Meghana Lanier MD Referring Physician: Same Consultation requested by Dr. Lanier for an opinion regarding asthma. My final recommendations will be communicated back to the requesting physician by way of shared Medical record or letter to requesting physician via US mail. CC: Asthma HPI: Quintin Sauceda 56 year old male never smoker with PMH significant for asthma, allergies, angioedema and GERD being referred for evaluation of his asthma. Has a longstanding history of allergies requiring immunotherapy as a child and then again approximately 20 years ago. History is also notable for idiopathic angioedema and urticaria, previous negative work-up, controlled with daily use of Zyrtec. He has been on Singulair for his allergies for approximately 3 years and Qvar 1 inhalation a day for the same period of time. Asthma symptoms did not manifest until later in life. He had no trouble playing sports in school. Main allergy symptoms consist of wheezing, dyspnea on exertion and chest tightness. He states he was doing well until April of this past year when he developed COVID infection. He was prescribed Paxlovid but did not take therapy. He did not require hospitalization. At the time of his COVID infection he had dry cough which eventually resolved. He then went on to develop problems with his asthma consisting of audible wheezing especially at night, dyspnea on exertion, shortness of breath worsened by exposure to cold air and chest tightness. Asthma has not been controlled over the last several months. He was using his albuterol daily and waking up almost nightly to use his albuterol. Qvar dose increased to 1 inhalation twice daily. He has had 3 courses of oral steroids, just completing a course last week. He has not needed his albuterol for the past 2 weeks. Has known GERD no symptoms at this time. Allergies are controlled with Zyrtec and Singulair. DATA: PFT: Review pulmonary function test show minimal small airways obstruction SERVICE DATE: 09/04/2022 SERVICE TIME: 12:55 PM Oral Exhaled Nitric Oxide measurement: 110.0 (ppb) (A) Labs: Negative C1 esterase inhibitor. Positive eosinophilia IgE normal Imaging / Diagnostic Studies: Chest x-ray from [facility] dated 07/07/22 shows some hyperinflation but no evidence of chronic changes related to COVID infection PAST MEDICAL HISTORY Diagnosis Date Allergic rhinitis, cause unspecified Allergic rhinitis Angioneurotic edema not elsewhere classified Asthma GERD (gastroesophageal reflux disease) Other chronic allergic conjunctivitis Allergic conjunctivitis ALLERGIES Allergen Reactions Animal Dander [Othe* (cat, dog) Dust Mites Grass Pollen Molds [Other] Trees montelukast (SINGULAIR) 10 mg tablet Take 10 mg by mouth once daily. albuterol HFA (PROVENTIL HFA, VENTOLIN HFA) 90 mcg/actuation inhaler inhale 1 to 2 puffs by mouth and INTO THE LUNGS every 6 hours if needed beclomethasone dipropionate (QVAR INHALATION) Inhale as instructed. CETIRIZINE 10 MG TAB Take one(1) tablet daily at bedtime. fluticasone furoate (ARNUITY ELLIPTA) 100 mcg/actuation inhaler Inhale 1 Puff as instructed once daily. Omeprazole (PRILOSEC) 40 mg capsule Take 1 capsule by mouth once daily. (Patient not taking: Reported on 09/04/2022) buPROPion XL (WELLBUTRIN XL) 150 mg 24 hr tablet Take 150 mg by mouth once daily. (Patient not taking: Reported on 09/04/2022) Social History Tobacco Use Smoking status: Never Substance Use Topics Alcohol use: Yes Dentist. Pets: Poodle FAMILY HISTORY Problem Relation Age of Onset Asthma Father Heart Father Coronary Artery Disease Father Hypertension Father Allergies Brother Asthma Brother Asthma Paternal Grandmother PAST SURGICAL HISTORY Procedure Laterality Date ARTHROTOMY KNEE W/SYNOVIAL BIOPSY ONLY 1979 Semilunar cartilage, knee RPR 1ST INGUN HRNA AGE 3 YRS/> REDUCIBLE 1981 Hernia repair, inguinal PMH, Social history, family history and surgical history reviewed and updated in EMR REVIEW OF SYSTEMS: CONSTITUTIONAL: No fevers, chills, nightsweats, unintended weight loss HEENT: Denies headaches. No current nasal congestion/sinus symptoms, problematic allergy problems. EYES: No diplopia or blurry vision, itchy eyes CARDIOVASCULAR: No chest pain, dyspnea, palpitations, orthopnea, PND, edema. PULM: See HPI GI: No dysphagia/odynophagia, problematic reflux, constipation, diarrhea, changes in stool habits : No urinary complaints NEURO: No new balance problems, peripheral weakness/paresthesias or numbness of concern. MUSC-SKEL: No joint pain, swelling, or erythema. PSY: No concerns regarding depression, anxiety INTEGUMENTARY: No new skin changes, rashes, eczema PHYSICAL EXAMINATION: Weight 73.5 kg, BP 128/80, pulse 80, RR 15, SPO2 97% on room air General Appearance: Age-appropriate male, NAD Skin: Skin color, texture, turgor normal, no suspicious rashes or lesions. Head: Normocephalic, no masses, lesions, tenderness or abnormalities. Eyes: Sclera, conjunctiva normal Oropharynx: Normal dentition, no oral lesions, no posterior pharyngeal cobblestoning Neck: No JVD, no masses, no thyromegaly Lungs: Not labored, normal to percussion, no wheezes or crackles Heart: Regular rate and rhythm, no murmurs gallops Extremities: No edema clubbing Musculoskeletal: No joint deformities or effusions Neurologic: No focal findings, alert and oriented Lymph Nodes: No cervical lymphadenopathy and No supraclavicular lymphadenopathy. Assessment/Plan: 1. Moderate persistent asthma, uncomplicated -Poor control of asthma related to COVID infection -Markedly elevated exhaled nitric oxide level but no significant obstruction on spirometry -Increase inhaled corticosteroid. Sent in prescription for Arnuity 100 mcg once a day -Continue albuterol as needed - Continue Singulair and Zyrtec -Repeat Peyton at next visit -May need to consider reevaluation of allergies 2. History of COVID infection -Likely trigger for poor asthma control -No scarring or organizing pneumonia noted on chest imaging Mercy Gutiérrez MD [facility] [place] documented in this encounter [facility] 09-04-2022 Procedure note Associated Ord er(s): NITRIC OXIDE, EXHALED RESPIRATORY THERAPY ORAL EXHALED NITRIC OXIDE SERVICE DATE: 09/04/2022 SERVICE TIME: 12:55 PM Oral Exhaled Nitric Oxide measurement: 110.0 (ppb) (A) Normal: Adult 5-20 ppb, pediatric (<12 years) 5-15 ppb High Normal / Increased: Adult 20-35 ppb, pediatric (<12 years) 15-25 ppb Moderately raised exhaled Nitric Oxide may indicate underlying inflammation, but note that: Cold and influenza can raise exhaled Nitric Oxide and some patients have higher baseline exhaled Nitric Oxide levels than others. High: Adult >35 ppb, pediatric (<12 years) >25 ppb Indicative of ongoing eosinophilic inflammation. Symptomatic patient likely to respond to steroids. Possible causes (if already on steroids): Poor compliance, recent allergen exposure, steroid dose inadequate, and steroid resistance. Note that not all patients with high exhaled nitric oxide levels display symptoms. Oral Exhaled Nitric Oxide measurement (Previous Encounters) Test Date Oral Exhaled Nitric Oxide (ppb) 09/04/2022 110.0 (A) NAME: JEFFRY Solo PATIENT NAME: Quintin Sauceda DATE: September 04, 2022 TIME: 12:55 PM documented in this encounter [facility] 09-04-2022 History of Presen t illness Narrative PULM FUNCTION SMARTBLOCK: Provider: Mercy Gutiérrez MD Assisting Tech: JEFFRY Solo Spirometry w/BD: 1 Exhaled Nitric Oxide: 1 documented in this encounter [facility] 07-06-2022 Microscopic obser vation Gram stain Nom (Sput) [facility] Work Phone: Gram Stain Evaluation [facility] (Normal) Comment on above: This specimen is of good quality and is acceptable for routinebacterial culture. PERFORMED BY: [id number] [facility] [id number] Information: SRC:SP Evaluation note No assessment information availa [facility] Work Phone: Evaluation note Diagnosis Mild intermittent asthma without complication- Primary Unspecified asthma [facility] Diagnosis Mild intermittent asthma without complication Unspecified asthma [facility] Diagnosis Mild intermittent asthma without complication Unspecified asthma [facility] Diagnosis Moderate persistent asthma without complication- Primary Unspecified asthma History of COVID-19 [facility] Diagnosis Moderate persistent asthma without complication Unspecified asthma [facility] Diagnosis Moderate persistent asthma without complication Unspecified asthma [facility] Diagnosis Moderate persistent asthma without complication- Primary Unspecified asthma Allergic rhinitis, unspecified seasonality, unspecified trigger [facility] Diagnosis Mild persistent asthma without complication- Primary Unspecified asthma Allergic rhinitis, unspecified seasonality, unspecified trigger Nasal polyps Unspecified nasal polyp [facility] Diagnosis Mild persistent asthma without complication Unspecified asthma [facility] Diagnosis Multiple allergies- Primary Other allergy, other than to medicinal agents Moderate persistent asthma without complication Unspecified asthma [facility] Diagnosis Moderate persistent asthma without complication Unspecified asthma [facility] Diagnosis Mild intermittent asthma without complication- Primary Unspecified asthma Multiple allergies Other allergy, other than to medicinal agents [facility] Name Dates Details How to Access [facility] Online using Patient Portal and 3rd [employer] Apps Indication:BMI 22.0-22.9, adult Start:24-Sep-2020 Instruction Type:Patient Education Patient Instructions Indication:Cough Start:03-Sep-2020 Instruction Type:Provider Instructions for Treatment How to Access Health Informa tion Online using Patient Portal and [employer] Apps Indication:Cough Start:03-Sep-2020 Instruction Type:Patient Education How to access health informa tion online Indication:Encounter for routine history and physical exam for male Start:12-Dec-2019 Instruction Type:Patient Education How to access health informa tion online - Detail Indication:Encounter for routine history and physical exam for male Start:12-Dec-2019 Instruction Type:Patient Education Patient Instructions Indication:Encounter for routine history and physical exam for male Start:12-Dec-2019 Instruction Type:Provider Instructions for Treatment How to access health informa tion online Indication:Current nonsmoker (Renamed from Current non-smoker) Start:08-Aug-2019 Instruction Type:Patient Education How to access health informa tion online - Detail Indication:Current nonsmoker (Renamed from Current non-smoker) Start:08-Aug-2019 Instruction Type:Patient Education Patient Instructions Indication:Current nonsmoker (Renamed from Current non-smoker) Start:08-Aug-2019 Instruction Type:Provider Instructions for Treatment How to access health informa tion online Indication:Encounter for routine history and physical exam for male Start:22-Nov-2018 Instruction Type:Patient Education How to access health informa tion online - Detail Indication:Encounter for routine history and physical exam for male Start:22-Nov-2018 Instruction Type:Patient Education Patient Instructions Indication:Encounter for routine history and physical exam for male Start:22-Nov-2018 Instruction Type:Provider Instructions for Treatment How to access health informa tion online Indication:Allergic rhinitis Start:07-Dec-2017 Instruction Type:Patient Education How to access health informa tion online - Detail Indication:Allergic rhinitis Start:07-Dec-2017 Instruction Type:Patient Education Patient Instructions Indication:Allergic rhinitis Start:07-Dec-2017 Instruction Type:Provider Instructions for Treatment How to access health informa tion online Indication:Encounter for routine history and physical exam for male Start:03-Aug-2017 Instruction Type:Patient Education How to access health informa tion online - Detail Indication:Encounter for routine history and physical exam for male Start:03-Aug-2017 Instruction Type:Patient Education Patient Instructions Indication:Encounter for routine history and physical exam for male Start:03-Aug-2017 Instruction Type:Provider Instructions for Treatment How to access health informa tion online Indication:Body mass index (BMI) of 21.0 to 21.9 in adult Start:04-Aug-2016 Instruction Type:Patient Education How to access health informa tion online - Detail Indication:Body mass index (BMI) of 21.0 to 21.9 in adult Start:04-Aug-2016 Instruction Type:Patient Education Patient Instructions Indication:Body mass index (BMI) of 21.0 to 21.9 in adult Start:04-Aug-2016 Instruction Type:Provider Instructions for Treatment How to access health informa tion online Indication:Body mass index (BMI) of 21.0 to 21.9 in adult Start:02-Jun-2016 Instruction Type:Patient Education How to access health informa tion online - Detail Indication:Body mass index (BMI) of 21.0 to 21.9 in adult Start:02-Jun-2016 Instruction Type:Patient Education Patient Instructions Indication:Body mass index (BMI) of 21.0 to 21.9 in adult Start:02-Jun-2016 Instruction Type:Provider Instructions for Treatment Patient Instructions Indication:Chest pain Start:09-Oct-2014 Instruction Type:Provider Instructions for Treatment Patient Instructions Indication:Cough Start:11-Sep-2014 Instruction Type:Provider Instructions for Treatment How to access health informa tion online Indication:Sinusitis Start:27-May-2014 Instruction Type:Patient Education How to access health informa tion online - Detail Indication:Sinusitis Start:27-May-2014 Instruction Type:Patient Education Patient Instructions Indication:Sinusitis Start:27-May-2014 Instruction Type:Provider Instructions for Treatment How to access health informa tion online Indication:Sinusitis Start:20-Mar-2014 Instruction Type:Patient Education How to access health informa tion online - Detail Indication:Sinusitis Start:20-Mar-2014 Instruction Type:Patient Education Patient Instructions Indication:Sinusitis Start:20-Mar-2014 Instruction Type:Provider Instructions for Treatment Patient Instructions Indication:Acute sinusitis, unspecified Start:15-Jul-2013 Instruction Type:Provider Instructions for Treatment Patient Instructions Indication:Abdominal pain, acute, left lower quadrant Start:30-Aug-2012 Instruction Type:Provider Instructions for Treatment Patient Instructions Indication:Acute sinusitis, unspecified Start:03-May-2012 Instruction Type:Provider Instructions for Treatment [facility] Work Phone: Instructions* Name Dates Details How to Access Health Informa tion Online using Patient Portal and [employer] Indication:BMI 22.0-22.9, adult Start:24-Sep-2020 Instruction Type:Patient Education Patient Instructions Indication:Cough Start:03-Sep-2020 Instruction Type:Provider Instructions for Treatment How to Access Health Informa tion Online using Patient Portal and [employer] Apps Indication:Cough Start:03-Sep-2020 Instruction Type:Patient Education How to access health informa tion online Indication:Encounter for routine history and physical exam for male Start:12-Dec-2019 Instruction Type:Patient Education How to access health informa tion online - Detail Indication:Encounter for routine history and physical exam for male Start:12-Dec-2019 Instruction Type:Patient Education Patient Instructions Indication:Encounter for routine history and physical exam for male Start:12-Dec-2019 Instruction Type:Provider Instructions for Treatment How to access health informa tion online Indication:Current nonsmoker (Renamed from Current non-smoker) Start:08-Aug-2019 Instruction Type:Patient Education How to access health informa tion online - Detail Indication:Current nonsmoker (Renamed from Current non-smoker) Start:08-Aug-2019 Instruction Type:Patient Education Patient Instructions Indication:Current nonsmoker (Renamed from Current non-smoker) Start:08-Aug-2019 Instruction Type:Provider Instructions for Treatment How to access health informa tion online Indication:Encounter for routine history and physical exam for male Start:22-Nov-2018 Instruction Type:Patient Education How to access health informa tion online - Detail Indication:Encounter for routine history and physical exam for male Start:22-Nov-2018 Instruction Type:Patient Education Patient Instructions Indication:Encounter for routine history and physical exam for male Start:22-Nov-2018 Instruction Type:Provider Instructions for Treatment How to access health informa tion online Indication:Allergic rhinitis Start:07-Dec-2017 Instruction Type:Patient Education How to access health informa tion online - Detail Indication:Allergic rhinitis Start:07-Dec-2017 Instruction Type:Patient Education Patient Instructions Indication:Allergic rhinitis Start:07-Dec-2017 Instruction Type:Provider Instructions for Treatment How to access health informa tion online Indication:Encounter for routine history and physical exam for male Start:03-Aug-2017 Instruction Type:Patient Education How to access health informa tion online - Detail Indication:Encounter for routine history and physical exam for male Start:03-Aug-2017 Instruction Type:Patient Education Patient Instructions Indication:Encounter for routine history and physical exam for male Start:03-Aug-2017 Instruction Type:Provider Instructions for Treatment How to access health informa tion online Indication:Body mass index (BMI) of 21.0 to 21.9 in adult Start:04-Aug-2016 Instruction Type:Patient Education How to access health informa tion online - Detail Indication:Body mass index (BMI) of 21.0 to 21.9 in adult Start:04-Aug-2016 Instruction Type:Patient Education Patient Instructions Indication:Body mass index (BMI) of 21.0 to 21.9 in adult Start:04-Aug-2016 Instruction Type:Provider Instructions for Treatment How to access health informa tion online Indication:Body mass index (BMI) of 21.0 to 21.9 in adult Start:02-Jun-2016 Instruction Type:Patient Education How to access health informa tion online - Detail Indication:Body mass index (BMI) of 21.0 to 21.9 in adult Start:02-Jun-2016 Instruction Type:Patient Education Patient Instructions Indication:Body mass index (BMI) of 21.0 to 21.9 in adult Start:02-Jun-2016 Instruction Type:Provider Instructions for Treatment Patient Instructions Indication:Chest pain Start:09-Oct-2014 Instruction Type:Provider Instructions for Treatment Patient Instructions Indication:Cough Start:11-Sep-2014 Instruction Type:Provider Instructions for Treatment How to access health informa tion online Indication:Sinusitis Start:27-May-2014 Instruction Type:Patient Education How to access health informa tion online - Detail Indication:Sinusitis Start:27-May-2014 Instruction Type:Patient Education Patient Instructions Indication:Sinusitis Start:27-May-2014 Instruction Type:Provider Instructions for Treatment How to access health informa tion online Indication:Sinusitis Start:20-Mar-2014 Instruction Type:Patient Education How to access health informa tion online - Detail Indication:Sinusitis Start:20-Mar-2014 Instruction Type:Patient Education Patient Instructions Indication:Sinusitis Start:20-Mar-2014 Instruction Type:Provider Instructions for Treatment Patient Instructions Indication:Acute sinusitis, unspecified Start:15-Jul-2013 Instruction Type:Provider Instructions for Treatment Patient Instructions Indication:Abdominal pain, acute, left lower quadrant Start:30-Aug-2012 Instruction Type:Provider Instructions for Treatment Patient Instructions Indication:Acute sinusitis, unspecified Start:03-May-2012 Instruction Type:Provider Instructions for Treatment [facility] Work Phone: Instructions* Name Dates Details Patient Instructions Indication:Encounter for routine history and physical exam for male Start:14-Jan-2021 Instruction Type:Provider Instructions for Treatment How to Access Health Informa tion Online using Patient Portal and [employer] Apps Indication:Encounter for routine history and physical exam for male Start:14-Jan-2021 Instruction Type:Patient Education How to Access Health Informa tion Online using Patient Portal and [employer] Apps Indication:BMI 22.0-22.9, adult Start:24-Sep-2020 Instruction Type:Patient Education Patient Instructions Indication:Cough Start:03-Sep-2020 Instruction Type:Provider Instructions for Treatment How to Access Health Informa tion Online using Patient Portal and [employer] Apps Indication:Cough Start:03-Sep-2020 Instruction Type:Patient Education How to access health informa tion online Indication:Encounter for routine history and physical exam for male Start:12-Dec-2019 Instruction Type:Patient Education How to access health informa tion online - Detail Indication:Encounter for routine history and physical exam for male Start:12-Dec-2019 Instruction Type:Patient Education Patient Instructions Indication:Encounter for routine history and physical exam for male Start:12-Dec-2019 Instruction Type:Provider Instructions for Treatment How to access health informa tion online Indication:Current nonsmoker (Renamed from Current non-smoker) Start:08-Aug-2019 Instruction Type:Patient Education How to access health informa tion online - Detail Indication:Current nonsmoker (Renamed from Current non-smoker) Start:08-Aug-2019 Instruction Type:Patient Education Patient Instructions Indication:Current nonsmoker (Renamed from Current non-smoker) Start:08-Aug-2019 Instruction Type:Provider Instructions for Treatment How to access health informa tion online Indication:Encounter for routine history and physical exam for male Start:22-Nov-2018 Instruction Type:Patient Education How to access health informa tion online - Detail Indication:Encounter for routine history and physical exam for male Start:22-Nov-2018 Instruction Type:Patient Education Patient Instructions Indication:Encounter for routine history and physical exam for male Start:22-Nov-2018 Instruction Type:Provider Instructions for Treatment How to access health informa tion online Indication:Allergic rhinitis Start:07-Dec-2017 Instruction Type:Patient Education How to access health informa tion online - Detail Indication:Allergic rhinitis Start:07-Dec-2017 Instruction Type:Patient Education Patient Instructions Indication:Allergic rhinitis Start:07-Dec-2017 Instruction Type:Provider Instructions for Treatment How to access health informa tion online Indication:Encounter for routine history and physical exam for male Start:03-Aug-2017 Instruction Type:Patient Education How to access health informa tion online - Detail Indication:Encounter for routine history and physical exam for male Start:03-Aug-2017 Instruction Type:Patient Education Patient Instructions Indication:Encounter for routine history and physical exam for male Start:03-Aug-2017 Instruction Type:Provider Instructions for Treatment How to access health informa tion online Indication:Body mass index (BMI) of 21.0 to 21.9 in adult Start:04-Aug-2016 Instruction Type:Patient Education How to access health informa tion online - Detail Indication:Body mass index (BMI) of 21.0 to 21.9 in adult Start:04-Aug-2016 Instruction Type:Patient Education Patient Instructions Indication:Body mass index (BMI) of 21.0 to 21.9 in adult Start:04-Aug-2016 Instruction Type:Provider Instructions for Treatment How to access health informa tion online Indication:Body mass index (BMI) of 21.0 to 21.9 in adult Start:02-Jun-2016 Instruction Type:Patient Education How to access health informa tion online - Detail Indication:Body mass index (BMI) of 21.0 to 21.9 in adult Start:02-Jun-2016 Instruction Type:Patient Education Patient Instructions Indication:Body mass index (BMI) of 21.0 to 21.9 in adult Start:02-Jun-2016 Instruction Type:Provider Instructions for Treatment Patient Instructions Indication:Chest pain Start:09-Oct-2014 Instruction Type:Provider Instructions for Treatment Patient Instructions Indication:Cough Start:11-Sep-2014 Instruction Type:Provider Instructions for Treatment How to access health informa tion online Indication:Sinusitis Start:27-May-2014 Instruction Type:Patient Education How to access health informa tion online - Detail Indication:Sinusitis Start:27-May-2014 Instruction Type:Patient Education Patient Instructions Indication:Sinusitis Start:27-May-2014 Instruction Type:Provider Instructions for Treatment How to access health informa tion online Indication:Sinusitis Start:20-Mar-2014 Instruction Type:Patient Education How to access health informa tion online - Detail Indication:Sinusitis Start:20-Mar-2014 Instruction Type:Patient Education Patient Instructions Indication:Sinusitis Start:20-Mar-2014 Instruction Type:Provider Instructions for Treatment Patient Instructions Indication:Acute sinusitis, unspecified Start:15-Jul-2013 Instruction Type:Provider Instructions for Treatment Patient Instructions Indication:Abdominal pain, acute, left lower quadrant Start:30-Aug-2012 Instruction Type:Provider Instructions for Treatment Patient Instructions Indication:Acute sinusitis, unspecified Start:03-May-2012 Instruction Type:Provider Instructions for Treatment [facility] Work Phone: Instructions* Name Dates Details Patient Instructions Indication:Encounter for routine history and physical exam for male Start:14-Jan-2021 Instruction Type:Provider Instructions for Treatment How to Access Health Informa tion Online using Patient Portal and [employer] Apps Indication:Encounter for routine history and physical exam for male Start:14-Jan-2021 Instruction Type:Patient Education How to Access Health Informa tion Online using Patient Portal and [employer] Apps Indication:BMI 22.0-22.9, adult Start:24-Sep-2020 Instruction Type:Patient Education Patient Instructions Indication:Cough Start:03-Sep-2020 Instruction Type:Provider Instructions for Treatment How to Access Health Informa tion Online using Patient Portal and [employer] Apps Indication:Cough Start:03-Sep-2020 Instruction Type:Patient Education How to access health informa tion online Indication:Encounter for routine history and physical exam for male Start:12-Dec-2019 Instruction Type:Patient Education How to access health informa tion online - Detail Indication:Encounter for routine history and physical exam for male Start:12-Dec-2019 Instruction Type:Patient Education Patient Instructions Indication:Encounter for routine history and physical exam for male Start:12-Dec-2019 Instruction Type:Provider Instructions for Treatment How to access health informa tion online Indication:Current nonsmoker (Renamed from Current non-smoker) Start:08-Aug-2019 Instruction Type:Patient Education How to access health informa tion online - Detail Indication:Current nonsmoker (Renamed from Current non-smoker) Start:08-Aug-2019 Instruction Type:Patient Education Patient Instructions Indication:Current nonsmoker (Renamed from Current non-smoker) Start:08-Aug-2019 Instruction Type:Provider Instructions for Treatment How to access health informa tion online Indication:Encounter for routine history and physical exam for male Start:22-Nov-2018 Instruction Type:Patient Education How to access health informa tion online - Detail Indication:Encounter for routine history and physical exam for male Start:22-Nov-2018 Instruction Type:Patient Education Patient Instructions Indication:Encounter for routine history and physical exam for male Start:22-Nov-2018 Instruction Type:Provider Instructions for Treatment How to access health informa tion online Indication:Allergic rhinitis Start:07-Dec-2017 Instruction Type:Patient Education How to access health informa tion online - Detail Indication:Allergic rhinitis Start:07-Dec-2017 Instruction Type:Patient Education Patient Instructions Indication:Allergic rhinitis Start:07-Dec-2017 Instruction Type:Provider Instructions for Treatment How to access health informa tion online Indication:Encounter for routine history and physical exam for male Start:03-Aug-2017 Instruction Type:Patient Education How to access health informa tion online - Detail Indication:Encounter for routine history and physical exam for male Start:03-Aug-2017 Instruction Type:Patient Education Patient Instructions Indication:Encounter for routine history and physical exam for male Start:03-Aug-2017 Instruction Type:Provider Instructions for Treatment How to access health informa tion online Indication:Body mass index (BMI) of 21.0 to 21.9 in adult Start:04-Aug-2016 Instruction Type:Patient Education How to access health informa tion online - Detail Indication:Body mass index (BMI) of 21.0 to 21.9 in adult Start:04-Aug-2016 Instruction Type:Patient Education Patient Instructions Indication:Body mass index (BMI) of 21.0 to 21.9 in adult Start:04-Aug-2016 Instruction Type:Provider Instructions for Treatment How to access health informa tion online Indication:Body mass index (BMI) of 21.0 to 21.9 in adult Start:02-Jun-2016 Instruction Type:Patient Education How to access health informa tion online - Detail Indication:Body mass index (BMI) of 21.0 to 21.9 in adult Start:02-Jun-2016 Instruction Type:Patient Education Patient Instructions Indication:Body mass index (BMI) of 21.0 to 21.9 in adult Start:02-Jun-2016 Instruction Type:Provider Instructions for Treatment Patient Instructions Indication:Chest pain Start:09-Oct-2014 Instruction Type:Provider Instructions for Treatment Patient Instructions Indication:Cough Start:11-Sep-2014 Instruction Type:Provider Instructions for Treatment How to access health informa tion online Indication:Sinusitis Start:27-May-2014 Instruction Type:Patient Education How to access health informa tion online - Detail Indication:Sinusitis Start:27-May-2014 Instruction Type:Patient Education Patient Instructions Indication:Sinusitis Start:27-May-2014 Instruction Type:Provider Instructions for Treatment How to access health informa tion online Indication:Sinusitis Start:20-Mar-2014 Instruction Type:Patient Education How to access health informa tion online - Detail Indication:Sinusitis Start:20-Mar-2014 Instruction Type:Patient Education Patient Instructions Indication:Sinusitis Start:20-Mar-2014 Instruction Type:Provider Instructions for Treatment Patient Instructions Indication:Acute sinusitis, unspecified Start:15-Jul-2013 Instruction Type:Provider Instructions for Treatment Patient Instructions Indication:Abdominal pain, acute, left lower quadrant Start:30-Aug-2012 Instruction Type:Provider Instructions for Treatment Patient Instructions Indication:Acute sinusitis, unspecified Start:03-May-2012 Instruction Type:Provider Instructions for Treatment [facility] Work Phone: Instructions* Name Dates Details Patient Instructions Indication:Encounter for routine history and physical exam for male Start:14-Jan-2021 Instruction Type:Provider Instructions for Treatment How to Access Health Informa tion Online using Patient Portal and [employer] Apps Indication:Encounter for routine history and physical exam for male Start:14-Jan-2021 Instruction Type:Patient Education How to Access Health Informa tion Online using Patient Portal and [employer] Apps Indication:BMI 22.0-22.9, adult Start:24-Sep-2020 Instruction Type:Patient Education Patient Instructions Indication:Cough Start:03-Sep-2020 Instruction Type:Provider Instructions for Treatment How to Access Health Informa tion Online using Patient Portal and [employer] Apps Indication:Cough Start:03-Sep-2020 Instruction Type:Patient Education How to access health informa tion online Indication:Encounter for routine history and physical exam for male Start:12-Dec-2019 Instruction Type:Patient Education How to access health informa tion online - Detail Indication:Encounter for routine history and physical exam for male Start:12-Dec-2019 Instruction Type:Patient Education Patient Instructions Indication:Encounter for routine history and physical exam for male Start:12-Dec-2019 Instruction Type:Provider Instructions for Treatment How to access health informa tion online Indication:Current nonsmoker (Renamed from Current non-smoker) Start:08-Aug-2019 Instruction Type:Patient Education How to access health informa tion online - Detail Indication:Current nonsmoker (Renamed from Current non-smoker) Start:08-Aug-2019 Instruction Type:Patient Education Patient Instructions Indication:Current nonsmoker (Renamed from Current non-smoker) Start:08-Aug-2019 Instruction Type:Provider Instructions for Treatment How to access health informa tion online Indication:Encounter for routine history and physical exam for male Start:22-Nov-2018 Instruction Type:Patient Education How to access health informa tion online - Detail Indication:Encounter for routine history and physical exam for male Start:22-Nov-2018 Instruction Type:Patient Education Patient Instructions Indication:Encounter for routine history and physical exam for male Start:22-Nov-2018 Instruction Type:Provider Instructions for Treatment How to access health informa tion online Indication:Allergic rhinitis Start:07-Dec-2017 Instruction Type:Patient Education How to access health informa tion online - Detail Indication:Allergic rhinitis Start:07-Dec-2017 Instruction Type:Patient Education Patient Instructions Indication:Allergic rhinitis Start:07-Dec-2017 Instruction Type:Provider Instructions for Treatment How to access health informa tion online Indication:Encounter for routine history and physical exam for male Start:03-Aug-2017 Instruction Type:Patient Education How to access health informa tion online - Detail Indication:Encounter for routine history and physical exam for male Start:03-Aug-2017 Instruction Type:Patient Education Patient Instructions Indication:Encounter for routine history and physical exam for male Start:03-Aug-2017 Instruction Type:Provider Instructions for Treatment How to access health informa tion online Indication:Body mass index (BMI) of 21.0 to 21.9 in adult Start:04-Aug-2016 Instruction Type:Patient Education How to access health informa tion online - Detail Indication:Body mass index (BMI) of 21.0 to 21.9 in adult Start:04-Aug-2016 Instruction Type:Patient Education Patient Instructions Indication:Body mass index (BMI) of 21.0 to 21.9 in adult Start:04-Aug-2016 Instruction Type:Provider Instructions for Treatment How to access health informa tion online Indication:Body mass index (BMI) of 21.0 to 21.9 in adult Start:02-Jun-2016 Instruction Type:Patient Education How to access health informa tion online - Detail Indication:Body mass index (BMI) of 21.0 to 21.9 in adult Start:02-Jun-2016 Instruction Type:Patient Education Patient Instructions Indication:Body mass index (BMI) of 21.0 to 21.9 in adult Start:02-Jun-2016 Instruction Type:Provider Instructions for Treatment Patient Instructions Indication:Chest pain Start:09-Oct-2014 Instruction Type:Provider Instructions for Treatment Patient Instructions Indication:Cough Start:11-Sep-2014 Instruction Type:Provider Instructions for Treatment How to access health informa tion online Indication:Sinusitis Start:27-May-2014 Instruction Type:Patient Education How to access health informa tion online - Detail Indication:Sinusitis Start:27-May-2014 Instruction Type:Patient Education Patient Instructions Indication:Sinusitis Start:27-May-2014 Instruction Type:Provider Instructions for Treatment How to access health informa tion online Indication:Sinusitis Start:20-Mar-2014 Instruction Type:Patient Education How to access health informa tion online - Detail Indication:Sinusitis Start:20-Mar-2014 Instruction Type:Patient Education Patient Instructions Indication:Sinusitis Start:20-Mar-2014 Instruction Type:Provider Instructions for Treatment Patient Instructions Indication:Acute sinusitis, unspecified Start:15-Jul-2013 Instruction Type:Provider Instructions for Treatment Patient Instructions Indication:Abdominal pain, acute, left lower quadrant Start:30-Aug-2012 Instruction Type:Provider Instructions for Treatment Patient Instructions Indication:Acute sinusitis, unspecified Start:03-May-2012 Instruction Type:Provider Instructions for Treatment [facility] Work Phone: Instructions* Name Dates Details Patient Instructions Indication:Encounter for routine history and physical exam for male Start:14-Jan-2021 Instruction Type:Provider Instructions for Treatment How to Access Health Informa tion Online using Patient Portal and [employer] Apps Indication:Encounter for routine history and physical exam for male Start:14-Jan-2021 Instruction Type:Patient Education How to Access Health Informa tion Online using Patient Portal and [employer] Apps Indication:BMI 22.0-22.9, adult Start:24-Sep-2020 Instruction Type:Patient Education Patient Instructions Indication:Cough Start:03-Sep-2020 Instruction Type:Provider Instructions for Treatment How to Access Health Informa tion Online using Patient Portal and [employer] Apps Indication:Cough Start:03-Sep-2020 Instruction Type:Patient Education How to access health informa tion online Indication:Encounter for routine history and physical exam for male Start:12-Dec-2019 Instruction Type:Patient Education How to access health informa tion online - Detail Indication:Encounter for routine history and physical exam for male Start:12-Dec-2019 Instruction Type:Patient Education Patient Instructions Indication:Encounter for routine history and physical exam for male Start:12-Dec-2019 Instruction Type:Provider Instructions for Treatment How to access health informa tion online Indication:Current nonsmoker (Renamed from Current non-smoker) Start:08-Aug-2019 Instruction Type:Patient Education How to access health informa tion online - Detail Indication:Current nonsmoker (Renamed from Current non-smoker) Start:08-Aug-2019 Instruction Type:Patient Education Patient Instructions Indication:Current nonsmoker (Renamed from Current non-smoker) Start:08-Aug-2019 Instruction Type:Provider Instructions for Treatment How to access health informa tion online Indication:Encounter for routine history and physical exam for male Start:22-Nov-2018 Instruction Type:Patient Education How to access health informa tion online - Detail Indication:Encounter for routine history and physical exam for male Start:22-Nov-2018 Instruction Type:Patient Education Patient Instructions Indication:Encounter for routine history and physical exam for male Start:22-Nov-2018 Instruction Type:Provider Instructions for Treatment How to access health informa tion online Indication:Allergic rhinitis Start:07-Dec-2017 Instruction Type:Patient Education How to access health informa tion online - Detail Indication:Allergic rhinitis Start:07-Dec-2017 Instruction Type:Patient Education Patient Instructions Indication:Allergic rhinitis Start:07-Dec-2017 Instruction Type:Provider Instructions for Treatment How to access health informa tion online Indication:Encounter for routine history and physical exam for male Start:03-Aug-2017 Instruction Type:Patient Education How to access health informa tion online - Detail Indication:Encounter for routine history and physical exam for male Start:03-Aug-2017 Instruction Type:Patient Education Patient Instructions Indication:Encounter for routine history and physical exam for male Start:03-Aug-2017 Instruction Type:Provider Instructions for Treatment How to access health informa tion online Indication:Body mass index (BMI) of 21.0 to 21.9 in adult Start:04-Aug-2016 Instruction Type:Patient Education How to access health informa tion online - Detail Indication:Body mass index (BMI) of 21.0 to 21.9 in adult Start:04-Aug-2016 Instruction Type:Patient Education Patient Instructions Indication:Body mass index (BMI) of 21.0 to 21.9 in adult Start:04-Aug-2016 Instruction Type:Provider Instructions for Treatment How to access health informa tion online Indication:Body mass index (BMI) of 21.0 to 21.9 in adult Start:02-Jun-2016 Instruction Type:Patient Education How to access health informa tion online - Detail Indication:Body mass index (BMI) of 21.0 to 21.9 in adult Start:02-Jun-2016 Instruction Type:Patient Education Patient Instructions Indication:Body mass index (BMI) of 21.0 to 21.9 in adult Start:02-Jun-2016 Instruction Type:Provider Instructions for Treatment Patient Instructions Indication:Chest pain Start:09-Oct-2014 Instruction Type:Provider Instructions for Treatment Patient Instructions Indication:Cough Start:11-Sep-2014 Instruction Type:Provider Instructions for Treatment How to access health informa tion online Indication:Sinusitis Start:27-May-2014 Instruction Type:Patient Education How to access health informa tion online - Detail Indication:Sinusitis Start:27-May-2014 Instruction Type:Patient Education Patient Instructions Indication:Sinusitis Start:27-May-2014 Instruction Type:Provider Instructions for Treatment How to access health informa tion online Indication:Sinusitis Start:20-Mar-2014 Instruction Type:Patient Education How to access health informa tion online - Detail Indication:Sinusitis Start:20-Mar-2014 Instruction Type:Patient Education Patient Instructions Indication:Sinusitis Start:20-Mar-2014 Instruction Type:Provider Instructions for Treatment Patient Instructions Indication:Acute sinusitis, unspecified Start:15-Jul-2013 Instruction Type:Provider Instructions for Treatment Patient Instructions Indication:Abdominal pain, acute, left lower quadrant Start:30-Aug-2012 Instruction Type:Provider Instructions for Treatment Patient Instructions Indication:Acute sinusitis, unspecified Start:03-May-2012 Instruction Type:Provider Instructions for Treatment [facility] Work Phone: Instructions* Name Dates Details Patient Instructions Indication:Encounter for routine history and physical exam for male Start:14-Jan-2021 Instruction Type:Provider Instructions for Treatment How to Access Health Informa tion Online using Patient Portal and [employer] Apps Indication:Encounter for routine history and physical exam for male Start:14-Jan-2021 Instruction Type:Patient Education How to Access Health Informa tion Online using Patient Portal and [employer] Apps Indication:BMI 22.0-22.9, adult Start:24-Sep-2020 Instruction Type:Patient Education Patient Instructions Indication:Cough Start:03-Sep-2020 Instruction Type:Provider Instructions for Treatment How to Access Health Informa tion Online using Patient Portal and [employer] Apps Indication:Cough Start:03-Sep-2020 Instruction Type:Patient Education How to access health informa tion online Indication:Encounter for routine history and physical exam for male Start:12-Dec-2019 Instruction Type:Patient Education How to access health informa tion online - Detail Indication:Encounter for routine history and physical exam for male Start:12-Dec-2019 Instruction Type:Patient Education Patient Instructions Indication:Encounter for routine history and physical exam for male Start:12-Dec-2019 Instruction Type:Provider Instructions for Treatment How to access health informa tion online Indication:Current nonsmoker (Renamed from Current non-smoker) Start:08-Aug-2019 Instruction Type:Patient Education How to access health informa tion online - Detail Indication:Current nonsmoker (Renamed from Current non-smoker) Start:08-Aug-2019 Instruction Type:Patient Education Patient Instructions Indication:Current nonsmoker (Renamed from Current non-smoker) Start:08-Aug-2019 Instruction Type:Provider Instructions for Treatment How to access health informa tion online Indication:Encounter for routine history and physical exam for male Start:22-Nov-2018 Instruction Type:Patient Education How to access health informa tion online - Detail Indication:Encounter for routine history and physical exam for male Start:22-Nov-2018 Instruction Type:Patient Education Patient Instructions Indication:Encounter for routine history and physical exam for male Start:22-Nov-2018 Instruction Type:Provider Instructions for Treatment How to access health informa tion online Indication:Allergic rhinitis Start:07-Dec-2017 Instruction Type:Patient Education How to access health informa tion online - Detail Indication:Allergic rhinitis Start:07-Dec-2017 Instruction Type:Patient Education Patient Instructions Indication:Allergic rhinitis Start:07-Dec-2017 Instruction Type:Provider Instructions for Treatment How to access health informa tion online Indication:Encounter for routine history and physical exam for male Start:03-Aug-2017 Instruction Type:Patient Education How to access health informa tion online - Detail Indication:Encounter for routine history and physical exam for male Start:03-Aug-2017 Instruction Type:Patient Education Patient Instructions Indication:Encounter for routine history and physical exam for male Start:03-Aug-2017 Instruction Type:Provider Instructions for Treatment How to access health informa tion online Indication:Body mass index (BMI) of 21.0 to 21.9 in adult Start:04-Aug-2016 Instruction Type:Patient Education How to access health informa tion online - Detail Indication:Body mass index (BMI) of 21.0 to 21.9 in adult Start:04-Aug-2016 Instruction Type:Patient Education Patient Instructions Indication:Body mass index (BMI) of 21.0 to 21.9 in adult Start:04-Aug-2016 Instruction Type:Provider Instructions for Treatment How to access health informa tion online Indication:Body mass index (BMI) of 21.0 to 21.9 in adult Start:02-Jun-2016 Instruction Type:Patient Education How to access health informa tion online - Detail Indication:Body mass index (BMI) of 21.0 to 21.9 in adult Start:02-Jun-2016 Instruction Type:Patient Education Patient Instructions Indication:Body mass index (BMI) of 21.0 to 21.9 in adult Start:02-Jun-2016 Instruction Type:Provider Instructions for Treatment Patient Instructions Indication:Chest pain Start:09-Oct-2014 Instruction Type:Provider Instructions for Treatment Patient Instructions Indication:Cough Start:11-Sep-2014 Instruction Type:Provider Instructions for Treatment How to access health informa tion online Indication:Sinusitis Start:27-May-2014 Instruction Type:Patient Education How to access health informa tion online - Detail Indication:Sinusitis Start:27-May-2014 Instruction Type:Patient Education Patient Instructions Indication:Sinusitis Start:27-May-2014 Instruction Type:Provider Instructions for Treatment How to access health informa tion online Indication:Sinusitis Start:20-Mar-2014 Instruction Type:Patient Education How to access health informa tion online - Detail Indication:Sinusitis Start:20-Mar-2014 Instruction Type:Patient Education Patient Instructions Indication:Sinusitis Start:20-Mar-2014 Instruction Type:Provider Instructions for Treatment Patient Instructions Indication:Acute sinusitis, unspecified Start:15-Jul-2013 Instruction Type:Provider Instructions for Treatment Patient Instructions Indication:Abdominal pain, acute, left lower quadrant Start:30-Aug-2012 Instruction Type:Provider Instructions for Treatment Patient Instructions Indication:Acute sinusitis, unspecified Start:03-May-2012 Instruction Type:Provider Instructions for Treatment [facility]; [facility] Work Phone: Instructions* Name Dates Details Patient Instructions Indication:Encounter for routine history and physical exam for male Start:14-Jan-2021 Instruction Type:Provider Instructions for Treatment How to Access Health Informa tion Online using Patient Portal and [employer] Apps Indication:Encounter for routine history and physical exam for male Start:14-Jan-2021 Instruction Type:Patient Education How to Access Health Informa tion Online using Patient Portal and [employer] Apps Indication:BMI 22.0-22.9, adult Start:24-Sep-2020 Instruction Type:Patient Education Patient Instructions Indication:Cough Start:03-Sep-2020 Instruction Type:Provider Instructions for Treatment How to Access Health Informa tion Online using Patient Portal and [employer] Apps Indication:Cough Start:03-Sep-2020 Instruction Type:Patient Education How to access health informa tion online Indication:Encounter for routine history and physical exam for male Start:12-Dec-2019 Instruction Type:Patient Education How to access health informa tion online - Detail Indication:Encounter for routine history and physical exam for male Start:12-Dec-2019 Instruction Type:Patient Education Patient Instructions Indication:Encounter for routine history and physical exam for male Start:12-Dec-2019 Instruction Type:Provider Instructions for Treatment How to access health informa tion online Indication:Current nonsmoker (Renamed from Current non-smoker) Start:08-Aug-2019 Instruction Type:Patient Education How to access health informa tion online - Detail Indication:Current nonsmoker (Renamed from Current non-smoker) Start:08-Aug-2019 Instruction Type:Patient Education Patient Instructions Indication:Current nonsmoker (Renamed from Current non-smoker) Start:08-Aug-2019 Instruction Type:Provider Instructions for Treatment How to access health informa tion online Indication:Encounter for routine history and physical exam for male Start:22-Nov-2018 Instruction Type:Patient Education How to access health informa tion online - Detail Indication:Encounter for routine history and physical exam for male Start:22-Nov-2018 Instruction Type:Patient Education Patient Instructions Indication:Encounter for routine history and physical exam for male Start:22-Nov-2018 Instruction Type:Provider Instructions for Treatment How to access health informa tion online Indication:Allergic rhinitis Start:07-Dec-2017 Instruction Type:Patient Education How to access health informa tion online - Detail Indication:Allergic rhinitis Start:07-Dec-2017 Instruction Type:Patient Education Patient Instructions Indication:Allergic rhinitis Start:07-Dec-2017 Instruction Type:Provider Instructions for Treatment How to access health informa tion online Indication:Encounter for routine history and physical exam for male Start:03-Aug-2017 Instruction Type:Patient Education How to access health informa tion online - Detail Indication:Encounter for routine history and physical exam for male Start:03-Aug-2017 Instruction Type:Patient Education Patient Instructions Indication:Encounter for routine history and physical exam for male Start:03-Aug-2017 Instruction Type:Provider Instructions for Treatment How to access health informa tion online Indication:Body mass index (BMI) of 21.0 to 21.9 in adult Start:04-Aug-2016 Instruction Type:Patient Education How to access health informa tion online - Detail Indication:Body mass index (BMI) of 21.0 to 21.9 in adult Start:04-Aug-2016 Instruction Type:Patient Education Patient Instructions Indication:Body mass index (BMI) of 21.0 to 21.9 in adult Start:04-Aug-2016 Instruction Type:Provider Instructions for Treatment How to access health informa tion online Indication:Body mass index (BMI) of 21.0 to 21.9 in adult Start:02-Jun-2016 Instruction Type:Patient Education How to access health informa tion online - Detail Indication:Body mass index (BMI) of 21.0 to 21.9 in adult Start:02-Jun-2016 Instruction Type:Patient Education Patient Instructions Indication:Body mass index (BMI) of 21.0 to 21.9 in adult Start:02-Jun-2016 Instruction Type:Provider Instructions for Treatment Patient Instructions Indication:Chest pain Start:09-Oct-2014 Instruction Type:Provider Instructions for Treatment Patient Instructions Indication:Cough Start:11-Sep-2014 Instruction Type:Provider Instructions for Treatment How to access health informa tion online Indication:Sinusitis Start:27-May-2014 Instruction Type:Patient Education How to access health informa tion online - Detail Indication:Sinusitis Start:27-May-2014 Instruction Type:Patient Education Patient Instructions Indication:Sinusitis Start:27-May-2014 Instruction Type:Provider Instructions for Treatment How to access health informa tion online Indication:Sinusitis Start:20-Mar-2014 Instruction Type:Patient Education How to access health informa tion online - Detail Indication:Sinusitis Start:20-Mar-2014 Instruction Type:Patient Education Patient Instructions Indication:Sinusitis Start:20-Mar-2014 Instruction Type:Provider Instructions for Treatment Patient Instructions Indication:Acute sinusitis, unspecified Start:15-Jul-2013 Instruction Type:Provider Instructions for Treatment Patient Instructions Indication:Abdominal pain, acute, left lower quadrant Start:30-Aug-2012 Instruction Type:Provider Instructions for Treatment Patient Instructions Indication:Acute sinusitis, unspecified Start:03-May-2012 Instruction Type:Provider Instructions for Treatment [facility]; [facility] Work Phone: Instructions* Name Dates Details Patient Instructions Indication:Current nonsmoker (Renamed from Current non-smoker) Start:12-Jun-2022 Instruction Type:Provider Instructions for Treatment How to Access Health Informa tion Online using Patient Portal and [employer] Apps Indication:Current nonsmoker (Renamed from Current non-smoker) Start:12-Jun-2022 Instruction Type:Patient Education Patient Instructions Indication:Encounter for routine history and physical exam for male Start:14-Jan-2021 Instruction Type:Provider Instructions for Treatment How to Access Health Informa tion Online using Patient Portal and [employer] Apps Indication:Encounter for routine history and physical exam for male Start:14-Jan-2021 Instruction Type:Patient Education How to Access Health Informa tion Online using Patient Portal and [employer] Apps Indication:BMI 22.0-22.9, adult Start:24-Sep-2020 Instruction Type:Patient Education Patient Instructions Indication:Cough Start:03-Sep-2020 Instruction Type:Provider Instructions for Treatment How to Access Health Informa tion Online using Patient Portal and [employer] Apps Indication:Cough Start:03-Sep-2020 Instruction Type:Patient Education How to access health informa tion online Indication:Encounter for routine history and physical exam for male Start:12-Dec-2019 Instruction Type:Patient Education How to access health informa tion online - Detail Indication:Encounter for routine history and physical exam for male Start:12-Dec-2019 Instruction Type:Patient Education Patient Instructions Indication:Encounter for routine history and physical exam for male Start:12-Dec-2019 Instruction Type:Provider Instructions for Treatment How to access health informa tion online Indication:Current nonsmoker (Renamed from Current non-smoker) Start:08-Aug-2019 Instruction Type:Patient Education How to access health informa tion online - Detail Indication:Current nonsmoker (Renamed from Current non-smoker) Start:08-Aug-2019 Instruction Type:Patient Education Patient Instructions Indication:Current nonsmoker (Renamed from Current non-smoker) Start:08-Aug-2019 Instruction Type:Provider Instructions for Treatment How to access health informa tion online Indication:Encounter for routine history and physical exam for male Start:22-Nov-2018 Instruction Type:Patient Education How to access health informa tion online - Detail Indication:Encounter for routine history and physical exam for male Start:22-Nov-2018 Instruction Type:Patient Education Patient Instructions Indication:Encounter for routine history and physical exam for male Start:22-Nov-2018 Instruction Type:Provider Instructions for Treatment How to access health informa tion online Indication:Allergic rhinitis Start:07-Dec-2017 Instruction Type:Patient Education How to access health informa tion online - Detail Indication:Allergic rhinitis Start:07-Dec-2017 Instruction Type:Patient Education Patient Instructions Indication:Allergic rhinitis Start:07-Dec-2017 Instruction Type:Provider Instructions for Treatment How to access health informa tion online Indication:Encounter for routine history and physical exam for male Start:03-Aug-2017 Instruction Type:Patient Education How to access health informa tion online - Detail Indication:Encounter for routine history and physical exam for male Start:03-Aug-2017 Instruction Type:Patient Education Patient Instructions Indication:Encounter for routine history and physical exam for male Start:03-Aug-2017 Instruction Type:Provider Instructions for Treatment How to access health informa tion online Indication:Body mass index (BMI) of 21.0 to 21.9 in adult Start:04-Aug-2016 Instruction Type:Patient Education How to access health informa tion online - Detail Indication:Body mass index (BMI) of 21.0 to 21.9 in adult Start:04-Aug-2016 Instruction Type:Patient Education Patient Instructions Indication:Body mass index (BMI) of 21.0 to 21.9 in adult Start:04-Aug-2016 Instruction Type:Provider Instructions for Treatment How to access health informa tion online Indication:Body mass index (BMI) of 21.0 to 21.9 in adult Start:02-Jun-2016 Instruction Type:Patient Education How to access health informa tion online - Detail Indication:Body mass index (BMI) of 21.0 to 21.9 in adult Start:02-Jun-2016 Instruction Type:Patient Education Patient Instructions Indication:Body mass index (BMI) of 21.0 to 21.9 in adult Start:02-Jun-2016 Instruction Type:Provider Instructions for Treatment Patient Instructions Indication:Chest pain Start:09-Oct-2014 Instruction Type:Provider Instructions for Treatment Patient Instructions Indication:Cough Start:11-Sep-2014 Instruction Type:Provider Instructions for Treatment How to access health informa tion online Indication:Sinusitis Start:27-May-2014 Instruction Type:Patient Education How to access health informa tion online - Detail Indication:Sinusitis Start:27-May-2014 Instruction Type:Patient Education Patient Instructions Indication:Sinusitis Start:27-May-2014 Instruction Type:Provider Instructions for Treatment How to access health informa tion online Indication:Sinusitis Start:20-Mar-2014 Instruction Type:Patient Education How to access health informa tion online - Detail Indication:Sinusitis Start:20-Mar-2014 Instruction Type:Patient Education Patient Instructions Indication:Sinusitis Start:20-Mar-2014 Instruction Type:Provider Instructions for Treatment Patient Instructions Indication:Acute sinusitis, unspecified Start:15-Jul-2013 Instruction Type:Provider Instructions for Treatment Patient Instructions Indication:Abdominal pain, acute, left lower quadrant Start:30-Aug-2012 Instruction Type:Provider Instructions for Treatment Patient Instructions Indication:Acute sinusitis, unspecified Start:03-May-2012 Instruction Type:Provider Instructions for Treatment [facility]; [facility] Work Phone: Instructions* Name Dates Details Patient Instructions Indication:Current nonsmoker (Renamed from Current non-smoker) Start:12-Jun-2022 Instruction Type:Provider Instructions for Treatment How to Access Health Informa tion Online using Patient Portal and [employer] Apps Indication:Current nonsmoker (Renamed from Current non-smoker) Start:12-Jun-2022 Instruction Type:Patient Education Patient Instructions Indication:Encounter for routine history and physical exam for male Start:14-Jan-2021 Instruction Type:Provider Instructions for Treatment How to Access Health Informa tion Online using Patient Portal and [employer] Apps Indication:Encounter for routine history and physical exam for male Start:14-Jan-2021 Instruction Type:Patient Education How to Access Health Informa tion Online using Patient Portal and [employer] Apps Indication:BMI 22.0-22.9, adult Start:24-Sep-2020 Instruction Type:Patient Education Patient Instructions Indication:Cough Start:03-Sep-2020 Instruction Type:Provider Instructions for Treatment How to Access Health Informa tion Online using Patient Portal and [employer] Apps Indication:Cough Start:03-Sep-2020 Instruction Type:Patient Education How to access health informa tion online Indication:Encounter for routine history and physical exam for male Start:12-Dec-2019 Instruction Type:Patient Education How to access health informa tion online - Detail Indication:Encounter for routine history and physical exam for male Start:12-Dec-2019 Instruction Type:Patient Education Patient Instructions Indication:Encounter for routine history and physical exam for male Start:12-Dec-2019 Instruction Type:Provider Instructions for Treatment How to access health informa tion online Indication:Current nonsmoker (Renamed from Current non-smoker) Start:08-Aug-2019 Instruction Type:Patient Education How to access health informa tion online - Detail Indication:Current nonsmoker (Renamed from Current non-smoker) Start:08-Aug-2019 Instruction Type:Patient Education Patient Instructions Indication:Current nonsmoker (Renamed from Current non-smoker) Start:08-Aug-2019 Instruction Type:Provider Instructions for Treatment How to access health informa tion online Indication:Encounter for routine history and physical exam for male Start:22-Nov-2018 Instruction Type:Patient Education How to access health informa tion online - Detail Indication:Encounter for routine history and physical exam for male Start:22-Nov-2018 Instruction Type:Patient Education Patient Instructions Indication:Encounter for routine history and physical exam for male Start:22-Nov-2018 Instruction Type:Provider Instructions for Treatment How to access health informa tion online Indication:Allergic rhinitis Start:07-Dec-2017 Instruction Type:Patient Education How to access health informa tion online - Detail Indication:Allergic rhinitis Start:07-Dec-2017 Instruction Type:Patient Education Patient Instructions Indication:Allergic rhinitis Start:07-Dec-2017 Instruction Type:Provider Instructions for Treatment How to access health informa tion online Indication:Encounter for routine history and physical exam for male Start:03-Aug-2017 Instruction Type:Patient Education How to access health informa tion online - Detail Indication:Encounter for routine history and physical exam for male Start:03-Aug-2017 Instruction Type:Patient Education Patient Instructions Indication:Encounter for routine history and physical exam for male Start:03-Aug-2017 Instruction Type:Provider Instructions for Treatment How to access health informa tion online Indication:Body mass index (BMI) of 21.0 to 21.9 in adult Start:04-Aug-2016 Instruction Type:Patient Education How to access health informa tion online - Detail Indication:Body mass index (BMI) of 21.0 to 21.9 in adult Start:04-Aug-2016 Instruction Type:Patient Education Patient Instructions Indication:Body mass index (BMI) of 21.0 to 21.9 in adult Start:04-Aug-2016 Instruction Type:Provider Instructions for Treatment How to access health informa tion online Indication:Body mass index (BMI) of 21.0 to 21.9 in adult Start:02-Jun-2016 Instruction Type:Patient Education How to access health informa tion online - Detail Indication:Body mass index (BMI) of 21.0 to 21.9 in adult Start:02-Jun-2016 Instruction Type:Patient Education Patient Instructions Indication:Body mass index (BMI) of 21.0 to 21.9 in adult Start:02-Jun-2016 Instruction Type:Provider Instructions for Treatment Patient Instructions Indication:Chest pain Start:09-Oct-2014 Instruction Type:Provider Instructions for Treatment Patient Instructions Indication:Cough Start:11-Sep-2014 Instruction Type:Provider Instructions for Treatment How to access health informa tion online Indication:Sinusitis Start:27-May-2014 Instruction Type:Patient Education How to access health informa tion online - Detail Indication:Sinusitis Start:27-May-2014 Instruction Type:Patient Education Patient Instructions Indication:Sinusitis Start:27-May-2014 Instruction Type:Provider Instructions for Treatment How to access health informa tion online Indication:Sinusitis Start:20-Mar-2014 Instruction Type:Patient Education How to access health informa tion online - Detail Indication:Sinusitis Start:20-Mar-2014 Instruction Type:Patient Education Patient Instructions Indication:Sinusitis Start:20-Mar-2014 Instruction Type:Provider Instructions for Treatment Patient Instructions Indication:Acute sinusitis, unspecified Start:15-Jul-2013 Instruction Type:Provider Instructions for Treatment Patient Instructions Indication:Abdominal pain, acute, left lower quadrant Start:30-Aug-2012 Instruction Type:Provider Instructions for Treatment Patient Instructions Indication:Acute sinusitis, unspecified Start:03-May-2012 Instruction Type:Provider Instructions for Treatment [facility]; [facility] Work Phone: Instructions* Name Dates Details Patient Instructions Indication:BMI 22.0-22.9, adult Start:12-Jul-2022 Instruction Type:Provider Instructions for Treatment How to Access Health Informa tion Online using Patient Portal and [employer] Apps Indication:BMI 22.0-22.9, adult Start:12-Jul-2022 Instruction Type:Patient Education Patient Instructions Indication:Current nonsmoker (Renamed from Current non-smoker) Start:12-Jun-2022 Instruction Type:Provider Instructions for Treatment How to Access Health Informa tion Online using Patient Portal and [employer] Apps Indication:Current nonsmoker (Renamed from Current non-smoker) Start:12-Jun-2022 Instruction Type:Patient Education Patient Instructions Indication:Encounter for routine history and physical exam for male Start:14-Jan-2021 Instruction Type:Provider Instructions for Treatment How to Access Health Informa tion Online using Patient Portal and [employer] Apps Indication:Encounter for routine history and physical exam for male Start:14-Jan-2021 Instruction Type:Patient Education How to Access Health Informa tion Online using Patient Portal and [employer] Apps Indication:BMI 22.0-22.9, adult Start:24-Sep-2020 Instruction Type:Patient Education Patient Instructions Indication:Cough Start:03-Sep-2020 Instruction Type:Provider Instructions for Treatment How to Access Health Informa tion Online using Patient Portal and [employer] Apps Indication:Cough Start:03-Sep-2020 Instruction Type:Patient Education How to access health informa tion online Indication:Encounter for routine history and physical exam for male Start:12-Dec-2019 Instruction Type:Patient Education How to access health informa tion online - Detail Indication:Encounter for routine history and physical exam for male Start:12-Dec-2019 Instruction Type:Patient Education Patient Instructions Indication:Encounter for routine history and physical exam for male Start:12-Dec-2019 Instruction Type:Provider Instructions for Treatment How to access health informa tion online Indication:Current nonsmoker (Renamed from Current non-smoker) Start:08-Aug-2019 Instruction Type:Patient Education How to access health informa tion online - Detail Indication:Current nonsmoker (Renamed from Current non-smoker) Start:08-Aug-2019 Instruction Type:Patient Education Patient Instructions Indication:Current nonsmoker (Renamed from Current non-smoker) Start:08-Aug-2019 Instruction Type:Provider Instructions for Treatment How to access health informa tion online Indication:Encounter for routine history and physical exam for male Start:22-Nov-2018 Instruction Type:Patient Education How to access health informa tion online - Detail Indication:Encounter for routine history and physical exam for male Start:22-Nov-2018 Instruction Type:Patient Education Patient Instructions Indication:Encounter for routine history and physical exam for male Start:22-Nov-2018 Instruction Type:Provider Instructions for Treatment How to access health informa tion online Indication:Allergic rhinitis Start:07-Dec-2017 Instruction Type:Patient Education How to access health informa tion online - Detail Indication:Allergic rhinitis Start:07-Dec-2017 Instruction Type:Patient Education Patient Instructions Indication:Allergic rhinitis Start:07-Dec-2017 Instruction Type:Provider Instructions for Treatment How to access health informa tion online Indication:Encounter for routine history and physical exam for male Start:2-Feb-2018 Instruction Type:Patient Education How to access health informa tion online - Detail Indication:Encounter for routine history and physical exam for male Start:03-Aug-2017 Instruction Type:Patient Education Patient Instructions Indication:Encounter for routine history and physical exam for male Start:03-Aug-2017 Instruction Type:Provider Instructions for Treatment How to access health informa tion online Indication:Body mass index (BMI) of 21.0 to 21.9 in adult Start:04-Aug-2016 Instruction Type:Patient Education How to access health informa tion online - Detail Indication:Body mass index (BMI) of 21.0 to 21.9 in adult Start:04-Aug-2016 Instruction Type:Patient Education Patient Instructions Indication:Body mass index (BMI) of 21.0 to 21.9 in adult Start:04-Aug-2016 Instruction Type:Provider Instructions for Treatment How to access health informa tion online Indication:Body mass index (BMI) of 21.0 to 21.9 in adult Start:02-Jun-2016 Instruction Type:Patient Education How to access health informa tion online - Detail Indication:Body mass index (BMI) of 21.0 to 21.9 in adult Start:02-Jun-2016 Instruction Type:Patient Education Patient Instructions Indication:Body mass index (BMI) of 21.0 to 21.9 in adult Start:02-Jun-2016 Instruction Type:Provider Instructions for Treatment Patient Instructions Indication:Chest pain Start:09-Oct-2014 Instruction Type:Provider Instructions for Treatment Patient Instructions Indication:Cough Start:11-Sep-2014 Instruction Type:Provider Instructions for Treatment How to access health informa tion online Indication:Sinusitis Start:27-May-2014 Instruction Type:Patient Education How to access health informa tion online - Detail Indication:Sinusitis Start:27-May-2014 Instruction Type:Patient Education Patient Instructions Indication:Sinusitis Start:27-May-2014 Instruction Type:Provider Instructions for Treatment How to access health informa tion online Indication:Sinusitis Start:20-Mar-2014 Instruction Type:Patient Education How to access health informa tion online - Detail Indication:Sinusitis Start:20-Mar-2014 Instruction Type:Patient Education Patient Instructions Indication:Sinusitis Start:20-Mar-2014 Instruction Type:Provider Instructions for Treatment Patient Instructions Indication:Acute sinusitis, unspecified Start:15-Jul-2013 Instruction Type:Provider Instructions for Treatment Patient Instructions Indication:Abdominal pain, acute, left lower quadrant Start:30-Aug-2012 Instruction Type:Provider Instructions for Treatment Patient Instructions Indication:Acute sinusitis, unspecified Start:03-May-2012 Instruction Type:Provider Instructions for Treatment [facility]; [facility] Work Phone: Instructions* Name Dates Details Patient Instructions Indication:BMI 22.0-22.9, adult Start:12-Jul-2022 Instruction Type:Provider Instructions for Treatment How to Access Health Informa tion Online using Patient Portal and [employer]rd [employer] Apps Indication:BMI 22.0-22.9, adult Start:12-Jul-2022 Instruction Type:Patient Education Patient Instructions Indication:Current nonsmoker (Renamed from Current non-smoker) Start:12-Jun-2022 Instruction Type:Provider Instructions for Treatment How to Access Health Informa tion Online using Patient Portal and [employer] Apps Indication:Current nonsmoker (Renamed from Current non-smoker) Start:12-Jun-2022 Instruction Type:Patient Education Patient Instructions Indication:Encounter for routine history and physical exam for male Start:14-Jan-2021 Instruction Type:Provider Instructions for Treatment How to Access Health Informa tion Online using Patient Portal and [employer]rd [employer] Apps Indication:Encounter for routine history and physical exam for male Start:14-Jan-2021 Instruction Type:Patient Education How to Access Health Informa tion Online using Patient Portal and [employer]rd [employer] Apps Indication:BMI 22.0-22.9, adult Start:24-Sep-2020 Instruction Type:Patient Education Patient Instructions Indication:Cough Start:03-Sep-2020 Instruction Type:Provider Instructions for Treatment How to Access Health Informa tion Online using Patient Portal and [employer]rd [employer] Apps Indication:Cough Start:03-Sep-2020 Instruction Type:Patient Education How to access health informa tion online Indication:Encounter for routine history and physical exam for male Start:12-Dec-2019 Instruction Type:Patient Education How to access health informa tion online - Detail Indication:Encounter for routine history and physical exam for male Start:12-Dec-2019 Instruction Type:Patient Education Patient Instructions Indication:Encounter for routine history and physical exam for male Start:12-Dec-2019 Instruction Type:Provider Instructions for Treatment How to access health informa tion online Indication:Current nonsmoker (Renamed from Current non-smoker) Start:08-Aug-2019 Instruction Type:Patient Education How to access health informa tion online - Detail Indication:Current nonsmoker (Renamed from Current non-smoker) Start:08-Aug-2019 Instruction Type:Patient Education Patient Instructions Indication:Current nonsmoker (Renamed from Current non-smoker) Start:08-Aug-2019 Instruction Type:Provider Instructions for Treatment How to access health informa tion online Indication:Encounter for routine history and physical exam for male Start:22-Nov-2018 Instruction Type:Patient Education How to access health informa tion online - Detail Indication:Encounter for routine history and physical exam for male Start:22-Nov-2018 Instruction Type:Patient Education Patient Instructions Indication:Encounter for routine history and physical exam for male Start:22-Nov-2018 Instruction Type:Provider Instructions for Treatment How to access health informa tion online Indication:Allergic rhinitis Start:07-Dec-2017 Instruction Type:Patient Education How to access health informa tion online - Detail Indication:Allergic rhinitis Start:07-Dec-2017 Instruction Type:Patient Education Patient Instructions Indication:Allergic rhinitis Start:07-Dec-2017 Instruction Type:Provider Instructions for Treatment How to access health informa tion online Indication:Encounter for routine history and physical exam for male Start:03-Aug-2017 Instruction Type:Patient Education How to access health informa tion online - Detail Indication:Encounter for routine history and physical exam for male Start:03-Aug-2017 Instruction Type:Patient Education Patient Instructions Indication:Encounter for routine history and physical exam for male Start:03-Aug-2017 Instruction Type:Provider Instructions for Treatment How to access health informa tion online Indication:Body mass index (BMI) of 21.0 to 21.9 in adult Start:04-Aug-2016 Instruction Type:Patient Education How to access health informa tion online - Detail Indication:Body mass index (BMI) of 21.0 to 21.9 in adult Start:04-Aug-2016 Instruction Type:Patient Education Patient Instructions Indication:Body mass index (BMI) of 21.0 to 21.9 in adult Start:04-Aug-2016 Instruction Type:Provider Instructions for Treatment How to access health informa tion online Indication:Body mass index (BMI) of 21.0 to 21.9 in adult Start:02-Jun-2016 Instruction Type:Patient Education How to access health informa tion online - Detail Indication:Body mass index (BMI) of 21.0 to 21.9 in adult Start:02-Jun-2016 Instruction Type:Patient Education Patient Instructions Indication:Body mass index (BMI) of 21.0 to 21.9 in adult Start:02-Jun-2016 Instruction Type:Provider Instructions for Treatment Patient Instructions Indication:Chest pain Start:09-Oct-2014 Instruction Type:Provider Instructions for Treatment Patient Instructions Indication:Cough Start:11-Sep-2014 Instruction Type:Provider Instructions for Treatment How to access health informa tion online Indication:Sinusitis Start:27-May-2014 Instruction Type:Patient Education How to access health informa tion online - Detail Indication:Sinusitis Start:27-May-2014 Instruction Type:Patient Education Patient Instructions Indication:Sinusitis Start:27-May-2014 Instruction Type:Provider Instructions for Treatment How to access health informa tion online Indication:Sinusitis Start:20-Mar-2014 Instruction Type:Patient Education How to access health informa tion online - Detail Indication:Sinusitis Start:20-Mar-2014 Instruction Type:Patient Education Patient Instructions Indication:Sinusitis Start:20-Mar-2014 Instruction Type:Provider Instructions for Treatment Patient Instructions Indication:Acute sinusitis, unspecified Start:15-Jul-2013 Instruction Type:Provider Instructions for Treatment Patient Instructions Indication:Abdominal pain, acute, left lower quadrant Start:30-Aug-2012 Instruction Type:Provider Instructions for Treatment Patient Instructions Indication:Acute sinusitis, unspecified Start:03-May-2012 Instruction Type:Provider Instructions for Treatment [facility]; [facility] Work Phone: Instructions* Name Dates Details Patient Instructions Indication:BMI 22.0-22.9, adult Start:12-Jul-2022 Instruction Type:Provider Instructions for Treatment How to Access Health Informa tion Online using Patient Portal and [employer] Apps Indication:BMI 22.0-22.9, adult Start:12-Jul-2022 Instruction Type:Patient Education Patient Instructions Indication:Current nonsmoker (Renamed from Current non-smoker) Start:12-Jun-2022 Instruction Type:Provider Instructions for Treatment How to Access Health Informa tion Online using Patient Portal and [employer] Apps Indication:Current nonsmoker (Renamed from Current non-smoker) Start:12-Jun-2022 Instruction Type:Patient Education Patient Instructions Indication:Encounter for routine history and physical exam for male Start:14-Jan-2021 Instruction Type:Provider Instructions for Treatment How to Access Health Informa tion Online using Patient Portal and [employer] Apps Indication:Encounter for routine history and physical exam for male Start:14-Jan-2021 Instruction Type:Patient Education How to Access Health Informa tion Online using Patient Portal and [employer] Apps Indication:BMI 22.0-22.9, adult Start:24-Sep-2020 Instruction Type:Patient Education Patient Instructions Indication:Cough Start:03-Sep-2020 Instruction Type:Provider Instructions for Treatment How to Access Health Informa tion Online using Patient Portal and [employer]rd [employer] Apps Indication:Cough Start:03-Sep-2020 Instruction Type:Patient Education How to access health informa tion online Indication:Encounter for routine history and physical exam for male Start:12-Dec-2019 Instruction Type:Patient Education How to access health informa tion online - Detail Indication:Encounter for routine history and physical exam for male Start:12-Dec-2019 Instruction Type:Patient Education Patient Instructions Indication:Encounter for routine history and physical exam for male Start:12-Dec-2019 Instruction Type:Provider Instructions for Treatment How to access health informa tion online Indication:Current nonsmoker (Renamed from Current non-smoker) Start:08-Aug-2019 Instruction Type:Patient Education How to access health informa tion online - Detail Indication:Current nonsmoker (Renamed from Current non-smoker) Start:08-Aug-2019 Instruction Type:Patient Education Patient Instructions Indication:Current nonsmoker (Renamed from Current non-smoker) Start:08-Aug-2019 Instruction Type:Provider Instructions for Treatment How to access health informa tion online Indication:Encounter for routine history and physical exam for male Start:22-Nov-2018 Instruction Type:Patient Education How to access health informa tion online - Detail Indication:Encounter for routine history and physical exam for male Start:22-Nov-2018 Instruction Type:Patient Education Patient Instructions Indication:Encounter for routine history and physical exam for male Start:22-Nov-2018 Instruction Type:Provider Instructions for Treatment How to access health informa tion online Indication:Allergic rhinitis Start:07-Dec-2017 Instruction Type:Patient Education How to access health informa tion online - Detail Indication:Allergic rhinitis Start:07-Dec-2017 Instruction Type:Patient Education Patient Instructions Indication:Allergic rhinitis Start:07-Dec-2017 Instruction Type:Provider Instructions for Treatment How to access health informa tion online Indication:Encounter for routine history and physical exam for male Start:03-Aug-2017 Instruction Type:Patient Education How to access health informa tion online - Detail Indication:Encounter for routine history and physical exam for male Start:03-Aug-2017 Instruction Type:Patient Education Patient Instructions Indication:Encounter for routine history and physical exam for male Start:03-Aug-2017 Instruction Type:Provider Instructions for Treatment How to access health informa tion online Indication:Body mass index (BMI) of 21.0 to 21.9 in adult Start:04-Aug-2016 Instruction Type:Patient Education How to access health informa tion online - Detail Indication:Body mass index (BMI) of 21.0 to 21.9 in adult Start:04-Aug-2016 Instruction Type:Patient Education Patient Instructions Indication:Body mass index (BMI) of 21.0 to 21.9 in adult Start:04-Aug-2016 Instruction Type:Provider Instructions for Treatment How to access health informa tion online Indication:Body mass index (BMI) of 21.0 to 21.9 in adult Start:02-Jun-2016 Instruction Type:Patient Education How to access health informa tion online - Detail Indication:Body mass index (BMI) of 21.0 to 21.9 in adult Start:02-Jun-2016 Instruction Type:Patient Education Patient Instructions Indication:Body mass index (BMI) of 21.0 to 21.9 in adult Start:02-Jun-2016 Instruction Type:Provider Instructions for Treatment Patient Instructions Indication:Chest pain Start:09-Oct-2014 Instruction Type:Provider Instructions for Treatment Patient Instructions Indication:Cough Start:11-Sep-2014 Instruction Type:Provider Instructions for Treatment How to access health informa tion online Indication:Sinusitis Start:27-May-2014 Instruction Type:Patient Education How to access health informa tion online - Detail Indication:Sinusitis Start:27-May-2014 Instruction Type:Patient Education Patient Instructions Indication:Sinusitis Start:27-May-2014 Instruction Type:Provider Instructions for Treatment How to access health informa tion online Indication:Sinusitis Start:20-Mar-2014 Instruction Type:Patient Education How to access health informa tion online - Detail Indication:Sinusitis Start:20-Mar-2014 Instruction Type:Patient Education Patient Instructions Indication:Sinusitis Start:20-Mar-2014 Instruction Type:Provider Instructions for Treatment Patient Instructions Indication:Acute sinusitis, unspecified Start:15-Jul-2013 Instruction Type:Provider Instructions for Treatment Patient Instructions Indication:Abdominal pain, acute, left lower quadrant Start:30-Aug-2012 Instruction Type:Provider Instructions for Treatment Patient Instructions Indication:Acute sinusitis, unspecified Start:03-May-2012 Instruction Type:Provider Instructions for Treatment [facility]; [facility] Work Phone: Instructions* Name Dates Details Patient Instructions Indication:BMI 22.0-22.9, adult Start:12-Jul-2022 Instruction Type:Provider Instructions for Treatment How to Access Health Informa tion Online using Patient Portal and [employer] Apps Indication:BMI 22.0-22.9, adult Start:12-Jul-2022 Instruction Type:Patient Education Patient Instructions Indication:Current nonsmoker (Renamed from Current non-smoker) Start:12-Jun-2022 Instruction Type:Provider Instructions for Treatment How to Access Health Informa tion Online using Patient Portal and [employer] Apps Indication:Current nonsmoker (Renamed from Current non-smoker) Start:12-Jun-2022 Instruction Type:Patient Education Patient Instructions Indication:Encounter for routine history and physical exam for male Start:14-Jan-2021 Instruction Type:Provider Instructions for Treatment How to Access Health Informa tion Online using Patient Portal and [employer] Apps Indication:Encounter for routine history and physical exam for male Start:14-Jan-2021 Instruction Type:Patient Education How to Access Health Informa tion Online using Patient Portal and [employer] Apps Indication:BMI 22.0-22.9, adult Start:24-Sep-2020 Instruction Type:Patient Education Patient Instructions Indication:Cough Start:03-Sep-2020 Instruction Type:Provider Instructions for Treatment How to Access Health Informa tion Online using Patient Portal and [employer] Apps Indication:Cough Start:03-Sep-2020 Instruction Type:Patient Education How to access health informa tion online Indication:Encounter for routine history and physical exam for male Start:12-Dec-2019 Instruction Type:Patient Education How to access health informa tion online - Detail Indication:Encounter for routine history and physical exam for male Start:12-Dec-2019 Instruction Type:Patient Education Patient Instructions Indication:Encounter for routine history and physical exam for male Start:12-Dec-2019 Instruction Type:Provider Instructions for Treatment How to access health informa tion online Indication:Current nonsmoker (Renamed from Current non-smoker) Start:08-Aug-2019 Instruction Type:Patient Education How to access health informa tion online - Detail Indication:Current nonsmoker (Renamed from Current non-smoker) Start:08-Aug-2019 Instruction Type:Patient Education Patient Instructions Indication:Current nonsmoker (Renamed from Current non-smoker) Start:08-Aug-2019 Instruction Type:Provider Instructions for Treatment How to access health informa tion online Indication:Encounter for routine history and physical exam for male Start:22-Nov-2018 Instruction Type:Patient Education How to access health informa tion online - Detail Indication:Encounter for routine history and physical exam for male Start:22-Nov-2018 Instruction Type:Patient Education Patient Instructions Indication:Encounter for routine history and physical exam for male Start:22-Nov-2018 Instruction Type:Provider Instructions for Treatment How to access health informa tion online Indication:Allergic rhinitis Start:07-Dec-2017 Instruction Type:Patient Education How to access health informa tion online - Detail Indication:Allergic rhinitis Start:07-Dec-2017 Instruction Type:Patient Education Patient Instructions Indication:Allergic rhinitis Start:07-Dec-2017 Instruction Type:Provider Instructions for Treatment How to access health informa tion online Indication:Encounter for routine history and physical exam for male Start:03-Aug-2017 Instruction Type:Patient Education How to access health informa tion online - Detail Indication:Encounter for routine history and physical exam for male Start:03-Aug-2017 Instruction Type:Patient Education Patient Instructions Indication:Encounter for routine history and physical exam for male Start:03-Aug-2017 Instruction Type:Provider Instructions for Treatment How to access health informa tion online Indication:Body mass index (BMI) of 21.0 to 21.9 in adult Start:04-Aug-2016 Instruction Type:Patient Education How to access health informa tion online - Detail Indication:Body mass index (BMI) of 21.0 to 21.9 in adult Start:04-Aug-2016 Instruction Type:Patient Education Patient Instructions Indication:Body mass index (BMI) of 21.0 to 21.9 in adult Start:04-Aug-2016 Instruction Type:Provider Instructions for Treatment How to access health informa tion online Indication:Body mass index (BMI) of 21.0 to 21.9 in adult Start:02-Jun-2016 Instruction Type:Patient Education How to access health informa tion online - Detail Indication:Body mass index (BMI) of 21.0 to 21.9 in adult Start:02-Jun-2016 Instruction Type:Patient Education Patient Instructions Indication:Body mass index (BMI) of 21.0 to 21.9 in adult Start:02-Jun-2016 Instruction Type:Provider Instructions for Treatment Patient Instructions Indication:Chest pain Start:09-Oct-2014 Instruction Type:Provider Instructions for Treatment Patient Instructions Indication:Cough Start:11-Sep-2014 Instruction Type:Provider Instructions for Treatment How to access health informa tion online Indication:Sinusitis Start:27-May-2014 Instruction Type:Patient Education How to access health informa tion online - Detail Indication:Sinusitis Start:27-May-2014 Instruction Type:Patient Education Patient Instructions Indication:Sinusitis Start:27-May-2014 Instruction Type:Provider Instructions for Treatment How to access health informa tion online Indication:Sinusitis Start:20-Mar-2014 Instruction Type:Patient Education How to access health informa tion online - Detail Indication:Sinusitis Start:20-Mar-2014 Instruction Type:Patient Education Patient Instructions Indication:Sinusitis Start:20-Mar-2014 Instruction Type:Provider Instructions for Treatment Patient Instructions Indication:Acute sinusitis, unspecified Start:15-Jul-2013 Instruction Type:Provider Instructions for Treatment Patient Instructions Indication:Abdominal pain, acute, left lower quadrant Start:30-Aug-2012 Instruction Type:Provider Instructions for Treatment Patient Instructions Indication:Acute sinusitis, unspecified Start:03-May-2012 Instruction Type:Provider Instructions for Treatment [facility]; [facility] Work Phone: Instructions* Name Dates Details Patient Instructions Indication:Current nonsmoker (Renamed from Current non-smoker) Start:01-Sep-2022 Instruction Type:Provider Instructions for Treatment How to Access Health Informa tion Online using Patient Portal and [employer] Apps Indication:Current nonsmoker (Renamed from Current non-smoker) Start:01-Sep-2022 Instruction Type:Patient Education Patient Instructions Indication:BMI 22.0-22.9, adult Start:12-Jul-2022 Instruction Type:Provider Instructions for Treatment How to Access Health Informa tion Online using Patient Portal and [employer] Apps Indication:BMI 22.0-22.9, adult Start:12-Jul-2022 Instruction Type:Patient Education Patient Instructions Indication:Current nonsmoker (Renamed from Current non-smoker) Start:12-Jun-2022 Instruction Type:Provider Instructions for Treatment How to Access Health Informa tion Online using Patient Portal and [employer] Apps Indication:Current nonsmoker (Renamed from Current non-smoker) Start:12-Jun-2022 Instruction Type:Patient Education Patient Instructions Indication:Encounter for routine history and physical exam for male Start:14-Jan-2021 Instruction Type:Provider Instructions for Treatment How to Access Health Informa tion Online using Patient Portal and [employer] Apps Indication:Encounter for routine history and physical exam for male Start:14-Jan-2021 Instruction Type:Patient Education How to Access Health Informa tion Online using Patient Portal and [employer] Apps Indication:BMI 22.0-22.9, adult Start:24-Sep-2020 Instruction Type:Patient Education Patient Instructions Indication:Cough Start:03-Sep-2020 Instruction Type:Provider Instructions for Treatment How to Access Health Informa tion Online using Patient Portal and [employer] Apps Indication:Cough Start:03-Sep-2020 Instruction Type:Patient Education How to access health informa tion online Indication:Encounter for routine history and physical exam for male Start:12-Dec-2019 Instruction Type:Patient Education How to access health informa tion online - Detail Indication:Encounter for routine history and physical exam for male Start:12-Dec-2019 Instruction Type:Patient Education Patient Instructions Indication:Encounter for routine history and physical exam for male Start:12-Dec-2019 Instruction Type:Provider Instructions for Treatment How to access health informa tion online Indication:Current nonsmoker (Renamed from Current non-smoker) Start:08-Aug-2019 Instruction Type:Patient Education How to access health informa tion online - Detail Indication:Current nonsmoker (Renamed from Current non-smoker) Start:08-Aug-2019 Instruction Type:Patient Education Patient Instructions Indication:Current nonsmoker (Renamed from Current non-smoker) Start:08-Aug-2019 Instruction Type:Provider Instructions for Treatment How to access health informa tion online Indication:Encounter for routine history and physical exam for male Start:22-Nov-2018 Instruction Type:Patient Education How to access health informa tion online - Detail Indication:Encounter for routine history and physical exam for male Start:22-Nov-2018 Instruction Type:Patient Education Patient Instructions Indication:Encounter for routine history and physical exam for male Start:22-Nov-2018 Instruction Type:Provider Instructions for Treatment How to access health informa tion online Indication:Allergic rhinitis Start:07-Dec-2017 Instruction Type:Patient Education How to access health informa tion online - Detail Indication:Allergic rhinitis Start:07-Dec-2017 Instruction Type:Patient Education Patient Instructions Indication:Allergic rhinitis Start:07-Dec-2017 Instruction Type:Provider Instructions for Treatment How to access health informa tion online Indication:Encounter for routine history and physical exam for male Start:03-Aug-2017 Instruction Type:Patient Education How to access health informa tion online - Detail Indication:Encounter for routine history and physical exam for male Start:03-Aug-2017 Instruction Type:Patient Education Patient Instructions Indication:Encounter for routine history and physical exam for male Start:03-Aug-2017 Instruction Type:Provider Instructions for Treatment How to access health informa tion online Indication:Body mass index (BMI) of 21.0 to 21.9 in adult Start:04-Aug-2016 Instruction Type:Patient Education How to access health informa tion online - Detail Indication:Body mass index (BMI) of 21.0 to 21.9 in adult Start:04-Aug-2016 Instruction Type:Patient Education Patient Instructions Indication:Body mass index (BMI) of 21.0 to 21.9 in adult Start:04-Aug-2016 Instruction Type:Provider Instructions for Treatment How to access health informa tion online Indication:Body mass index (BMI) of 21.0 to 21.9 in adult Start:02-Jun-2016 Instruction Type:Patient Education How to access health informa tion online - Detail Indication:Body mass index (BMI) of 21.0 to 21.9 in adult Start:02-Jun-2016 Instruction Type:Patient Education Patient Instructions Indication:Body mass index (BMI) of 21.0 to 21.9 in adult Start:02-Jun-2016 Instruction Type:Provider Instructions for Treatment Patient Instructions Indication:Chest pain Start:09-Oct-2014 Instruction Type:Provider Instructions for Treatment Patient Instructions Indication:Cough Start:11-Sep-2014 Instruction Type:Provider Instructions for Treatment How to access health informa tion online Indication:Sinusitis Start:27-May-2014 Instruction Type:Patient Education How to access health informa tion online - Detail Indication:Sinusitis Start:27-May-2014 Instruction Type:Patient Education Patient Instructions Indication:Sinusitis Start:27-May-2014 Instruction Type:Provider Instructions for Treatment How to access health informa tion online Indication:Sinusitis Start:20-Mar-2014 Instruction Type:Patient Education How to access health informa tion online - Detail Indication:Sinusitis Start:20-Mar-2014 Instruction Type:Patient Education Patient Instructions Indication:Sinusitis Start:20-Mar-2014 Instruction Type:Provider Instructions for Treatment Patient Instructions Indication:Acute sinusitis, unspecified Start:15-Jul-2013 Instruction Type:Provider Instructions for Treatment Patient Instructions Indication:Abdominal pain, acute, left lower quadrant Start:30-Aug-2012 Instruction Type:Provider Instructions for Treatment Patient Instructions Indication:Acute sinusitis, unspecified Start:03-May-2012 Instruction Type:Provider Instructions for Treatment [facility] Work Phone: Instructions* Name Dates Details Patient Instructions Indication:Current nonsmoker (Renamed from Current non-smoker) Start:01-Sep-2022 Instruction Type:Provider Instructions for Treatment How to Access Health Informa tion Online using Patient Portal and [employer] Apps Indication:Current nonsmoker (Renamed from Current non-smoker) Start:01-Sep-2022 Instruction Type:Patient Education Patient Instructions Indication:BMI 22.0-22.9, adult Start:12-Jul-2022 Instruction Type:Provider Instructions for Treatment How to Access Health Informa tion Online using Patient Portal and [employer] Apps Indication:BMI 22.0-22.9, adult Start:12-Jul-2022 Instruction Type:Patient Education Patient Instructions Indication:Current nonsmoker (Renamed from Current non-smoker) Start:12-Jun-2022 Instruction Type:Provider Instructions for Treatment How to Access Health Informa tion Online using Patient Portal and [employer] Apps Indication:Current nonsmoker (Renamed from Current non-smoker) Start:12-Jun-2022 Instruction Type:Patient Education Patient Instructions Indication:Encounter for routine history and physical exam for male Start:14-Jan-2021 Instruction Type:Provider Instructions for Treatment How to Access Health Informa tion Online using Patient Portal and [employer] Apps Indication:Encounter for routine history and physical exam for male Start:14-Jan-2021 Instruction Type:Patient Education How to Access Health Informa tion Online using Patient Portal and [employer] Apps Indication:BMI 22.0-22.9, adult Start:24-Sep-2020 Instruction Type:Patient Education Patient Instructions Indication:Cough Start:03-Sep-2020 Instruction Type:Provider Instructions for Treatment How to Access Health Informa tion Online using Patient Portal and [employer] Apps Indication:Cough Start:03-Sep-2020 Instruction Type:Patient Education How to access health informa tion online Indication:Encounter for routine history and physical exam for male Start:12-Dec-2019 Instruction Type:Patient Education How to access health informa tion online - Detail Indication:Encounter for routine history and physical exam for male Start:12-Dec-2019 Instruction Type:Patient Education Patient Instructions Indication:Encounter for routine history and physical exam for male Start:12-Dec-2019 Instruction Type:Provider Instructions for Treatment How to access health informa tion online Indication:Current nonsmoker (Renamed from Current non-smoker) Start:08-Aug-2019 Instruction Type:Patient Education How to access health informa tion online - Detail Indication:Current nonsmoker (Renamed from Current non-smoker) Start:08-Aug-2019 Instruction Type:Patient Education Patient Instructions Indication:Current nonsmoker (Renamed from Current non-smoker) Start:08-Aug-2019 Instruction Type:Provider Instructions for Treatment How to access health informa tion online Indication:Encounter for routine history and physical exam for male Start:22-Nov-2018 Instruction Type:Patient Education How to access health informa tion online - Detail Indication:Encounter for routine history and physical exam for male Start:22-Nov-2018 Instruction Type:Patient Education Patient Instructions Indication:Encounter for routine history and physical exam for male Start:22-Nov-2018 Instruction Type:Provider Instructions for Treatment How to access health informa tion online Indication:Allergic rhinitis Start:07-Dec-2017 Instruction Type:Patient Education How to access health informa tion online - Detail Indication:Allergic rhinitis Start:07-Dec-2017 Instruction Type:Patient Education Patient Instructions Indication:Allergic rhinitis Start:07-Dec-2017 Instruction Type:Provider Instructions for Treatment How to access health informa tion online Indication:Encounter for routine history and physical exam for male Start:03-Aug-2017 Instruction Type:Patient Education How to access health informa tion online - Detail Indication:Encounter for routine history and physical exam for male Start:03-Aug-2017 Instruction Type:Patient Education Patient Instructions Indication:Encounter for routine history and physical exam for male Start:03-Aug-2017 Instruction Type:Provider Instructions for Treatment How to access health informa tion online Indication:Body mass index (BMI) of 21.0 to 21.9 in adult Start:04-Aug-2016 Instruction Type:Patient Education How to access health informa tion online - Detail Indication:Body mass index (BMI) of 21.0 to 21.9 in adult Start:04-Aug-2016 Instruction Type:Patient Education Patient Instructions Indication:Body mass index (BMI) of 21.0 to 21.9 in adult Start:04-Aug-2016 Instruction Type:Provider Instructions for Treatment How to access health informa tion online Indication:Body mass index (BMI) of 21.0 to 21.9 in adult Start:02-Jun-2016 Instruction Type:Patient Education How to access health informa tion online - Detail Indication:Body mass index (BMI) of 21.0 to 21.9 in adult Start:02-Jun-2016 Instruction Type:Patient Education Patient Instructions Indication:Body mass index (BMI) of 21.0 to 21.9 in adult Start:02-Jun-2016 Instruction Type:Provider Instructions for Treatment Patient Instructions Indication:Chest pain Start:09-Oct-2014 Instruction Type:Provider Instructions for Treatment Patient Instructions Indication:Cough Start:11-Sep-2014 Instruction Type:Provider Instructions for Treatment How to access health informa tion online Indication:Sinusitis Start:27-May-2014 Instruction Type:Patient Education How to access health informa tion online - Detail Indication:Sinusitis Start:27-May-2014 Instruction Type:Patient Education Patient Instructions Indication:Sinusitis Start:27-May-2014 Instruction Type:Provider Instructions for Treatment How to access health informa tion online Indication:Sinusitis Start:20-Mar-2014 Instruction Type:Patient Education How to access health informa tion online - Detail Indication:Sinusitis Start:20-Mar-2014 Instruction Type:Patient Education Patient Instructions Indication:Sinusitis Start:20-Mar-2014 Instruction Type:Provider Instructions for Treatment Patient Instructions Indication:Acute sinusitis, unspecified Start:15-Jul-2013 Instruction Type:Provider Instructions for Treatment Patient Instructions Indication:Abdominal pain, acute, left lower quadrant Start:30-Aug-2012 Instruction Type:Provider Instructions for Treatment Patient Instructions Indication:Acute sinusitis, unspecified Start:03-May-2012 Instruction Type:Provider Instructions for Treatment [facility]; [facility] Work Phone: Instructions* Name Dates Details Patient Instructions Indication:Current nonsmoker (Renamed from Current non-smoker) Start:01-Sep-2022 Instruction Type:Provider Instructions for Treatment How to Access Health Informa tion Online using Patient Portal and [employer] Apps Indication:Current nonsmoker (Renamed from Current non-smoker) Start:01-Sep-2022 Instruction Type:Patient Education Patient Instructions Indication:BMI 22.0-22.9, adult Start:12-Jul-2022 Instruction Type:Provider Instructions for Treatment How to Access Health Informa tion Online using Patient Portal and [employer] Apps Indication:BMI 22.0-22.9, adult Start:12-Jul-2022 Instruction Type:Patient Education Patient Instructions Indication:Current nonsmoker (Renamed from Current non-smoker) Start:12-Jun-2022 Instruction Type:Provider Instructions for Treatment How to Access Health Informa tion Online using Patient Portal and [employer] Apps Indication:Current nonsmoker (Renamed from Current non-smoker) Start:12-Jun-2022 Instruction Type:Patient Education Patient Instructions Indication:Encounter for routine history and physical exam for male Start:14-Jan-2021 Instruction Type:Provider Instructions for Treatment How to Access Health Informa tion Online using Patient Portal and [employer] Apps Indication:Encounter for routine history and physical exam for male Start:14-Jan-2021 Instruction Type:Patient Education How to Access Health Informa tion Online using Patient Portal and [employer] Apps Indication:BMI 22.0-22.9, adult Start:24-Sep-2020 Instruction Type:Patient Education Patient Instructions Indication:Cough Start:03-Sep-2020 Instruction Type:Provider Instructions for Treatment How to Access Health Informa tion Online using Patient Portal and [employer] Apps Indication:Cough Start:03-Sep-2020 Instruction Type:Patient Education How to access health informa tion online Indication:Encounter for routine history and physical exam for male Start:12-Dec-2019 Instruction Type:Patient Education How to access health informa tion online - Detail Indication:Encounter for routine history and physical exam for male Start:12-Dec-2019 Instruction Type:Patient Education Patient Instructions Indication:Encounter for routine history and physical exam for male Start:12-Dec-2019 Instruction Type:Provider Instructions for Treatment How to access health informa tion online Indication:Current nonsmoker (Renamed from Current non-smoker) Start:08-Aug-2019 Instruction Type:Patient Education How to access health informa tion online - Detail Indication:Current nonsmoker (Renamed from Current non-smoker) Start:08-Aug-2019 Instruction Type:Patient Education Patient Instructions Indication:Current nonsmoker (Renamed from Current non-smoker) Start:08-Aug-2019 Instruction Type:Provider Instructions for Treatment How to access health informa tion online Indication:Encounter for routine history and physical exam for male Start:22-Nov-2018 Instruction Type:Patient Education How to access health informa tion online - Detail Indication:Encounter for routine history and physical exam for male Start:22-Nov-2018 Instruction Type:Patient Education Patient Instructions Indication:Encounter for routine history and physical exam for male Start:22-Nov-2018 Instruction Type:Provider Instructions for Treatment How to access health informa tion online Indication:Allergic rhinitis Start:07-Dec-2017 Instruction Type:Patient Education How to access health informa tion online - Detail Indication:Allergic rhinitis Start:07-Dec-2017 Instruction Type:Patient Education Patient Instructions Indication:Allergic rhinitis Start:07-Dec-2017 Instruction Type:Provider Instructions for Treatment How to access health informa tion online Indication:Encounter for routine history and physical exam for male Start:03-Aug-2017 Instruction Type:Patient Education How to access health informa tion online - Detail Indication:Encounter for routine history and physical exam for male Start:03-Aug-2017 Instruction Type:Patient Education Patient Instructions Indication:Encounter for routine history and physical exam for male Start:03-Aug-2017 Instruction Type:Provider Instructions for Treatment How to access health informa tion online Indication:Body mass index (BMI) of 21.0 to 21.9 in adult Start:04-Aug-2016 Instruction Type:Patient Education How to access health informa tion online - Detail Indication:Body mass index (BMI) of 21.0 to 21.9 in adult Start:04-Aug-2016 Instruction Type:Patient Education Patient Instructions Indication:Body mass index (BMI) of 21.0 to 21.9 in adult Start:04-Aug-2016 Instruction Type:Provider Instructions for Treatment How to access health informa tion online Indication:Body mass index (BMI) of 21.0 to 21.9 in adult Start:02-Jun-2016 Instruction Type:Patient Education How to access health informa tion online - Detail Indication:Body mass index (BMI) of 21.0 to 21.9 in adult Start:02-Jun-2016 Instruction Type:Patient Education Patient Instructions Indication:Body mass index (BMI) of 21.0 to 21.9 in adult Start:02-Jun-2016 Instruction Type:Provider Instructions for Treatment Patient Instructions Indication:Chest pain Start:09-Oct-2014 Instruction Type:Provider Instructions for Treatment Patient Instructions Indication:Cough Start:11-Sep-2014 Instruction Type:Provider Instructions for Treatment How to access health informa tion online Indication:Sinusitis Start:27-May-2014 Instruction Type:Patient Education How to access health informa tion online - Detail Indication:Sinusitis Start:27-May-2014 Instruction Type:Patient Education Patient Instructions Indication:Sinusitis Start:27-May-2014 Instruction Type:Provider Instructions for Treatment How to access health informa tion online Indication:Sinusitis Start:20-Mar-2014 Instruction Type:Patient Education How to access health informa tion online - Detail Indication:Sinusitis Start:20-Mar-2014 Instruction Type:Patient Education Patient Instructions Indication:Sinusitis Start:20-Mar-2014 Instruction Type:Provider Instructions for Treatment Patient Instructions Indication:Acute sinusitis, unspecified Start:15-Jul-2013 Instruction Type:Provider Instructions for Treatment Patient Instructions Indication:Abdominal pain, acute, left lower quadrant Start:30-Aug-2012 Instruction Type:Provider Instructions for Treatment Patient Instructions Indication:Acute sinusitis, unspecified Start:03-May-2012 Instruction Type:Provider Instructions for Treatment [facility]; [facility] Work Phone: Instructions* Name Dates Details Patient Instructions Indication:Current nonsmoker (Renamed from Current non-smoker) Start:01-Sep-2022 Instruction Type:Provider Instructions for Treatment How to Access Health Informa tion Online using Patient Portal and [employer] Apps Indication:Current nonsmoker (Renamed from Current non-smoker) Start:01-Sep-2022 Instruction Type:Patient Education Patient Instructions Indication:BMI 22.0-22.9, adult Start:12-Jul-2022 Instruction Type:Provider Instructions for Treatment How to Access Health Informa tion Online using Patient Portal and [employer] Apps Indication:BMI 22.0-22.9, adult Start:12-Jul-2022 Instruction Type:Patient Education Patient Instructions Indication:Current nonsmoker (Renamed from Current non-smoker) Start:12-Jun-2022 Instruction Type:Provider Instructions for Treatment How to Access Health Informa tion Online using Patient Portal and [employer] Apps Indication:Current nonsmoker (Renamed from Current non-smoker) Start:12-Jun-2022 Instruction Type:Patient Education Patient Instructions Indication:Encounter for routine history and physical exam for male Start:14-Jan-2021 Instruction Type:Provider Instructions for Treatment How to Access Health Informa tion Online using Patient Portal and [employer] Apps Indication:Encounter for routine history and physical exam for male Start:14-Jan-2021 Instruction Type:Patient Education How to Access Health Informa tion Online using Patient Portal and [employer] Apps Indication:BMI 22.0-22.9, adult Start:24-Sep-2020 Instruction Type:Patient Education Patient Instructions Indication:Cough Start:03-Sep-2020 Instruction Type:Provider Instructions for Treatment How to Access Health Informa tion Online using Patient Portal and [employer] Apps Indication:Cough Start:03-Sep-2020 Instruction Type:Patient Education How to access health informa tion online Indication:Encounter for routine history and physical exam for male Start:12-Dec-2019 Instruction Type:Patient Education How to access health informa tion online - Detail Indication:Encounter for routine history and physical exam for male Start:12-Dec-2019 Instruction Type:Patient Education Patient Instructions Indication:Encounter for routine history and physical exam for male Start:12-Dec-2019 Instruction Type:Provider Instructions for Treatment How to access health informa tion online Indication:Current nonsmoker (Renamed from Current non-smoker) Start:08-Aug-2019 Instruction Type:Patient Education How to access health informa tion online - Detail Indication:Current nonsmoker (Renamed from Current non-smoker) Start:08-Aug-2019 Instruction Type:Patient Education Patient Instructions Indication:Current nonsmoker (Renamed from Current non-smoker) Start:08-Aug-2019 Instruction Type:Provider Instructions for Treatment How to access health informa tion online Indication:Encounter for routine history and physical exam for male Start:22-Nov-2018 Instruction Type:Patient Education How to access health informa tion online - Detail Indication:Encounter for routine history and physical exam for male Start:22-Nov-2018 Instruction Type:Patient Education Patient Instructions Indication:Encounter for routine history and physical exam for male Start:22-Nov-2018 Instruction Type:Provider Instructions for Treatment How to access health informa tion online Indication:Allergic rhinitis Start:07-Dec-2017 Instruction Type:Patient Education How to access health informa tion online - Detail Indication:Allergic rhinitis Start:07-Dec-2017 Instruction Type:Patient Education Patient Instructions Indication:Allergic rhinitis Start:07-Dec-2017 Instruction Type:Provider Instructions for Treatment How to access health informa tion online Indication:Encounter for routine history and physical exam for male Start:03-Aug-2017 Instruction Type:Patient Education How to access health informa tion online - Detail Indication:Encounter for routine history and physical exam for male Start:03-Aug-2017 Instruction Type:Patient Education Patient Instructions Indication:Encounter for routine history and physical exam for male Start:03-Aug-2017 Instruction Type:Provider Instructions for Treatment How to access health informa tion online Indication:Body mass index (BMI) of 21.0 to 21.9 in adult Start:04-Aug-2016 Instruction Type:Patient Education How to access health informa tion online - Detail Indication:Body mass index (BMI) of 21.0 to 21.9 in adult Start:04-Aug-2016 Instruction Type:Patient Education Patient Instructions Indication:Body mass index (BMI) of 21.0 to 21.9 in adult Start:04-Aug-2016 Instruction Type:Provider Instructions for Treatment How to access health informa tion online Indication:Body mass index (BMI) of 21.0 to 21.9 in adult Start:02-Jun-2016 Instruction Type:Patient Education How to access health informa tion online - Detail Indication:Body mass index (BMI) of 21.0 to 21.9 in adult Start:02-Jun-2016 Instruction Type:Patient Education Patient Instructions Indication:Body mass index (BMI) of 21.0 to 21.9 in adult Start:02-Jun-2016 Instruction Type:Provider Instructions for Treatment Patient Instructions Indication:Chest pain Start:09-Oct-2014 Instruction Type:Provider Instructions for Treatment Patient Instructions Indication:Cough Start:11-Sep-2014 Instruction Type:Provider Instructions for Treatment How to access health informa tion online Indication:Sinusitis Start:27-May-2014 Instruction Type:Patient Education How to access health informa tion online - Detail Indication:Sinusitis Start:27-May-2014 Instruction Type:Patient Education Patient Instructions Indication:Sinusitis Start:27-May-2014 Instruction Type:Provider Instructions for Treatment How to access health informa tion online Indication:Sinusitis Start:20-Mar-2014 Instruction Type:Patient Education How to access health informa tion online - Detail Indication:Sinusitis Start:20-Mar-2014 Instruction Type:Patient Education Patient Instructions Indication:Sinusitis Start:20-Mar-2014 Instruction Type:Provider Instructions for Treatment Patient Instructions Indication:Acute sinusitis, unspecified Start:15-Jul-2013 Instruction Type:Provider Instructions for Treatment Patient Instructions Indication:Abdominal pain, acute, left lower quadrant Start:30-Aug-2012 Instruction Type:Provider Instructions for Treatment Patient Instructions Indication:Acute sinusitis, unspecified Start:03-May-2012 Instruction Type:Provider Instructions for Treatment [facility]; [facility] Work Phone: reason for referral (narrative)* Outpatient Procedure (Routine) - Pending Review Specialty Diagnoses / Procedures Referred By Contac t Referred To Contact [facility] Diagnoses Mild intermittent asthma without complication Procedures SPIROMETRY - BASELINE AND POST DILATOR BRNCDILAT RSPSE SPMTRY PRE&POST-BRNCDILAT Mercy Wang MD [address] [facility] [place] [address] [facility] [place] [address] [place] [id number] Referral ID Status Reason Start Date Expiration Date Visits Requested Visits Authorized [id number] Pending Review Auto-Generat ed Referral 08/16/2022 09/14/2023 1 1 * Outpatient Procedure (Routine) - Pending Review Specialty Diagnoses / Procedures [facility] Diagnoses Mild intermittent asthma without complication Procedures NITRIC OXIDE, EXHALED NITRIC OXIDE GAS DETERMINATION Mercy Gutiérrez MD [address] [facility] [place] [address] [address] Referral ID Status Reason Start Date Expiration Date Visits Requested Visits Authorized [id number] Pending Review Auto-Generat ed Referral 08/16/2022 09/14/2023 1 1 [facility] for referral (narrative)* Outpatient Procedure (Routine) - Authorized Specialty Diagnoses / Procedures [facility] Diagnoses Moderate persistent asthma without complication Procedures NITRIC OXIDE, EXHALED NITRIC OXIDE GAS DETERMINATION Mercy Gutiérrez MD [address] [facility] [place] [address] [address] Referral ID Status Reason Start Date Expiration Date Visits Requested Visits Authorized [id number] Authorized Auto-Generat ed Referral 09/04/2022 10/04/2023 1 1 [facility] for referral (narrative)* Outpatient Procedure (Routine) - Authorized Specialty Diagnoses / Procedures [facility] Diagnoses Moderate persistent asthma without complication Procedures NITRIC OXIDE, EXHALED NITRIC OXIDE GAS DETERMINATION Neetu Ochoa PA-C [address] [facility] [place] [address] [address] Referral ID Status Reason Start Date Expiration Date Visits Requested Visits Authorized [id number] Authorized Auto-Generat ed Referral 01/24/2023 02/23/2024 1 1 [facility] for referral (narrative)* Outpatient Procedure (Routine) - Pending Review Specialty Diagnoses / Procedures Referred By Conttyra t Referred To Contact [facility] Diagnoses Mild persistent asthma without complication Procedures NITRIC OXIDE, EXHALED NITRIC OXIDE GAS DETERMINATION Mercy Gutiérrez MD [address] [place] [address] Respiratory [place] [address] [place] [address] Referral ID Status Reason Start Date Expiration Date Visits Requested Visits Authorized [id number] Pending Review Auto-Generat ed Referral 08/14/2023 09/12/2024 1 1 [facility] for referral (narrative)No reason for referral information availableRavalli Moneytree Services Work Phone: Family History No Family History Records FoundUnknown Family Member Name Dates Details 5 children: Comments:healthy Status:Active Brother 1 Comments:younger, healthy Status:Active Father Comments:Asthma, CAD started 60's, DM, smoker Status:Active Maternal Grandfather Comments:pros cancer Status:Active Mother Comments:osteoarthritis Status:Active Paternal Grandfather Comments:severe asthma, of attack on 55 yo Status:Active Unknown Family Member Name Dates Details 5 children: Comments:healthy Status:Active Brother 1 Comments:younger, healthy Status:Active Father Comments:Asthma, CAD started 60's, DM, smoker Status:Active Maternal Grandfather Comments:pros cancer Status:Active Mother Comments:osteoarthritis Status:Active Paternal Grandfather Comments:severe asthma, of attack on 55 yo Status:Active Unknown Family Member Name Dates Details 5 children: Comments:healthy Status:Active Brother 1 Comments:younger, healthy Status:Active Father Comments:Asthma, CAD started 60's, DM, smoker Status:Active Maternal Grandfather Comments:pros cancer Status:Active Mother Comments:osteoarthritis Status:Active Paternal Grandfather Comments:severe asthma, of attack on 55 yo Status:Active Unknown Family Member Name Dates Details 5 children: Comments:healthy Status:Active Brother 1 Comments:younger, healthy Status:Active Father Comments:Asthma, CAD started 60's, DM, smoker Status:Active Maternal Grandfather Comments:pros cancer Status:Active Mother Comments:osteoarthritis Status:Active Paternal Grandfather Comments:severe asthma, of attack on 55 yo Status:Active Unknown Family Member Name Dates Details 5 children: Comments:healthy Status:Active Brother 1 Comments:younger, healthy Status:Active Father Comments:Asthma, CAD started 60's, DM, smoker Status:Active Maternal Grandfather Comments:pros cancer Status:Active Mother Comments:osteoarthritis Status:Active Paternal Grandfather Comments:severe asthma, of attack on 55 yo Status:Active Unknown Family Member Name Dates Details 5 children: Comments:healthy Status:Active Brother 1 Comments:younger, healthy Status:Active Father Comments:Asthma, CAD started 60's, DM, smoker Status:Active Maternal Grandfather Comments:pros cancer Status:Active Mother Comments:osteoarthritis Status:Active Paternal Grandfather Comments:severe asthma, of attack on 55 yo Status:Active Unknown Family Member Name Dates Details 5 children: Comments:healthy Status:Active Brother 1 Comments:younger, healthy Status:Active Father Comments:Asthma, CAD started 60's, DM, smoker Status:Active Maternal Grandfather Comments:pros cancer Status:Active Mother Comments:osteoarthritis Status:Active Paternal Grandfather Comments:severe asthma, of attack on 55 yo Status:Active Unknown Family Member Name Dates Details 5 children: Comments:healthy Status:Active Brother 1 Comments:younger, healthy Status:Active Father Comments:Asthma, CAD started 60's, DM, smoker Status:Active Maternal Grandfather Comments:pros cancer Status:Active Mother Comments:osteoarthritis Status:Active Paternal Grandfather Comments:severe asthma, of attack on 55 yo Status:Active Unknown Family Member Name Dates Details 5 children: Comments:healthy Status:Active Brother 1 Comments:younger, healthy Status:Active Father Comments:Asthma, CAD started 60's, DM, smoker Status:Active Maternal Grandfather Comments:pros cancer Status:Active Mother Comments:osteoarthritis Status:Active Paternal Grandfather Comments:severe asthma, of attack on 55 yo Status:Active Unknown Family Member Name Dates Details 5 children: Comments:healthy Status:Active Brother 1 Comments:younger, healthy Status:Active Father Comments:Asthma, CAD started 60's, DM, smoker Status:Active Maternal Grandfather Comments:pros cancer Status:Active Mother Comments:osteoarthritis Status:Active Paternal Grandfather Comments:severe asthma, of attack on 55 yo Status:Active Unknown Family Member Name Dates Details 5 children: Comments:healthy Status:Active Brother 1 Comments:younger, healthy Status:Active Father Comments:Asthma, CAD started 60's, DM, smoker Status:Active Maternal Grandfather Comments:pros cancer Status:Active Mother Comments:osteoarthritis Status:Active Paternal Grandfather Comments:severe asthma, of attack on 55 yo Status:Active Unknown Family Member Name Dates Details 5 children: Comments:healthy Status:Active Brother 1 Comments:younger, healthy Status:Active Father Comments:Asthma, CAD started 60's, DM, smoker Status:Active Maternal Grandfather Comments:pros cancer Status:Active Mother Comments:osteoarthritis Status:Active Paternal Grandfather Comments:severe asthma, of attack on 55 yo Status:Active Unknown Family Member Name Dates Details 5 children: Comments:healthy Status:Active Brother 1 Comments:younger, healthy Status:Active Father Comments:Asthma, CAD started 60's, DM, smoker Status:Active Maternal Grandfather Comments:pros cancer Status:Active Mother Comments:osteoarthritis Status:Active Paternal Grandfather Comments:severe asthma, of attack on 55 yo Status:Active Unknown Family Member Name Dates Details 5 children: Comments:healthy Status:Active Brother 1 Comments:younger, healthy Status:Active Father Comments:Asthma, CAD started 60's, DM, smoker Status:Active Maternal Grandfather Comments:pros cancer Status:Active Mother Comments:osteoarthritis Status:Active Paternal Grandfather Comments:severe asthma, of attack on 55 yo Status:Active Unknown Family Member Name Dates Details 5 children: Comments:healthy Status:Active Brother 1 Comments:younger, healthy Status:Active Father Comments:Asthma, CAD started 60's, DM, smoker Status:Active Maternal Grandfather Comments:pros cancer Status:Active Mother Comments:osteoarthritis Status:Active Paternal Grandfather Comments:severe asthma, of attack on 55 yo Status:Active Unknown Family Member Name Dates Details 5 children: Comments:healthy Status:Active Brother 1 Comments:younger, healthy Status:Active Father Comments:Asthma, CAD started 60's, DM, smoker Status:Active Maternal Grandfather Comments:pros cancer Status:Active Mother Comments:osteoarthritis Status:Active Paternal Grandfather Comments:severe asthma, of attack on 55 yo Status:Active Unknown Family Member Name Dates Details 5 children: Comments:healthy Status:Active Brother 1 Comments:younger, healthy Status:Active Father Comments:Asthma, CAD started 60's, DM, smoker Status:Active Maternal Grandfather Comments:pros cancer Status:Active Mother Comments:osteoarthritis Status:Active Paternal Grandfather Comments:severe asthma, of attack on 55 yo Status:Active Unknown Family Member Name Dates Details 5 children: Comments:healthy Status:Active Brother 1 Comments:younger, healthy Status:Active Father Comments:Asthma, CAD started 60's, DM, smoker Status:Active Maternal Grandfather Comments:pros cancer Status:Active Mother Comments:osteoarthritis Status:Active Paternal Grandfather Comments:severe asthma, of attack on 55 yo Status:Active Unknown Family Member Name Dates Details 5 children: Comments:healthy Status:Active Brother 1 Comments:younger, healthy Status:Active Father Comments:Asthma, CAD started 60's, DM, smoker Status:Active Maternal Grandfather Comments:pros cancer Status:Active Mother Comments:osteoarthritis Status:Active Paternal Grandfather Comments:severe asthma, of attack on 55 yo Status:Active Unknown Family Member Name Dates Details 5 children: Comments:healthy Status:Active Brother 1 Comments:younger, healthy Status:Active Father Comments:Asthma, CAD started 60's, DM, smoker Status:Active Maternal Grandfather Comments:pros cancer Status:Active Mother Comments:osteoarthritis Status:Active Paternal Grandfather Comments:severe asthma, of attack on 55 yo Status:Active Unknown Family Member Name Dates Details 5 children: Comments:healthy Status:Active Brother 1 Comments:younger, healthy Status:Active Father Comments:Asthma, CAD started 60's, DM, smoker Status:Active Maternal Grandfather Comments:pros cancer Status:Active Mother Comments:osteoarthritis Status:Active Paternal Grandfather Comments:severe asthma, of attack on 55 yo Status:Active Unknown Family Member Name Dates Details 5 children: Comments:healthy Status:Active Brother 1 Comments:younger, healthy Status:Active Father Comments:Asthma, CAD started 60's, DM, smoker Status:Active Maternal Grandfather Comments:pros cancer Status:Active Mother Comments:osteoarthritis Status:Active Paternal Grandfather Comments:severe asthma, of attack on 55 yo Status:Active Unknown Family Member Name Dates Details 5 children: Comments:healthy Status:Active Brother 1 Comments:younger, healthy Status:Active Father Comments:Asthma, CAD started 60's, DM, smoker Status:Active Maternal Grandfather Comments:pros cancer Status:Active Mother Comments:osteoarthritis Status:Active Paternal Grandfather Comments:severe asthma, of attack on 55 yo Status:Active Unknown Family Member Name Dates Details 5 children: Comments:healthy Status:Active Brother 1 Comments:younger, healthy Status:Active Father Comments:Asthma, CAD started 60's, DM, smoker Status:Active Maternal Grandfather Comments:pros cancer Status:Active Mother Comments:osteoarthritis Status:Active Paternal Grandfather Comments:severe asthma, of attack on 55 yo Status:Active Unknown Family Member Name Dates Details 5 children: Comments:healthy Status:Active Brother 1 Comments:younger, healthy Status:Active Father Comments:Asthma, CAD started 60's, DM, smoker Status:Active Maternal Grandfather Comments:pros cancer Status:Active Mother Comments:osteoarthritis Status:Active Paternal Grandfather Comments:severe asthma, of attack on 55 yo Status:Active Unknown Family Member Name Dates Details 5 children: Comments:healthy Status:Active Brother 1 Comments:younger, healthy Status:Active Father Comments:Asthma, CAD started 60's, DM, smoker Status:Active Maternal Grandfather Comments:pros cancer Status:Active Mother Comments:osteoarthritis Status:Active Paternal Grandfather Comments:severe asthma, of attack on 55 yo Status:Active Unknown Family Member Name Dates Details 5 children: Comments:healthy Status:Active Brother 1 Comments:younger, healthy Status:Active Father Comments:Asthma, CAD started 60's, DM, smoker Status:Active Maternal Grandfather Comments:pros cancer Status:Active Mother Comments:osteoarthritis Status:Active Paternal Grandfather Comments:severe asthma, of attack on 55 yo Status:Active Unknown Family Member Name Dates Details 5 children: Comments:healthy Status:Active Brother 1 Comments:younger, healthy Status:Active Father Comments:Asthma, CAD started 60's, DM, smoker Status:Active Maternal Grandfather Comments:pros cancer Status:Active Mother Comments:osteoarthritis Status:Active Paternal Grandfather Comments:severe asthma, of attack on 55 yo Status:Active Unknown Family Member Name Dates Details 5 children: Comments:healthy Status:Active Brother 1 Comments:younger, healthy Status:Active Father Comments:Asthma, CAD started 60's, DM, smoker Status:Active Maternal Grandfather Comments:pros cancer Status:Active Mother Comments:osteoarthritis Status:Active Paternal Grandfather Comments:severe asthma, of attack on 55 yo Status:Active Unknown Family Member Name Dates Details 5 children: Comments:healthy Status:Active Brother 1 Comments:younger, healthy Status:Active Father Comments:Asthma, CAD started 60's, DM, smoker Status:Active Maternal Grandfather Comments:pros cancer Status:Active Mother Comments:osteoarthritis Status:Active Paternal Grandfather Comments:severe asthma, of attack on 55 yo Status:Active Unknown Family Member Name Dates Details 5 children: Comments:healthy Status:Active Brother 1 Comments:younger, healthy Status:Active Father Comments:Asthma, CAD started 60's, DM, smoker Status:Active Maternal Grandfather Comments:pros cancer Status:Active Mother Comments:osteoarthritis Status:Active Paternal Grandfather Comments:severe asthma, of attack on 55 yo Status:Active Relationship Condition Age at Onset Recorded Date/T leticia Unknown Family History?Heart Disease Unknown September 11, 2014 6:50pm Family History?Heart Disease Unknown February 27, 2025 10:32am Family Member Condition Father Heart disease Father Mother Arthritis Mother Alive Instructions Name Dates Details Allergic rhinitis : How to a [employer] information online Indication:Allergic rhinitis Allergic rhinitis : How to a [employer] health information online - Detail Indication:Allergic rhinitis Allergic rhinitis : Patient Instructions Indication:Allergic rhinitis Encounter for routine histor y and physical exam for male : How to access health information online Indication:Encounter for routine history and physical exam for male Encounter for routine histor y and physical exam for male : How to access health information online - Detail Indication:Encounter for routine history and physical exam for male Encounter for routine histor y and physical exam for male : Patient Instructions Indication:Encounter for routine history and physical exam for male Body mass index (BMI) of 21. 0 to 21.9 in adult : How to access health information online Indication:Body mass index (BMI) of 21.0 to 21.9 in adult Body mass index (BMI) of 21. 0 to 21.9 in adult : How to access health information online - Detail Indication:Body mass index (BMI) of 21.0 to 21.9 in adult Body mass index (BMI) of 21. 0 to 21.9 in adult : Patient Instructions Indication:Body mass index (BMI) of 21.0 to 21.9 in adult Chest pain : Patient Instruc tions Indication:Chest pain Cough : Patient Instructions Indication:Cough Sinusitis : How to access he alth information online Indication:Sinusitis Sinusitis : How to access [employer] information online - Detail Indication:Sinusitis Sinusitis : Patient Instruct ions Indication:Sinusitis Acute sinusitis, unspecified : Patient Instructions Indication:Acute sinusitis, unspecified Abdominal pain, acute, left lower quadrant : Patient Instructions Indication:Abdominal pain, acute, left lower quadrant Name Dates Details How to access health informa tion online Indication:Encounter for routine history and physical exam for male Start:22-Nov-2018 Instruction Type:Patient Education How to access health informa tion online - Detail Indication:Encounter for routine history and physical exam for male Start:22-Nov-2018 Instruction Type:Patient Education Patient Instructions Indication:Encounter for routine history and physical exam for male Start:22-Nov-2018 Instruction Type:Provider Instructions for Treatment How to access health informa tion online Indication:Allergic rhinitis Start:07-Dec-2017 Instruction Type:Patient Education How to access health informa tion online - Detail Indication:Allergic rhinitis Start:07-Dec-2017 Instruction Type:Patient Education Patient Instructions Indication:Allergic rhinitis Start:07-Dec-2017 Instruction Type:Provider Instructions for Treatment How to access health informa tion online Indication:Encounter for routine history and physical exam for male Start:03-Aug-2017 Instruction Type:Patient Education How to access health informa tion online - Detail Indication:Encounter for routine history and physical exam for male Start:03-Aug-2017 Instruction Type:Patient Education Patient Instructions Indication:Encounter for routine history and physical exam for male Start:03-Aug-2017 Instruction Type:Provider Instructions for Treatment How to access health informa tion online Indication:Body mass index (BMI) of 21.0 to 21.9 in adult Start:04-Aug-2016 Instruction Type:Patient Education How to access health informa tion online - Detail Indication:Body mass index (BMI) of 21.0 to 21.9 in adult Start:04-Aug-2016 Instruction Type:Patient Education Patient Instructions Indication:Body mass index (BMI) of 21.0 to 21.9 in adult Start:04-Aug-2016 Instruction Type:Provider Instructions for Treatment How to access health informa tion online Indication:Body mass index (BMI) of 21.0 to 21.9 in adult Start:02-Jun-2016 Instruction Type:Patient Education How to access health informa tion online - Detail Indication:Body mass index (BMI) of 21.0 to 21.9 in adult Start:02-Jun-2016 Instruction Type:Patient Education Patient Instructions Indication:Body mass index (BMI) of 21.0 to 21.9 in adult Start:02-Jun-2016 Instruction Type:Provider Instructions for Treatment Patient Instructions Indication:Chest pain Start:09-Oct-2014 Instruction Type:Provider Instructions for Treatment Patient Instructions Indication:Cough Start:11-Sep-2014 Instruction Type:Provider Instructions for Treatment How to access health informa tion online Indication:Sinusitis Start:27-May-2014 Instruction Type:Patient Education How to access health informa tion online - Detail Indication:Sinusitis Start:27-May-2014 Instruction Type:Patient Education Patient Instructions Indication:Sinusitis Start:27-May-2014 Instruction Type:Provider Instructions for Treatment How to access health informa tion online Indication:Sinusitis Start:20-Mar-2014 Instruction Type:Patient Education How to access health informa tion online - Detail Indication:Sinusitis Start:20-Mar-2014 Instruction Type:Patient Education Patient Instructions Indication:Sinusitis Start:20-Mar-2014 Instruction Type:Provider Instructions for Treatment Patient Instructions Indication:Acute sinusitis, unspecified Start:15-Jul-2013 Instruction Type:Provider Instructions for Treatment Patient Instructions Indication:Abdominal pain, acute, left lower quadrant Start:30-Aug-2012 Instruction Type:Provider Instructions for Treatment Patient Instructions Indication:Acute sinusitis, unspecified Start:03-May-2012 Instruction Type:Provider Instructions for Treatment Name Dates Details How to access health informa tion online Indication:Encounter for routine history and physical exam for male Start:22-Nov-2018 Instruction Type:Patient Education How to access health informa tion online - Detail Indication:Encounter for routine history and physical exam for male Start:22-Nov-2018 Instruction Type:Patient Education Patient Instructions Indication:Encounter for routine history and physical exam for male Start:22-Nov-2018 Instruction Type:Provider Instructions for Treatment How to access health informa tion online Indication:Allergic rhinitis Start:07-Dec-2017 Instruction Type:Patient Education How to access health informa tion online - Detail Indication:Allergic rhinitis Start:07-Dec-2017 Instruction Type:Patient Education Patient Instructions Indication:Allergic rhinitis Start:07-Dec-2017 Instruction Type:Provider Instructions for Treatment How to access health informa tion online Indication:Encounter for routine history and physical exam for male Start:03-Aug-2017 Instruction Type:Patient Education How to access health informa tion online - Detail Indication:Encounter for routine history and physical exam for male Start:03-Aug-2017 Instruction Type:Patient Education Patient Instructions Indication:Encounter for routine history and physical exam for male Start:03-Aug-2017 Instruction Type:Provider Instructions for Treatment How to access health informa tion online Indication:Body mass index (BMI) of 21.0 to 21.9 in adult Start:04-Aug-2016 Instruction Type:Patient Education How to access health informa tion online - Detail Indication:Body mass index (BMI) of 21.0 to 21.9 in adult Start:04-Aug-2016 Instruction Type:Patient Education Patient Instructions Indication:Body mass index (BMI) of 21.0 to 21.9 in adult Start:04-Aug-2016 Instruction Type:Provider Instructions for Treatment How to access health informa tion online Indication:Body mass index (BMI) of 21.0 to 21.9 in adult Start:02-Jun-2016 Instruction Type:Patient Education How to access health informa tion online - Detail Indication:Body mass index (BMI) of 21.0 to 21.9 in adult Start:02-Jun-2016 Instruction Type:Patient Education Patient Instructions Indication:Body mass index (BMI) of 21.0 to 21.9 in adult Start:02-Jun-2016 Instruction Type:Provider Instructions for Treatment Patient Instructions Indication:Chest pain Start:09-Oct-2014 Instruction Type:Provider Instructions for Treatment Patient Instructions Indication:Cough Start:11-Sep-2014 Instruction Type:Provider Instructions for Treatment How to access health informa tion online Indication:Sinusitis Start:27-May-2014 Instruction Type:Patient Education How to access health informa tion online - Detail Indication:Sinusitis Start:27-May-2014 Instruction Type:Patient Education Patient Instructions Indication:Sinusitis Start:27-May-2014 Instruction Type:Provider Instructions for Treatment How to access health informa tion online Indication:Sinusitis Start:20-Mar-2014 Instruction Type:Patient Education How to access health informa tion online - Detail Indication:Sinusitis Start:20-Mar-2014 Instruction Type:Patient Education Patient Instructions Indication:Sinusitis Start:20-Mar-2014 Instruction Type:Provider Instructions for Treatment Patient Instructions Indication:Acute sinusitis, unspecified Start:15-Jul-2013 Instruction Type:Provider Instructions for Treatment Patient Instructions Indication:Abdominal pain, acute, left lower quadrant Start:30-Aug-2012 Instruction Type:Provider Instructions for Treatment Patient Instructions Indication:Acute sinusitis, unspecified Start:03-May-2012 Instruction Type:Provider Instructions for Treatment Name Dates Details How to access health informa tion online Indication:Encounter for routine history and physical exam for male Start:12-Dec-2019 Instruction Type:Patient Education How to access health informa tion online - Detail Indication:Encounter for routine history and physical exam for male Start:12-Dec-2019 Instruction Type:Patient Education Patient Instructions Indication:Encounter for routine history and physical exam for male Start:12-Dec-2019 Instruction Type:Provider Instructions for Treatment How to access health informa tion online Indication:Current nonsmoker (Renamed from Current non-smoker) Start:08-Aug-2019 Instruction Type:Patient Education How to access health informa tion online - Detail Indication:Current nonsmoker (Renamed from Current non-smoker) Start:08-Aug-2019 Instruction Type:Patient Education Patient Instructions Indication:Current nonsmoker (Renamed from Current non-smoker) Start:08-Aug-2019 Instruction Type:Provider Instructions for Treatment How to access health informa tion online Indication:Encounter for routine history and physical exam for male Start:22-Nov-2018 Instruction Type:Patient Education How to access health informa tion online - Detail Indication:Encounter for routine history and physical exam for male Start:22-Nov-2018 Instruction Type:Patient Education Patient Instructions Indication:Encounter for routine history and physical exam for male Start:22-Nov-2018 Instruction Type:Provider Instructions for Treatment How to access health informa tion online Indication:Allergic rhinitis Start:07-Dec-2017 Instruction Type:Patient Education How to access health informa tion online - Detail Indication:Allergic rhinitis Start:07-Dec-2017 Instruction Type:Patient Education Patient Instructions Indication:Allergic rhinitis Start:07-Dec-2017 Instruction Type:Provider Instructions for Treatment How to access health informa tion online Indication:Encounter for routine history and physical exam for male Start:03-Aug-2017 Instruction Type:Patient Education How to access health informa tion online - Detail Indication:Encounter for routine history and physical exam for male Start:03-Aug-2017 Instruction Type:Patient Education Patient Instructions Indication:Encounter for routine history and physical exam for male Start:03-Aug-2017 Instruction Type:Provider Instructions for Treatment How to access health informa tion online Indication:Body mass index (BMI) of 21.0 to 21.9 in adult Start:04-Aug-2016 Instruction Type:Patient Education How to access health informa tion online - Detail Indication:Body mass index (BMI) of 21.0 to 21.9 in adult Start:04-Aug-2016 Instruction Type:Patient Education Patient Instructions Indication:Body mass index (BMI) of 21.0 to 21.9 in adult Start:04-Aug-2016 Instruction Type:Provider Instructions for Treatment How to access health informa tion online Indication:Body mass index (BMI) of 21.0 to 21.9 in adult Start:02-Jun-2016 Instruction Type:Patient Education How to access health informa tion online - Detail Indication:Body mass index (BMI) of 21.0 to 21.9 in adult Start:02-Jun-2016 Instruction Type:Patient Education Patient Instructions Indication:Body mass index (BMI) of 21.0 to 21.9 in adult Start:02-Jun-2016 Instruction Type:Provider Instructions for Treatment Patient Instructions Indication:Chest pain Start:09-Oct-2014 Instruction Type:Provider Instructions for Treatment Patient Instructions Indication:Cough Start:11-Sep-2014 Instruction Type:Provider Instructions for Treatment How to access health informa tion online Indication:Sinusitis Start:27-May-2014 Instruction Type:Patient Education How to access health informa tion online - Detail Indication:Sinusitis Start:27-May-2014 Instruction Type:Patient Education Patient Instructions Indication:Sinusitis Start:27-May-2014 Instruction Type:Provider Instructions for Treatment How to access health informa tion online Indication:Sinusitis Start:20-Mar-2014 Instruction Type:Patient Education How to access health informa tion online - Detail Indication:Sinusitis Start:20-Mar-2014 Instruction Type:Patient Education Patient Instructions Indication:Sinusitis Start:20-Mar-2014 Instruction Type:Provider Instructions for Treatment Patient Instructions Indication:Acute sinusitis, unspecified Start:15-Jul-2013 Instruction Type:Provider Instructions for Treatment Patient Instructions Indication:Abdominal pain, acute, left lower quadrant Start:30-Aug-2012 Instruction Type:Provider Instructions for Treatment Patient Instructions Indication:Acute sinusitis, unspecified Start:03-May-2012 Instruction Type:Provider Instructions for Treatment Name Dates Details How to access health informa tion online Indication:Encounter for routine history and physical exam for male Start:12-Dec-2019 Instruction Type:Patient Education How to access health informa tion online - Detail Indication:Encounter for routine history and physical exam for male Start:12-Dec-2019 Instruction Type:Patient Education Patient Instructions Indication:Encounter for routine history and physical exam for male Start:12-Dec-2019 Instruction Type:Provider Instructions for Treatment How to access health informa tion online Indication:Current nonsmoker (Renamed from Current non-smoker) Start:08-Aug-2019 Instruction Type:Patient Education How to access health informa tion online - Detail Indication:Current nonsmoker (Renamed from Current non-smoker) Start:08-Aug-2019 Instruction Type:Patient Education Patient Instructions Indication:Current nonsmoker (Renamed from Current non-smoker) Start:08-Aug-2019 Instruction Type:Provider Instructions for Treatment How to access health informa tion online Indication:Encounter for routine history and physical exam for male Start:22-Nov-2018 Instruction Type:Patient Education How to access health informa tion online - Detail Indication:Encounter for routine history and physical exam for male Start:22-Nov-2018 Instruction Type:Patient Education Patient Instructions Indication:Encounter for routine history and physical exam for male Start:22-Nov-2018 Instruction Type:Provider Instructions for Treatment How to access health informa tion online Indication:Allergic rhinitis Start:07-Dec-2017 Instruction Type:Patient Education How to access health informa tion online - Detail Indication:Allergic rhinitis Start:07-Dec-2017 Instruction Type:Patient Education Patient Instructions Indication:Allergic rhinitis Start:07-Dec-2017 Instruction Type:Provider Instructions for Treatment How to access health informa tion online Indication:Encounter for routine history and physical exam for male Start:03-Aug-2017 Instruction Type:Patient Education How to access health informa tion online - Detail Indication:Encounter for routine history and physical exam for male Start:03-Aug-2017 Instruction Type:Patient Education Patient Instructions Indication:Encounter for routine history and physical exam for male Start:03-Aug-2017 Instruction Type:Provider Instructions for Treatment How to access health informa tion online Indication:Body mass index (BMI) of 21.0 to 21.9 in adult Start:04-Aug-2016 Instruction Type:Patient Education How to access health informa tion online - Detail Indication:Body mass index (BMI) of 21.0 to 21.9 in adult Start:04-Aug-2016 Instruction Type:Patient Education Patient Instructions Indication:Body mass index (BMI) of 21.0 to 21.9 in adult Start:04-Aug-2016 Instruction Type:Provider Instructions for Treatment How to access health informa tion online Indication:Body mass index (BMI) of 21.0 to 21.9 in adult Start:02-Jun-2016 Instruction Type:Patient Education How to access health informa tion online - Detail Indication:Body mass index (BMI) of 21.0 to 21.9 in adult Start:02-Jun-2016 Instruction Type:Patient Education Patient Instructions Indication:Body mass index (BMI) of 21.0 to 21.9 in adult Start:02-Jun-2016 Instruction Type:Provider Instructions for Treatment Patient Instructions Indication:Chest pain Start:09-Oct-2014 Instruction Type:Provider Instructions for Treatment Patient Instructions Indication:Cough Start:11-Sep-2014 Instruction Type:Provider Instructions for Treatment How to access health informa tion online Indication:Sinusitis Start:27-May-2014 Instruction Type:Patient Education How to access health informa tion online - Detail Indication:Sinusitis Start:27-May-2014 Instruction Type:Patient Education Patient Instructions Indication:Sinusitis Start:27-May-2014 Instruction Type:Provider Instructions for Treatment How to access health informa tion online Indication:Sinusitis Start:20-Mar-2014 Instruction Type:Patient Education How to access health informa tion online - Detail Indication:Sinusitis Start:20-Mar-2014 Instruction Type:Patient Education Patient Instructions Indication:Sinusitis Start:20-Mar-2014 Instruction Type:Provider Instructions for Treatment Patient Instructions Indication:Acute sinusitis, unspecified Start:15-Jul-2013 Instruction Type:Provider Instructions for Treatment Patient Instructions Indication:Abdominal pain, acute, left lower quadrant Start:30-Aug-2012 Instruction Type:Provider Instructions for Treatment Patient Instructions Indication:Acute sinusitis, unspecified Start:03-May-2012 Instruction Type:Provider Instructions for Treatment Name Dates Details Allergic rhinitis : How to a [employer] information online Indication:Allergic rhinitis Allergic rhinitis : How to a ccess health information online - Detail Indication:Allergic rhinitis Allergic rhinitis : Patient Instructions Indication:Allergic rhinitis Encounter for routine histor y and physical exam for male : How to access health information online Indication:Encounter for routine history and physical exam for male Encounter for routine histor y and physical exam for male : How to access health information online - Detail Indication:Encounter for routine history and physical exam for male Encounter for routine histor y and physical exam for male : Patient Instructions Indication:Encounter for routine history and physical exam for male Body mass index (BMI) of 21. 0 to 21.9 in adult : How to access health information online Indication:Body mass index (BMI) of 21.0 to 21.9 in adult Body mass index (BMI) of 21. 0 to 21.9 in adult : How to access health information online - Detail Indication:Body mass index (BMI) of 21.0 to 21.9 in adult Body mass index (BMI) of 21. 0 to 21.9 in adult : Patient Instructions Indication:Body mass index (BMI) of 21.0 to 21.9 in adult Chest pain : Patient Instruc tions Indication:Chest pain Cough : Patient Instructions Indication:Cough Sinusitis : How to access he alth information online Indication:Sinusitis Sinusitis : How to access he alth information online - Detail Indication:Sinusitis Sinusitis : Patient Instruct ions Indication:Sinusitis Acute sinusitis, unspecified : Patient Instructions Indication:Acute sinusitis, unspecified Abdominal pain, acute, left lower quadrant : Patient Instructions Indication:Abdominal pain, acute, left lower quadrant Name Dates Details How to access health informa tion online Indication:Encounter for routine history and physical exam for male Start:12-Dec-2019 Instruction Type:Patient Education How to access health informa tion online - Detail Indication:Encounter for routine history and physical exam for male Start:12-Dec-2019 Instruction Type:Patient Education Patient Instructions Indication:Encounter for routine history and physical exam for male Start:12-Dec-2019 Instruction Type:Provider Instructions for Treatment How to access health informa tion online Indication:Current nonsmoker (Renamed from Current non-smoker) Start:08-Aug-2019 Instruction Type:Patient Education How to access health informa tion online - Detail Indication:Current nonsmoker (Renamed from Current non-smoker) Start:08-Aug-2019 Instruction Type:Patient Education Patient Instructions Indication:Current nonsmoker (Renamed from Current non-smoker) Start:08-Aug-2019 Instruction Type:Provider Instructions for Treatment How to access health informa tion online Indication:Encounter for routine history and physical exam for male Start:22-Nov-2018 Instruction Type:Patient Education How to access health informa tion online - Detail Indication:Encounter for routine history and physical exam for male Start:22-Nov-2018 Instruction Type:Patient Education Patient Instructions Indication:Encounter for routine history and physical exam for male Start:22-Nov-2018 Instruction Type:Provider Instructions for Treatment How to access health informa tion online Indication:Allergic rhinitis Start:07-Dec-2017 Instruction Type:Patient Education How to access health informa tion online - Detail Indication:Allergic rhinitis Start:07-Dec-2017 Instruction Type:Patient Education Patient Instructions Indication:Allergic rhinitis Start:07-Dec-2017 Instruction Type:Provider Instructions for Treatment How to access health informa tion online Indication:Encounter for routine history and physical exam for male Start:03-Aug-2017 Instruction Type:Patient Education How to access health informa tion online - Detail Indication:Encounter for routine history and physical exam for male Start:03-Aug-2017 Instruction Type:Patient Education Patient Instructions Indication:Encounter for routine history and physical exam for male Start:03-Aug-2017 Instruction Type:Provider Instructions for Treatment How to access health informa tion online Indication:Body mass index (BMI) of 21.0 to 21.9 in adult Start:04-Aug-2016 Instruction Type:Patient Education How to access health informa tion online - Detail Indication:Body mass index (BMI) of 21.0 to 21.9 in adult Start:04-Aug-2016 Instruction Type:Patient Education Patient Instructions Indication:Body mass index (BMI) of 21.0 to 21.9 in adult Start:04-Aug-2016 Instruction Type:Provider Instructions for Treatment How to access health informa tion online Indication:Body mass index (BMI) of 21.0 to 21.9 in adult Start:02-Jun-2016 Instruction Type:Patient Education How to access health informa tion online - Detail Indication:Body mass index (BMI) of 21.0 to 21.9 in adult Start:02-Jun-2016 Instruction Type:Patient Education Patient Instructions Indication:Body mass index (BMI) of 21.0 to 21.9 in adult Start:02-Jun-2016 Instruction Type:Provider Instructions for Treatment Patient Instructions Indication:Chest pain Start:09-Oct-2014 Instruction Type:Provider Instructions for Treatment Patient Instructions Indication:Cough Start:11-Sep-2014 Instruction Type:Provider Instructions for Treatment How to access health informa tion online Indication:Sinusitis Start:27-May-2014 Instruction Type:Patient Education How to access health informa tion online - Detail Indication:Sinusitis Start:27-May-2014 Instruction Type:Patient Education Patient Instructions Indication:Sinusitis Start:27-May-2014 Instruction Type:Provider Instructions for Treatment How to access health informa tion online Indication:Sinusitis Start:20-Mar-2014 Instruction Type:Patient Education How to access health informa tion online - Detail Indication:Sinusitis Start:20-Mar-2014 Instruction Type:Patient Education Patient Instructions Indication:Sinusitis Start:20-Mar-2014 Instruction Type:Provider Instructions for Treatment Patient Instructions Indication:Acute sinusitis, unspecified Start:15-Jul-2013 Instruction Type:Provider Instructions for Treatment Patient Instructions Indication:Abdominal pain, acute, left lower quadrant Start:30-Aug-2012 Instruction Type:Provider Instructions for Treatment Patient Instructions Indication:Acute sinusitis, unspecified Start:03-May-2012 Instruction Type:Provider Instructions for Treatment Name Dates Details How to access health informa tion online Indication:Encounter for routine history and physical exam for male Start:22-Nov-2018 Instruction Type:Patient Education How to access health informa tion online - Detail Indication:Encounter for routine history and physical exam for male Start:22-Nov-2018 Instruction Type:Patient Education Patient Instructions Indication:Encounter for routine history and physical exam for male Start:22-Nov-2018 Instruction Type:Provider Instructions for Treatment How to access health informa tion online Indication:Allergic rhinitis Start:07-Dec-2017 Instruction Type:Patient Education How to access health informa tion online - Detail Indication:Allergic rhinitis Start:07-Dec-2017 Instruction Type:Patient Education Patient Instructions Indication:Allergic rhinitis Start:07-Dec-2017 Instruction Type:Provider Instructions for Treatment How to access health informa tion online Indication:Encounter for routine history and physical exam for male Start:03-Aug-2017 Instruction Type:Patient Education How to access health informa tion online - Detail Indication:Encounter for routine history and physical exam for male Start:03-Aug-2017 Instruction Type:Patient Education Patient Instructions Indication:Encounter for routine history and physical exam for male Start:03-Aug-2017 Instruction Type:Provider Instructions for Treatment How to access health informa tion online Indication:Body mass index (BMI) of 21.0 to 21.9 in adult Start:04-Aug-2016 Instruction Type:Patient Education How to access health informa tion online - Detail Indication:Body mass index (BMI) of 21.0 to 21.9 in adult Start:04-Aug-2016 Instruction Type:Patient Education Patient Instructions Indication:Body mass index (BMI) of 21.0 to 21.9 in adult Start:04-Aug-2016 Instruction Type:Provider Instructions for Treatment How to access health informa tion online Indication:Body mass index (BMI) of 21.0 to 21.9 in adult Start:02-Jun-2016 Instruction Type:Patient Education How to access health informa tion online - Detail Indication:Body mass index (BMI) of 21.0 to 21.9 in adult Start:02-Jun-2016 Instruction Type:Patient Education Patient Instructions Indication:Body mass index (BMI) of 21.0 to 21.9 in adult Start:02-Jun-2016 Instruction Type:Provider Instructions for Treatment Patient Instructions Indication:Chest pain Start:09-Oct-2014 Instruction Type:Provider Instructions for Treatment Patient Instructions Indication:Cough Start:11-Sep-2014 Instruction Type:Provider Instructions for Treatment How to access health informa tion online Indication:Sinusitis Start:27-May-2014 Instruction Type:Patient Education How to access health informa tion online - Detail Indication:Sinusitis Start:27-May-2014 Instruction Type:Patient Education Patient Instructions Indication:Sinusitis Start:27-May-2014 Instruction Type:Provider Instructions for Treatment How to access health informa tion online Indication:Sinusitis Start:20-Mar-2014 Instruction Type:Patient Education How to access health informa tion online - Detail Indication:Sinusitis Start:20-Mar-2014 Instruction Type:Patient Education Patient Instructions Indication:Sinusitis Start:20-Mar-2014 Instruction Type:Provider Instructions for Treatment Patient Instructions Indication:Acute sinusitis, unspecified Start:15-Jul-2013 Instruction Type:Provider Instructions for Treatment Patient Instructions Indication:Abdominal pain, acute, left lower quadrant Start:30-Aug-2012 Instruction Type:Provider Instructions for Treatment Patient Instructions Indication:Acute sinusitis, unspecified Start:03-May-2012 Instruction Type:Provider Instructions for Treatment Name Dates Details Patient Instructions Indication:Cough Start:03-Sep-2020 Instruction Type:Provider Instructions for Treatment How to Access Health Informa tion Online using Patient Portal and [employer] Indication:Cough Start:03-Sep-2020 Instruction Type:Patient Education How to access health informa tion online Indication:Encounter for routine history and physical exam for male Start:12-Dec-2019 Instruction Type:Patient Education How to access health informa tion online - Detail Indication:Encounter for routine history and physical exam for male Start:12-Dec-2019 Instruction Type:Patient Education Patient Instructions Indication:Encounter for routine history and physical exam for male Start:12-Dec-2019 Instruction Type:Provider Instructions for Treatment How to access health informa tion online Indication:Current nonsmoker (Renamed from Current non-smoker) Start:08-Aug-2019 Instruction Type:Patient Education How to access health informa tion online - Detail Indication:Current nonsmoker (Renamed from Current non-smoker) Start:08-Aug-2019 Instruction Type:Patient Education Patient Instructions Indication:Current nonsmoker (Renamed from Current non-smoker) Start:08-Aug-2019 Instruction Type:Provider Instructions for Treatment How to access health informa tion online Indication:Encounter for routine history and physical exam for male Start:22-Nov-2018 Instruction Type:Patient Education How to access health informa tion online - Detail Indication:Encounter for routine history and physical exam for male Start:22-Nov-2018 Instruction Type:Patient Education Patient Instructions Indication:Encounter for routine history and physical exam for male Start:22-Nov-2018 Instruction Type:Provider Instructions for Treatment How to access health informa tion online Indication:Allergic rhinitis Start:07-Dec-2017 Instruction Type:Patient Education How to access health informa tion online - Detail Indication:Allergic rhinitis Start:07-Dec-2017 Instruction Type:Patient Education Patient Instructions Indication:Allergic rhinitis Start:07-Dec-2017 Instruction Type:Provider Instructions for Treatment How to access health informa tion online Indication:Encounter for routine history and physical exam for male Start:03-Aug-2017 Instruction Type:Patient Education How to access health informa tion online - Detail Indication:Encounter for routine history and physical exam for male Start:03-Aug-2017 Instruction Type:Patient Education Patient Instructions Indication:Encounter for routine history and physical exam for male Start:03-Aug-2017 Instruction Type:Provider Instructions for Treatment How to access health informa tion online Indication:Body mass index (BMI) of 21.0 to 21.9 in adult Start:04-Aug-2016 Instruction Type:Patient Education How to access health informa tion online - Detail Indication:Body mass index (BMI) of 21.0 to 21.9 in adult Start:04-Aug-2016 Instruction Type:Patient Education Patient Instructions Indication:Body mass index (BMI) of 21.0 to 21.9 in adult Start:04-Aug-2016 Instruction Type:Provider Instructions for Treatment How to access health informa tion online Indication:Body mass index (BMI) of 21.0 to 21.9 in adult Start:02-Jun-2016 Instruction Type:Patient Education How to access health informa tion online - Detail Indication:Body mass index (BMI) of 21.0 to 21.9 in adult Start:02-Jun-2016 Instruction Type:Patient Education Patient Instructions Indication:Body mass index (BMI) of 21.0 to 21.9 in adult Start:02-Jun-2016 Instruction Type:Provider Instructions for Treatment Patient Instructions Indication:Chest pain Start:09-Oct-2014 Instruction Type:Provider Instructions for Treatment Patient Instructions Indication:Cough Start:11-Sep-2014 Instruction Type:Provider Instructions for Treatment How to access health informa tion online Indication:Sinusitis Start:27-May-2014 Instruction Type:Patient Education How to access health informa tion online - Detail Indication:Sinusitis Start:27-May-2014 Instruction Type:Patient Education Patient Instructions Indication:Sinusitis Start:27-May-2014 Instruction Type:Provider Instructions for Treatment How to access health informa tion online Indication:Sinusitis Start:20-Mar-2014 Instruction Type:Patient Education How to access health informa tion online - Detail Indication:Sinusitis Start:20-Mar-2014 Instruction Type:Patient Education Patient Instructions Indication:Sinusitis Start:20-Mar-2014 Instruction Type:Provider Instructions for Treatment Patient Instructions Indication:Acute sinusitis, unspecified Start:15-Jul-2013 Instruction Type:Provider Instructions for Treatment Patient Instructions Indication:Abdominal pain, acute, left lower quadrant Start:30-Aug-2012 Instruction Type:Provider Instructions for Treatment Patient Instructions Indication:Acute sinusitis, unspecified Start:03-May-2012 Instruction Type:Provider Instructions for Treatment Name Dates Details How to access health informa tion online Indication:Allergic rhinitis Start:07-Dec-2017 Instruction Type:Patient Education How to access health informa tion online - Detail Indication:Allergic rhinitis Start:07-Dec-2017 Instruction Type:Patient Education Patient Instructions Indication:Allergic rhinitis Start:07-Dec-2017 Instruction Type:Provider Instructions for Treatment How to access health informa tion online Indication:Encounter for routine history and physical exam for male Start:03-Aug-2017 Instruction Type:Patient Education How to access health informa tion online - Detail Indication:Encounter for routine history and physical exam for male Start:03-Aug-2017 Instruction Type:Patient Education Patient Instructions Indication:Encounter for routine history and physical exam for male Start:03-Aug-2017 Instruction Type:Provider Instructions for Treatment How to access health informa tion online Indication:Body mass index (BMI) of 21.0 to 21.9 in adult Start:04-Aug-2016 Instruction Type:Patient Education How to access health informa tion online - Detail Indication:Body mass index (BMI) of 21.0 to 21.9 in adult Start:04-Aug-2016 Instruction Type:Patient Education Patient Instructions Indication:Body mass index (BMI) of 21.0 to 21.9 in adult Start:04-Aug-2016 Instruction Type:Provider Instructions for Treatment How to access health informa tion online Indication:Body mass index (BMI) of 21.0 to 21.9 in adult Start:02-Jun-2016 Instruction Type:Patient Education How to access health informa tion online - Detail Indication:Body mass index (BMI) of 21.0 to 21.9 in adult Start:02-Jun-2016 Instruction Type:Patient Education Patient Instructions Indication:Body mass index (BMI) of 21.0 to 21.9 in adult Start:02-Jun-2016 Instruction Type:Provider Instructions for Treatment Patient Instructions Indication:Chest pain Start:09-Oct-2014 Instruction Type:Provider Instructions for Treatment Patient Instructions Indication:Cough Start:11-Sep-2014 Instruction Type:Provider Instructions for Treatment How to access health informa tion online Indication:Sinusitis Start:27-May-2014 Instruction Type:Patient Education How to access health informa tion online - Detail Indication:Sinusitis Start:27-May-2014 Instruction Type:Patient Education Patient Instructions Indication:Sinusitis Start:27-May-2014 Instruction Type:Provider Instructions for Treatment How to access health informa tion online Indication:Sinusitis Start:20-Mar-2014 Instruction Type:Patient Education How to access health informa tion online - Detail Indication:Sinusitis Start:20-Mar-2014 Instruction Type:Patient Education Patient Instructions Indication:Sinusitis Start:20-Mar-2014 Instruction Type:Provider Instructions for Treatment Patient Instructions Indication:Acute sinusitis, unspecified Start:15-Jul-2013 Instruction Type:Provider Instructions for Treatment Patient Instructions Indication:Abdominal pain, acute, left lower quadrant Start:30-Aug-2012 Instruction Type:Provider Instructions for Treatment Patient Instructions Indication:Acute sinusitis, unspecified Start:03-May-2012 Instruction Type:Provider Instructions for Treatment Name Dates Details Patient Instructions Indication:Cough Start:03-Sep-2020 Instruction Type:Provider Instructions for Treatment How to Access Health Informa tion Online using Patient Portal and [employer] Apps Indication:Cough Start:03-Sep-2020 Instruction Type:Patient Education How to access health informa tion online Indication:Encounter for routine history and physical exam for male Start:12-Dec-2019 Instruction Type:Patient Education How to access health informa tion online - Detail Indication:Encounter for routine history and physical exam for male Start:12-Dec-2019 Instruction Type:Patient Education Patient Instructions Indication:Encounter for routine history and physical exam for male Start:12-Dec-2019 Instruction Type:Provider Instructions for Treatment How to access health informa tion online Indication:Current nonsmoker (Renamed from Current non-smoker) Start:08-Aug-2019 Instruction Type:Patient Education How to access health informa tion online - Detail Indication:Current nonsmoker (Renamed from Current non-smoker) Start:08-Aug-2019 Instruction Type:Patient Education Patient Instructions Indication:Current nonsmoker (Renamed from Current non-smoker) Start:08-Aug-2019 Instruction Type:Provider Instructions for Treatment How to access health informa tion online Indication:Encounter for routine history and physical exam for male Start:22-Nov-2018 Instruction Type:Patient Education How to access health informa tion online - Detail Indication:Encounter for routine history and physical exam for male Start:22-Nov-2018 Instruction Type:Patient Education Patient Instructions Indication:Encounter for routine history and physical exam for male Start:22-Nov-2018 Instruction Type:Provider Instructions for Treatment How to access health informa tion online Indication:Allergic rhinitis Start:07-Dec-2017 Instruction Type:Patient Education How to access health informa tion online - Detail Indication:Allergic rhinitis Start:07-Dec-2017 Instruction Type:Patient Education Patient Instructions Indication:Allergic rhinitis Start:07-Dec-2017 Instruction Type:Provider Instructions for Treatment How to access health informa tion online Indication:Encounter for routine history and physical exam for male Start:03-Aug-2017 Instruction Type:Patient Education How to access health informa tion online - Detail Indication:Encounter for routine history and physical exam for male Start:03-Aug-2017 Instruction Type:Patient Education Patient Instructions Indication:Encounter for routine history and physical exam for male Start:03-Aug-2017 Instruction Type:Provider Instructions for Treatment How to access health informa tion online Indication:Body mass index (BMI) of 21.0 to 21.9 in adult Start:04-Aug-2016 Instruction Type:Patient Education How to access health informa tion online - Detail Indication:Body mass index (BMI) of 21.0 to 21.9 in adult Start:04-Aug-2016 Instruction Type:Patient Education Patient Instructions Indication:Body mass index (BMI) of 21.0 to 21.9 in adult Start:04-Aug-2016 Instruction Type:Provider Instructions for Treatment How to access health informa tion online Indication:Body mass index (BMI) of 21.0 to 21.9 in adult Start:02-Jun-2016 Instruction Type:Patient Education How to access health informa tion online - Detail Indication:Body mass index (BMI) of 21.0 to 21.9 in adult Start:02-Jun-2016 Instruction Type:Patient Education Patient Instructions Indication:Body mass index (BMI) of 21.0 to 21.9 in adult Start:02-Jun-2016 Instruction Type:Provider Instructions for Treatment Patient Instructions Indication:Chest pain Start:09-Oct-2014 Instruction Type:Provider Instructions for Treatment Patient Instructions Indication:Cough Start:11-Sep-2014 Instruction Type:Provider Instructions for Treatment How to access health informa tion online Indication:Sinusitis Start:27-May-2014 Instruction Type:Patient Education How to access health informa tion online - Detail Indication:Sinusitis Start:27-May-2014 Instruction Type:Patient Education Patient Instructions Indication:Sinusitis Start:27-May-2014 Instruction Type:Provider Instructions for Treatment How to access health informa tion online Indication:Sinusitis Start:20-Mar-2014 Instruction Type:Patient Education How to access health informa tion online - Detail Indication:Sinusitis Start:20-Mar-2014 Instruction Type:Patient Education Patient Instructions Indication:Sinusitis Start:20-Mar-2014 Instruction Type:Provider Instructions for Treatment Patient Instructions Indication:Acute sinusitis, unspecified Start:15-Jul-2013 Instruction Type:Provider Instructions for Treatment Patient Instructions Indication:Abdominal pain, acute, left lower quadrant Start:30-Aug-2012 Instruction Type:Provider Instructions for Treatment Patient Instructions Indication:Acute sinusitis, unspecified Start:03-May-2012 Instruction Type:Provider Instructions for Treatment Name Dates Details How to Access Health Informa tion Online using Patient Portal and [employer] Apps Indication:BMI 22.0-22.9, adult Start:24-Sep-2020 Instruction Type:Patient Education Patient Instructions Indication:Cough Start:03-Sep-2020 Instruction Type:Provider Instructions for Treatment How to Access Health Informa tion Online using Patient Portal and [employer] Apps Indication:Cough Start:03-Sep-2020 Instruction Type:Patient Education How to access health informa tion online Indication:Encounter for routine history and physical exam for male Start:12-Dec-2019 Instruction Type:Patient Education How to access health informa tion online - Detail Indication:Encounter for routine history and physical exam for male Start:12-Dec-2019 Instruction Type:Patient Education Patient Instructions Indication:Encounter for routine history and physical exam for male Start:12-Dec-2019 Instruction Type:Provider Instructions for Treatment How to access health informa tion online Indication:Current nonsmoker (Renamed from Current non-smoker) Start:08-Aug-2019 Instruction Type:Patient Education How to access health informa tion online - Detail Indication:Current nonsmoker (Renamed from Current non-smoker) Start:08-Aug-2019 Instruction Type:Patient Education Patient Instructions Indication:Current nonsmoker (Renamed from Current non-smoker) Start:08-Aug-2019 Instruction Type:Provider Instructions for Treatment How to access health informa tion online Indication:Encounter for routine history and physical exam for male Start:22-Nov-2018 Instruction Type:Patient Education How to access health informa tion online - Detail Indication:Encounter for routine history and physical exam for male Start:22-Nov-2018 Instruction Type:Patient Education Patient Instructions Indication:Encounter for routine history and physical exam for male Start:22-Nov-2018 Instruction Type:Provider Instructions for Treatment How to access health informa tion online Indication:Allergic rhinitis Start:07-Dec-2017 Instruction Type:Patient Education How to access health informa tion online - Detail Indication:Allergic rhinitis Start:07-Dec-2017 Instruction Type:Patient Education Patient Instructions Indication:Allergic rhinitis Start:07-Dec-2017 Instruction Type:Provider Instructions for Treatment How to access health informa tion online Indication:Encounter for routine history and physical exam for male Start:03-Aug-2017 Instruction Type:Patient Education How to access health informa tion online - Detail Indication:Encounter for routine history and physical exam for male Start:03-Aug-2017 Instruction Type:Patient Education Patient Instructions Indication:Encounter for routine history and physical exam for male Start:03-Aug-2017 Instruction Type:Provider Instructions for Treatment How to access health informa tion online Indication:Body mass index (BMI) of 21.0 to 21.9 in adult Start:04-Aug-2016 Instruction Type:Patient Education How to access health informa tion online - Detail Indication:Body mass index (BMI) of 21.0 to 21.9 in adult Start:04-Aug-2016 Instruction Type:Patient Education Patient Instructions Indication:Body mass index (BMI) of 21.0 to 21.9 in adult Start:04-Aug-2016 Instruction Type:Provider Instructions for Treatment How to access health informa tion online Indication:Body mass index (BMI) of 21.0 to 21.9 in adult Start:02-Jun-2016 Instruction Type:Patient Education How to access health informa tion online - Detail Indication:Body mass index (BMI) of 21.0 to 21.9 in adult Start:02-Jun-2016 Instruction Type:Patient Education Patient Instructions Indication:Body mass index (BMI) of 21.0 to 21.9 in adult Start:02-Jun-2016 Instruction Type:Provider Instructions for Treatment Patient Instructions Indication:Chest pain Start:09-Oct-2014 Instruction Type:Provider Instructions for Treatment Patient Instructions Indication:Cough Start:11-Sep-2014 Instruction Type:Provider Instructions for Treatment How to access health informa tion online Indication:Sinusitis Start:27-May-2014 Instruction Type:Patient Education How to access health informa tion online - Detail Indication:Sinusitis Start:27-May-2014 Instruction Type:Patient Education Patient Instructions Indication:Sinusitis Start:27-May-2014 Instruction Type:Provider Instructions for Treatment How to access health informa tion online Indication:Sinusitis Start:20-Mar-2014 Instruction Type:Patient Education How to access health informa tion online - Detail Indication:Sinusitis Start:20-Mar-2014 Instruction Type:Patient Education Patient Instructions Indication:Sinusitis Start:20-Mar-2014 Instruction Type:Provider Instructions for Treatment Patient Instructions Indication:Acute sinusitis, unspecified Start:15-Jul-2013 Instruction Type:Provider Instructions for Treatment Patient Instructions Indication:Abdominal pain, acute, left lower quadrant Start:30-Aug-2012 Instruction Type:Provider Instructions for Treatment Patient Instructions Indication:Acute sinusitis, unspecified Start:03-May-2012 Instruction Type:Provider Instructions for Treatment Advance Directives No Advanced Directives Records Found Name Dates Details Immunization Registry [place] - Effective on 09/03/2020. Expiration date unspecified Effective:03-Sep-2020 Name Dates Details Immunization Registry [place] - Effective on 09/03/2020. Expiration date unspecified Effective:03-Sep-2020 Name Dates Details Immunization Registry [place] - Effective on 09/03/2020. Expiration date unspecified Effective:03-Sep-2020 Name Dates Details Immunization Registry [place] - Effective on 09/03/2020. Expiration date unspecified Effective:03-Sep-2020 Name Dates Details Immunization Registry [place] - Effective on 09/03/2020. Expiration date unspecified Effective:03-Sep-2020 Name Dates Details Immunization Registry [place] - Effective on 01/14/2021. Expiration date unspecified Effective:14-Jan-2021 Name Dates Details Immunization Registry [place] - Effective on 01/14/2021. Expiration date unspecified Effective:14-Jan-2021 Name Dates Details Immunization Registry [place] - Effective on 01/14/2021. Expiration date unspecified Effective:14-Jan-2021 Name Dates Details Immunization Registry [place] - Effective on 05/05/2022. Expiration date unspecified Effective:05-May-2022 Name Dates Details Immunization Registry [place] - Effective on 05/05/2022. Expiration date unspecified Effective:05-May-2022 Name Dates Details Immunization Registry [place] - Effective on 05/05/2022. Expiration date unspecified Effective:05-May-2022 Name Dates Details Immunization Registry [place] - Effective on 05/05/2022. Expiration date unspecified Effective:05-May-2022 Name Dates Details Immunization Registry [place] - Effective on 05/05/2022. Expiration date unspecified Effective:05-May-2022 Name Dates Details Immunization Registry [place] - Effective on 05/05/2022. Expiration date unspecified Effective:05-May-2022 Name Dates Details Immunization Registry [place] - Effective on 05/05/2022. Expiration date unspecified Effective:05-May-2022 Name Dates Details Immunization Registry [place] - Effective on 05/05/2022. Expiration date unspecified Effective:05-May-2022 Name Dates Details Immunization Registry [place] - Effective on 05/05/2022. Expiration date unspecified Effective:05-May-2022 Name Dates Details Immunization Registry [place] - Effective on 05/05/2022. Expiration date unspecified Effective:05-May-2022 Name Dates Details Immunization Registry [place] - Effective on 05/05/2022. Expiration date unspecified Effective:05-May-2022 Name Dates Details Immunization Registry [place] - Effective on 05/05/2022. Expiration date unspecified Effective:05-May-2022 Summary Purpose Reason for Referral Specialty Diagnoses / Procedures Referred By Contac t Referred To Contact Ent - Otolaryngology Diagnoses Moderate persistent asthma without complication Procedures CONSULT TO ENT Mercy Gutiérrez MD [address] [place] [address] Tramaine [address] [place] [address] Referral ID Status Reason Start Date Expiration Date Visits Requested Visits Authorized [id number] Ref Not Required PCP Requested Referral 02/18/2024 02/17/2025 1 1 Specialty Diagnoses / Procedures Referred By Contac t [facility] Diagnoses Moderate persistent asthma without complication Procedures NITRIC OXIDE, EXHALED NITRIC OXIDE GAS DETERMINATION Mercy Gutiérrez MD [address] [place] [address] Res[facility] [address] [place] [address] Referral ID Status Reason Start Date Expiration Date Visits Requested Visits Authorized [id number] Authorized Auto-Generat ed Referral 02/18/2024 03/19/2025 1 1 Chief Complaint and Reason for Visit Chief Complaint Admit Date XRAY February 27, 2025 10 :34am Chief Complaint Admit Date XRAY February 27, 2025 10 :34am ABN FINDINGS ON DX IMAGING OF LIMBS Octo 2024 3:21pm Additional Source Comments Goals (unrecognized section and content) Goals may be documented in a n alternate sectionGoals may be documented in an alternate sectionGoals may be documented in an alternate sectionGoals may be documented in an alternate section No Information Available Source Comments (unrecognize d section and content) In the event this informatio n is protected by the Federal Confidentiality of Alcohol and Drug Abuse Patient Records regulations: The Federal rules restrict any use of the information to criminally investigate or prosecute any alcohol or drug abuse patient.[facility] the event this information is protected by the Federal Confidentiality of Alcohol and Drug Abuse Patient Records regulations: The Federal rules restrict any use of the information to criminally investigate or prosecute any alcohol or drug abuse patient.[facility] Center[facility] the event this information is protected by the Federal Confidentiality of Alcohol and Drug Abuse Patient Records regulations: The Federal rules restrict any use of the information to criminally investigate or prosecute any alcohol or drug abuse patient.[facility] Center[facility] the event this information is protected by the Federal Confidentiality of Alcohol and Drug Abuse Patient Records regulations: The Federal rules restrict any use of the information to criminally investigate or prosecute any alcohol or drug abuse patient.[facility] CenterIn the event this information is protected by the Federal Confidentiality of Alcohol and Drug Abuse Patient Records regulations: The Federal rules restrict any use of the information to criminally investigate or prosecute any alcohol or drug abuse patient.[facility] CenterIn the event this information is protected by the Federal Confidentiality of Alcohol and Drug Abuse Patient Records regulations: The Federal rules restrict any use of the information to criminally investigate or prosecute any alcohol or drug abuse patient.[facility] CenterIn the event this information is protected by the Federal Confidentiality of Alcohol and Drug Abuse Patient Records regulations: The Federal rules restrict any use of the information to criminally investigate or prosecute any alcohol or drug abuse patient.[facility] CenterIn the event this information is protected by the Federal Confidentiality of Alcohol and Drug Abuse Patient Records regulations: The Federal rules restrict any use of the information to criminally investigate or prosecute any alcohol or drug abuse patient.[facility] CenterIn the event this information is protected by the Federal Confidentiality of Alcohol and Drug Abuse Patient Records regulations: The Federal rules restrict any use of the information to criminally investigate or prosecute any alcohol or drug abuse patient.[facility] CenterIn the event this information is protected by the Federal Confidentiality of Alcohol and Drug Abuse Patient Records regulations: The Federal rules restrict any use of the information to criminally investigate or prosecute any alcohol or drug abuse patient.[facility] CenterIn the event this information is protected by the Federal Confidentiality of Alcohol and Drug Abuse Patient Records regulations: The Federal rules restrict any use of the information to criminally investigate or prosecute any alcohol or drug abuse patient.[facility] CenterIn the event this information is protected by the Federal Confidentiality of Alcohol and Drug Abuse Patient Records regulations: The Federal rules restrict any use of the information to criminally investigate or prosecute any alcohol or drug abuse patient.[facility] CenterIn the event this information is protected by the Federal Confidentiality of Alcohol and Drug Abuse Patient Records regulations: The Federal rules restrict any use of the information to criminally investigate or prosecute any alcohol or drug abuse patient.[facility] CenterIn the event this information is protected by the Federal Confidentiality of Alcohol and Drug Abuse Patient Records regulations: The Federal rules restrict any use of the information to criminally investigate or prosecute any alcohol or drug abuse patient.[facility] Care Teams (unrecognized sec tion and content) Counter Stitcher Relationship Specialty Start Date End Date Meghana Lanier MD [address] [facility] [address] [place] [address] PCP - General Internal Medicine 08/15/22 Counter Stitcher Relationship Specialty Start Date End Date Meghana Lanier MD [address] [facility] [address] [place] [address] PCP - General Internal Medicine 08/15/22 Counter Stitcher Relationship Specialty Start Date End Date Meghana Lanier MD [address] [facility] [address] [place] [address] PCP - General Internal Medicine 08/15/22 Counter Stitcher Relationship Specialty Start Date End Date Meghana Lanier MD [address] [facility] [address] [place] [address] PCP - General Internal Medicine 08/15/22 Counter Stitcher Relationship Specialty Start Date End Date Meghana Lanier MD [address] [facility] [address] [place] [address] PCP - General Internal Medicine 08/15/22 Counter Stitcher Relationship Specialty Start Date End Date Meghana Lanier MD [address] [place] [address] [address] [place] [address] PCP - General Internal Medicine 08/15/22 Counter Stitcher Relationship Specialty Start Date End Date Meghana Lanier MD [address] [place] [address] [address] [place] [address] PCP - General Internal Medicine 08/15/22 Counter Stitcher Relationship Specialty Start Date End Date Meghana Lanier MD [address] [place] [address] 2 [place] [address] PCP - General Internal Medicine 08/15/22 Counter Stitcher Relationship Specialty Start Date End Date Meghana Lanier MD [address] [facility] [address] [place] [address] PCP - General Internal Medicine 08/15/22 Counter Stitcher Relationship Specialty Start Date End Date Meghana Lanier MD [address] [facility] [address] [place] [address] PCP - General Internal Medicine 08/15/22 Counter Stitcher Relationship Specialty Start Date End Date Meghana Lanier MD [facility] [facility] [address] [place] [address] PCP - General Internal Medicine 08/15/22 Team Status: Active Member Role/Relationship Status Dates Dr. Meghana Lanier MD Family Provider Active Dr. Meghana Lanier MD Primary Care Provider Active Team Status: Inactive Member Role/Relationship Status Dates Dr. Meghana Lanier MD Primary Care Provider Active Start: February 27, 2025 End: February 27, 2025 Dr. Ye Conrad MD Attending Provider Active S tart: February 27, 2025 End: February 27, 2025 Team Status: Active Member Role/Relationship Status Dates Dr. Meghana Lanier MD Primary care physician Active Team Status: Inactive Member Role/Relationship Status Dates Dr. Meghana Lanier MD Primary care physician Active Start: February 27, 2025 End: February 27, 2025 Dr. Ye Conrad MD Attending physician Active Start: February 27, 2025 End: February 27, 2025 Team Status: Inactive Member Role/Relationship Status Dates Dr. Meghana Lanier MD Primary care physician Active Start: April 03, 2025 End: April 03, 2025 Dr. Meghana Lanier MD Attending physician Active Start: April 03, 2025 End: April 03, 2025 Dr. Meghana Lanier MD Referring Provider Active Start: April 03, 2025 End: April 03, 2025 (unrecognized sect ion and content) No Status Records FoundNo Status Records FoundNo Status Records Found INFORMATION SOURCE (unrecogn ized section and content) DATE CREATED AUTHOR 09/02/2022 [facility] DATE CREATED AUTHOR AUTHOR'S ORGANIZ ATION 03/21/2025 [facility] DATE CREATED AUTHOR AUTHOR'S ORGANIZ ATION 04/28/2025 [facility] Reason for Visit (unrecogniz ed section and content) Reason Comments Spirometry Specialty Diagnoses / Procedures Referred By Yelitza t Referred To Contact [facility] Diagnoses Mild intermittent asthma without complication Procedures SPIROMETRY - BASELINE AND POST DILATOR BRNCDILAT RSPSE SPMTRY PRE&POST-BRNCDILAT ADMMercy Espinoza MD [address] [place] [address] [address] Referral ID Status Reason Start Date Expiration Date V isits Requested Visits Authorized [id number] Closed Auto-Generate d Referral 08/16/2022 09/14/2023 1 1 Specialty Diagnoses / Procedures Referred By Yelitza cobb Referred To Contact [facility] Diagnoses Mild intermittent asthma without complication Procedures NITRIC OXIDE, EXHALED NITRIC OXIDE GAS DETERMINATION Mercy Gutiérrez MD [address] [place] [address] [address] Referral ID Status Reason Start Date Expiration Date V isits Requested Visits Authorized [id number] Closed Auto-Generate d Referral 08/16/2022 09/14/2023 1 1 Reason Comments New Patient Asthma Specialty Diagnoses / Procedures Referred By Yelitza cobb Referred To Contact [facility] Diagnoses Moderate persistent asthma without complication Procedures NITRIC OXIDE, EXHALED NITRIC OXIDE GAS DETERMINATION Mercy Gutiérrez MD [address] [place] [address] [address] Referral ID Status Reason Start Date Expiration Date V isits Requested Visits Authorized [id number] Closed Auto-Generate d Referral 09/04/2022 10/04/2023 1 1 Specialty Diagnoses / Procedures [facility] Diagnoses Moderate persistent asthma without complication Procedures NITRIC OXIDE, EXHALED NITRIC OXIDE GAS DETERMINATION Neetu Ochoa PA-C [address] [place] [address] [place] [phone] Referral ID Status Reason Start Date Expiration Date V isits Requested Visits Authorized [id number] Closed Auto-Generate d Referral 10/30/2022 11/29/2023 1 1 Reason Comments Established Patient asthma follow up Referral ID Status Reason Start Date Expiration Date V isits Requested Visits Authorized [id number] Closed Auto-Generate d Referral 01/24/2023 02/23/2024 1 1 Reason Comments Asthma Specialty Diagnoses / Procedures Referred By [facility] t Referred To [facility] Diagnoses Mild persistent asthma without complication Procedures NITRIC OXIDE, EXHALED NITRIC OXIDE GAS DETERMINATION Mercy Gutiérrez MD [address] [place] [address] [place] [phone] Referral ID Status Reason Start Date Expiration Date V isits Requested Visits Authorized [id number] Closed Auto-Generate d Referral 08/14/2023 09/12/2024 1 1 Reason Comments Established Patient 6 month follow up Asthma Reason Comments Orders Patient Update Specialty Diagnoses / Procedures [facility] To [facility] Diagnoses Moderate persistent asthma without complication Procedures NITRIC OXIDE, EXHALED NITRIC OXIDE GAS DETERMINATION Mercy Gutiérrez MD [address] [facility] [place] [address] Phone: tel: fax: [place] [phone] Referral ID Status Reason Start Date Expiration Date V isits Requested Visits Authorized [id number] Closed Auto-Generate d Referral 02/18/2024 03/19/2025 1 1 Reason Comments Established Patient 6 month follow up as thma FOR RECORDS PERTAINING TO PATIENTS WHO ARE OR HAVE BEEN ENROLLED IN A CHEMICAL DEPENDENCY/SUBSTANCEABUSE PROGRAM, SOME INFORMATION MAY BE OMITTED. This clinical summary was aggregated from multiple sources. Caution should be exercised in using it in the provision of clinical care. This summary normalizes information from multiple sources, and as a consequence, information in this document may materially change the coding, format and clinical context of patient data. In addition, data may be omitted in some cases. CLINICAL DECISIONS SHOULD BE BASED ON THE PRIMARY CLINICAL RECORDS. [facility] [employer] [facility] provides no warranty or guarantee of the accuracy or completeness of information in this document.
[2025-05-31] MEDS: 0.9% Normal Saline (500mL Bag) 500 ML 1000 ML IV (12:10)
--- NOTE | 2025-05-31 12:10 | EKG12_ITS ---
Test Reason : REPEAT Blood Pressure : */* mmHG Vent. Rate : 64 BPM Atrial Rate : 64 BPM P-R Int : 180 ms QRS Dur : 94 ms QT Int : 372 ms P-R-T Axes : 49 78 49 degrees QTcB Int : 383 ms Normal sinus rhythm Normal ECG Confirmed by Anthony Krishna ([id number]), story editor ALEJO SHELLEY ([id number]) on 06/01/2025 8:23:59 AM Referred By: CG Confirmed By: Anthony Krishna
--- NOTE | 2025-05-31 12:23 | EKG12_ITS ---
Test Reason : REPEAT Blood Pressure : */* mmHG Vent. Rate : 76 BPM Atrial Rate : * BPM P-R Int : * ms QRS Dur : 90 ms QT Int : 326 ms P-R-T Axes : * 71 53 degrees QTcB Int : 366 ms Atrial fibrillation Abnormal ECG Confirmed by Anthony Krishna ([id number]), book editor ALEJO SHELLEY ([id number]) on 06/01/2025 8:23:48 AM Referred By: RODY Confirmed By: Anthony Krishna
[2025-05-31 12:26] LABS: D-Dimer Quantitative (DVT/PE) < 0.27 FEU/ug/m (0.27-0.49); Troponin T High Sensitivity 21 ng/L (<=22)
[2025-05-31 12:28] LABS: AST(SGOT) 33 U/L (<=37); Alanine Aminotransfer ALT/SGPT 26 U/L (<=46); Albumin, Serum 4.6 g/dL (3.4-4.8); Alkaline Phosphatase 56 U/L (40-129); Anion Gap 11 (5-15); BUN 17 mg/dL (4-19); BUN/Creat Ratio 18.0 RATIO (10-20); Calcium,Total 10.0 mg/dL (7.6-11.0); Carbon Dioxide 27.6 mmol/L (21.0-32.0); Chloride 100 mmol/L (98-108); Estimated Creatinine Clearance 84.31 ml/min (50-250); Globulin 3.1 g/dL (2.2-4.2); Glucose 73 mg/dL (70-99); Potassium 4.5 mmol/L (3.3-5.1)
--- NOTE | 2025-05-31 15:28 | EDS_ITS ---
HPI History of Present Illness Chief Complaint: Palpitations Informant: patient Narrative Narrative: Patient is 59-year-old male with history of hyperlipidemia and asthma presenting with palpitations. Patient states he started with palpitations last night and they have persisted today. States he just does not feel right. Never had this sensation before. Denies any chest pain. Denies any lightheadedness. Notes he has a mild headache. Denies any recent swelling of his legs. Notes he did have a recent outpatient echocardiogram about 2 weeks ago and was told it was normal. No recent fever or chills reported. [place] a recent travel. [place] a history of D VT or PE. Notes his son had atrial fibrillation as a teenager Goel any other family history of any cardiac abnormalities. [facility] Home Medications Medication Instructions Recorded Last Taken Type Beclomethasone Diprop Inhaler 1 puff inhalation BID Unknown History [Qvar 80 Mcg Inhaler] cetirizine 10 mg capsule (Zyrtec) 10 mg PO DAILY 09/11 Unknown History aspirin 81 mg capsule 81 mg PO DAILY #30 caps 05/04 Unknown Rx metoprolol tartrate 25 mg tablet 25 mg PO BID #60 tabs 05/31/25 Unknown Rx Allergy/AdvReac Type Severity Reaction Status Date / Time No Known Allergies Allergy Verified 05/31/25 12:13 Social History Smoking Status: Never smoker ROS ROS ED Constitutional Constitutional ED: Denies chills or fever(s) Cardiovascular Cardiovascular: Reports as per HPI and palpitations Respiratory/Chest Respiratory/Chest: Denies cough or dyspnea Gastrointestinal Gastrointestinal: Denies abdominal pain, nausea or vomiting Musculoskeletal Musculoskeletal: Denies arthralgias or myalgias Neurologic Neurologic: Denies weakness Psychiatric Psychiatric: Denies anxiety Hematologic/Lymphatic Hematologic/Lymphatic: Denies easy bleeding or easy bruising EXAM Physical Exam Const Vital Signs: 05/31/25 11:39 05/31/25 12:39 05/31/25 13:00 Temperature 97.6 F L Temperature Source Oral Pulse Rate 149 H 61 61 Respiratory Rate 16 14 14 Blood Pressure 157/101 H 135/76 H 130/70 H Blood Pressure Mean 119 95 90 Pulse Ox 99 99 98 Oxygen Delivery Method Room Air 05/31/25 14:06 05/31/25 14:15 05/31/25 14:30 Temperature Temperature Source Pulse Rate 54 L 61 56 L Respiratory Rate 15 18 14 Blood Pressure 128/79 H 119/78 Blood Pressure Mean 93 91 Pulse Ox 100 100 100 Oxygen Delivery Method 05/31/25 14:45 05/31/25 15:00 05/31/25 15:05 Temperature Temperature Source Pulse Rate 58 L 59 L 55 L Respiratory Rate 16 18 Blood Pressure 136/79 H Blood Pressure Mean 99 Pulse Ox 100 Oxygen Delivery Method 05/31/25 15:15 05/31/25 15:30 05/31/25 15:45 Temperature Temperature Source Pulse Rate 57 L 62 64 Respiratory Rate 16 17 16 Blood Pressure Blood Pressure Mean Pulse Ox Oxygen Delivery Method 05/31/25 16:00 Temperature Temperature Source Pulse Rate 58 L Respiratory Rate 16 Blood Pressure Blood Pressure Mean Pulse Ox Oxygen Delivery Method Positive well nourished and well developed General Appearance ED: well developed and NAD HEENT Reports moist mucous membranes Eyes PERRL Neck supple and no JVD Chest Wall inspection of chest normal and palpation of chest normal Resp normal respiratory effort and clear to auscultation bilaterally Cardio regular rhythm and no murmurs Rate: tachycardic Peripheral Pulses: pulses 2+ throughout GI normal to inspection, nondistended, normoactive bowel sounds, soft to palpation and non-tender Extremity normal to inspection General Extremety ED: Negative for edema General Extremity: Negative for edema Neuro oriented x3 Sensorium / Orientation: awake and alert Motor Exam: Negative for general weakness Psych mental status grossly normal Skin no rashes or lesions noted and no wounds MDM MDM MDM Narrative Medical decision making narrative: Patient evaluated for palpitations. Upon arrival patient is tachycardic with a heart rate around 149. Differential includes new onset atrial fibrillation, flutter as well as SVT. He otherwise is well-appearing does not appear to be any type of shock or decompensation. No report of any recent hypovolemia or bleeding suggestive of other causes of tachyarrhythmia. Valsalva maneuver performed with no change in his rhythm. Patient administered 6 mg of IV adenosine. His heart rate slowed down to about 100 and he does have underlying flutter waves present. Patient was ordered metoprolol for further rate control as his rate then went back up to the 140s. Shortly after this and before receiving the metoprolol however he became rate controlled on his own and then after that converted back to normal sinus rhythm. Patient is then given oral metoprolol. Metabolic cardiac workup looking for underlying cause of what seems to be new onset of atrial flutter versus atrial fibs. Workup is largely negative occluding normal CBC, D-dimer, high-sensitivity troponin and CMP. Patient has a [id number] 2 score of 0 and is low risk for stroke associated with atrial fibrillation. No indication for anticoagulation at this time based on that. Will discuss case with cardiology for further recommendations and anticipate discharge home. Case discussed with Dr. Tobar. He recommends aspirin and agreeable that he is low risk per [id number] 2 score and does not require anticoagulation. Recommend start him on 25 mg daily metoprolol as well. Will follow-up outpatient. Given return precautions. Discharged home in stable condition. History & Record Review Additional record(s) reviewed:: Other (Echocardiogram from 04/15/2025-normal LVEF at 65%. Structurally normal valves. Normal LV size.) Lab Data Attestation: I reviewed the patient's lab results. Labs: Laboratory Results - last 24 hr 05/31/25 11:45 WBC 9.2 RBC 5.39 Hgb 16.3 Hct 50.7 MCV 94.1 H MCH 30.2 MCHC 32.1 RDW Std Deviation 46.2 H RDW Coeff of Den 13.2 Plt Count 327 MPV 9.5 Immature Gran % (Auto) 0.400 Neut % (Auto) 58.9 Lymph % (Auto) 21.6 [place] % (Auto) 10.7 H Eos % (Auto) 7.3 H Baso % (Auto) 1.1 H Absolute Neuts (auto) 5.4 Absolute Lymphs (auto) 1.98 Nucleated RBC % 0 D-Dimer Quant (PE/DVT) < 0.27 L Sodium 139 Potassium 4.5 Chloride 100 Carbon Dioxide 27.6 Anion Gap 11 BUN 17 Creatinine 0.95 Estim Creat Clear Calc 84.31 Est GFR (MDRD) Non-Af 91 BUN/Creatinine Ratio 18.0 Glucose 73 Calcium 10.0 Total Bilirubin 0.61 AST 33 ALT 26 Alkaline Phosphatase 56 Troponin T High Sens 21 Total Protein 7.7 Albumin 4.6 Globulin 3.1 Albumin/Globulin Ratio 1.5 Radiography Chest X-Ray - ED: 1 View, Read by ED Physician, Read by Radiologist and No Acute Disease Diagnostic Testing: Clinical Impression(s) from Imaging Studies Chest X-Ray 05/31/25 11:57 IMPRESSION: No evidence of acute cardiopulmonary pathology. Reading Location: [facility] Rhythm Strip Rhythm Strip: Sinus Tach Rate: 146 Ectopy: None EKG Initial EKG: Attestation: I personally reviewed and interpreted this EKG as follows: Interpretation: Sinus Tachycardia Comments: Sinus tachycardia rate of 146 bpm versus atrial flutter with variable conduction Slight rightward axis Right ventricular conduction delay Normal ST segment Prior EKG tracings: not available for review Prior: No Prior 2: Interpretation: Atrial Fibrillation Comments: Atrial fibrillation rate of 76 bpm Normal axis Normal intervals Normal ST segment Prior EKG tracings: available for review Prior: Changed 3: Attestation: I personally reviewed and interpreted this EKG as follows: Interpretation: Sinus Rhythm Comments: Normal sinus rhythm rate of 64 bpm Normal axis Normal intervals Normal ST segment Prior EKG tracings: available for review Prior: Changed Management Discussion w/another healthcare provider: Surveillance Operator Discharge Plan Triage Chief Complaint: Palpitations ED Provider: Alexandra Leonard Dx/Rx/DC Orders Clinical Impression: New onset a-fib Instructions: ED AFIB Prescriptions: New aspirin 81 mg capsule 81 mg PO DAILY Qty: 30 0RF metoprolol tartrate 25 mg tablet 25 mg PO BID Qty: 60 0RF No Action cetirizine [Zyrtec] 10 MG capsule 10 mg PO DAILY Beclomethasone Diprop Inhaler [Qvar 80 Mcg Inhaler] 1 PUFF inhaler 1 puff inhalation BID Primary Care Provider: Tayler Parr Referrals: Tayler Parr MD [Primary Care Provider, Internal Medicine] Cruzito Tobar MD [Med Staff - Active Staff, Cardiology] Activity Restrictions/Additional Instructions: Upon arrival to the ER your heart rhythm was either atrial fibrillation or atrial flutter with rapid ventricular response. While in the ER your heart rate spontaneously went back to normal sinus rhythm. You were given 25 mg metoprolol. Your workup was otherwise largely normal and reassuring. Per discussion with cardiology please start taking a daily aspirin as well as metoprolol for rate control. If you find that you are getting lightheaded, your heart rate is going below 50 or you are having episodes of low blood pressure you might need to decrease metoprolol to 12.5 mg twice a day instead of 25 mg twice a day. These pills can be cut in half. Please follow-up outpatient with your primary care doctor as well as cardiology as we discussed. Please return if you have any progression or worsening of your symptoms Print Language: Maldivian Disposition Disposition: Home, Self Care
== END 2025-05-31 16:32 | disposition home or self-care (01) ==
PROVIDERS: Emergency Provider Emergency Medicine; PCP Internal Medicine; Visit Provider Emergency Medicine
DX: I48.91 Unspecified atrial fibrillation (principal)
CPT/HCPCS: 71045; 80053; 84484; 85025; 85379; 93005; 96361; 96374; 99284; A4216; J0153